=== PATIENT | male | born 1955 | race Caucasian/White ===

== ENCOUNTER 2016-08-27 09:56 | Inpatient (IN) | payer MEDICARE, OTHER ==
[2016-08-27 10:09] VITALS: BMI 30.5
--- NOTE | 2016-08-27 10:30 | CT ---
PROCEDURE: CT HEAD WITHOUT CONTRAST. HISTORY: Code Stroke COMPARISON: 03/04/2014. TECHNIQUE: Axial computed tomography images were obtained through the head/brain without intravenous contrast. Radiation dose: Total exam DLP = 1108.14 mGy-cm. FINDINGS: HEMORRHAGE: No intracranial hemorrhage. BRAIN: No mass effect or edema. No CT evidence of acute territorial infarct. Mild volume loss likely age related. Patchy and confluent hypodensities throughout the bilateral cerebral hemispheric white matter are most likely from chronic small vessel ischemic changes. Area of hypodensity in the posterior right lentiform nucleus remains essentially stable when compared to the prior CT from 03/04/2014. This likely represents old vascular injury. VENTRICLES: Unremarkable. No hydrocephalus. CALVARIUM: Unremarkable. PARANASAL SINUSES: Unremarkable as visualized. No significant inflammatory changes. MASTOID AIR CELLS: Unremarkable as visualized. No inflammatory changes. OTHER FINDINGS: None. IMPRESSION: No CT evidence of acute intracranial hemorrhage or acute territorial infarct. Acute infarction may be CT occult within first 24 hours. If a focal deficit persists, consider followup CT or MRI for further evaluation. Other findings as above. Discussed with Dr. Su at 10:26 a.m. on 08/27/2016.
[2016-08-27 10:38] LABS: BASO # 0.1 K/uL (0.0-0.2); BASO % 0.7 % (0.0-2.0); EOS % 0.1 % (0.0-4.0); HEMATOCRIT 35.4 % (35.0-51.0); LYMPH % 8.6 % (20.0-40.0); MEAN CELL VOLUME 95.2 fL (80.0-94.0); MEAN CORPUSCULAR HEMOGLOBIN 31.3 pg (27.0-31.0); MEAN CORPUSCULAR HGB CONC 32.9 g/dL (33.0-37.0); MEAN PLATELET VOLUME 7.6 fL (7.2-11.7); MONO # 0.8 K/uL (0.0-0.8); MONO % 6.7 % (0.0-10.0); PLATELET COUNT 191 K/uL (130-400); RED CELL DISTRIBUTION WIDTH 13.3 % (11.5-14.5); WHITE BLOOD COUNT 11.2 K/uL (4.8-10.8)
[2016-08-27 10:51] LABS: INR 1.1
[2016-08-27 10:53] LABS: POTASSIUM 5.6 mmol/L (3.6-5.2)
[2016-08-27 10:55] LABS: ALB/GLOB RATIO 1.4 (1.0-2.1); BILIRUBIN,TOTAL 0.5 mg/dL (0.2-1.3); TOTAL PROTEIN 7.5 g/dL (6.3-8.3)
[2016-08-27 10:56] LABS: CALCIUM 8.2 mg/dl (8.6-10.4)
[2016-08-27 11:05] LABS: TROPONIN I 0.016 ng/mL (0.00-0.120)
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
[2016-08-27 11:17] LABS: NEUTROPHIL 68 % (50-75); REACTIVE LYMPHOCYTES 2 % (0-0); TOTAL CELLS COUNTED 100
--- NOTE | 2016-08-27 11:49 | RAD ---
HISTORY: code stroke COMPARISON: 12/29/2014 FINDINGS: LUNGS: Mild increased pulmonary vascular congestion. PLEURA: No significant pleural effusion identified, no pneumothorax apparent. CARDIOVASCULAR: Mildly enlarged cardiomediastinal silhouette. OSSEOUS STRUCTURES: The osseous structures demonstrate degenerative changes. VISUALIZED UPPER ABDOMEN: Upper abdomen is suboptimally evaluated. OTHER FINDINGS: None. IMPRESSION: Mild increased pulmonary vascular congestion.
[2016-08-27] MEDS ORDERED: Albuterol 0.083% Inhal Sol (2.5 mg/3 mL) UD IH STA (12:06)
[2016-08-27] MEDS ORDERED: Calcium Gluconate 4.65 MEQ in Dextrose 5% In Water 100 ML IV ONE (12:06)
[2016-08-27] MEDS ORDERED: Albuterol 0.083% Inhal Sol (2.5 mg/3 mL) UD ONE (13:18)
[2016-08-27 14:17] LABS: VENOUS BLOOD GAS BASE EXCESS 5.8 mmol/L (0.0-2.0); VENOUS BLOOD GAS PCO2 55 mmHg (40-60); VENOUS BLOOD PH 7.38 (7.32-7.43)
[2016-08-27] MEDS ORDERED: POLYETHYLENE GLYCOL 3350 17 GM/Dose PACKET PO PRN (18:53)
[2016-08-27] MEDS ORDERED: Sodium Chloride 0.45% 1,000 ML IV SCH (19:45)
[2016-08-27] MEDS: (Novolin R) Insulin Human Regular 100 units/ml vial SC SCH (22:41)
[2016-08-28] MEDS: (Novolin R) Insulin Human Regular 100 units/ml vial SC SCH ×5 (00:03→21:27)
[2016-08-28] MEDS: Albuterol-Ipratrop 3 mg / 0.5 (3 ml) UD IH SCH ×5 (01:28→19:19)
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
--- NOTE | 2016-08-28 10:20 | CP.PCM.CON ---
History of Present Illness - History of Present Illness History of Present Illness: Shortness of breath for the last few days. Past Patient History - Tetanus Immunizations Tetanus Immunization: Unknown - Past Medical History & Family History Past Medical History?: Yes - Past Social History Smoking Status: Former Smoker - CARDIAC Hx Congestive Heart Failure: Yes Hx Hypercholesterolemia: Yes Hx Hypertension: Yes - PULMONARY Hx Pneumonia: Yes - NEUROLOGICAL Hx Seizures: Yes Hx Transient Ischemic Attacks (TIA): Yes - HEENT Hx HEENT Problems: Yes Hx Glaucoma: Yes (LEFT EYE) - RENAL Hx Chronic Kidney Disease: Yes (SEE COMMENT) Hx Kidney Stones: No - ENDOCRINE/METABOLIC Hx Diabetes Mellitus Type 1: Yes - HEMATOLOGICAL/ONCOLOGICAL Hx Anemia: Yes - INTEGUMENTARY Hx Dermatological Problems: No - MUSCULOSKELETAL/RHEUMATOLOGICAL Hx Falls: No - GASTROINTESTINAL Hx Gastrointestinal Disorders: No - GENITOURINARY/GYNECOLOGICAL Hx Genitourinary Disorders: No - PSYCHIATRIC Hx Substance Use: No - SURGICAL HISTORY Hx Coronary Stent: Yes (4 years ago) - ANESTHESIA Hx Anesthesia: Yes Hx Anesthesia Reactions: No Hx Malignant Hyperthermia: No Meds Allergies/Adverse Reactions: Allergies Allergy/AdvReac Type Severity Reaction Status Date / Time No Known Allergies Allergy Verified 08/27/16 10:16 - Medications Medications: Current Medications Acetaminophen (Tylenol 325mg Tab) 650 mg PO Q6 PRN PRN Reason: Fever >100.4 F Albuterol/Ipratropium (Duoneb 3 Mg/0.5 Mg (3 Ml) Ud) 3 ml IH RQ6 [facility] Last Admin: 08/28/16 07:25 Dose: 3 ml Allopurinol (Zyloprim) 100 mg PO DAILY [facility] Aspirin (Ecotrin) 81 mg PO DAILY [facility] Carbamazepine (Tegretol-Xr) 200 mg PO BID [facility] Cinacalcet (Sensipar) 30 mg PO DAILY [facility] Clopidogrel Bisulfate (Plavix) 75 mg PO DAILY [facility] Docusate Sodium (Colace) 100 mg PO BID [facility] Enoxaparin Sodium (Lovenox) 30 mg SC DAILY [facility] Famotidine (Pepcid) 20 mg PO DAILY [facility] Gabapentin (Neurontin) 400 mg PO HS [facility] Last Admin: 08/27/16 22:41 Dose: 400 mg Home Med (Linagliptin [Tradjenta]) 5 mg PO DAILY [facility] Home Med (Humalog Mix 75-25 Kwikpen) 10 units SQ DAILY [facility] Insulin Human Regular (Novolin R) 1 unit SC ACHS [facility] PRN Reason: Protocol Last Admin: 08/28/16 08:10 Dose: Not Given Lisinopril (Zestril) 10 mg PO DAILY [facility] Metoprolol Tartrate (Lopressor) 50 mg PO BID [facility] Midodrine (Proamatine) 5 mg PO DAILY [facility] Polyethylene Glycol (Miralax) 17 gm PO BID PRN PRN Reason: Constipation Rosuvastatin Calcium (Crestor) 10 mg PO [facility] Last Admin: 08/27/16 22:41 Dose: 10 mg Sevelamer Carbonate (Renvela) 2,400 mg PO TID [facility] Physical Exam - Neck Exam Neck exam: Positive for: Normal Inspection - Respiratory Exam Respiratory Exam: Decreased Breath Sounds - Cardiovascular Exam Cardiovascular Exam: Systolic Murmur (2/6 systolic murmur.) - GI/Abdominal Exam GI & Abdominal Exam: Normal Bowel Sounds - Extremities Exam Extremities exam: Positive for: normal inspection - Neurological Exam Neurological exam: Oriented x3 Results - Vital Signs Recent Vital Signs: Last Vital Signs Temp 98.1 F 08/28/16 08:16 Pulse 85 08/28/16 08:59 Resp 20 08/28/16 08:16 BP 115/57 L 08/28/16 08:16 Pulse Ox 96 08/28/16 09:29 - Labs Result Diagrams: 08/27/16 10:32 08/27/16 10:32 Labs: Laboratory Results - last 24 hr 08/27/16 08/27/16 08/27/16 14:12 17:02 17:36 pO2 42 VBG pH 7.38 VBG pCO2 55 VBG HCO3 28.9 VBG Total CO2 34.2 H VBG O2 Sat (Calc) 78.2 H VBG Base Excess 5.8 H VBG Potassium 5.2 Sodium 136.0 Chloride 100.0 Glucose 62 L Lactate 1.0 POC Glucose (mg/dL) 58 L 95 Venous Blood Potassium 5.2 08/27/16 08/28/16 21:15 06:27 pO2 VBG pH VBG pCO2 VBG HCO3 VBG Total CO2 VBG O2 Sat (Calc) VBG Base Excess VBG Potassium Sodium Chloride Glucose Lactate POC Glucose (mg/dL) 186 H 115 H Venous Blood Potassium - EKG Data EKG shows normal: Sinus rhythm Assessment & Plan (1) CHF (congestive heart failure) Assessment and Plan: Patient have multiple medical issues which wan lead to fluid overload. at present h ebonie sto be fluid overloaded, Given his history of ESRD and dialysis he may need to have extra sessions of dialysis. Also he has significant electrolytes abnormalities which need to be corrected. Status: Acute (2) TIA (transient ischemic attack) Assessment and Plan: At present appears to be alert and oriented will consider further cardiac work up after echocardiogram. Status: Acute (3) Acute CHF Assessment and Plan: As discussed earlier need to rule out any ischemic cause of Chf exacerbation follow troponin and continue DAPT. Status: Acute
[2016-08-28] MEDS ORDERED: Albumin Human 25% (12.5 gm/50 ml) IV ONE (12:08)
[2016-08-28] MEDS: Enoxaparin 30 mg Syringe SC SCH (14:16)
[2016-08-28] MEDS: Insulin Detemir 100 units/ml Vial (Levemir) SC SCH (21:30)
--- NOTE | 2016-08-28 23:32 | CP.PCM.CON ---
Past Patient History - Tetanus Immunizations Tetanus Immunization: Unknown - Past Medical History & Family History Past Medical History?: Yes - Past Social History Smoking Status: Former Smoker - CARDIAC Hx Congestive Heart Failure: Yes Hx Hypercholesterolemia: Yes Hx Hypertension: Yes - PULMONARY Hx Pneumonia: Yes - NEUROLOGICAL Hx Seizures: Yes Hx Transient Ischemic Attacks (TIA): Yes - HEENT Hx HEENT Problems: Yes Hx Glaucoma: Yes (LEFT EYE) - RENAL Hx Chronic Kidney Disease: Yes (SEE COMMENT) Hx Kidney Stones: No - ENDOCRINE/METABOLIC Hx Diabetes Mellitus Type 1: Yes - HEMATOLOGICAL/ONCOLOGICAL Hx Anemia: Yes - INTEGUMENTARY Hx Dermatological Problems: No - MUSCULOSKELETAL/RHEUMATOLOGICAL Hx Falls: No - GASTROINTESTINAL Hx Gastrointestinal Disorders: No - GENITOURINARY/GYNECOLOGICAL Hx Genitourinary Disorders: No - PSYCHIATRIC Hx Substance Use: No - SURGICAL HISTORY Hx Coronary Stent: Yes (4 years ago) - ANESTHESIA Hx Anesthesia: Yes Hx Anesthesia Reactions: No Hx Malignant Hyperthermia: No Meds Allergies/Adverse Reactions: Allergies Allergy/AdvReac Type Severity Reaction Status Date / Time No Known Allergies Allergy Verified 08/27/16 10:16 - Medications Medications: Current Medications Acetaminophen (Tylenol 325mg Tab) 650 mg PO Q6 PRN PRN Reason: Fever >100.4 F Albuterol/Ipratropium (Duoneb 3 Mg/0.5 Mg (3 Ml) Ud) 3 ml IH RQ6 [facility] Last Admin: 08/28/16 19:19 Dose: Not Given Allopurinol (Zyloprim) 100 mg PO DAILY [facility] Last Admin: 08/28/16 14:17 Dose: Not Given Aspirin (Ecotrin) 81 mg PO DAILY [facility] Last Admin: 08/28/16 14:16 Dose: Not Given Carbamazepine (Tegretol-Xr) 200 mg PO BID [facility] Last Admin: 08/28/16 17:32 Dose: 200 mg Cinacalcet (Sensipar) 30 mg PO DAILY [facility] Last Admin: 08/28/16 14:17 Dose: Not Given Clopidogrel Bisulfate (Plavix) 75 mg PO DAILY [facility] Last Admin: 08/28/16 14:16 Dose: Not Given Docusate Sodium (Colace) 100 mg PO BID [facility] Last Admin: 08/28/16 17:31 Dose: 100 mg Enoxaparin Sodium (Lovenox) 30 mg SC DAILY [facility] Last Admin: 08/28/16 14:16 Dose: Not Given Famotidine (Pepcid) 20 mg PO DAILY [facility] Last Admin: 08/28/16 14:16 Dose: Not Given Gabapentin (Neurontin) 400 mg PO [facility] Last Admin: 08/28/16 21:08 Dose: 400 mg Insulin Detemir (Levemir) 10 unit SC HS [facility] Last Admin: 08/28/16 21:30 Dose: 10 unit Insulin Human Regular (Novolin R) 0 unit SC [facility] PRN Reason: Protocol Last Admin: 08/28/16 21:27 Dose: Not Given Lisinopril (Zestril) 10 mg PO DAILY [facility] Last Admin: 08/28/16 14:17 Dose: Not Given Metoprolol Tartrate (Lopressor) 50 mg PO BID [facility] Last Admin: 08/28/16 17:31 Dose: 50 mg Midodrine (Proamatine) 5 mg PO DAILY [facility] Last Admin: 08/28/16 14:17 Dose: Not Given Polyethylene Glycol (Miralax) 17 gm PO BID PRN PRN Reason: Constipation Rosuvastatin Calcium (Crestor) 10 mg PO [facility] Last Admin: 08/28/16 21:08 Dose: 10 mg Sevelamer Carbonate (Renvela) 2,400 mg PO [facility] Sitagliptin Phosphate (Januvia) 25 mg PO DAILY [facility] Last Admin: 08/28/16 18:13 Dose: Not Given Results - Vital Signs Recent Vital Signs: Last Vital Signs Temp 99.2 F 08/28/16 15:00 Pulse 99 H 08/28/16 16:02 Resp 20 08/28/16 15:00 BP 129/72 08/28/16 15:00 Pulse Ox 97 08/28/16 15:00 - Labs Result Diagrams: 08/27/16 10:32 08/27/16 10:32 Assessment & Plan - Assessment and Plan (Free Text) Plan: esrd
[2016-08-29] MEDS: Albuterol-Ipratrop 3 mg / 0.5 (3 ml) UD IH SCH ×4 (01:39→19:20)
[2016-08-29] MEDS: (Novolin R) Insulin Human Regular 100 units/ml vial SC SCH ×4 (08:07→21:24)
--- NOTE | 2016-08-29 10:23 | PN ---
DATE: 08/28/2016 The patient is a 61-year-old male. The patient is seen and examined on the bedside, looks comfortabl e. No nausea, vomiting, or diarrhea. No hematuria, no hematochezia. No swelling of the legs. No h eadache, no dizziness. Feeling better. Shortness of breath is better. PHYSICAL EXAMINATION: VITAL SIGNS: Temperature 99.2, pulse 99, blood pressure 129/72, respiratory rate 20. HEENT: Head normocephalic, atraumatic. Eyes: PERRLA. Extraocular muscles intact. Conjunctivae pi nk. Eyelids unremarkable. Nose patent. NECK: Supple. No carotid bruit, no JVD, no thyromegaly. CHEST: Bilaterally symmetrical. HEART: S1, S2 positive. LUNGS: Clear to auscultation. ABDOMEN: Soft. Bowel sounds positive. No organomegaly. EXTREMITIES: No edema, no cyanosis. NEUROLOGIC: The patient is awake, alert, moving all 4 extremities. No focal deficit. MEDICATIONS: Colace, Crestor, aspirin, Januvia, Levemir, Lopressor, MiraLax, insulin, Pepcid, Plavix , ProAmatine, Renvela, Sensipar, carbamazepine, Tylenol, Zestril, allopurinol. LABORATORIES: White blood cells 11.0, hemoglobin 11.6, hematocrit 35.4, platelets 191. Glucose 311, 231, 115. ASSESSMENT AND PLAN: The patient is a 61-year-old male with leukocytosis, anemia, hyperkalemia, robby l insufficiency, uncontrolled diabetes mellitus, hemoglobin A1c is 8.1, hypocalcemia, hypertriglyceri demia. Seen by the disability advocate, Dr. Janneth Combs. According to him, shortness of breath is due t o exacerbation of congestive heart failure. After dialysis, hope will get better, maybe needs more c ycles of dialysis. Transient ischemic attack, but today patient is alert and oriented. According to Dr. Combs, maybe he will do echocardiography. CAT scan of the head is done, reviewed by me. The maira chiang has history of coronary artery disease, cerebrovascular accident with residual mild gait instab ility, hypertension, history of pneumonia, had arteriovenous shunt, seizures, transient ischemic malachi ck. Continue dialysis. Waiting for Dr. Clayton's followup. Gastrointestinal and deep venous thrombo sis prophylaxis. We will continue home medications, albuterol, Colace for constipation and Crestor f or hypercholesterolemia. He is getting Januvia and insulin for diabetes mellitus, metoprolol for hyp ertension, Lovenox for deep venous thrombosis prophylaxis. Repeat labs. We will follow up. Sabiha Blanca MD cc: [id number] TT: 08/29/2016 10:22:58 Confirmation # [id number] Dictation # [id number]
[2016-08-29] MEDS: Enoxaparin 30 mg Syringe SC SCH (10:34)
--- NOTE | 2016-08-29 19:51 | PN ---
DATE: 08/29/2016 The patient was seen and examined on the bedside, looks comfortable. His father was sitting on the b edside near him. Feels better. No nausea, vomiting, diarrhea. Shortness of breath is better. No f ever, no chills. No headache, no dizziness. Last night was uneventful. Had good sleep. PHYSICAL EXAMINATION: VITAL SIGNS: Temperature 98, heart rate 67, blood pressure 91/50, respiratory rate 18. HEAD: Normocephalic, atraumatic. Eyes: PERRLA. Extraocular muscles intact. Conjunctivae clear. E yelids unremarkable. Nose patent. Mucous membranes moist. NECK: Supple. No carotid bruit. No JVD or thyromegaly. CHEST: Bilaterally symmetrical. HEART: S1, S2 positive. LUNGS: Clear to auscultation. ABDOMEN: Soft. Bowel sounds present. No organomegaly. EXTREMITIES: No edema, no cyanosis. NEUROLOGIC: The patient is awake, alert, moving all 4 extremities. No focal deficit. MEDICATIONS: Colace, Crestor, Ecotrin, Januvia, Levemir, Lopressor, Lovenox, MiraLax, Neurontin, ins ulin, Pepcid, Plavix, midodrine, Renvela, Sensipar, Tegretol, Tylenol, Zestril, allopurinol. LABORATORY DATA: White blood cells 11.2, hemoglobin 11.6, hematocrit 35.9, platelets 191. ASSESSMENT AND PLAN: The patient is a 61-year-old male with leukocytosis, anemia, uncontrolled diabe jil mellitus, renal insufficiency on hemodialysis, hyperkalemia, hypocalcemia, hypertriglyceridemia. 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 Has renal insufficiency, came with exacerbation of conge stive heart failure. Getting dialysis. Transient ischemic attack. Maybe Tuesday patient will go for echocardiography. History of coronary artery disease, cerebrovascular accident, history of pneumoni a, hypertension, had arteriovenous shunt, seizures, transient ischemic attack. Gastrointestinal and deep venous thrombosis prophylaxis. Continue Crestor for hypercholesterolemia, Colace for constipati on, Januvia and Levemir for diabetes mellitus, Lopressor for hypertension, ProAir for breathing probl ems, allopurinol for gouty arthritis. Gastrointestinal and deep venous thrombosis prophylaxis. Will repeat labs. We will follow up. Sabiha Blanca MD cc: [id number] TT: 08/29/2016 19:49:55 Confirmation # [id number] Dictation # [id number] rn
[2016-08-29] MEDS: Insulin Detemir 100 units/ml Vial (Levemir) SC SCH (21:16)
--- NOTE | 2016-08-29 23:50 | CARD ---
APPROVED REPORT EKG Measurement Heart [id number] TX [id number] <Conclusion> Normal sinus rhythm NS ST T CHANGES in the lateral wall Normal ECG
[2016-08-30] MEDS: Albuterol-Ipratrop 3 mg / 0.5 (3 ml) UD IH SCH ×3 (01:37→14:09)
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
[2016-08-30 08:20] LABS: POTASSIUM 5.6 mmol/L (3.6-5.2)
[2016-08-30 08:24] LABS: CALCIUM 7.8 mg/dl (8.6-10.4)
[2016-08-30 08:35] LABS: HEMATOCRIT 33.3 % (35.0-51.0); MEAN CORPUSCULAR HEMOGLOBIN 32.3 pg (27.0-31.0); MEAN CORPUSCULAR HGB CONC 33.2 g/dL (33.0-37.0); MEAN PLATELET VOLUME 8.4 fL (7.2-11.7); RED CELL DISTRIBUTION WIDTH 13.7 % (11.5-14.5)
[2016-08-30 08:40] LABS: WHITE BLOOD COUNT 5.2 K/uL (4.8-10.8)
[2016-08-30] MEDS: (Novolin R) Insulin Human Regular 100 units/ml vial SC SCH ×2 (09:11→13:20)
[2016-08-30 11:05] VITALS: RESP 20
[2016-08-30] MEDS ORDERED: Albumin Human 25% (12.5 gm/50 ml) IV ONE (11:30)
--- NOTE | 2016-08-30 11:44 | CP.PCM.PN ---
Subjective - Date & Time of Evaluation Date of Evaluation: 08/30/16 Time of Evaluation: 11:15 - Subjective Subjective: Currently on dialysis comfortable supine Objective - Vital Signs/Intake and Output Vital Signs (last 24 hours): Temp Pulse Resp BP Pulse Ox 98.4 F 77 20 91/39 L 98 08/30/16 09:45 08/30/16 09:45 08/30/16 09:45 08/30/16 11:15 08/30/16 09:45 - Medications Medications: Current Medications Acetaminophen (Tylenol 325mg Tab) 650 mg PO Q6 PRN PRN Reason: Fever >100.4 F Albuterol/Ipratropium (Duoneb 3 Mg/0.5 Mg (3 Ml) Ud) 3 ml IH RQ6 [facility] Last Admin: 08/30/16 07:43 Dose: 3 ml Allopurinol (Zyloprim) 100 mg PO DAILY [facility] Last Admin: 08/29/16 10:30 Dose: 100 mg Aspirin (Ecotrin) 81 mg PO DAILY [facility] Last Admin: 08/29/16 10:31 Dose: 81 mg Carbamazepine (Tegretol-Xr) 200 mg PO BID [facility] Last Admin: 08/29/16 17:16 Dose: 200 mg Cinacalcet (Sensipar) 30 mg PO DAILY [facility] Last Admin: 08/29/16 10:30 Dose: 30 mg Clopidogrel Bisulfate (Plavix) 75 mg PO DAILY [facility] Last Admin: 08/29/16 10:30 Dose: 75 mg Docusate Sodium (Colace) 100 mg PO BID [facility] Last Admin: 08/29/16 17:17 Dose: 100 mg Enoxaparin Sodium (Lovenox) 30 mg SC DAILY [facility] Last Admin: 08/29/16 10:34 Dose: 30 mg Famotidine (Pepcid) 20 mg PO DAILY [facility] Last Admin: 08/29/16 10:11 Dose: 20 mg Gabapentin (Neurontin) 400 mg PO HS [facility] Last Admin: 08/29/16 21:16 Dose: 400 mg Insulin Detemir (Levemir) 10 unit SC HS [facility] Last Admin: 08/29/16 21:16 Dose: 10 unit Insulin Human Regular (Novolin R) 0 unit SC ACHS [facility] PRN Reason: Protocol Last Admin: 08/30/16 09:11 Dose: Not Given Lisinopril (Zestril) 10 mg PO DAILY [facility] Last Admin: 08/29/16 10:30 Dose: 10 mg Metoprolol Tartrate (Lopressor) 50 mg PO BID [facility] Last Admin: 08/29/16 17:17 Dose: 50 mg Polyethylene Glycol (Miralax) 17 gm PO BID PRN PRN Reason: Constipation Rosuvastatin Calcium (Crestor) 10 mg PO HS [facility] Last Admin: 08/29/16 21:16 Dose: 10 mg Sevelamer Carbonate (Renvela) 2,400 mg PO TIDCC [facility] Last Admin: 08/30/16 08:25 Dose: 2,400 mg Sitagliptin Phosphate (Januvia) 25 mg PO DAILY [facility] Last Admin: 08/29/16 10:30 Dose: 25 mg - Labs Labs: 08/30/16 07:52 08/30/16 07:52 PT 12.0 SECONDS (9.7-12.2) 08/27/16 10:32 INR 1.1 08/27/16 10:32 APTT 26 SECONDS (21-34) 08/27/16 10:32 - Respiratory Exam Respiratory Exam: NORMAL BREATHING PATTERN Additional comments: Lungs clear - Cardiovascular Exam Cardiovascular Exam: REGULAR RHYTHM - Extremities Exam Additional comments: No edema or cyanosis Assessment and Plan - Assessment and Plan (Free Text) Assessment: ESRD on maint HD CHF/volume overload improving Hx/o HTN DM Old CVA wit lt carter Plan: Receiving extra dialysis today Volume overload improving Hemodialysis MWF
[2016-08-30] MEDS: Enoxaparin 30 mg Syringe SC SCH (13:35)
--- NOTE | 2016-08-30 15:11 | CP.PCM.PN ---
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 F/U WITH HIM IN THE OFFICE IN 2 WEEKS, F/U ELIUD CASIANO IN 5-7 DAYS, HD SCHEDULE M//, CALL DR BRICEÑO OFFICE IF ANY FURTHER QUESTIONS, CONTINUE ALL HOME MEDS PER DR BRICEÑO, AGREE W/POC, VERBALIZE UNDERSTANDING. Objective - Vital Signs/Intake and Output Vital Signs (last 24 hours): Temp Pulse Resp BP Pulse Ox 98.5 F 70 20 110/47 L 100 08/30/16 12:45 08/30/16 12:45 08/30/16 12:45 08/30/16 12:45 08/30/16 12:45 - Medications Medications: Current Medications Acetaminophen (Tylenol 325mg Tab) 650 mg PO Q6 PRN PRN Reason: Fever >100.4 F Albuterol/Ipratropium (Duoneb 3 Mg/0.5 Mg (3 Ml) Ud) 3 ml IH RQ6 [facility] Last Admin: 08/30/16 14:09 Dose: Not Given Allopurinol (Zyloprim) 100 mg PO DAILY [facility] Last Admin: 08/30/16 13:36 Dose: 100 mg Aspirin (Ecotrin) 81 mg PO DAILY [facility] Last Admin: 08/30/16 13:36 Dose: 81 mg Carbamazepine (Tegretol-Xr) 200 mg PO BID [facility] Last Admin: 08/30/16 13:35 Dose: 200 mg Cinacalcet (Sensipar) 30 mg PO DAILY [facility] Last Admin: 08/30/16 13:35 Dose: 30 mg Clopidogrel Bisulfate (Plavix) 75 mg PO DAILY [facility] Last Admin: 08/30/16 13:36 Dose: 75 mg Docusate Sodium (Colace) 100 mg PO BID [facility] Last Admin: 08/30/16 13:36 Dose: 100 mg Enoxaparin Sodium (Lovenox) 30 mg SC DAILY [facility] Last Admin: 08/30/16 13:35 Dose: 30 mg Famotidine (Pepcid) 20 mg PO DAILY [facility] Last Admin: 08/30/16 13:36 Dose: 20 mg Gabapentin (Neurontin) 200 mg PO [facility] Insulin Detemir (Levemir) 10 unit SC HS [facility] Last Admin: 08/29/16 21:16 Dose: 10 unit Insulin Human Regular (Novolin R) 0 unit SC [facility] PRN Reason: Protocol Last Admin: 08/30/16 13:20 Dose: 2 unit Lisinopril (Zestril) 10 mg PO DAILY [facility] Last Admin: 08/30/16 13:36 Dose: 10 mg Metoprolol Tartrate (Lopressor) 50 mg PO BID [facility] Last Admin: 08/30/16 13:37 Dose: 50 mg Polyethylene Glycol (Miralax) 17 gm PO BID PRN PRN Reason: Constipation Rosuvastatin Calcium (Crestor) 10 mg PO HS [facility] Last Admin: 08/29/16 21:16 Dose: 10 mg Sevelamer Carbonate (Renvela) 2,400 mg PO TIDCC [facility] Last Admin: 08/30/16 13:37 Dose: 2,400 mg Sitagliptin Phosphate (Januvia) 25 mg PO DAILY [facility] Last Admin: 08/30/16 13:36 Dose: 25 mg - Labs Labs: 08/30/16 07:52 08/30/16 07:52 PT 12.0 SECONDS (9.7-12.2) 08/27/16 10:32 INR 1.1 08/27/16 10:32 APTT 26 SECONDS (21-34) 08/27/16 10:32
--- NOTE | 2016-08-30 15:55 | PCM.HF ---
Heart Failure Core Measure - Heart Failure Ejection Fraction: 40 % or Greater (LVEF 84%) SANDRA Inhibitor Prescribed: Yes Beta-Bernice Prescribed: Metoprolol Succinate Angiotensin II Receptor Bernice Prescribed: No Contraindication/Reason for not providing: ON SANDRA AnticoagulationTherapy for Atrial Fibrillation/Atrialflutter: Yes Aldosterone Antagonist Prescribed: No Contraindication/Reason for not providing: ESRD Hydralazine Nitrate Prescribed: No Contraindication/Reason for not providing: ESRD Implantable Cardioverter Defibrillator Therapy: No Contraindication/Reason for not providing: LVEF >40% Cardiac Resynchronization Therapy Prescribed: No Contraindication/Reason for not providing: LVEF >40% - Follow up Will be discharged to: Home Follow Up Date (must be within 7 days from discharge): 09/02/16 Follow Up Time: 09:00
[2016-08-30 16:33] VITALS: BP 138/65; PULSE 75; TEMP 98.3; O2SAT 96
== END 2016-08-30 17:40 | disposition home or self-care (01) | DRG 291 ==
LOC: C.ER 09:56 → C.9E 12:04 → C.6T 18:25 → OBSVTOIN 08-28 21:41
PROVIDERS: ADMIT Internal Medicine; ATTEND Internal Medicine
PROC: 5A1D00Z (ICD-10-PCS; principal; 2016-08-30)
DX: I13.2 Hypertensive heart and chronic kidney disease with heart failure and with stage 5 chronic kidney disease, or end stage renal disease (principal); G45.9 Transient cerebral ischemic attack, unspecified; N18.6 End stage renal disease; E11.22 Type 2 diabetes mellitus with diabetic chronic kidney disease; I50.9 Heart failure, unspecified; K59.00 Constipation, unspecified; M10.9 Gout, unspecified; E78.1 Pure hyperglyceridemia; E11.65 Type 2 diabetes mellitus with hyperglycemia; E83.51 Hypocalcemia; R26.81 Unsteadiness on feet; I25.10 Atherosclerotic heart disease of native coronary artery without angina pectoris; E87.5 Hyperkalemia; D64.9 Anemia, unspecified; D72.829 Elevated white blood cell count, unspecified; E78.00 Pure hypercholesterolemia, unspecified; R06.02 Shortness of breath; H40.9 Unspecified glaucoma; I69.354 Hemiplegia and hemiparesis following cerebral infarction affecting left non-dominant side; Z95.5 Presence of coronary angioplasty implant and graft; Z87.01 Personal history of pneumonia (recurrent); Z87.891 Personal history of nicotine dependence; Z79.4 Long term (current) use of insulin; Z99.2 Dependence on renal dialysis

== ENCOUNTER 2017-02-24 10:23 | Emergency (ER) | payer MEDICARE, OTHER ==
[2017-02-24 10:32] VITALS: RESP 18; TEMP 97.6
[2017-02-24 10:43] VITALS: BMI 33.5
[2017-02-24] MEDS ORDERED: Tetanus/Diphtheria Toxoids 0.5 ml Syringe IM ONE (10:51)
--- NOTE | 2017-02-24 11:20 | C.PDOC ---
History Of Present Illness 61 yr old male brought in via BLS, presents to the ER with complaints of left toe, 3rd digit injury, s/p banging it on the bed this morning. Patient reports of pain and swelling at the site. Patient has history of diabetes and neuropathy , states he is unable to feel his feet and often injures them. Patient is unsure of his tetanus status. Denies LOC, fall, weakness or numbness. Time Seen by Provider: 02/24/17 10:44 Chief Complaint (Nursing): Lower Extremity Problem/Injury History Per: Patient History/Exam Limitations: no limitations Onset/Duration Of Symptoms: Sudden Onset (Morning) Past Medical History Reviewed: Historical Data, Nursing Documentation, Vital Signs Vital Signs: Last Vital Signs Temp 97.6 F 02/24/17 10:30 Pulse 72 02/24/17 11:56 Resp 18 02/24/17 11:56 BP 139/78 02/24/17 11:56 Pulse Ox 96 02/24/17 12:04 - Medical History PMH: Anemia, CAD (ATHEROSCLEROSIS), CHF, CVA (with residual mild gait instability), Diabetes (NIDDM), HTN, Hypercholesterolemia, Pneumonia, End Stage Renal Disease (AV SHUNT, DIALYSIS (T-TH-SAT)), Chronic Kidney Disease (SEE COMMENT), Seizures, TIA Surgical History: Coronary Stent (4 years ago) - [facility] Procedures HEMODIALYSIS (12/29/14) PACKED CELL TRANSFUSION (03/05/14) PERFORMANCE OF URINARY FILTRATION, SINGLE (08/28/16) VACCINATION NEC (02/23/14) Family History: States: No Known Family Hx - Social History Hx Tobacco Use: No Hx Alcohol Use: No Hx Substance Use: No - Immunization History Hx Tetanus Toxoid Vaccination: No Hx Influenza Vaccination: Yes (2014) Hx Pneumococcal Vaccination: Yes (2014) Review Of Systems Except As Marked, All Systems Reviewed And Found Negative. Musculoskeletal: Positive for: Other ((+) Left foot, 3rd digit injury.). Negative for: Foot Pain Physical Exam - Physical Exam Appears: Non-toxic, No Acute Distress Skin: Warm, Dry, No Rash Head: Atraumatic, Normacephalic Oral Mucosa: Moist Chest: Symmetrical, No Tenderness Cardiovascular: Rhythm Regular, No Murmur Extremity: No Calf Tenderness, Capillary Refill (<2 sec), Other (Left Foot - Mild swelling, 3rd digit nail is avulsed. Mild bleeding at the right bulla at the dorsam of the 5th digit. Tender to palpation at all digits. ) Pulses: Left Dorsalis Pedis: Normal, Right Dorsalis Pedis: Normal Neurological/Psych: Oriented x3, Normal Speech, Normal Motor, Normal Sensation ED Course And Treatment O2 Sat by Pulse Oximetry: 96 (RA) Pulse Ox Interpretation: Normal - Other Rad X-Ray - Left Foot X-Ray: Viewed By Me, Read By Radiologist Interpretation: PROCEDURE: Left foot dated 02/24/2017. Three views of the left foot performed. HISTORY: Left foot injury. FINDINGS: The current study reveals no evidence of acute displaced fracture nor dislocation. Questionable fusion changes of the fifth metatarsal and cuboid as well as the 2nd metatarsal and 2nd cuneiform. Partial fusion of the 3rd cuneiform and proximal 3rd and 4th metatarsals not excluded. Multi articular DJD. Vascular calcifications are present. Impression: No evidence of acute displaced fracture nor dislocation. See above discussion for additional findings and details. Progress Note: PLAN: X-Ray - Left Foot, Bactrim PO, Keflex PO, Tylenol PO & Tetanus IM. Patient is brought UTD on Tetanus status. XRay was negative for fractures. Disposition Counseled Patient/Family Regarding: Studies Performed, Diagnosis, Need For Followup, Rx Given - Disposition Referrals: Clinic,Med Surg [Primary Care Provider] - Disposition: HOME/ ROUTINE Disposition Time: 11:25 Condition: STABLE Additional Instructions: SEGUIMIENTO CON PODIATRA DENTRO DE 1 SEMANA USE EL MEDICAMENTO DEL DOLOR KIMMY SE NECESITA ELEVATE FOOT TANTO POSIBLE DEVUELVA A LA BASHIR DE EMERGENCIA SI LOS SNTOMAS EMPEORARAN Prescriptions: Cephalexin [Keflex] 500 mg PO BID #14 capsule Naproxen [Naprosyn Tab] 375 mg PO BID PRN #15 tab PRN Reason: pain Sulfamethoxazole/Trimethoprim [Bactrim DS 800 mg-160 mg] 1 tab PO BID #14 tab Instructions: Foot Contusion (ED), Nail Avulsion (ED) Forms: [employer] ([place]ander) Print Language: GUATEMALAN - POA Present On Arrival: Falls Or Trauma - Clinical Impression Clinical Impression: Contusion, toe, Nail avulsion of toe - Scribe Statement The provider has reviewed the documentation as recorded by the Scribe Sade Sherman Provider Attestation: All medical record entries made by the Barney were at my direction and personally dictated by me. I have reviewed the chart and agree that the record accurately reflects my personal performance of the history, physical exam, medical decision making, and the department course for this patient. I have also personally directed, reviewed, and agree with the discharge instructions and disposition.
[2017-02-24] MEDS ORDERED: Bacitracin 500 Units/gm Oint Foilpak UD TOP ONE (11:21)
[2017-02-24] MEDS ORDERED: Bacitracin 500 Units/gm Oint Foilpak UD ONE ×2 (11:33→11:39)
[2017-02-24] MEDS ORDERED: Tmp-Smz 800 mg-160 mg DS Tab PO STA (11:35)
[2017-02-24] MEDS ORDERED: Tmp-Smz 800 mg-160 mg DS Tab ONE (11:37)
[2017-02-24 11:56] VITALS: BP 139/78; PULSE 72
[2017-02-24 12:00] VITALS: O2SAT 96
--- NOTE | 2017-02-24 13:27 | RAD ---
PROCEDURE: Left foot dated 02/24/2017 Three views of the left foot performed. HISTORY: Left foot injury FINDINGS: The current study reveals no evidence of acute displaced fracture nor dislocation. Questionable fusion changes of the fifth metatarsal and cuboid as well as the 2nd metatarsal and 2nd cuneiform. Partial fusion of the 3rd cuneiform and proximal 3rd and 4th metatarsals not excluded. Multi articular DJD. Vascular calcifications are present. Impression: No evidence of acute displaced fracture nor dislocation. See above discussion for additional findings and details.
== END 2017-02-24 11:58 | disposition home or self-care (01) ==
LOC: C.ER 10:23 → SUPCPDRO 10:23 → C.ER 11:58
DX: S91.205A Unspecified open wound of left lesser toe(s) with damage to nail, initial encounter (principal); S90.222A Contusion of left lesser toe(s) with damage to nail, initial encounter; W22.8XXA Striking against or struck by other objects, initial encounter

== ENCOUNTER 2017-03-07 15:25 | Inpatient (IN) | payer MEDICARE, OTHER ==
[2017-03-07 15:25] VITALS: BMI 33.5
[2017-03-07] MEDS ORDERED: Sodium Chloride 0.9% 1,000 ML IV ONE (19:44)
[2017-03-07] MEDS ORDERED: cefTRIAXone IV 1 gm in Dextros 50 ML IVPB ONE ×2 (19:46→20:02)
[2017-03-07] MEDS ORDERED: Sodium Chloride 0.9% 1,000 ML ONE (20:02)
--- NOTE | 2017-03-07 20:03 | C.PDOC ---
History Of Present Illness 61 year old male presents to the ED for evaluation of infected left foot dorsum wound with swelling and draining for approximately two weeks. 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 He denies injury, trauma, pain to the area, or fever. Chief Complaint (Nursing): Abnormal Skin Integrity History Per: Patient History/Exam Limitations: no limitations Onset/Duration Of Symptoms: Persistent (2 weeks ) Current Symptoms Are (Timing): Still Present Location Of Injury: Left: Foot Quality Of Symptoms: Swollen, Draining Recent travel outside of the [place]: No Past Medical History Reviewed: Historical Data, Nursing Documentation, Vital Signs Vital Signs: Last Vital Signs Temp 98.7 F 03/07/17 16:07 Pulse 81 03/07/17 16:07 Resp 18 03/07/17 16:07 BP 138/79 03/07/17 16:07 Pulse Ox 97 03/07/17 20:19 - Medical History PMH: Anemia, CAD (ATHEROSCLEROSIS), CHF, CVA (with residual mild gait instability), Diabetes (NIDDM), HTN, Hypercholesterolemia, Pneumonia, End Stage Renal Disease (AV SHUNT, DIALYSIS (T-TH-TUE)), Chronic Kidney Disease (SEE COMMENT), Seizures, TIA Surgical History: Coronary Stent (4 years ago) - [facility] HEMODIALYSIS (12/29/14) PACKED CELL TRANSFUSION (03/05/14) PERFORMANCE OF URINARY FILTRATION, SINGLE (08/28/16) VACCINATION NEC (02/23/14) Family History: States: Unknown Family Hx - Social History Hx Tobacco Use: No Hx Alcohol Use: No Hx Substance Use: No - Immunization History Hx Tetanus Toxoid Vaccination: No Hx Influenza Vaccination: Yes (2014) Hx Pneumococcal Vaccination: Yes (2014) Review Of Systems Constitutional: Negative for: Fever, Chills Cardiovascular: Negative for: Chest Pain, Palpitations Respiratory: Negative for: Cough, Shortness of Breath Gastrointestinal: Negative for: Nausea, Vomiting, Abdominal Pain, Diarrhea Skin: Positive for: Other (left food wound infection ) Neurological: Negative for: Weakness, Numbness Physical Exam - Physical Exam Appears: Non-toxic, No Acute Distress Skin: Warm, Dry Head: Atraumatic, Normacephalic Eye(s): bilateral: Normal Inspection, PERRL, EOMI Oral Mucosa: Moist Neck: Normal ROM, Supple Chest: Symmetrical, No Deformity Cardiovascular: Rhythm Regular, No Murmur Respiratory: Normal Breath Sounds, No Rales, No Rhonchi, No Wheezing Gastrointestinal/Abdominal: Soft, No Tenderness, No Distention, No Guarding, No Rebound Extremity: No Pedal Edema, No Calf Tenderness, No Swelling, Other (purulent discharge to distal aspect of left foot including interdigital area. ) ED Course And Treatment - Laboratory Results Result Diagrams: 03/07/17 20:08 03/07/17 20:08 O2 Sat by Pulse Oximetry: 97 (room air ) Progress Note: Blood work and labs were ordered. Patient was given cefTRIAXone and IV fluids. Disposition Discussed With : Katerine Elizondo Doctor Will See Patient In The: Hospital Counseled Patient/Family Regarding: Diagnosis - Disposition Disposition: HOSPITALIZED Disposition Time: 21:12 Condition: STABLE Forms: [facility] (Niuean) - Clinical Impression Clinical Impression: Cellulitis and abscess of toe of left foot, ESRD (end stage renal disease) on dialysis - Scribe Statement The provider has reviewed the documentation as recorded by the Scribgabriel Meredith All medical record entries made by the Alexibgabriel were at my direction and personally dictated by me. I have reviewed the chart and agree that the record accurately reflects my personal performance of the history, physical exam, medical decision making, and the department course for this patient. I have also personally directed, reviewed, and agree with the discharge instructions and disposition.
[2017-03-07 20:14] LABS: BASO # 0.1 K/uL (0.0-0.2); BASO % 1.2 % (0.0-2.0); EOS # 0.1 K/uL (0.0-0.7); EOS % 2.9 % (0.0-4.0); HEMATOCRIT 28.2 % (35.0-51.0); LYMPH # 1.1 K/uL (1.0-4.3); LYMPH % 23.1 % (20.0-40.0); MEAN CELL VOLUME 97.1 fL (80.0-94.0); MEAN CORPUSCULAR HEMOGLOBIN 33.1 pg (27.0-31.0); MEAN CORPUSCULAR HGB CONC 34.1 g/dL (33.0-37.0); MEAN PLATELET VOLUME 7.4 fL (7.2-11.7); MONO # 0.4 K/uL (0.0-0.8); MONO % 9.2 % (0.0-10.0); NRBC % 0.1 % (0.0-2.0); RED CELL DISTRIBUTION WIDTH 14.8 % (11.5-14.5); WHITE BLOOD COUNT 4.9 K/uL (4.8-10.8)
[2017-03-07 20:24] LABS: POTASSIUM 5.2 mmol/L (3.6-5.2)
[2017-03-07 20:26] LABS: ALB/GLOB RATIO 1.3 (1.0-2.1); BILIRUBIN,TOTAL 0.5 mg/dL (0.2-1.3); TOTAL PROTEIN 6.9 g/dL (6.3-8.3)
[2017-03-07 20:27] LABS: CALCIUM 8.1 mg/dl (8.6-10.4)
[2017-03-08] MEDS: (Lantus) Insulin Glargine, Recombinant SC SCH ×2 (01:06→21:48)
[2017-03-08] MEDS: Piperacill/Tazo 2.25gm in Dex 2.25 GM/50 ML BAG IVPB SCH ×4 (01:06→21:48)
[2017-03-08] MEDS ORDERED: INSULIN LISPRO 25 UNIT SQ SCH (07:30)
[2017-03-08] MEDS ORDERED: CARBAMAZEPINE 200 MG PO SCH (10:00)
[2017-03-08] MEDS ORDERED: MIDODRINE 5 MG PO SCH (10:00)
[2017-03-08] MEDS ORDERED: ARMODAFINIL 150 MG PO SCH (10:00)
[2017-03-08] MEDS ORDERED: Omega-3-Acid Ethyl Esters 1 GM Cap PO SCH ×2 (10:00→18:00)
[2017-03-08] MEDS ORDERED: Home Med 1 UNIT (Linaclotide [Linzess] 290 MCG) PO SCH (10:00)
--- NOTE | 2017-03-08 10:25 | CP.PCM.CON ---
Addendum entered and electronically signed by Annemarie Redmond DPM 03/08/17 12:34 : Foot x-ray ordered Original Note: <Annemarie Redmond - Last Filed: 03/08/17 12:21> History of Present Illness - History of Present Illness History of Present Illness: Podiatry Consult Note- Dr. Mello This is a 61 yo male patient w/ pmh anemia, CAD, CHF, CVA, NIDDM, HTN, HLD, Pneumonia,ESRD, Seizures, TIA who is seen at bedside today for left lower extremity cellulitis/ulcerations. Pt says that he was sent by his fruit raiser due to swelling and drainage of his foot for the past 2 weeks. Denies any injury /trauma to the foot. Denies f/n/v/c/sob/cp/weakness or dizziness at this time. Does admit to numbness/tingling of both feet and says he cannot feel his feet. Offers no other complaints. Review of Systems - Review of Systems Review of Systems: all systems reviewed and found negative except HPI Past Patient History - Tetanus Immunizations Tetanus Immunization: Unknown - Past Medical History & Family History Past Medical History?: Yes - Past Social History Smoking Status: Never Smoked - CARDIAC Hx Congestive Heart Failure: Yes Hx Hypercholesterolemia: Yes Hx Hypertension: Yes - PULMONARY Hx Pneumonia: Yes - NEUROLOGICAL Hx Seizures: Yes Hx Transient Ischemic Attacks (TIA): Yes - HEENT Hx HEENT Problems: Yes Hx Glaucoma: Yes (LEFT EYE) - RENAL Date of Last Dialysis Treatment: 03/05/17 - ENDOCRINE/METABOLIC Hx Diabetes Mellitus Type 1: Yes - HEMATOLOGICAL/ONCOLOGICAL Hx Anemia: Yes - INTEGUMENTARY Hx Dermatological Problems: No - MUSCULOSKELETAL/RHEUMATOLOGICAL Hx Falls: Yes - GASTROINTESTINAL Hx Gastrointestinal Disorders: No - GENITOURINARY/GYNECOLOGICAL Hx Genitourinary Disorders: No - PSYCHIATRIC Hx Substance Use: No - SURGICAL HISTORY Hx Coronary Stent: Yes (4 years ago) - ANESTHESIA Hx Anesthesia: Yes Hx Anesthesia Reactions: No Hx Malignant Hyperthermia: No Meds Allergies/Adverse Reactions: Allergies Allergy/AdvReac Type Severity Reaction Status Date / Time No Known Allergies Allergy Verified 02/24/17 10:43 - Medications Medications: Current Medications Allopurinol (Zyloprim) 100 mg PO DAILY [facility] Aspirin (Ecotrin) 81 mg PO DAILY [facility] Cinacalcet (Sensipar) 30 mg PO DAILY [facility] Clopidogrel Bisulfate (Plavix) 75 mg PO DAILY [facility] Famotidine (Pepcid) 20 mg PO DAILY [facility] Gabapentin (Neurontin) 400 mg PO HS [facility] Heparin Sodium (Porcine) (Heparin) 5,000 units SC Q12 [facility] Home Med (Armodafinil 150 Mg Tab [Nuvigil 150 Mg Tab]) 150 mg PO DAILY [facility] Home Med (Carbamazepine [Carbamazepine Er]) 200 mg PO BID [facility] Home Med (Linaclotide [Linzess]) 290 mcg PO DAILY [facility] Home Med (Midodrine [Proamatine]) 5 mg PO DAILY [facility] Piperacillin Sod/Tazobactam Sod (Zosyn 2.25 Gm Iv Premix) 2.25 gm in 50 mls @ 100 mls/hr IVPB Q8H [facility] Last Admin: 03/08/17 05:48 Dose: 100 mls/hr Vancomycin HCl 1 gm/ Sodium (Chloride) 250 mls @ 166.7 mls/hr IVPB DIAL [facility] Insulin Aspart (Novolog) 25 unit SC AC [facility] Insulin Glargine (Lantus) 25 unit SC HS [facility] Last Admin: 03/08/17 01:06 Dose: 25 units Mupirocin (Bactroban Ointment) 2 gm TOP DAILY [facility] Rharh-1-Yiky Ethyl Esters (Lovaza) 0.002 gm PO BID [facility] Rosuvastatin Calcium (Crestor) 10 mg PO HS [facility] Sevelamer Carbonate (Renvela) 3 mg PO TID [facility] Vitamin B Complex/Vit C/Folic Acid (Nephro-Vesna) 1 tab PO 0800 [facility] Physical Exam - Constitutional Appears: Non-toxic, No Acute Distress - Extremities Exam Extremities exam: Negative for: calf tenderness Additional comments: Bilateral lower extremity exam: VASC- faintly palpable DP pulses bl (PT pulses non-palp bl), skin temp runs warm to cool right foot and warm to warm left foot with increased calor noted to dorsum of foot, 3+ pitting edema noted to dorsum of feet and legs bl NEURO- pedal sensation is grossly diminished bl DERM- -Right: no open wounds or ulcerations, no erythema -Left: there is a superficial ulceration to lateral aspect midshaft left metatarsal with mixed fibrogranular base, there is sloughing of skin noted to dorsal aspect of all digits with wound bases mixed fibrogranular in nature with minimal serosang drainage, no purulence expressed, there is erythema noted to dorsum of midfoot extending distally and circumferentially to forefoot, no ascending cellulitis. No wounds probe to bone, no tracking or tunneling, no fluctuance, all digits are cold to touch and dusky in coloration and appear ischemic ORTHO- no gross deformities, no tenderness to palpation bl - Neurological Exam Neurological exam: Alert, CN II-XII Intact, Oriented x3 - Psychiatric Exam Psychiatric exam: Normal Affect, Normal Mood Results - Vital Signs Recent Vital Signs: Last Vital Signs Temp 98.1 F 03/08/17 07:15 Pulse 74 03/08/17 07:15 Resp 18 03/08/17 07:15 BP 152/71 H 03/08/17 07:15 Pulse Ox 97 03/08/17 07:15 - Labs Result Diagrams: 03/07/17 20:08 03/07/17 20:08 Labs: Laboratory Results - last 24 hr 03/07/17 03/07/17 03/07/17 20:08 20:08 23:57 WBC 4.9 RBC 2.90 L Hgb 9.6 L Hct 28.2 L MCV 97.1 H MCH 33.1 H MCHC 34.1 RDW 14.8 H Plt Count 220 MPV 7.4 Neut % (Auto) 63.6 Lymph % (Auto) 23.1 [place] % (Auto) 9.2 Eos % (Auto) 2.9 Baso % (Auto) 1.2 Neut # 3.1 Lymph # 1.1 [place] # 0.4 Eos # 0.1 Baso # 0.1 Sodium 137 Potassium 5.2 Chloride 92 L Carbon Dioxide 24 Anion Gap 26 H BUN 65 H Creatinine 11.3 H* Est GFR ( Amer) 6 Est GFR (Non-Af Amer) 5 POC Glucose (mg/dL) 218 H Random Glucose 181 H Calcium 8.1 L Total Bilirubin 0.5 AST 32 ALT 38 Alkaline Phosphatase 217 H Total Protein 6.9 Albumin 3.8 Globulin 3.1 Albumin/Globulin Ratio 1.3 03/08/17 06:31 WBC RBC Hgb Hct MCV MCH MCHC RDW Plt Count MPV Neut % (Auto) Lymph % (Auto) [place] % (Auto) Eos % (Auto) Baso % (Auto) Neut # Lymph # [place] # Eos # Baso # Sodium Potassium Chloride Carbon Dioxide Anion Gap BUN Creatinine Est GFR ( Amer) Est GFR (Non-Af Amer) POC Glucose (mg/dL) 292 H Random Glucose Calcium Total Bilirubin AST ALT Alkaline Phosphatase Total Protein Albumin Globulin Albumin/Globulin Ratio Assessment & Plan - Assessment and Plan (Free Text) Assessment: 61 yo male patient with 1) ulcerations/cellulitis to RLE 2/2 diabetic foot infection; 2) ischemia of all digits left foot Plan: Pt S&E at bedside Plan discussed with attending Dr. Mello and Dr. Elizondo, in detail Chart, labs and vitals reviewed: afebrile, no leukocytosis, blood glucose elevated (432) Consult placed for vascular (Dr. Gallardo), will f/u recommendations Low ext arterial duplex and AMBAR/PVR ordered ID on consult (Dr. Farrar): IV abx ordered Wound cx: results pending Wounds cleansed with saline, interspaces dressed with betadine gauze, wound dressed with bactroban and DSD Will follow <Grant Mello - Last Filed: 03/09/17 08:24> Meds - Medications Medications: Current Medications Allopurinol (Zyloprim) 100 mg PO DAILY [facility] Last Admin: 03/08/17 10:48 Dose: 100 mg Aspirin (Ecotrin) 81 mg PO DAILY [facility] Last Admin: 03/08/17 10:48 Dose: 81 mg Calcitriol (Rocaltrol) 1.5 mcg PO TTS [facility] Carbamazepine (Tegretol-Xr) 200 mg PO BID [facility] Last Admin: 03/08/17 21:05 Dose: 200 mg Cinacalcet (Sensipar) 30 mg PO DAILY [facility] Last Admin: 03/08/17 10:52 Dose: 30 mg Clopidogrel Bisulfate (Plavix) 75 mg PO DAILY [facility] Last Admin: 03/08/17 10:48 Dose: 75 mg Epoetin Santino (Procrit) 4,000 unit IV TTS [facility] Famotidine (Pepcid) 20 mg PO DAILY [facility] Last Admin: 03/08/17 10:48 Dose: 20 mg Gabapentin (Neurontin) 400 mg PO HS [facility] Last Admin: 03/08/17 21:05 Dose: 400 mg Heparin Sodium (Porcine) (Heparin) 5,000 units SC Q12 [facility] Last Admin: 03/08/17 21:05 Dose: 5,000 units Home Med (Linaclotide [Linzess]) 290 mcg PO DAILY [facility] Piperacillin Sod/Tazobactam Sod (Zosyn 2.25 Gm Iv Premix) 2.25 gm in 50 mls @ 100 mls/hr IVPB Q8H [facility] Last Admin: 03/09/17 05:48 Dose: 100 mls/hr Vancomycin/Sodium Chloride (Vancocin) 1 gm in 200 mls @ 133.333 mls/hr IVPB TUTHSA [facility] Stop: 03/13/17 13:01 Last Admin: 03/08/17 22:50 Dose: 133.333 mls/hr Insulin Aspart (Novolog) 25 unit SC AC [facility] Last Admin: 03/08/17 17:49 Dose: Not Given Insulin Glargine (Lantus) 25 unit SC HS [facility] Last Admin: 03/08/17 21:48 Dose: 25 units Modafinil (Provigil) 100 mg PO DAILY [facility] Mupirocin (Bactroban Ointment) 2 gm TOP DAILY [facility] Last Admin: 03/08/17 11:40 Dose: 1 oin Rosuvastatin Calcium (Crestor) 10 mg PO HS [facility] Last Admin: 03/08/17 21:10 Dose: 10 mg Sevelamer Carbonate (Renvela) 2,400 mg PO TIDCC [facility] Last Admin: 03/08/17 18:32 Dose: Not Given Vitamin B Complex/Vit C/Folic Acid (Nephro-Vesna) 1 tab PO 0800 [facility] Results - Vital Signs Recent Vital Signs: Last Vital Signs Temp 98.4 F 03/08/17 23:10 Pulse 98 H 03/08/17 23:10 Resp 20 03/08/17 23:10 BP 143/88 03/08/17 23:10 Pulse Ox 96 03/08/17 23:10 - Labs Result Diagrams: 03/07/17 20:08 03/07/17 20:08 Labs: Laboratory Results - last 24 hr 03/08/17 03/08/17 03/08/17 12:11 17:10 21:26 POC Glucose (mg/dL) 432 H* 94 233 H 03/09/17 06:20 POC Glucose (mg/dL) 219 H Assessment & Plan - Assessment and Plan (Free Text) Plan: as above .For vascular work up with Dr Gallardo . Labs and Chart reviewed..
--- NOTE | 2017-03-08 11:29 | CP.PCM.CON ---
History of Present Illness - History of Present Illness History of Present Illness: renal consult dictated Past Patient History - Tetanus Immunizations Tetanus Immunization: Unknown - Past Medical History & Family History Past Medical History?: Yes - Past Social History Smoking Status: Never Smoked - CARDIAC Hx Congestive Heart Failure: Yes Hx Hypercholesterolemia: Yes Hx Hypertension: Yes - PULMONARY Hx Pneumonia: Yes - NEUROLOGICAL Hx Seizures: Yes Hx Transient Ischemic Attacks (TIA): Yes - HEENT Hx HEENT Problems: Yes Hx Glaucoma: Yes (LEFT EYE) - RENAL Date of Last Dialysis Treatment: 03/05/17 - ENDOCRINE/METABOLIC Hx Diabetes Mellitus Type 1: Yes - HEMATOLOGICAL/ONCOLOGICAL Hx Anemia: Yes - INTEGUMENTARY Hx Dermatological Problems: No - MUSCULOSKELETAL/RHEUMATOLOGICAL Hx Falls: Yes - GASTROINTESTINAL Hx Gastrointestinal Disorders: No - GENITOURINARY/GYNECOLOGICAL Hx Genitourinary Disorders: No - PSYCHIATRIC Hx Substance Use: No - SURGICAL HISTORY Hx Coronary Stent: Yes (4 years ago) - ANESTHESIA Hx Anesthesia: Yes Hx Anesthesia Reactions: No Hx Malignant Hyperthermia: No Meds Allergies/Adverse Reactions: Allergies Allergy/AdvReac Type Severity Reaction Status Date / Time No Known Allergies Allergy Verified 02/24/17 10:43 - Medications Medications: Current Medications Allopurinol (Zyloprim) 100 mg PO DAILY [facility] Last Admin: 03/08/17 10:48 Dose: 100 mg Aspirin (Ecotrin) 81 mg PO DAILY [facility] Last Admin: 03/08/17 10:48 Dose: 81 mg Calcitriol (Rocaltrol) 1.5 mcg PO TTS [facility] Cinacalcet (Sensipar) 30 mg PO DAILY [facility] Last Admin: 03/08/17 10:52 Dose: 30 mg Clopidogrel Bisulfate (Plavix) 75 mg PO DAILY [facility] Last Admin: 03/08/17 10:48 Dose: 75 mg Epoetin Santino (Procrit) 4,000 unit IV TTS [facility] Famotidine (Pepcid) 20 mg PO DAILY [facility] Last Admin: 03/08/17 10:48 Dose: 20 mg Gabapentin (Neurontin) 400 mg PO [facility] Heparin Sodium (Porcine) (Heparin) 5,000 units SC Q12 [facility] Last Admin: 03/08/17 10:48 Dose: 5,000 units Home Med (Armodafinil 150 Mg Tab [Nuvigil 150 Mg Tab]) 150 mg PO DAILY [facility] Home Med (Carbamazepine [Carbamazepine Er]) 200 mg PO BID [facility] Home Med (Linaclotide [Linzess]) 290 mcg PO DAILY [facility] Piperacillin Sod/Tazobactam Sod (Zosyn 2.25 Gm Iv Premix) 2.25 gm in 50 mls @ 100 mls/hr IVPB Q8H [facility] Last Admin: 03/08/17 05:48 Dose: 100 mls/hr Vancomycin HCl 1 gm/ Sodium (Chloride) 250 mls @ 166.7 mls/hr IVPB DIAL [facility] Insulin Aspart (Novolog) 25 unit SC AC [facility] Insulin Glargine (Lantus) 25 unit SC HS [facility] Last Admin: 03/08/17 01:06 Dose: 25 units Mupirocin (Bactroban Ointment) 2 gm TOP DAILY [facility] [id number] Ethyl Esters (Lovaza) 0.002 gm PO BID [facility] Last Admin: 03/08/17 10:52 Dose: 0.002 gm Rosuvastatin Calcium (Crestor) 10 mg PO HS [facility] Sevelamer Carbonate (Renvela) 3 mg PO TID [facility] Vitamin B Complex/Vit C/Folic Acid (Nephro-Vesna) 1 tab PO 0800 [facility] Results - Vital Signs Recent Vital Signs: Last Vital Signs Temp 98.1 F 03/08/17 07:15 Pulse 74 03/08/17 07:15 Resp 18 03/08/17 07:15 BP 152/71 H 03/08/17 07:15 Pulse Ox 97 03/08/17 07:15 - Labs Result Diagrams: 03/07/17 20:08 03/07/17 20:08 Labs: Laboratory Results - last 24 hr 03/07/17 03/07/17 03/07/17 20:08 20:08 23:57 WBC 4.9 RBC 2.90 L Hgb 9.6 L Hct 28.2 L MCV 97.1 H MCH 33.1 H MCHC 34.1 RDW 14.8 H Plt Count 220 MPV 7.4 Neut % (Auto) 63.6 Lymph % (Auto) 23.1 [place] % (Auto) 9.2 Eos % (Auto) 2.9 Baso % (Auto) 1.2 Neut # 3.1 Lymph # 1.1 [place] # 0.4 Eos # 0.1 Baso # 0.1 Sodium 137 Potassium 5.2 Chloride 92 L Carbon Dioxide 24 Anion Gap 26 H BUN 65 H Creatinine 11.3 H* Est GFR ( Amer) 6 Est GFR (Non-Af Amer) 5 POC Glucose (mg/dL) 218 H Random Glucose 181 H Calcium 8.1 L Total Bilirubin 0.5 AST 32 ALT 38 Alkaline Phosphatase 217 H Total Protein 6.9 Albumin 3.8 Globulin 3.1 Albumin/Globulin Ratio 1.3 03/08/17 06:31 WBC RBC Hgb Hct MCV MCH MCHC RDW Plt Count MPV Neut % (Auto) Lymph % (Auto) [place] % (Auto) Eos % (Auto) Baso % (Auto) Neut # Lymph # [place] # Eos # Baso # Sodium Potassium Chloride Carbon Dioxide Anion Gap BUN Creatinine Est GFR ( Amer) Est GFR (Non-Af Amer) POC Glucose (mg/dL) 292 H Random Glucose Calcium Total Bilirubin AST ALT Alkaline Phosphatase Total Protein Albumin Globulin Albumin/Globulin Ratio
--- NOTE | 2017-03-08 12:02 | CP.PCM.CON ---
History of Present Illness - History of Present Illness History of Present Illness: 61 year old male presents to the ED for evaluation of infected left foot dorsum wound with swelling and draining for approximately two weeks. Patient was referred to ER from cyber security administrator and notes numbness of the left foot. He denies injury, trauma, pain to the area, or fever. - Medical History PMH: Anemia, CAD (ATHEROSCLEROSIS), CHF, CVA (with residual mild gait instability), Diabetes (NIDDM), HTN, Hypercholesterolemia, Pneumonia, End Stage Renal Disease (AV SHUNT, DIALYSIS (T-TH-TUE)), Chronic Kidney Disease (SEE COMMENT), Seizures, TIA Surgical History: Coronary Stent (4 years ago) - [facility] Procedures HEMODIALYSIS (12/29/14) PACKED CELL TRANSFUSION (03/05/14) PERFORMANCE OF URINARY FILTRATION, SINGLE (08/28/16) VACCINATION NEC (02/23/14) Review of Systems - Constitutional Constitutional: As Per HPI - EENT Eyes: absent: As Per HPI, Blind Spots, Blurred Vision, Change in Vision, Decreased Night Vision, Diplopia, Discharge, Dry Eye, Exophthalmos, Floaters, Irritation, Itchy Eyes, Loss of Peripheral Vision, Pain, Photophobia, Requires Corrective Lenses, Sees Flashes, Spots in Vision, Tunnel Vision, Other Visual Disturbances, Loss of Vision, Other Ears: absent: As Per HPI, Decreased Hearing, Ear Discharge, Ear Pain, Tinnitus, Abnormal Hearing, Disequilibrium, Dizziness, Other Nose/Mouth/Throat: absent: As Per HPI, Epistaxis, Nasal Congestion, Nasal Discharge, Nasal Obstruction, Nasal Trauma, Nose Pain, Post Nasal Drip, Sinus Pain, Sinus Pressure, Bleeding Gums, Change in Voice, Dental Pain, Dry Mouth, Dysphagia, Halitosis, Hoarsness, Lip Swelling, Mouth Lesions, Mouth Pain, Odynophagia, Sore Throat, Throat Swelling, Tongue Swelling, Facial Pain, Neck Pain, Neck Mass, Other - Cardiovascular Cardiovascular: absent: As Per HPI, Acrocyanosis, Chest Pain, Chest Pain at Rest , Chest Pain with Activity, Claudication, Diaphoresis, Dyspnea, Dyspnea on Exertion, Edema, Irregular Heart Rhythm, Pain Radiating to Arm/Neck/Jaw, Leg Edema, Leg Ulcers, Lightheadedness, Orthopnea, Palpitations, Paroxysmal Nocturnal Dyspnea, Pedal Edema, Radiating Pain, Rapid Heart Rate, Slow Heart Rate, Syncope, Other - Respiratory Respiratory: absent: As Per HPI, Cough, Dyspnea, Hemoptysis, Dyspnea on Exertion , Wheezing, Snoring, Stridor, Pain on Inspiration, Chest Congestion, Excessive Mucous Production, Change in Mucous Color, Pain with Coughing, Other - Gastrointestinal Gastrointestinal: absent: As Per HPI, Abdominal Pain, Belching, Bloating, Change in Bowel Habits, Change in Stool Character, Coffee Ground Emesis, Constipation, Cramping, Diarrhea, Dyspepsia, Dysphagia, Early Satiety, Excessive Flatus, Fecal Incontinence, Heartburn, Hematemesis, Hematochezia, Loose Stools, Melena, Nausea, Odynophagia, Temesmus, Vomiting, Other - Genitourinary Genitourinary: absent: As Per HPI, Change in Urinary Stream, Difficulty Urinating, Dysuria, Flank Pain, Hematuria, Pyuria, Nocturia, Urinary Incontinence, Urinary Frequency, Urinary Hesitance, Urinary Urgency, Voiding Freq/Small Amts, Freq UTI, Hx Renal/Bladder Calculi, Hx /Renal Surgery, Bladder Distension, Other - Musculoskeletal Musculoskeletal: absent: As Per HPI, Abnormal Gait, Arthralgias, Atrophy, Back Pain, Deformity, Joint Swelling, Limited Range of Motion, Loss of Height, Muscle Cramps, Muscle Weakness, Myalgias, Neck Pain, Numbness, Radiating Pain into Limb, Stiffness, Tingling, Other - Integumentary Integumentary: As Per HPI - Neurological Neurological: absent: As Per HPI, Abnormal Gait, Abnormal Hearing, Abnormal Movements, Abnormal Speech, Behavioral Changes, Burning Sensations, Confusion, Convulsions, Disequilibrium, Dizziness, Numbness, Focal Weakness, Frequent Falls , Headaches, Lack of Coordination, Loss of Vision, Memory Loss, Paresthesias, Radicular Pain, Restless Legs, Sensory Deficit, Syncope, Tingling, Tremor, Vertigo, Weakness, Other Visual Disturbances, Other - Psychiatric Psychiatric: absent: As Per HPI, Abnormal Sleep Pattern, Anhedonia, Anxiety, Auditory Hallucinations, Behavioral Changes, Change in Appetite, Change in Libido, Confusion, Depression, Difficulty Concentrating, Hallucinations, Homicidal Ideation, Hopelessness, Irritability, Memory Loss, Mood Swings, Panic Attacks, Paranoia, Suicidal Ideation, Visual Hallucinations, Tactile Hallucinations, Other - Endocrine Endocrine: absent: As Per HPI, Change in Body Appearance, Change in Libido, Cold Intolorance, Deepening of Voice, Excessive Sweating, Fatigue, Flushing, Heat Intolorance, Increase in Ring/Shoe/Hat Size, Palpitations, Polydipsia, Polyphagia, Polyuria, Other - Hematologic/Lymphatic Hematologic: absent: As Per HPI, Easy Bleeding, Easy Bruising, Lymphadenopathy, Other Past Patient History - Tetanus Immunizations Tetanus Immunization: Unknown - Past Medical History & Family History Past Medical History?: Yes - Past Social History Smoking Status: Never Smoked - CARDIAC Hx Congestive Heart Failure: Yes Hx Hypercholesterolemia: Yes Hx Hypertension: Yes - PULMONARY Hx Pneumonia: Yes - NEUROLOGICAL Hx Seizures: Yes Hx Transient Ischemic Attacks (TIA): Yes - HEENT Hx HEENT Problems: Yes Hx Glaucoma: Yes (LEFT EYE) - RENAL Date of Last Dialysis Treatment: 03/05/17 - ENDOCRINE/METABOLIC Hx Diabetes Mellitus Type 1: Yes - HEMATOLOGICAL/ONCOLOGICAL Hx Anemia: Yes - INTEGUMENTARY Hx Dermatological Problems: No - MUSCULOSKELETAL/RHEUMATOLOGICAL Hx Falls: Yes - GASTROINTESTINAL Hx Gastrointestinal Disorders: No - GENITOURINARY/GYNECOLOGICAL Hx Genitourinary Disorders: No - PSYCHIATRIC Hx Substance Use: No - SURGICAL HISTORY Hx Coronary Stent: Yes (4 years ago) - ANESTHESIA Hx Anesthesia: Yes Hx Anesthesia Reactions: No Hx Malignant Hyperthermia: No Meds Allergies/Adverse Reactions: Allergies Allergy/AdvReac Type Severity Reaction Status Date / Time No Known Allergies Allergy Verified 02/24/17 10:43 - Medications Medications: Current Medications Allopurinol (Zyloprim) 100 mg PO DAILY [facility] Last Admin: 03/08/17 10:48 Dose: 100 mg Aspirin (Ecotrin) 81 mg PO DAILY [facility] Last Admin: 03/08/17 10:48 Dose: 81 mg Calcitriol (Rocaltrol) 1.5 mcg PO TTS [facility] Carbamazepine (Tegretol-Xr) 200 mg PO BID [facility] Cinacalcet (Sensipar) 30 mg PO DAILY [facility] Last Admin: 03/08/17 10:52 Dose: 30 mg Clopidogrel Bisulfate (Plavix) 75 mg PO DAILY [facility] Last Admin: 03/08/17 10:48 Dose: 75 mg Epoetin Santino (Procrit) 4,000 unit IV TTS [facility] Famotidine (Pepcid) 20 mg PO DAILY [facility] Last Admin: 03/08/17 10:48 Dose: 20 mg Gabapentin (Neurontin) 400 mg PO [facility] Heparin Sodium (Porcine) (Heparin) 5,000 units SC Q12 [facility] Last Admin: 03/08/17 10:48 Dose: 5,000 units Home Med (Linaclotide [Linzess]) 290 mcg PO DAILY [facility] Home Med (Armodafinil 150 Mg Tab [Nuvigil 150 Mg Tab]) 150 mg PO DAILY [facility] Piperacillin Sod/Tazobactam Sod (Zosyn 2.25 Gm Iv Premix) 2.25 gm in 50 mls @ 100 mls/hr IVPB Q8H [facility] Last Admin: 03/08/17 05:48 Dose: 100 mls/hr Vancomycin HCl 1 gm/ Sodium (Chloride) 250 mls @ 166.7 mls/hr IVPB DIAL [facility] Insulin Aspart (Novolog) 25 unit SC AC [facility] Insulin Glargine (Lantus) 25 unit SC HS [facility] Last Admin: 03/08/17 01:06 Dose: 25 units Mupirocin (Bactroban Ointment) 2 gm TOP DAILY [facility] Last Admin: 03/08/17 11:40 Dose: 1 oin [id number] Ethyl Esters (Lovaza) 0.002 gm PO BID [facility] Rosuvastatin Calcium (Crestor) 10 mg PO HS [facility] Sevelamer Carbonate (Renvela) 3 mg PO TID [facility] Vitamin B Complex/Vit C/Folic Acid (Nephro-Vesna) 1 tab PO 0800 [facility] Physical Exam - Constitutional Appears: Non-toxic, Chronically Ill - Head Exam Head Exam: ATRAUMATIC, NORMAL INSPECTION, NORMOCEPHALIC - Eye Exam Eye Exam: EOMI, PERRL. absent: Scleral icterus - ENT Exam ENT Exam: Mucous Membranes Dry - Neck Exam Neck exam: Negative for: Lymphadenopathy - Respiratory Exam Respiratory Exam: Decreased Breath Sounds, Rhonchi - Cardiovascular Exam Cardiovascular Exam: REGULAR RHYTHM - GI/Abdominal Exam GI & Abdominal Exam: Diminished Bowel Sounds, Soft. absent: Tenderness - Rectal Exam Rectal Exam: Deferred - Exam Exam: NORMAL INSPECTION - Extremities Exam Extremities exam: Positive for: pedal edema, tenderness. Negative for: calf tenderness, pedal pulses present Additional comments: severe swelling forefoot with cellulitis - Back Exam Back exam: absent: CVA tenderness (L), CVA tenderness (R) - Neurological Exam Neurological exam: Alert, CN II-XII Intact, Oriented x3, Reflexes Normal - Psychiatric Exam Psychiatric exam: Depressed - Skin Skin Exam: Dry Results - Vital Signs Recent Vital Signs: Last Vital Signs Temp 98.1 F 03/08/17 07:15 Pulse 74 03/08/17 07:15 Resp 18 03/08/17 07:15 BP 152/71 H 03/08/17 07:15 Pulse Ox 97 03/08/17 07:15 - Labs Result Diagrams: 03/07/17 20:08 03/07/17 20:08 Labs: Laboratory Results - last 24 hr 03/07/17 03/07/17 03/07/17 20:08 20:08 23:57 WBC 4.9 RBC 2.90 L Hgb 9.6 L Hct 28.2 L MCV 97.1 H MCH 33.1 H MCHC 34.1 RDW 14.8 H Plt Count 220 MPV 7.4 Neut % (Auto) 63.6 Lymph % (Auto) 23.1 Yell % (Auto) 9.2 Eos % (Auto) 2.9 Baso % (Auto) 1.2 Neut # 3.1 Lymph # 1.1 Yell # 0.4 Eos # 0.1 Baso # 0.1 Sodium 137 Potassium 5.2 Chloride 92 L Carbon Dioxide 24 Anion Gap 26 H BUN 65 H Creatinine 11.3 H* Est GFR ( Amer) 6 Est GFR (Non-Af Amer) 5 POC Glucose (mg/dL) 218 H Random Glucose 181 H Calcium 8.1 L Total Bilirubin 0.5 AST 32 ALT 38 Alkaline Phosphatase 217 H Total Protein 6.9 Albumin 3.8 Globulin 3.1 Albumin/Globulin Ratio 1.3 03/08/17 06:31 WBC RBC Hgb Hct MCV MCH MCHC RDW Plt Count MPV Neut % (Auto) Lymph % (Auto) Yell % (Auto) Eos % (Auto) Baso % (Auto) Neut # Lymph # Yell # Eos # Baso # Sodium Potassium Chloride Carbon Dioxide Anion Gap BUN Creatinine Est GFR ( Amer) Est GFR (Non-Af Amer) POC Glucose (mg/dL) 292 H Random Glucose Calcium Total Bilirubin AST ALT Alkaline Phosphatase Total Protein Albumin Globulin Albumin/Globulin Ratio Assessment & Plan (1) Cellulitis and abscess of toe of left foot Status: Acute (2) ESRD on dialysis Status: Acute (3) Acute CHF Status: Acute (4) Altered mental status Status: Acute (5) Anemia Status: Acute Priority: High - Assessment and Plan (Free Text) Assessment: recc vascular eval,MRI, IV antibiotics r/o OM
[2017-03-08] MEDS: (Novolog) Insulin Aspart, Recombinant 100 u/ml 10 ml vial SC SCH ×2 (12:57→17:49)
--- NOTE | 2017-03-08 13:33 | CP.PCM.CON ---
History of Present Illness - History of Present Illness [facility] Dr Gall[facility] Pt is a 61M who presented to with non-healing left foot wound with associated erythema and swelling. Pt states the wound began about 2 weeks ago and has been progressively getting worse. He denies any pain but states the foot just feels numb. Denies f/c, n/v. Denies any trauma to the area. Being seen who requested vascular evaluation. Review of Systems - Review of Systems All systems: reviewed and no additional remarkable complaints except (as per hpi ) Past Patient History - Tetanus Immunizations Tetanus Immunization: Unknown - Past Medical History & Family History Past Medical History?: Yes - Past Social History Smoking Status: Never Smoked - CARDIAC Hx Congestive Heart Failure: Yes Hx Hypercholesterolemia: Yes Hx Hypertension: Yes - PULMONARY Hx Pneumonia: Yes - NEUROLOGICAL Hx Seizures: Yes Hx Transient Ischemic Attacks (TIA): Yes - HEENT Hx HEENT Problems: Yes Hx Glaucoma: Yes (LEFT EYE) - RENAL Date of Last Dialysis Treatment: 03/05/17 - ENDOCRINE/METABOLIC Hx Diabetes Mellitus Type 1: Yes - HEMATOLOGICAL/ONCOLOGICAL Hx Anemia: Yes - INTEGUMENTARY Hx Dermatological Problems: No - MUSCULOSKELETAL/RHEUMATOLOGICAL Hx Falls: Yes - GASTROINTESTINAL Hx Gastrointestinal Disorders: No - GENITOURINARY/GYNECOLOGICAL Hx Genitourinary Disorders: No - PSYCHIATRIC Hx Substance Use: No - SURGICAL HISTORY Hx Coronary Stent: Yes (4 years ago) - ANESTHESIA Hx Anesthesia: Yes Hx Anesthesia Reactions: No Hx Malignant Hyperthermia: No Meds Allergies/Adverse Reactions: Allergies Allergy/AdvReac Type Severity Reaction Status Date / Time No Known Allergies Allergy Verified 02/24/17 10:43 - Medications Medications: Current Medications Allopurinol (Zyloprim) 100 mg PO DAILY [facility] Last Admin: 03/08/17 10:48 Dose: 100 mg Aspirin (Ecotrin) 81 mg PO DAILY [facility] Last Admin: 03/08/17 10:48 Dose: 81 mg Calcitriol (Rocaltrol) 1.5 mcg PO TTS [facility] Carbamazepine (Tegretol-Xr) 200 mg PO BID [facility] Cinacalcet (Sensipar) 30 mg PO DAILY [facility] Last Admin: 03/08/17 10:52 Dose: 30 mg Clopidogrel Bisulfate (Plavix) 75 mg PO DAILY [facility] Last Admin: 03/08/17 10:48 Dose: 75 mg Epoetin Santino (Procrit) 4,000 unit IV TTS [facility] Famotidine (Pepcid) 20 mg PO DAILY [facility] Last Admin: 03/08/17 10:48 Dose: 20 mg Gabapentin (Neurontin) 400 mg PO HS [facility] Heparin Sodium (Porcine) (Heparin) 5,000 units SC Q12 [facility] Last Admin: 03/08/17 10:48 Dose: 5,000 units Home Med (Linaclotide [Linzess]) 290 mcg PO DAILY [facility] Home Med (Armodafinil 150 Mg Tab [Nuvigil 150 Mg Tab]) 150 mg PO DAILY [facility] Piperacillin Sod/Tazobactam Sod (Zosyn 2.25 Gm Iv Premix) 2.25 gm in 50 mls @ 100 mls/hr IVPB Q8H [facility] Last Admin: 03/08/17 05:48 Dose: 100 mls/hr Vancomycin/Sodium Chloride (Vancocin) 1 gm in 200 mls @ 133.333 mls/hr IVPB [facility] Stop: 03/13/17 13:01 Insulin Aspart (Novolog) 25 unit SC AC [facility] Last Admin: 03/08/17 12:57 Dose: 25 unit Insulin Glargine (Lantus) 25 unit SC HS [facility] Last Admin: 03/08/17 01:06 Dose: 25 units Mupirocin (Bactroban Ointment) 2 gm TOP DAILY [facility] Last Admin: 03/08/17 11:40 Dose: 1 oin [id number] Ethyl Esters (Lovaza) 0.002 gm PO BID [facility] Rosuvastatin Calcium (Crestor) 10 mg PO HS [facility] Sevelamer Carbonate (Renvela) 3 mg PO TID [facility] Vitamin B Complex/Vit C/Folic Acid (Nephro-Vesna) 1 tab PO 0800 [facility] Physical Exam - Constitutional Appears: Non-toxic, No Acute Distress - Respiratory Exam Respiratory Exam: absent: Accessory Muscle Use, Respiratory Distress - Extremities Exam Additional comments: left non-healing wound on ventral aspect of foot, erythematous, hot to touch Results - Vital Signs Recent Vital Signs: Last Vital Signs Temp 98.1 F 03/08/17 07:15 Pulse 74 03/08/17 07:15 Resp 18 03/08/17 07:15 BP 152/71 H 03/08/17 07:15 Pulse Ox 97 03/08/17 07:15 - Labs Result Diagrams: 03/07/17 20:08 03/07/17 20:08 Labs: Laboratory Results - last 24 hr 03/07/17 03/07/17 03/07/17 20:08 20:08 23:57 WBC 4.9 RBC 2.90 L Hgb 9.6 L Hct 28.2 L MCV 97.1 H MCH 33.1 H MCHC 34.1 RDW 14.8 H Plt Count 220 MPV 7.4 Neut % (Auto) 63.6 Lymph % (Auto) 23.1 [place] % (Auto) 9.2 Eos % (Auto) 2.9 Baso % (Auto) 1.2 Neut # 3.1 Lymph # 1.1 [place] # 0.4 Eos # 0.1 Baso # 0.1 Sodium 137 Potassium 5.2 Chloride 92 L Carbon Dioxide 24 Anion Gap 26 H BUN 65 H Creatinine 11.3 H* Est GFR ( Amer) 6 Est GFR (Non-Af Amer) 5 POC Glucose (mg/dL) 218 H Random Glucose 181 H Calcium 8.1 L Total Bilirubin 0.5 AST 32 ALT 38 Alkaline Phosphatase 217 H Total Protein 6.9 Albumin 3.8 Globulin 3.1 Albumin/Globulin Ratio 1.3 03/08/17 03/08/17 06:31 12:11 WBC RBC Hgb Hct MCV MCH MCHC RDW Plt Count MPV Neut % (Auto) Lymph % (Auto) [place] % (Auto) Eos % (Auto) Baso % (Auto) Neut # Lymph # [place] # Eos # Baso # Sodium Potassium Chloride Carbon Dioxide Anion Gap BUN Creatinine Est GFR ( Amer) Est GFR (Non-Af Amer) POC Glucose (mg/dL) 292 H 432 H* Random Glucose Calcium Total Bilirubin AST ALT Alkaline Phosphatase Total Protein Albumin Globulin Albumin/Globulin Ratio Assessment & Plan - Assessment and Plan (Free Text) Assessment: 61M with non-healing left foot cellulitis Plan: CTA abd/pel w/ ileo-femoral run-off cont dialysis as scheduled further recs pending imaging d/w Dr Sami Rivera, PGY3
[2017-03-08] MEDS: Vancomycin 1 gm/NS 200 ml 1 GM/200 ML BAG IVPB SCH ×2 (13:36→22:50)
[2017-03-09] MEDS: Piperacill/Tazo 2.25gm in Dex 2.25 GM/50 ML BAG IVPB SCH ×3 (05:48→21:59)
[2017-03-09] MEDS: (Novolog) Insulin Aspart, Recombinant 100 u/ml 10 ml vial SC SCH ×3 (08:00→17:47)
[2017-03-09] MEDS: Multivitamin Vitamin B Complex (Nephro-Vite) Tab PO SCH (08:00)
--- NOTE | 2017-03-09 08:29 | CP.PCM.PN ---
<Grant Mello - Last Filed: 03/09/17 08:30> Subjective - Date & Time of Evaluation Date of Evaluation: 03/09/17 Time of Evaluation: 08:26 - Subjective Subjective: 61 year old male seen for infected non healing ischemic wound left foot . Objective - Vital Signs/Intake and Output Vital Signs (last 24 hours): Temp Pulse Resp BP Pulse Ox 98.4 F 98 H 20 143/88 96 03/08/17 23:10 03/08/17 23:10 03/08/17 23:10 03/08/17 23:10 03/08/17 23:10 Intake and Output: 03/09/17 03/09/17 06:59 18:59 Intake Total 50 Balance 50 - Medications Medications: Current Medications Allopurinol (Zyloprim) 100 mg PO DAILY [facility] Last Admin: 03/08/17 10:48 Dose: 100 mg Aspirin (Ecotrin) 81 mg PO DAILY [facility] Last Admin: 03/08/17 10:48 Dose: 81 mg Calcitriol (Rocaltrol) 1.5 mcg PO TTS [facility] Carbamazepine (Tegretol-Xr) 200 mg PO BID [facility] Last Admin: 03/08/17 21:05 Dose: 200 mg Cinacalcet (Sensipar) 30 mg PO DAILY [facility] Last Admin: 03/08/17 10:52 Dose: 30 mg Clopidogrel Bisulfate (Plavix) 75 mg PO DAILY [facility] Last Admin: 03/08/17 10:48 Dose: 75 mg Epoetin Santino (Procrit) 4,000 unit IV TTS [facility] Famotidine (Pepcid) 20 mg PO DAILY [facility] Last Admin: 03/08/17 10:48 Dose: 20 mg Gabapentin (Neurontin) 400 mg PO HS [facility] Last Admin: 03/08/17 21:05 Dose: 400 mg Heparin Sodium (Porcine) (Heparin) 5,000 units SC Q12 [facility] Last Admin: 03/08/17 21:05 Dose: 5,000 units Home Med (Linaclotide [Linzess]) 290 mcg PO DAILY [facility] Piperacillin Sod/Tazobactam Sod (Zosyn 2.25 Gm Iv Premix) 2.25 gm in 50 mls @ 100 mls/hr IVPB Q8H [facility] Last Admin: 03/09/17 05:48 Dose: 100 mls/hr Vancomycin/Sodium Chloride (Vancocin) 1 gm in 200 mls @ 133.333 mls/hr IVPB TUTHSA [facility] Stop: 03/13/17 13:01 Last Admin: 03/08/17 22:50 Dose: 133.333 mls/hr Insulin Aspart (Novolog) 25 unit SC AC [facility] Last Admin: 03/08/17 17:49 Dose: Not Given Insulin Glargine (Lantus) 25 unit SC HS [facility] Last Admin: 03/08/17 21:48 Dose: 25 units Modafinil (Provigil) 100 mg PO DAILY [facility] Mupirocin (Bactroban Ointment) 2 gm TOP DAILY [facility] Last Admin: 03/08/17 11:40 Dose: 1 oin Rosuvastatin Calcium (Crestor) 10 mg PO HS [facility] Last Admin: 03/08/17 21:10 Dose: 10 mg Sevelamer Carbonate (Renvela) 2,400 mg PO TIDCC [facility] Last Admin: 03/08/17 18:32 Dose: Not Given Vitamin B Complex/Vit C/Folic Acid (Nephro-Vesna) 1 tab PO 0800 [facility] - Labs Labs: 03/07/17 20:08 03/07/17 20:08 Assessment and Plan - Assessment and Plan (Free Text) Plan: Pt seen and evaluated at bedside by myself this AM . Residents will re-eval later. awaiting CT angio. . <Annemarie Redmond - Last Filed: 03/09/17 18:51> Subjective - Subjective Subjective: Podiatry Progress Note-- Dr. Mello: 61 yo male pt seen at bedside this AM with Dr. Mello for infected, non-healing ischemic wounds of left foot. Pt is seen resting in the bedside chair with both legs elevated. Denies any pain or discomfort today (again relates that he is unable to feel both feet). Denies f/n/v/c/sob/cp at this time. Offers no other complaints. Objective - Vital Signs/Intake and Output Vital Signs (last 24 hours): Temp Pulse Resp BP Pulse Ox 97.6 F 70 20 188/75 H 98 03/09/17 15:08 03/09/17 15:08 03/09/17 15:08 03/09/17 15:08 03/09/17 15:08 Intake and Output: 03/09/17 03/09/17 06:59 18:59 Intake Total 50 450 Balance 50 450 - Medications Medications: Current Medications Allopurinol (Zyloprim) 100 mg PO DAILY [facility] Last Admin: 03/09/17 10:30 Dose: 100 mg Aspirin (Ecotrin) 81 mg PO DAILY [facility] Last Admin: 03/09/17 10:30 Dose: 81 mg Calcitriol (Rocaltrol) 1.5 mcg PO TTS [facility] Carbamazepine (Tegretol-Xr) 200 mg PO BID [facility] Last Admin: 03/09/17 17:47 Dose: 200 mg Cinacalcet (Sensipar) 30 mg PO DAILY [facility] Last Admin: 03/09/17 10:33 Dose: 30 mg Clopidogrel Bisulfate (Plavix) 75 mg PO DAILY [facility] Last Admin: 03/09/17 10:30 Dose: 75 mg Epoetin Santino (Procrit) 4,000 unit IV TTS [facility] Famotidine (Pepcid) 20 mg PO DAILY [facility] Last Admin: 03/09/17 10:31 Dose: 20 mg Gabapentin (Neurontin) 400 mg PO [facility] Last Admin: 03/08/17 21:05 Dose: 400 mg Heparin Sodium (Porcine) (Heparin) 5,000 units SC Q12 [facility] Last Admin: 03/09/17 10:45 Dose: 5,000 units Home Med (Linaclotide [Linzess]) 290 mcg PO DAILY [facility] Piperacillin Sod/Tazobactam Sod (Zosyn 2.25 Gm Iv Premix) 2.25 gm in 50 mls @ 100 mls/hr IVPB Q8H [facility] Last Admin: 03/09/17 05:48 Dose: 100 mls/hr Vancomycin/Sodium Chloride (Vancocin) 1 gm in 200 mls @ 133.333 mls/hr IVPB TUTHSA [facility] Stop: 03/13/17 13:01 Last Admin: 03/08/17 22:50 Dose: 133.333 mls/hr Insulin Aspart (Novolog) 25 unit SC AC [facility] Last Admin: 03/09/17 17:47 Dose: 25 unit Insulin Glargine (Lantus) 25 unit SC HS [facility] Last Admin: 03/08/17 21:48 Dose: 25 units Modafinil (Provigil) 100 mg PO DAILY [facility] Last Admin: 03/09/17 10:45 Dose: 100 mg Mupirocin (Bactroban Ointment) 2 gm TOP DAILY [facility] Last Admin: 03/09/17 10:36 Dose: 2 oin Rosuvastatin Calcium (Crestor) 10 mg PO HS [facility] Last Admin: 03/08/17 21:10 Dose: 10 mg Sevelamer Carbonate (Renvela) 2,400 mg PO TIDCC [facility] Last Admin: 03/09/17 17:47 Dose: 2,400 mg Vitamin B Complex/Vit C/Folic Acid (Nephro-Vesna) 1 tab PO 0800 [facility] Last Admin: 03/09/17 08:00 Dose: 1 tab - Labs Labs: 03/07/17 20:08 03/07/17 20:08 - Constitutional Appears: Non-toxic, No Acute Distress - Extremities Exam Extremities Exam: absent: Calf Tenderness Additional comments: BL LE exam: VASC- faintly palpable DP pulses bl (PT pulses non-palp bl), skin temp runs warm to cool right foot and warm to warm left foot with increased calor noted to dorsum of foot, 3+ pitting edema noted to dorsum of feet and legs bl NEURO- pedal sensation is grossly diminished bl DERM- -Right: no open wounds or ulcerations, no erythema -Left: there is a superficial ulceration to lateral aspect midshaft left metatarsal with mixed fibrogranular base, there is sloughing of skin noted to dorsal aspect of all digits with wound bases mixed fibrogranular in nature with minimal serosang drainage, no purulence expressed, there is erythema noted to dorsum of midfoot extending distally and circumferentially to forefoot, no ascending cellulitis. No wounds probe to bone, no tracking or tunneling, no fluctuance, all digits are cold to touch and dusky in coloration and appear ischemic ORTHO- no gross deformities, no tenderness to palpation bl - Neurological Exam Neurological Exam: Alert, Awake, Oriented x3 - Psychiatric Exam Psychiatric exam: Normal Affect, Normal Mood Assessment and Plan - Assessment and Plan (Free Text) Assessment: 61 yo male patient with 1) ulcerations/cellulitis to RLE 2/2 diabetic foot infection; 2) ischemia of all digits left foot Plan: Pt S&E at bedside Plan discussed with Dr Mello Chart, labs and vitals reviewed: afebrile, no leukocytosis, blood glucose elevated (432) Vascular on board (Dr. Gallardo): awaiting CTA Foot x-ray ordered: pending c/w IV abx as per ID (Dr. Farrar) WOund cx: gram + cocci (prelim) Wounds cleansed with saline, interspaces dressed with betadine gauze, wound dressed with bactroban and DSD Will follow
--- NOTE | 2017-03-09 09:22 | CON ---
DATE: 03/08/2017 INITIAL NEPHROLOGY CONSULTATION CHIEF COMPLAINT: Left foot wound and infection. HISTORY OF PRESENT ILLNESS: The patient is a 61-year-old male with history of ESRD, on hemodialysis by left AV fistula for the last 7 years, also history of anemia, CAD, history of stroke, diabetes mellitus, hypertension, hyperlipidemia, and seizures, presented to the hospital complaining of the left lower extremity wound infection and ulceration and being admitted for concern for infection. Besides that, the patient also reports swelling in the bilateral legs. He denies shortness of breath. No other complaints. Also, the drainage has been in the feet for the last 2 weeks, progressively worsening. FAMILY HISTORY: No history of CKD or dialysis. REVIEW OF SYSTEMS: GENERAL: The patient otherwise feels in his usual health. Denied any fever or chills. Denied any weight changes. NEUROLOGIC: Denied any headache, tingling, numbness or dizziness. Denied any weakness. EYES: Denied any watery changes or report of visual impairment. ENT: Denied any ear pain, sore throat or congestion. CARDIOVASCULAR: Denied any chest pain, palpitation or dizziness. RESPIRATORY: Denied any shortness of breath, cough or phlegm. GASTROINTESTINAL: Denied any nausea, vomiting, constipation or diarrhea. GENITOURINARY: The patient makes small amount of urine, but otherwise denied any associated blood or pain. MUSCULOSKELETAL: Denied any joint pain or joint swelling. leg swelling. SKIN: Denied any rash and does report ulceration and wound in the left foot. PSYCHIATRIC: Denied any anxiety or depression. HEMATOLOGIC: Denied any active bleeding. LYMPHATIC: Denied any lymph node swelling. PHYSICAL EXAMINATION: GENERAL: The patient was seen in his room, appears comfortable, not in acute distress. VITAL SIGNS: Afebrile, pulse 74, blood pressure 152/71, saturation is well maintained, respirations 18. EYES: Bilateral pupils reactive. Conjunctivae are normal. No pallor and no icterus in the conjunctivae. ENT: Oral cavity: Normal pharynx. Normal mucosa. No rash, ulceration or thrush. NECK: Supple. No lymphadenopathy. No bruits. No thyromegaly. CARDIOVASCULAR: S1 and S2 normal. No murmur. No gallop or rub. His rhythm appears to be normal. RESPIRATORY: Bilateral vesicular sounds, bilateral air entry normal, symmetrical. No added sound. ABDOMEN: Soft and nontender. No organomegaly could be appreciated. No ascites. GENITOURINARY: Kidney and bladder not palpable. EXTREMITIES: Bilateral legs, 2+ pitting edema was present. Left foot was dressed. There were some drain noted at the toes area. NEUROLOGIC: The patient is alert, awake, oriented x3. Moving all 4 extremities. Strength is intact. No focal deficits. PSYCHIATRIC: The patient is pleasant and cooperative. Judgement is appropriate. Affect is normal. Insight is present as well. LYMPHATIC: No lymphadenopathy could be appreciated in the neck. MUSCULOSKELETAL: No joint tenderness or swelling except left foot swelling, presumed more prominent pronounced than the right one. WORKUP: As noted in the consult. ASSESSMENT: 1. Left foot wound and infection secondary to cellulitis. 2. End-stage renal disease, on hemodialysis via arteriovenous fistula. 3. Diabetes, chronic kidney disease and hypertensive chronic kidney disease. 4. Anemia. 5. Secondary hyperparathyroidism. 6. Hyperphosphatemia. 7. History of coronary artery disease. 8. History of seizure disorders. RECOMMENDATIONS: The patient will be planned for dialysis today. Blood pressure has been on the high side. The patient has been having edema. Hence, we will discontinue midodrine at this time. We will add multivitamin per day. He is also on Renvela for his phosphorus control. Please check phosphorus with next set of lab. We will also add Epogen during dialysis. The patient is already on Sensipar 30 mg daily as an outpatient. Also get calcitriol 1.5 mcg with each dialysis which will be added. Antibiotic as per the Podiatry and primary team. All questions were answered. Dose meds for GFR less than 10 for dialysis . Avoid Fleet enemas and magnesium-based laxatives. Avoid nephrotoxins. Thank you for the consultation. Please call if any questions. Zaheer Mendes MD
--- NOTE | 2017-03-09 09:48 | CP.PCM.PN ---
Subjective - Date & Time of Evaluation Date of Evaluation: 03/09/17 Time of Evaluation: 09:45 - Subjective Subjective: Surgery Pt s&e. NAEON. Pt has dressing in place. C/D/I. Denies F/C/N/V/D/CP/SOB. Objective - Vital Signs/Intake and Output Vital Signs (last 24 hours): Temp Pulse Resp BP Pulse Ox 97.4 F L 72 20 147/66 98 03/09/17 07:15 03/09/17 07:15 03/09/17 07:15 03/09/17 07:15 03/09/17 07:15 Intake and Output: 03/09/17 03/09/17 06:59 18:59 Intake Total 50 Balance 50 - Medications Medications: Current Medications Allopurinol (Zyloprim) 100 mg PO DAILY [facility] Last Admin: 03/08/17 10:48 Dose: 100 mg Aspirin (Ecotrin) 81 mg PO DAILY [facility] Last Admin: 03/08/17 10:48 Dose: 81 mg Calcitriol (Rocaltrol) 1.5 mcg PO TTS [facility] Carbamazepine (Tegretol-Xr) 200 mg PO BID [facility] Last Admin: 03/08/17 21:05 Dose: 200 mg Cinacalcet (Sensipar) 30 mg PO DAILY [facility] Last Admin: 03/08/17 10:52 Dose: 30 mg Clopidogrel Bisulfate (Plavix) 75 mg PO DAILY [facility] Last Admin: 03/08/17 10:48 Dose: 75 mg Epoetin Santino (Procrit) 4,000 unit IV TTS [facility] Famotidine (Pepcid) 20 mg PO DAILY [facility] Last Admin: 03/08/17 10:48 Dose: 20 mg Gabapentin (Neurontin) 400 mg PO HS [facility] Last Admin: 03/08/17 21:05 Dose: 400 mg Heparin Sodium (Porcine) (Heparin) 5,000 units SC Q12 [facility] Last Admin: 03/08/17 21:05 Dose: 5,000 units Home Med (Linaclotide [Linzess]) 290 mcg PO DAILY [facility] Piperacillin Sod/Tazobactam Sod (Zosyn 2.25 Gm Iv Premix) 2.25 gm in 50 mls @ 100 mls/hr IVPB Q8H [facility] Last Admin: 03/09/17 05:48 Dose: 100 mls/hr Vancomycin/Sodium Chloride (Vancocin) 1 gm in 200 mls @ 133.333 mls/hr IVPB TUTHSA [facility] Stop: 03/13/17 13:01 Last Admin: 03/08/17 22:50 Dose: 133.333 mls/hr Insulin Aspart (Novolog) 25 unit SC AC [facility] Last Admin: 03/09/17 08:00 Dose: 25 unit Insulin Glargine (Lantus) 25 unit SC [facility] Last Admin: 03/08/17 21:48 Dose: 25 units Modafinil (Provigil) 100 mg PO DAILY [facility] Mupirocin (Bactroban Ointment) 2 gm TOP DAILY [facility] Last Admin: 03/08/17 11:40 Dose: 1 oin Rosuvastatin Calcium (Crestor) 10 mg PO HS [facility] Last Admin: 03/08/17 21:10 Dose: 10 mg Sevelamer Carbonate (Renvela) 2,400 mg PO TIDCC [facility] Last Admin: 03/09/17 08:50 Dose: 2,400 mg Vitamin B Complex/Vit C/Folic Acid (Nephro-Vesna) 1 tab PO 0800 [facility] - Labs Labs: 03/07/17 20:08 03/07/17 20:08 - Constitutional Appears: No Acute Distress - Head Exam Head Exam: ATRAUMATIC, NORMAL INSPECTION, NORMOCEPHALIC - Eye Exam Eye Exam: EOMI, Normal appearance, PERRL Pupil Exam: NORMAL ACCOMODATION, PERRL - ENT Exam ENT Exam: Mucous Membranes Moist, Normal Exam - Neck Exam Neck Exam: Full ROM, Normal Inspection. absent: Lymphadenopathy - Respiratory Exam Respiratory Exam: Clear to Ausculation Bilateral, NORMAL BREATHING PATTERN - Cardiovascular Exam Cardiovascular Exam: REGULAR RHYTHM, +S1, +S2. absent: Murmur - GI/Abdominal Exam GI & Abdominal Exam: Soft, Normal Bowel Sounds. absent: Tenderness - Extremities Exam Extremities Exam: Tenderness. absent: Full ROM Additional comments: L LE has dressing. C/D/I. - Back Exam Back Exam: NORMAL INSPECTION - Neurological Exam Neurological Exam: Alert, Awake, CN II-XII Intact, Normal Gait, Oriented x3 - Psychiatric Exam Psychiatric exam: Normal Affect, Normal Mood - Skin Skin Exam: Dry, Erythema, Intact, Warm Additional comments: b/l LE discoloration. Assessment and Plan - Assessment and Plan (Free Text) Assessment: 61M with non-healing left foot cellulitis Plan: f/u CTA abd/pel w/ ileo-femoral run-off cont dialysis as scheduled further recs pending imaging d/w Dr Gallardo
[2017-03-09] MEDS ORDERED: ARMODAFINIL 150 MG PO SCH (10:00)
[2017-03-09] MEDS ORDERED: Home Med 1 UNIT (Linaclotide [Linzess] 290 MCG) PO SCH (10:00)
--- NOTE | 2017-03-09 11:38 | VASCLAB ---
STUDY DESCRIPTION: HISTORY: non-palpable pedal pulses, cold digits (L foot) PRIORS: None. TECHNIQUE: Pulse volume recording waveforms and segmental pressures of bilateral lower extremities at multiple levels were obtained. Ankle Brachial Indices (ABIs) were calculated. Report prepared by AUDRA Hennessy, RVT RIGHT LOWER EXTREMITY: * Brachial artery: Pressure - 139 mmHg. * High thigh: Pressure - mmHg: Ratio - : PVR waveform - * Low thigh: Pressure - 146 mmHg: Ratio - 1.05 PVR waveform: Pulsatile * Calf: Pressure - 158 mmHg: Ratio - 1.14 PVR waveform: Pulsatile * Posterior tibial Artery: Pressure - 166 mmHg: Ratio - 1.19 PVR waveform: Pulsatile * Dorsalis pedis Artery: Pressure - 121 mmHg: Ratio - 0.87 PVR waveform: Pulsatile * Great toe: Pressure - mmHg: Ratio - PVR waveform: Ankle brachial index (AMBAR): 1.19 LEFT LOWER EXTREMITY: * Brachial artery: Pressure - mmHg. * High thigh: Pressure - mmHg: Ratio - : PVR waveform - * Low thigh: Pressure - 137 mmHg: Ratio - 0.99 PVR waveform: Pulsatile * Calf: Pressure - 156 mmHg: Ratio - 1.12 PVR waveform: Pulsatile * Posterior tibial Artery: Pressure - 146 mmHg: Ratio - 1.05 PVR waveform: Pulsatile * Dorsalis pedis Artery: Pressure - 156 mmHg: Ratio - 1.12 PVR waveform: Pulsatile * Great toe: Pressure - mmHg: Ratio - PVR waveform: Ankle brachial index (AMBAR): 1.12 OTHER FINDINGS: Right: Left: IMPRESSION: Right: There was no evidence of hemodynamically significant arterial insufficiency in the right lower extremity. Left: There was no evidence of hemodynamically significant arterial insufficiency in the left lower extremity.
--- NOTE | 2017-03-09 14:32 | CP.PCM.PN ---
Subjective - Date & Time of Evaluation Date of Evaluation: 03/09/17 Time of Evaluation: 09:00 - Subjective Subjective: s/p debridement iv rx in progress Objective - Vital Signs/Intake and Output Vital Signs (last 24 hours): Temp Pulse Resp BP Pulse Ox 97.4 F L 72 20 147/66 98 03/09/17 07:15 03/09/17 07:15 03/09/17 07:15 03/09/17 07:15 03/09/17 07:15 Intake and Output: 03/09/17 03/09/17 06:59 18:59 Intake Total 50 Balance 50 - Medications Medications: Current Medications Allopurinol (Zyloprim) 100 mg PO DAILY [facility] Last Admin: 03/09/17 10:30 Dose: 100 mg Aspirin (Ecotrin) 81 mg PO DAILY [facility] Last Admin: 03/09/17 10:30 Dose: 81 mg Calcitriol (Rocaltrol) 1.5 mcg PO TTS [facility] Carbamazepine (Tegretol-Xr) 200 mg PO BID [facility] Last Admin: 03/09/17 10:00 Dose: 200 mg Cinacalcet (Sensipar) 30 mg PO DAILY [facility] Last Admin: 03/09/17 10:33 Dose: 30 mg Clopidogrel Bisulfate (Plavix) 75 mg PO DAILY [facility] Last Admin: 03/09/17 10:30 Dose: 75 mg Epoetin Santino (Procrit) 4,000 unit IV TTS [facility] Famotidine (Pepcid) 20 mg PO DAILY [facility] Last Admin: 03/09/17 10:31 Dose: 20 mg Gabapentin (Neurontin) 400 mg PO HS [facility] Last Admin: 03/08/17 21:05 Dose: 400 mg Heparin Sodium (Porcine) (Heparin) 5,000 units SC Q12 [facility] Last Admin: 03/09/17 10:45 Dose: 5,000 units Home Med (Linaclotide [Linzess]) 290 mcg PO DAILY [facility] Piperacillin Sod/Tazobactam Sod (Zosyn 2.25 Gm Iv Premix) 2.25 gm in 50 mls @ 100 mls/hr IVPB Q8H [facility] Last Admin: 03/09/17 05:48 Dose: 100 mls/hr Vancomycin/Sodium Chloride (Vancocin) 1 gm in 200 mls @ 133.333 mls/hr IVPB TUTHSA [facility] Stop: 03/13/17 13:01 Last Admin: 03/08/17 22:50 Dose: 133.333 mls/hr Insulin Aspart (Novolog) 25 unit SC AC [facility] Last Admin: 03/09/17 11:46 Dose: Not Given Insulin Glargine (Lantus) 25 unit SC HS [facility] Last Admin: 03/08/17 21:48 Dose: 25 units Modafinil (Provigil) 100 mg PO DAILY [facility] Last Admin: 03/09/17 10:45 Dose: 100 mg Mupirocin (Bactroban Ointment) 2 gm TOP DAILY [facility] Last Admin: 03/09/17 10:36 Dose: 2 oin Rosuvastatin Calcium (Crestor) 10 mg PO HS [facility] Last Admin: 03/08/17 21:10 Dose: 10 mg Sevelamer Carbonate (Renvela) 2,400 mg PO TIDCC [facility] Last Admin: 03/09/17 12:00 Dose: 2,400 mg Vitamin B Complex/Vit C/Folic Acid (Nephro-Vesna) 1 tab PO 0800 [facility] Last Admin: 03/09/17 08:00 Dose: 1 tab - Labs Labs: 03/07/17 20:08 03/07/17 20:08 - Constitutional Appears: Non-toxic, Chronically Ill - Head Exam Head Exam: NORMOCEPHALIC - Eye Exam Eye Exam: PERRL - ENT Exam ENT Exam: Mucous Membranes Dry, Normal External Ear Exam - Neck Exam Neck Exam: absent: Lymphadenopathy - Respiratory Exam Respiratory Exam: Decreased Breath Sounds, Rhonchi - Cardiovascular Exam Cardiovascular Exam: REGULAR RHYTHM - GI/Abdominal Exam GI & Abdominal Exam: Distended, Soft - Rectal Exam Rectal Exam: Deferred - Exam Exam: NORMAL INSPECTION - Extremities Exam Extremities Exam: absent: Calf Tenderness, Pedal Edema - Back Exam Back Exam: absent: CVA tenderness (L), CVA tenderness (R) - Neurological Exam Neurological Exam: Alert, Awake, Oriented x3 - Psychiatric Exam Psychiatric exam: Normal Mood - Skin Skin Exam: Dry Assessment and Plan (1) Cellulitis and abscess of toe of left foot Status: Acute (2) ESRD on dialysis Status: Acute (3) Acute CHF Status: Acute (4) Altered mental status Status: Acute (5) Anemia Status: Acute
--- NOTE | 2017-03-09 15:40 | CP.PCM.PN ---
Objective - Vital Signs/Intake and Output Vital Signs (last 24 hours): Temp Pulse Resp BP Pulse Ox 97.4 F L 72 20 147/66 98 03/09/17 07:15 03/09/17 07:15 03/09/17 07:15 03/09/17 07:15 03/09/17 07:15 Intake and Output: 03/09/17 03/09/17 06:59 18:59 Intake Total 50 Balance 50 - Medications Medications: Current Medications Allopurinol (Zyloprim) 100 mg PO DAILY [facility] Last Admin: 03/09/17 10:30 Dose: 100 mg Aspirin (Ecotrin) 81 mg PO DAILY [facility] Last Admin: 03/09/17 10:30 Dose: 81 mg Calcitriol (Rocaltrol) 1.5 mcg PO TTS [facility] Carbamazepine (Tegretol-Xr) 200 mg PO BID [facility] Last Admin: 03/09/17 10:00 Dose: 200 mg Cinacalcet (Sensipar) 30 mg PO DAILY [facility] Last Admin: 03/09/17 10:33 Dose: 30 mg Clopidogrel Bisulfate (Plavix) 75 mg PO DAILY [facility] Last Admin: 03/09/17 10:30 Dose: 75 mg Epoetin Santino (Procrit) 4,000 unit IV TTS [facility] Famotidine (Pepcid) 20 mg PO DAILY [facility] Last Admin: 03/09/17 10:31 Dose: 20 mg Gabapentin (Neurontin) 400 mg PO HS [facility] Last Admin: 03/08/17 21:05 Dose: 400 mg Heparin Sodium (Porcine) (Heparin) 5,000 units SC Q12 [facility] Last Admin: 03/09/17 10:45 Dose: 5,000 units Home Med (Linaclotide [Linzess]) 290 mcg PO DAILY [facility] Piperacillin Sod/Tazobactam Sod (Zosyn 2.25 Gm Iv Premix) 2.25 gm in 50 mls @ 100 mls/hr IVPB Q8H [facility] Last Admin: 03/09/17 05:48 Dose: 100 mls/hr Vancomycin/Sodium Chloride (Vancocin) 1 gm in 200 mls @ 133.333 mls/hr IVPB TUTHSA [facility] Stop: 03/13/17 13:01 Last Admin: 03/08/17 22:50 Dose: 133.333 mls/hr Insulin Aspart (Novolog) 25 unit SC AC [facility] Last Admin: 03/09/17 11:46 Dose: Not Given Insulin Glargine (Lantus) 25 unit SC HS [facility] Last Admin: 03/08/17 21:48 Dose: 25 units Modafinil (Provigil) 100 mg PO DAILY [facility] Last Admin: 03/09/17 10:45 Dose: 100 mg Mupirocin (Bactroban Ointment) 2 gm TOP DAILY [facility] Last Admin: 03/09/17 10:36 Dose: 2 oin Rosuvastatin Calcium (Crestor) 10 mg PO [facility] Last Admin: 03/08/17 21:10 Dose: 10 mg Sevelamer Carbonate (Renvela) 2,400 mg PO TIDCC [facility] Last Admin: 03/09/17 12:00 Dose: 2,400 mg Vitamin B Complex/Vit C/Folic Acid (Nephro-Vesna) 1 tab PO 0800 [facility] Last Admin: 03/09/17 08:00 Dose: 1 tab - Labs Labs: 03/07/17 20:08 03/07/17 20:08
[2017-03-09] MEDS: (Lantus) Insulin Glargine, Recombinant SC SCH (21:59)
[2017-03-10] MEDS: Piperacill/Tazo 2.25gm in Dex 2.25 GM/50 ML BAG IVPB SCH ×3 (06:52→21:58)
--- NOTE | 2017-03-10 07:40 | CP.PCM.HP ---
History of Present Illness - History of Present Illness History of Present Illness: CC : infected left foot HPI: 61 year old diabetic male with ESRD on HD presents to the ED for evaluation of infected left foot dorsum wound with swelling and draining for approximately two weeks. 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 He denies injury, trauma, pain to the area, or fever. Pt denied any chest pain or sob. No diarrhea or constipation. Present on Admission - Present on Admission Any Indicators Present on Admission: Yes History of Uncontrolled Diabetes: Yes Review of Systems - Constitutional Constitutional: Chills, Sleep Apnea, Weakness - EENT Eyes: absent: Change in Vision Ears: absent: Ear Discharge, Abnormal Hearing Nose/Mouth/Throat: absent: Nasal Congestion, Nasal Discharge - Cardiovascular Cardiovascular: absent: Pedal Edema Additional comments: infected left foot - Respiratory Respiratory: absent: Hemoptysis, Dyspnea on Exertion - Gastrointestinal Gastrointestinal: absent: Abdominal Pain, Constipation, Nausea - Musculoskeletal Musculoskeletal: absent: Back Pain, Myalgias, Neck Pain Past Patient History - Tetanus Immunizations Tetanus Immunization: Unknown - Past Medical History & Family History Past Medical History?: Yes - Past Social History Smoking Status: Never Smoked - CARDIAC Hx Cardiac Disorders: Yes (CAD) Hx Congestive Heart Failure: Yes Hx Hypercholesterolemia: Yes Hx Hypertension: Yes - PULMONARY Hx Pneumonia: Yes - NEUROLOGICAL HX Cerebrovascular Accident: Yes - HEENT Hx HEENT Problems: Yes Hx Glaucoma: Yes (LEFT EYE) - RENAL Hx Renal Failure: Yes (ESRD, CKD) - ENDOCRINE/METABOLIC Hx Diabetes Mellitus Type 1: Yes - HEMATOLOGICAL/ONCOLOGICAL Hx Anemia: Yes - INTEGUMENTARY Hx Dermatological Problems: No - MUSCULOSKELETAL/RHEUMATOLOGICAL Hx Falls: Yes - GASTROINTESTINAL Hx Gastrointestinal Disorders: No - GENITOURINARY/GYNECOLOGICAL Hx Genitourinary Disorders: No - PSYCHIATRIC Hx Substance Use: No - SURGICAL HISTORY Hx Coronary Stent: Yes (4 years ago) - ANESTHESIA Hx Anesthesia: Yes Hx Anesthesia Reactions: No Hx Malignant Hyperthermia: No Meds Allergies/Adverse Reactions: Allergies Allergy/AdvReac Type Severity Reaction Status Date / Time No Known Allergies Allergy Verified 02/24/17 10:43 Physical Exam - Constitutional Appears: No Acute Distress - Head Exam Head Exam: NORMAL INSPECTION - Eye Exam Eye Exam: absent: Scleral icterus - ENT Exam ENT Exam: absent: Mucous Membranes Moist - Neck Exam Neck exam: Positive for: Full Rom - Respiratory Exam Respiratory Exam: absent: Decreased Breath Sounds - Cardiovascular Exam Cardiovascular Exam: REGULAR RHYTHM - GI/Abdominal Exam GI & Abdominal Exam: Normal Bowel Sounds - Neurological Exam Neurological exam: Alert, Oriented x3 Results - Vital Signs Recent Vital Signs: Last Vital Signs Temp 98.3 F 03/09/17 23:10 Pulse 65 03/09/17 23:10 Resp 20 03/09/17 23:10 BP 117/70 03/09/17 23:10 Pulse Ox 96 03/09/17 23:10 - Labs Result Diagrams: 03/07/17 20:08 03/07/17 20:08 Labs: Laboratory Results - last 24 hr 03/09/17 03/09/17 03/09/17 11:31 16:31 20:59 POC Glucose (mg/dL) 71 275 H 193 H 03/10/17 06:17 POC Glucose (mg/dL) 211 H Assessment & Plan - Assessment and Plan (Free Text) Assessment: Infected Left foot T2dm Hx of Sleep apnea ESRD on HD Plan: ID consult Podiatry consult Septic work up Abtx as per ID Foot care as per scrap drop crane operator
[2017-03-10 07:42] LABS: BASO # 0.1 K/uL (0.0-0.2); BASO % 1.1 % (0.0-2.0); EOS # 0.2 K/uL (0.0-0.7); EOS % 3.8 % (0.0-4.0); HEMATOCRIT 28.6 % (35.0-51.0); LYMPH # 1.1 K/uL (1.0-4.3); MEAN CELL VOLUME 96.1 fL (80.0-94.0); MEAN CORPUSCULAR HEMOGLOBIN 33.3 pg (27.0-31.0); MEAN CORPUSCULAR HGB CONC 34.7 g/dL (33.0-37.0); MEAN PLATELET VOLUME 7.5 fL (7.2-11.7); MONO # 0.3 K/uL (0.0-0.8); MONO % 6.7 % (0.0-10.0); NRBC % 0.1 % (0.0-2.0); RED CELL DISTRIBUTION WIDTH 14.7 % (11.5-14.5); WHITE BLOOD COUNT 4.7 K/uL (4.8-10.8)
--- NOTE | 2017-03-10 07:45 | PN ---
FOLLOWUP NEPHROLOGY NOTE DATE: 03/09/2017 CHIEF COMPLAINT: Left foot wound. HISTORY OF PRESENT ILLNESS AND REVIEW OF SYSTEMS: The patient was seen. He denies any new complaints. Still reports left foot wound and ulcer. Denies any shortness of breath. No chest ain or palpitation. No cough or phlegm. Denies any nausea or vomiting. He had dialysis yesterday, which he tolerated well. PHYSICAL EXAMINATION GENERAL: The patient appeared comfortable, not in acute distress, pleasant and cooperative. VITAL SIGNS: Afebrile, pulse is 72, blood pressure 147/66, saturation is well maintained. LUNGS: Bilateral vesicular breath sounds clear. No added sounds. CARDIOVASCULAR: S1 and S2 normal. No murmur could be appreciated. No rub or gallop. ABDOMEN: Soft, nontender. No organomegaly. The patient is obese. EXTREMITIES: A 1+ pitting edema on both extremities, left somewhat more than the right. Overall, improved since yesterday. Left foot has a dressing over it. NEUROLOGIC: The patient is alert, oriented x3. Moving all 4 extremities. WORKUP: No new labs today. Last fingerstick is 71. Blood cultures have been so far negative. The patient has lower extremity ultrasound, which showed that there was no evidence for hemodynamically significant arterial insufficiency in either extremity. The patient is planned for CT angiogram of the legs. CURRENT MEDICATIONS: Reviewed. ASSESSMENT: 1. Left foot cellulitis with infection, also concern for peripheral vascular disease. 2. Obesity. 3. Diabetic kidney disease and hypertensive chronic kidney disease. 4. End-stage renal disease, on hemodialysis via left arteriovenous fistula. 5. Leg edema. 6. Anemia. 7. Hyperphosphatemia and secondary hyperparathyroidism. 8. The patient also has a history of seizure disorder. 9. History of coronary artery disease. RECOMMENDATIONS: No acute need for dialysis today. We will plan for dialysis tomorrow. Blood pressure is staying stable. The patient is off midodrine at this time. Continue with the multivitamin. Continue with Renvela. Check phosphorus in the morning. Continue with the Epogen during dialysis. Continue with the Sensipar and calcitriol. Antibiotic as per priority of primary team. Vascular surgery input noted. The patient is planned for CT angiogram today. The patient can be planned for dialysis tomorrow. Avoid Fleet Enema, magnesium, laxatives. Avoid nephrotoxins. All questions were answered. Please call if any questions. Thank you for the consultation. Zaheer Mendes MD
--- NOTE | 2017-03-10 07:50 | CP.PCM.PN ---
Subjective - Date & Time of Evaluation Date of Evaluation: 03/09/17 Time of Evaluation: 11:20 - Subjective Subjective: Pt seen with Dr Mello Discussed plan Responding somewhat w/ Abtx Objective - Vital Signs/Intake and Output Vital Signs (last 24 hours): Temp Pulse Resp BP Pulse Ox 98.3 F 65 20 117/70 96 03/09/17 23:10 03/09/17 23:10 03/09/17 23:10 03/09/17 23:10 03/09/17 23:10 Intake and Output: 03/10/17 03/10/17 06:59 18:59 Intake Total 170 Balance 170 - Medications Medications: Current Medications Allopurinol (Zyloprim) 100 mg PO DAILY [facility] Last Admin: 03/09/17 10:30 Dose: 100 mg Aspirin (Ecotrin) 81 mg PO DAILY [facility] Last Admin: 03/09/17 10:30 Dose: 81 mg Calcitriol (Rocaltrol) 1.5 mcg PO TTS [facility] Carbamazepine (Tegretol-Xr) 200 mg PO BID [facility] Last Admin: 03/09/17 17:47 Dose: 200 mg Cinacalcet (Sensipar) 30 mg PO DAILY [facility] Last Admin: 03/09/17 10:33 Dose: 30 mg Clopidogrel Bisulfate (Plavix) 75 mg PO DAILY [facility] Last Admin: 03/09/17 10:30 Dose: 75 mg Epoetin Santino (Procrit) 4,000 unit IV TTS [facility] Famotidine (Pepcid) 20 mg PO DAILY [facility] Last Admin: 03/09/17 10:31 Dose: 20 mg Gabapentin (Neurontin) 400 mg PO HS [facility] Last Admin: 03/09/17 22:00 Dose: 400 mg Heparin Sodium (Porcine) (Heparin) 5,000 units SC Q12 [facility] Last Admin: 03/09/17 22:00 Dose: 5,000 units Home Med (Linaclotide [Linzess]) 290 mcg PO DAILY [facility] Piperacillin Sod/Tazobactam Sod (Zosyn 2.25 Gm Iv Premix) 2.25 gm in 50 mls @ 100 mls/hr IVPB Q8H [facility] Last Admin: 03/10/17 06:52 Dose: 100 mls/hr Vancomycin/Sodium Chloride (Vancocin) 1 gm in 200 mls @ 133.333 mls/hr IVPB TUTHSA [facility] Stop: 03/13/17 13:01 Last Admin: 03/08/17 22:50 Dose: 133.333 mls/hr Insulin Aspart (Novolog) 25 unit SC AC [facility] Last Admin: 03/09/17 17:47 Dose: 25 unit Insulin Glargine (Lantus) 25 unit SC HS [facility] Last Admin: 03/09/17 21:59 Dose: 25 units Modafinil (Provigil) 100 mg PO DAILY [facility] Last Admin: 03/09/17 10:45 Dose: 100 mg Mupirocin (Bactroban Ointment) 2 gm TOP DAILY [facility] Last Admin: 03/09/17 10:36 Dose: 2 oin Rosuvastatin Calcium (Crestor) 10 mg PO HS [facility] Last Admin: 03/09/17 22:00 Dose: 10 mg Sevelamer Carbonate (Renvela) 2,400 mg PO TIDCC [facility] Last Admin: 03/09/17 17:47 Dose: 2,400 mg Vitamin B Complex/Vit C/Folic Acid (Nephro-Vesna) 1 tab PO 0800 [facility] Last Admin: 03/09/17 08:00 Dose: 1 tab - Labs Labs: 03/10/17 07:26 03/07/17 20:08 - Constitutional Appears: Non-toxic - Head Exam Head Exam: NORMAL INSPECTION - Eye Exam Eye Exam: absent: Scleral icterus - ENT Exam ENT Exam: Mucous Membranes Moist - Neck Exam Neck Exam: Full ROM - Respiratory Exam Respiratory Exam: Decreased Breath Sounds - Cardiovascular Exam Cardiovascular Exam: REGULAR RHYTHM - GI/Abdominal Exam GI & Abdominal Exam: Soft, Normal Bowel Sounds. absent: Tenderness - Extremities Exam Extremities Exam: Calf Tenderness Additional comments: +infected left foot - Neurological Exam Neurological Exam: Alert, Oriented x3 Assessment and Plan - Assessment and Plan (Free Text) Assessment: Infected left foot T2dm ESRD Plan: Cont ABtx Vasc consult ID/podiatry follow -up
[2017-03-10] MEDS: Multivitamin Vitamin B Complex (Nephro-Vite) Tab PO SCH (08:00)
[2017-03-10 08:06] LABS: POTASSIUM 5.8 mmol/L (3.6-5.2)
[2017-03-10 08:09] LABS: CALCIUM 7.7 mg/dl (8.6-10.4); PHOSPHOROUS 5.4 mg/dL (2.5-4.5)
[2017-03-10] MEDS: (Novolog) Insulin Aspart, Recombinant 100 u/ml 10 ml vial SC SCH ×3 (08:47→18:09)
--- NOTE | 2017-03-10 09:32 | CP.PCM.PN ---
Subjective - Date & Time of Evaluation Date of Evaluation: 03/10/17 Time of Evaluation: 07:00 - Subjective Subjective: General Surgery Note for Dr. Gallardo Pt s&e and in no acute distress. Pt has dressing in place. C/D/I. Denies F/C/N/V /D/CP/SOB. Objective - Vital Signs/Intake and Output Vital Signs (last 24 hours): Temp Pulse Resp BP Pulse Ox 98.2 F 84 20 146/74 99 03/10/17 08:00 03/10/17 08:00 03/10/17 08:00 03/10/17 08:00 03/10/17 08:00 Intake and Output: 03/10/17 03/10/17 06:59 18:59 Intake Total 170 Balance 170 - Medications Medications: Current Medications Allopurinol (Zyloprim) 100 mg PO DAILY [facility] Last Admin: 03/09/17 10:30 Dose: 100 mg Aspirin (Ecotrin) 81 mg PO DAILY [facility] Last Admin: 03/09/17 10:30 Dose: 81 mg Calcitriol (Rocaltrol) 1.5 mcg PO TTS [facility] Carbamazepine (Tegretol-Xr) 200 mg PO BID [facility] Last Admin: 03/09/17 17:47 Dose: 200 mg Cinacalcet (Sensipar) 30 mg PO DAILY [facility] Last Admin: 03/09/17 10:33 Dose: 30 mg Clopidogrel Bisulfate (Plavix) 75 mg PO DAILY [facility] Last Admin: 03/09/17 10:30 Dose: 75 mg Epoetin Santino (Procrit) 4,000 unit IV TTS [facility] Famotidine (Pepcid) 20 mg PO DAILY [facility] Last Admin: 03/09/17 10:31 Dose: 20 mg Gabapentin (Neurontin) 400 mg PO HS [facility] Last Admin: 03/09/17 22:00 Dose: 400 mg Heparin Sodium (Porcine) (Heparin) 5,000 units SC Q12 [facility] Last Admin: 03/09/17 22:00 Dose: 5,000 units Piperacillin Sod/Tazobactam Sod (Zosyn 2.25 Gm Iv Premix) 2.25 gm in 50 mls @ 100 mls/hr IVPB Q8H [facility] Last Admin: 03/10/17 06:52 Dose: 100 mls/hr Vancomycin/Sodium Chloride (Vancocin) 1 gm in 200 mls @ 133.333 mls/hr IVPB TUTHSA [facility] Stop: 03/13/17 13:01 Last Admin: 03/08/17 22:50 Dose: 133.333 mls/hr Insulin Aspart (Novolog) 25 unit SC AC [facility] Last Admin: 03/10/17 08:47 Dose: 25 unit Insulin Glargine (Lantus) 25 unit SC HS [facility] Last Admin: 03/09/17 21:59 Dose: 25 units Modafinil (Provigil) 100 mg PO DAILY [facility] Last Admin: 03/09/17 10:45 Dose: 100 mg Mupirocin (Bactroban Ointment) 2 gm TOP DAILY [facility] Last Admin: 03/09/17 10:36 Dose: 2 oin Polyethylene Glycol (Miralax) 17 gm PO DAILY [facility] Rosuvastatin Calcium (Crestor) 10 mg PO HS [facility] Last Admin: 03/09/17 22:00 Dose: 10 mg Sevelamer Carbonate (Renvela) 2,400 mg PO TIDCC [facility] Last Admin: 03/10/17 08:46 Dose: 2,400 mg Vitamin B Complex/Vit C/Folic Acid (Nephro-Vesna) 1 tab PO 0800 [facility] Last Admin: 03/09/17 08:00 Dose: 1 tab - Labs Labs: 03/10/17 07:26 03/10/17 07:26 - Constitutional Appears: Non-toxic, No Acute Distress - Head Exam Head Exam: ATRAUMATIC, NORMAL INSPECTION, NORMOCEPHALIC - Eye Exam Eye Exam: EOMI, Normal appearance - ENT Exam ENT Exam: Mucous Membranes Moist - Respiratory Exam Respiratory Exam: Clear to Ausculation Bilateral, NORMAL BREATHING PATTERN - Cardiovascular Exam Cardiovascular Exam: REGULAR RHYTHM, +S1, +S2 - GI/Abdominal Exam GI & Abdominal Exam: Soft, Normal Bowel Sounds - Extremities Exam Additional comments: left foot in dressing, C/D/I Assessment and Plan - Assessment and Plan (Free Text) Assessment: 61M with non-healing left foot cellulitis Plan: -As per nursing unable to do CT Angiogram today because patient refused to receive a new IV line. Surgery was not informed and patient sent for dialysis. -CTA abd/pel w/ ileo-femoral run-off postponed -cont dialysis as scheduled -further recs pending imaging d/w Dr Gallardo
--- NOTE | 2017-03-10 09:39 | CP.PCM.PN ---
<Grant Mello - Last Filed: 03/10/17 09:36> Subjective - Date & Time of Evaluation Date of Evaluation: 03/10/17 Time of Evaluation: 09:37 - Subjective Subjective: pt seen this am at bedside . Iwe are awaiting CT angio and possible vascular intervention. Objective - Vital Signs/Intake and Output Vital Signs (last 24 hours): Temp Pulse Resp BP Pulse Ox 98.2 F 84 20 146/74 99 03/10/17 08:00 03/10/17 08:00 03/10/17 08:00 03/10/17 08:00 03/10/17 08:00 Intake and Output: 03/10/17 03/10/17 06:59 18:59 Intake Total 170 Balance 170 - Medications Medications: Current Medications Allopurinol (Zyloprim) 100 mg PO DAILY [facility] Last Admin: 03/09/17 10:30 Dose: 100 mg Aspirin (Ecotrin) 81 mg PO DAILY [facility] Last Admin: 03/09/17 10:30 Dose: 81 mg Calcitriol (Rocaltrol) 1.5 mcg PO TTS [facility] Carbamazepine (Tegretol-Xr) 200 mg PO BID [facility] Last Admin: 03/09/17 17:47 Dose: 200 mg Cinacalcet (Sensipar) 30 mg PO DAILY [facility] Last Admin: 03/09/17 10:33 Dose: 30 mg Clopidogrel Bisulfate (Plavix) 75 mg PO DAILY [facility] Last Admin: 03/09/17 10:30 Dose: 75 mg Epoetin Santino (Procrit) 4,000 unit IV TTS [facility] Famotidine (Pepcid) 20 mg PO DAILY [facility] Last Admin: 03/09/17 10:31 Dose: 20 mg Gabapentin (Neurontin) 400 mg PO HS [facility] Last Admin: 03/09/17 22:00 Dose: 400 mg Heparin Sodium (Porcine) (Heparin) 5,000 units SC Q12 [facility] Last Admin: 03/09/17 22:00 Dose: 5,000 units Piperacillin Sod/Tazobactam Sod (Zosyn 2.25 Gm Iv Premix) 2.25 gm in 50 mls @ 100 mls/hr IVPB Q8H [facility] Last Admin: 03/10/17 06:52 Dose: 100 mls/hr Vancomycin/Sodium Chloride (Vancocin) 1 gm in 200 mls @ 133.333 mls/hr IVPB TUTHSA [facility] Stop: 03/13/17 13:01 Last Admin: 03/08/17 22:50 Dose: 133.333 mls/hr Insulin Aspart (Novolog) 25 unit SC AC [facility] Last Admin: 03/10/17 08:47 Dose: 25 unit Insulin Glargine (Lantus) 25 unit SC HS [facility] Last Admin: 03/09/17 21:59 Dose: 25 units Modafinil (Provigil) 100 mg PO DAILY [facility] Last Admin: 03/09/17 10:45 Dose: 100 mg Mupirocin (Bactroban Ointment) 2 gm TOP DAILY [facility] Last Admin: 03/09/17 10:36 Dose: 2 oin Polyethylene Glycol (Miralax) 17 gm PO DAILY [facility] Rosuvastatin Calcium (Crestor) 10 mg PO HS [facility] Last Admin: 03/09/17 22:00 Dose: 10 mg Sevelamer Carbonate (Renvela) 2,400 mg PO TIDCC [facility] Last Admin: 03/10/17 08:46 Dose: 2,400 mg Vitamin B Complex/Vit C/Folic Acid (Nephro-Vesna) 1 tab PO 0800 [facility] Last Admin: 03/09/17 08:00 Dose: 1 tab - Labs Labs: 03/10/17 07:26 03/10/17 07:26 Assessment and Plan - Assessment and Plan (Free Text) Plan: Pt seen and examoined at bedside by myself and resident. <Annemarie Redmond - Last Filed: 03/10/17 11:40> Subjective - Subjective Subjective: Pt seen at bedside this AM with Dr. Mello present. Pt seen resting comfortably with left foot elevated. Denies any pain or discomfort today. Denies f/n/v/c/sob /cp/weakness/dizziness. Says he is for dialysis today. Objective - Vital Signs/Intake and Output Vital Signs (last 24 hours): Temp Pulse Resp BP Pulse Ox 98.2 F 84 20 146/74 99 03/10/17 08:00 03/10/17 08:00 03/10/17 08:00 03/10/17 08:00 03/10/17 08:00 Intake and Output: 03/10/17 03/10/17 06:59 18:59 Intake Total 170 Balance 170 - Medications Medications: Current Medications Allopurinol (Zyloprim) 100 mg PO DAILY [facility] Last Admin: 03/10/17 10:19 Dose: 100 mg Aspirin (Ecotrin) 81 mg PO DAILY [facility] Last Admin: 03/10/17 10:19 Dose: 81 mg Calcitriol (Rocaltrol) 1.5 mcg PO TTS [facility] Last Admin: 03/10/17 10:21 Dose: 1.5 mcg Carbamazepine (Tegretol-Xr) 200 mg PO BID [facility] Last Admin: 03/10/17 10:20 Dose: 200 mg Cinacalcet (Sensipar) 30 mg PO DAILY [facility] Last Admin: 03/10/17 10:21 Dose: 30 mg Clopidogrel Bisulfate (Plavix) 75 mg PO DAILY [facility] Last Admin: 03/10/17 10:19 Dose: 75 mg Epoetin Santino (Procrit) 4,000 unit IV TTS [facility] Famotidine (Pepcid) 20 mg PO DAILY [facility] Last Admin: 03/10/17 10:20 Dose: 20 mg Gabapentin (Neurontin) 400 mg PO [facility] Last Admin: 03/09/17 22:00 Dose: 400 mg Heparin Sodium (Porcine) (Heparin) 5,000 units SC Q12 [facility] Last Admin: 03/10/17 10:20 Dose: 5,000 units Piperacillin Sod/Tazobactam Sod (Zosyn 2.25 Gm Iv Premix) 2.25 gm in 50 mls @ 100 mls/hr IVPB Q8H [facility] Last Admin: 03/10/17 06:52 Dose: 100 mls/hr Vancomycin/Sodium Chloride (Vancocin) 1 gm in 200 mls @ 133.333 mls/hr IVPB TUTHSA [facility] Stop: 03/13/17 13:01 Last Admin: 03/08/17 22:50 Dose: 133.333 mls/hr Insulin Aspart (Novolog) 25 unit SC AC [facility] Last Admin: 03/10/17 08:47 Dose: 25 unit Insulin Glargine (Lantus) 25 unit SC HS [facility] Last Admin: 03/09/17 21:59 Dose: 25 units Modafinil (Provigil) 100 mg PO DAILY [facility] Last Admin: 03/09/17 10:45 Dose: 100 mg Mupirocin (Bactroban Ointment) 2 gm TOP DAILY [facility] Last Admin: 09/27/17 10:36 Dose: 2 oin Polyethylene Glycol (Miralax) 17 gm PO DAILY [facility] Last Admin: 03/10/17 10:23 Dose: 17 gm Rosuvastatin Calcium (Crestor) 10 mg PO HS [facility] Last Admin: 03/09/17 22:00 Dose: 10 mg Sevelamer Carbonate (Renvela) 2,400 mg PO TIDCC [facility] Last Admin: 03/10/17 08:46 Dose: 2,400 mg Vitamin B Complex/Vit C/Folic Acid (Nephro-Vesna) 1 tab PO 0800 [facility] Last Admin: 03/10/17 08:00 Dose: 1 tab - Labs Labs: 03/10/17 07:26 03/10/17 07:26 - Constitutional Appears: Non-toxic, No Acute Distress - Extremities Exam Extremities Exam: absent: Calf Tenderness Additional comments: BL LE exam: VASC- faintly palpable DP pulses bl (PT pulses non-palp bl), skin temp runs warm to cool right foot and warm to warm left foot with increased calor noted to dorsum of foot, 3+ pitting edema noted to dorsum of feet and legs bl NEURO- pedal sensation is grossly diminished bl DERM- -Right: no open wounds or ulcerations, no erythema -Left: there is a superficial ulceration to lateral aspect midshaft left metatarsal with mixed fibrogranular base, there is sloughing of skin noted to dorsal aspect of all digits with wound bases mixed fibrogranular in nature with minimal serosang drainage, no purulence expressed, there is erythema noted to dorsum of midfoot extending distally and circumferentially to forefoot, no ascending cellulitis. No wounds probe to bone, no tracking or tunneling, no fluctuance, all digits are cold to touch and dusky in coloration and appear ischemic ORTHO- no gross deformities, no tenderness to palpation bl - Neurological Exam Neurological Exam: Alert, Awake, Oriented x3 - Psychiatric Exam Psychiatric exam: Normal Affect, Normal Mood Assessment and Plan - Assessment and Plan (Free Text) Assessment: 61 yo male patient with 1) ulcerations/cellulitis to RLE 2/2 diabetic foot infection; 2) ischemia of all digits left foot Plan: Chart, labs and vitals reviewed: afebrile, no leukocytosis Vascular on board (Dr. Gallardo): awaiting CTA AMBAR (03/08/17): 1.12 Foot x-ray ordered: pending c/w IV abx as per ID (Dr. Farrar) Wound cx: coag neg staph, yeast species (prelim) Wounds cleansed with saline, foot dressed with DSD today. Will follow
[2017-03-10] MEDS ORDERED: Iodixanol 320 mg/ml 150 ml Bottle IV ONE (10:17)
[2017-03-10] MEDS: POLYETHYLENE GLYCOL 3350 17 GM/Dose PACKET PO SCH (10:23)
--- NOTE | 2017-03-10 17:01 | RAD ---
PROCEDURE: Left Foot Radiographs. HISTORY: diabetic foot infection/ulcers COMPARISON: None. FINDINGS: BONES: Normal. No fractureOsseous hypertrophic changes through the bases of the 2nd 3rd 4th and 5th metatarsal bones prior trauma with resultant healing is consistent with this patient. No acute fractures noted. . JOINTS: Arthrosis tarsal metatarsal 1st metatarsal-phalangeal joint SOFT TISSUES: Atherosclerotic vascular calcifications OTHER FINDINGS: Achilles tendon insertional enthesophyte. Tiny inferior calcaneal spur. IMPRESSION: Hypertrophic arthrosis likely prior fractures with resultant healing through the metatarsal bases has occurred. No acute fracture noted
[2017-03-10] MEDS: EPOETIN ALFA 4,000 UNIT/ML ML Dialysis IV SCH (17:23)
[2017-03-10] MEDS: Vancomycin 1 gm/NS 200 ml 1 GM/200 ML BAG IVPB SCH (18:19)
[2017-03-10] MEDS: (Lantus) Insulin Glargine, Recombinant SC SCH (21:59)
[2017-03-11] MEDS: Piperacill/Tazo 2.25gm in Dex 2.25 GM/50 ML BAG IVPB SCH ×3 (06:19→21:54)
--- NOTE | 2017-03-11 07:27 | PN ---
DATE: 03/10/2017 FOLLOWUP NEPHROLOGY NOTE CHIEF COMPLAINT: None at this time besides the leg swelling and the wound on the left foot. The patient going for angiogram today. HISTORY OF PRESENT ILLNESS AND REVIEW OF SYSTEMS: Noted overnight events. Denies any nausea, vomiting, chest pain, shortness of breath, cough, fever or chills. He is going for CT angiogram today for PVD evaluation. PHYSICAL EXAMINATION: GENERAL: The patient appeared comfortable, not in acute distress. VITAL SIGNS: Afebrile, pulse is 67, blood pressure 163/78, respirations 16, saturation well maintained. NEUROLOGIC: Alert, awake and oriented x3. Moving all 4 extremities. CARDIOVASCULAR: S1 and S2 normal. No murmur, rub or gallop. ABDOMEN: Soft, nontender. No organomegaly. The patient appears obese. LUNGS: Bilateral vesicular sounds, bilateral clear air entry, normal and symmetrical. No added sound. EXTREMITIES: Positive pitting edema of both extremities. Left foot is in the dressing at this time. LABORATORY DATA: Workup shows white blood cell count is 4.7, hemoglobin 9.9, platelet count is 248. Sodium is 136, potassium 5.8, and creatinine . Phosphorus is 5.4. His wound culture is growing coag negative staph. Blood culture is negative. CT angiogram is being done today. CURRENT MEDICATIONS: Reviewed. ASSESSMENT: 1. Left foot cellulitis with concern for peripheral vascular disease. 2. End-stage renal disease on hemodialysis via arteriovenous fistula. 3. Diabetic chronic kidney disease and hypertensive chronic kidney disease. 4. Leg edema, anemia, hyperphosphatemia, secondary hyperparathyroidism, history of seizure disorder and coronary artery disease. RECOMMENDATIONS: The patient will be planned for dialysis today as ordered. The patient had received a dose of Epogen during dialysis. Continue with Sensipar, calcitriol, multivitamins. Blood pressure is stable at this time. We will try ultrafiltration to help with his edema. Antibiotic as per the primary team. All questions were answered. Continue with the phosphorus binder. His phosphorus is under good control at this time. Zaheer Mendes MD
[2017-03-11] MEDS: (Novolog) Insulin Aspart, Recombinant 100 u/ml 10 ml vial SC SCH ×3 (07:30→18:00)
[2017-03-11] MEDS: Multivitamin Vitamin B Complex (Nephro-Vite) Tab PO SCH (08:20)
--- NOTE | 2017-03-11 08:32 | CP.PCM.PN ---
Subjective - Date & Time of Evaluation Date of Evaluation: 03/11/17 Time of Evaluation: 07:00 - Subjective Subjective: General Surgery Note for Dr. Gallardo Pt s&e and in no acute distress. Pt has dressing in place. C/D/I. Denies F/C/N/V /D/CP/SOB. Objective - Vital Signs/Intake and Output Vital Signs (last 24 hours): Temp Pulse Resp BP Pulse Ox 98.3 F 67 20 123/64 95 03/11/17 07:00 03/11/17 07:00 03/11/17 07:00 03/11/17 07:00 03/11/17 07:00 Intake and Output: 03/11/17 03/11/17 06:59 18:59 Intake Total 50 Balance 50 - Medications Medications: Current Medications Allopurinol (Zyloprim) 100 mg PO DAILY [facility] Last Admin: 03/10/17 10:19 Dose: 100 mg Aspirin (Ecotrin) 81 mg PO DAILY [facility] Last Admin: 03/10/17 10:19 Dose: 81 mg Calcitriol (Rocaltrol) 1.5 mcg PO TTS [facility] Last Admin: 03/10/17 10:21 Dose: 1.5 mcg Carbamazepine (Tegretol-Xr) 200 mg PO BID [facility] Last Admin: 03/10/17 18:16 Dose: 200 mg Cinacalcet (Sensipar) 30 mg PO DAILY [facility] Last Admin: 03/10/17 10:21 Dose: 30 mg Clopidogrel Bisulfate (Plavix) 75 mg PO DAILY [facility] Last Admin: 03/10/17 10:19 Dose: 75 mg Epoetin Santino (Procrit) 4,000 unit IV TTS [facility] Last Admin: 03/10/17 17:23 Dose: 4,000 unit Famotidine (Pepcid) 20 mg PO DAILY [facility] Last Admin: 03/10/17 10:20 Dose: 20 mg Gabapentin (Neurontin) 400 mg PO HS [facility] Last Admin: 03/10/17 21:59 Dose: 400 mg Heparin Sodium (Porcine) (Heparin) 5,000 units SC Q12 [facility] Last Admin: 03/10/17 21:59 Dose: 5,000 units Piperacillin Sod/Tazobactam Sod (Zosyn 2.25 Gm Iv Premix) 2.25 gm in 50 mls @ 100 mls/hr IVPB Q8H [facility] Last Admin: 03/11/17 06:19 Dose: 100 mls/hr Vancomycin/Sodium Chloride (Vancocin) 1 gm in 200 mls @ 133.333 mls/hr IVPB TUTHSA [facility] Stop: 03/13/17 13:01 Last Admin: 03/10/17 18:19 Dose: 133.333 mls/hr Insulin Aspart (Novolog) 25 unit SC AC [facility] Last Admin: 03/10/17 18:09 Dose: Not Given Insulin Glargine (Lantus) 25 unit SC [facility] Last Admin: 03/10/17 21:59 Dose: 25 units Modafinil (Provigil) 100 mg PO DAILY [facility] Last Admin: 03/10/17 11:00 Dose: 100 mg Mupirocin (Bactroban Ointment) 2 gm TOP DAILY [facility] Last Admin: 03/10/17 10:00 Dose: Not Given Polyethylene Glycol (Miralax) 17 gm PO DAILY [facility] Last Admin: 03/10/17 10:23 Dose: 17 gm Rosuvastatin Calcium (Crestor) 10 mg PO [facility] Last Admin: 03/10/17 21:59 Dose: 10 mg Sevelamer Carbonate (Renvela) 2,400 mg PO TIDCC [facility] Last Admin: 03/11/17 08:21 Dose: 2,400 mg Vitamin B Complex/Vit C/Folic Acid (Nephro-Evsna) 1 tab PO 0800 [facility] Last Admin: 03/11/17 08:20 Dose: 1 tab - Labs Labs: 03/10/17 07:26 03/10/17 07:26 - Constitutional Appears: Non-toxic, No Acute Distress - Head Exam Head Exam: ATRAUMATIC, NORMAL INSPECTION, NORMOCEPHALIC - Eye Exam Eye Exam: EOMI, Normal appearance - ENT Exam ENT Exam: Mucous Membranes Moist - Respiratory Exam Respiratory Exam: Clear to Ausculation Bilateral, NORMAL BREATHING PATTERN. absent: Respiratory Distress - Cardiovascular Exam Cardiovascular Exam: REGULAR RHYTHM, +S1, +S2 - GI/Abdominal Exam GI & Abdominal Exam: Soft, Normal Bowel Sounds - Extremities Exam Additional comments: left foot in dressing, C/D/I - Neurological Exam Neurological Exam: Alert, Awake, Oriented x3 - Psychiatric Exam Psychiatric exam: Normal Affect, Normal Mood - Skin Skin Exam: Normal Color, Warm Assessment and Plan - Assessment and Plan (Free Text) Assessment: 61M with non-healing left foot cellulitis Plan: -CTA abd/pel w/ ileo-femoral run-off tomorrow before dialysis -cont dialysis as scheduled -further recs pending imaging d/w Dr Gallardo
[2017-03-11] MEDS: POLYETHYLENE GLYCOL 3350 17 GM/Dose PACKET PO SCH (10:41)
--- NOTE | 2017-03-11 11:16 | CP.PCM.PN ---
Subjective - Date & Time of Evaluation Date of Evaluation: 03/11/17 Time of Evaluation: 09:45 - Subjective Subjective: Podiatry Progress Note- Dr. Mello 61 yo male pt seen at bedside this AM. Pt unable to get CTA yesterday because patient refused multiple IV attempts. Pt says he had dialysis yesterday. Denies f/n/v/c/sob/cp/weakness or dizziness today. Again says both of his feet are numb. Offers no complaints. Objective - Vital Signs/Intake and Output Vital Signs (last 24 hours): Temp Pulse Resp BP Pulse Ox 98.3 F 67 20 123/64 95 03/11/17 07:00 03/11/17 07:00 03/11/17 07:00 03/11/17 07:00 03/11/17 07:00 Intake and Output: 03/11/17 03/11/17 06:59 18:59 Intake Total 50 Balance 50 - Medications Medications: Current Medications Allopurinol (Zyloprim) 100 mg PO DAILY [facility] Last Admin: 03/11/17 10:43 Dose: 100 mg Aspirin (Ecotrin) 81 mg PO DAILY [facility] Last Admin: 03/11/17 10:41 Dose: 81 mg Calcitriol (Rocaltrol) 1.5 mcg PO TTS [facility] Last Admin: 03/10/17 10:21 Dose: 1.5 mcg Carbamazepine (Tegretol-Xr) 200 mg PO BID [facility] Last Admin: 03/11/17 10:42 Dose: 200 mg Cinacalcet (Sensipar) 30 mg PO DAILY [facility] Last Admin: 03/11/17 10:42 Dose: 30 mg Clopidogrel Bisulfate (Plavix) 75 mg PO DAILY [facility] Last Admin: 03/11/17 10:42 Dose: 75 mg Epoetin Santino (Procrit) 4,000 unit IV TTS [facility] Last Admin: 03/10/17 17:23 Dose: 4,000 unit Famotidine (Pepcid) 20 mg PO DAILY [facility] Last Admin: 03/11/17 10:41 Dose: 20 mg Gabapentin (Neurontin) 400 mg PO HS [facility] Last Admin: 03/10/17 21:59 Dose: 400 mg Piperacillin Sod/Tazobactam Sod (Zosyn 2.25 Gm Iv Premix) 2.25 gm in 50 mls @ 100 mls/hr IVPB Q8H [facility] Last Admin: 03/11/17 06:19 Dose: 100 mls/hr Vancomycin/Sodium Chloride (Vancocin) 1 gm in 200 mls @ 133.333 mls/hr IVPB TUTHSA [facility] Stop: 03/13/17 13:01 Last Admin: 03/10/17 18:19 Dose: 133.333 mls/hr Insulin Aspart (Novolog) 25 unit SC AC [facility] Last Admin: 03/10/17 18:09 Dose: Not Given Insulin Aspart (Novolog) 15 unit SC AC [facility] Modafinil (Provigil) 100 mg PO DAILY [facility] Last Admin: 03/11/17 10:40 Dose: 100 mg Mupirocin (Bactroban Ointment) 2 gm TOP DAILY [facility] Last Admin: 03/11/17 10:40 Dose: 1 oin Polyethylene Glycol (Miralax) 17 gm PO DAILY [facility] Last Admin: 03/11/17 10:41 Dose: 17 gm Rosuvastatin Calcium (Crestor) 10 mg PO HS [facility] Last Admin: 03/10/17 21:59 Dose: 10 mg Sevelamer Carbonate (Renvela) 2,400 mg PO TIDCC [facility] Last Admin: 03/11/17 08:21 Dose: 2,400 mg Vitamin B Complex/Vit C/Folic Acid (Nephro-Vesna) 1 tab PO 0800 [facility] Last Admin: 03/11/17 08:20 Dose: 1 tab - Labs Labs: 03/10/17 07:26 03/10/17 07:26 - Constitutional Appears: Non-toxic, No Acute Distress - Extremities Exam Extremities Exam: absent: Calf Tenderness Additional comments: BL LE exam: VASC- faintly palpable DP pulses bl (PT pulses non-palp bl), skin temp runs warm to cool right foot and warm to warm left foot with increased calor noted to dorsum of foot, 3+ pitting edema noted to dorsum of feet and legs bl NEURO- pedal sensation is grossly diminished bl DERM- -Right: no open wounds or ulcerations, no erythema -Left: there is a superficial ulceration to lateral aspect midshaft left metatarsal with mixed fibrogranular base, there is sloughing of skin noted to dorsal aspect of all digits with wound bases mixed fibrogranular in nature with no drainage, no purulence expressed, there is erythema noted to dorsum of midfoot extending distally and circumferentially to forefoot but does appear to be resolving, no ascending cellulitis. No wounds probe to bone, no tracking or tunneling, no fluctuance, all digits are cold to touch and dusky in coloration and appear ischemic ORTHO- no gross deformities, no tenderness to palpation bl - Neurological Exam Neurological Exam: Alert, Awake, Oriented x3 - Psychiatric Exam Psychiatric exam: Normal Affect, Normal Mood Assessment and Plan - Assessment and Plan (Free Text) Assessment: 61 yo male patient with 1) ulcerations/cellulitis to RLE 2/2 diabetic foot infection; 2) ischemia of all digits left foot Plan: Pt S&E at bedside D/w Dr. Mello Chart, labs and vitals reviewed: afebrile, no leukocytosis Vascular on board (Dr. Gallardo): awaiting CTA [facility]BAR (03/08/17): 1.12 Left foot x-ray: atherosclerotic vascular calcifications, hypertrophic arthrosis likely prior fx's with resultant healing through met bases. No acute fx's c/w IV abx as per ID (Dr. Farrar) Wound cx: coag neg staph, yeast species (prelim) Wounds cleansed with saline, foot dressed with DSD today. Will follow
--- NOTE | 2017-03-11 13:20 | CP.PCM.PN ---
Subjective - Date & Time of Evaluation Date of Evaluation: 03/11/17 Time of Evaluation: 09:00 - Subjective Subjective: AWAITING CT ANGIO NO NEW POSITIVE CULTURES IV RX IN PROGRESS Objective - Vital Signs/Intake and Output Vital Signs (last 24 hours): Temp Pulse Resp BP Pulse Ox 98.3 F 67 20 123/64 95 03/11/17 07:00 03/11/17 07:00 03/11/17 07:00 03/11/17 07:00 03/11/17 07:00 Intake and Output: 03/11/17 03/11/17 06:59 18:59 Intake Total 50 Balance 50 - Medications Medications: Current Medications Allopurinol (Zyloprim) 100 mg PO DAILY [facility] Last Admin: 03/11/17 10:43 Dose: 100 mg Aspirin (Ecotrin) 81 mg PO DAILY [facility] Last Admin: 03/11/17 10:41 Dose: 81 mg Calcitriol (Rocaltrol) 1.5 mcg PO TTS [facility] Last Admin: 03/10/17 10:21 Dose: 1.5 mcg Carbamazepine (Tegretol-Xr) 200 mg PO BID [facility] Last Admin: 03/11/17 10:42 Dose: 200 mg Cinacalcet (Sensipar) 30 mg PO DAILY [facility] Last Admin: 03/11/17 10:42 Dose: 30 mg Clopidogrel Bisulfate (Plavix) 75 mg PO DAILY [facility] Last Admin: 03/11/17 10:42 Dose: 75 mg Epoetin Santino (Procrit) 4,000 unit IV TTS [facility] Last Admin: 03/10/17 17:23 Dose: 4,000 unit Famotidine (Pepcid) 20 mg PO DAILY [facility] Last Admin: 03/11/17 10:41 Dose: 20 mg Gabapentin (Neurontin) 400 mg PO HS [facility] Last Admin: 03/10/17 21:59 Dose: 400 mg Piperacillin Sod/Tazobactam Sod (Zosyn 2.25 Gm Iv Premix) 2.25 gm in 50 mls @ 100 mls/hr IVPB Q8H [facility] Last Admin: 03/11/17 06:19 Dose: 100 mls/hr Vancomycin/Sodium Chloride (Vancocin) 1 gm in 200 mls @ 133.333 mls/hr IVPB TUTHSA [facility] Stop: 03/13/17 13:01 Last Admin: 03/10/17 18:19 Dose: 133.333 mls/hr Insulin Aspart (Novolog) 25 unit SC AC [facility] Last Admin: 03/11/17 07:30 Dose: Not Given Insulin Aspart (Novolog) 15 unit SC AC [facility] Modafinil (Provigil) 100 mg PO DAILY [facility] Last Admin: 03/11/17 10:40 Dose: 100 mg Mupirocin (Bactroban Ointment) 2 gm TOP DAILY [facility] Last Admin: 03/11/17 10:40 Dose: 1 oin Polyethylene Glycol (Miralax) 17 gm PO DAILY [facility] Last Admin: 03/11/17 10:41 Dose: 17 gm Rosuvastatin Calcium (Crestor) 10 mg PO HS [facility] Last Admin: 03/10/17 21:59 Dose: 10 mg Sevelamer Carbonate (Renvela) 2,400 mg PO TIDCC [facility] Last Admin: 03/11/17 08:21 Dose: 2,400 mg Vitamin B Complex/Vit C/Folic Acid (Nephro-Vesna) 1 tab PO 0800 [facility] Last Admin: 03/11/17 08:20 Dose: 1 tab - Labs Labs: 03/10/17 07:26 03/10/17 07:26 - Constitutional Appears: Non-toxic, Chronically Ill - Head Exam Head Exam: NORMOCEPHALIC - Eye Exam Eye Exam: PERRL. absent: Scleral icterus - ENT Exam ENT Exam: Mucous Membranes Dry - Neck Exam Neck Exam: absent: Lymphadenopathy - Respiratory Exam Respiratory Exam: Decreased Breath Sounds - Cardiovascular Exam Cardiovascular Exam: REGULAR RHYTHM - GI/Abdominal Exam GI & Abdominal Exam: Distended, Soft - Rectal Exam Rectal Exam: Deferred - Exam Exam: NORMAL INSPECTION - Extremities Exam Extremities Exam: Pedal Edema - Back Exam Back Exam: absent: CVA tenderness (L), CVA tenderness (R) - Neurological Exam Neurological Exam: Alert, Awake - Psychiatric Exam Psychiatric exam: Normal Mood - Skin Skin Exam: Dry - Additional Findings Additional findings: BL LE exam: VASC- faintly palpable DP pulses bl (PT pulses non-palp bl), skin temp runs warm to cool right foot and warm to warm left foot with increased calor noted to dorsum of foot, 3+ pitting edema noted to dorsum of feet and legs bl NEURO- pedal sensation is grossly diminished bl DERM- -Right: no open wounds or ulcerations, no erythema -Left: there is a superficial ulceration to lateral aspect midshaft left metatarsal with mixed fibrogranular base, there is sloughing of skin noted to dorsal aspect of all digits with wound bases mixed fibrogranular in nature with no drainage, no purulence expressed, there is erythema noted to dorsum of midfoot extending distally and circumferentially to forefoot but does appear to be resolving, no ascending cellulitis. No wounds probe to bone, no tracking or tunneling, no fluctuance, all digits are cold to touch and dusky in coloration and appear ischemic ORTHO- no gross deformities, no tenderness to palpation bl Assessment and Plan (1) Cellulitis and abscess of toe of left foot Status: Acute (2) ESRD on dialysis Status: Acute (3) Acute CHF Status: Acute (4) Altered mental status Status: Acute (5) Anemia Status: Acute - Assessment and Plan (Free Text) Assessment: 61 yo male patient with 1) ulcerations/cellulitis to RLE 2/2 diabetic foot infection; 2) ischemia of all digits left foot Vascular on board (Dr. Gallardo): awaiting CTA CONT IV ANTIBIOTICS AN WOUND CARE CONSIDER MRI LEFT FOOT TO R/O OCCULT OM
--- NOTE | 2017-03-11 21:12 | PN ---
NEPHROLOGY FOLLOWUP DATE: 03/11/2017 CHIEF COMPLAINT: No new complaint at this time. HISTORY OF PRESENT ILLNESS AND REVIEW OF SYSTEMS: The patient is unable to get angiogram yesterday because of lack of IV access. Nurse is asking me if he can get a PICC line. Otherwise, he denies any nausea, vomiting, shortness of breath. Still report leg swelling. Denies any chest pain or palpitation. PHYSICAL EXAMINATION VITAL SIGNS: Afebrile. Pulse 68, blood pressure 157/80. CARDIOVASCULAR: S1 and S2 normal. No murmur. LUNGS: Bilateral vesicular breath sounds. Bilateral air entry, normal and symmetrical, clear. ABDOMEN: Soft, nontender. No organomegaly. The patient appears obese. EXTREMITIES: 1-2+ pitting edema on both lower extremities noted. Left foot is in the dressing. LABORATORY DATA: White blood cell count is 4.7, hemoglobin 9.9, platelet count is normal at 248. Sodium is 136, potassium is 5.8, creatinine is 11.7, bicarbonate is 21, calcium 7.7, phosphorus 5.4, glucose is normal. Wound culture have grown coagulase negative Staph. CURRENT MEDICATIONS: Reviewed. ASSESSMENT: 1. Left foot wound infection/cellulitis, concern for peripheral vascular disease. 2. End-stage renal disease, on hemodialysis via arteriovenous fistula, Tuesdays, , Saturdays scheduled. 3. Diabetes chronic kidney disease and hypertensive chronic kidney disease. 4. Leg edema, anemia, hyperphosphatemia, secondary hyperparathyroidism, history of seizure disorder, coronary artery disease, obesity and mild hypocalcemia. RECOMMENDATIONS: We will plan for isolated ultrafiltration today to improve his leg swelling and plan for regular dialysis tomorrow. He is receiving a dose of Epogen during dialysis. Continue the calcitriol and multivitamin. We will check PTH in the morning. If PTH is under very good control and if calcium goes even further, we will consider to discontinue his Sensipar. Blood pressure is under good control. Continue the antibiotic. Continue phosphate binders, discussed with the nursing at this time, should avoid PICC line placement, may consider ultrasound-guided superficial IV placement or if at all may consider midline as better alternative than the PICC line. Then, if antibiotic need to be given during dialysis, it can be arranged as an outpatient. Of course, the choice of antibiotic as per the infectious disease. All questions were answered. Zaheer Mendes MD [facility] # [id number]
[2017-03-12] MEDS: Piperacill/Tazo 2.25gm in Dex 2.25 GM/50 ML BAG IVPB SCH ×3 (06:00→21:46)
[2017-03-12 06:40] LABS: BASO # 0.1 K/uL (0.0-0.2); BASO % 1.4 % (0.0-2.0); EOS # 0.2 K/uL (0.0-0.7); EOS % 3.5 % (0.0-4.0); HEMATOCRIT 29.7 % (35.0-51.0); LYMPH # 1.2 K/uL (1.0-4.3); LYMPH % 23.8 % (20.0-40.0); MEAN CELL VOLUME 96.2 fL (80.0-94.0); MEAN CORPUSCULAR HEMOGLOBIN 32.9 pg (27.0-31.0); MEAN CORPUSCULAR HGB CONC 34.2 g/dL (33.0-37.0); MEAN PLATELET VOLUME 7.4 fL (7.2-11.7); MONO # 0.5 K/uL (0.0-0.8); MONO % 8.9 % (0.0-10.0); NRBC % 0.1 % (0.0-2.0); RED CELL DISTRIBUTION WIDTH 15.1 % (11.5-14.5); WHITE BLOOD COUNT 5.2 K/uL (4.8-10.8)
--- NOTE | 2017-03-12 06:56 | CP.PCM.PN ---
Subjective - Date & Time of Evaluation Date of Evaluation: 03/12/17 Time of Evaluation: 06:53 - Subjective Subjective: Vasc Sx: Dr Gallardo Pt S&E. NAEO. Resting comfortably. Denies pain just states feet are numb. Pt refused CTA on however states he will allow them to place IV this morning and will go for the study today. Objective - Vital Signs/Intake and Output Vital Signs (last 24 hours): Temp Pulse Resp BP Pulse Ox 98.8 F 81 20 143/66 96 03/11/17 23:10 03/11/17 23:10 03/11/17 23:10 03/11/17 23:10 03/11/17 23:10 Intake and Output: 03/11/17 03/12/17 18:59 06:59 Intake Total 50 Balance 50 - Medications Medications: Current Medications Allopurinol (Zyloprim) 100 mg PO DAILY [facility] Last Admin: 03/11/17 10:43 Dose: 100 mg Aspirin (Ecotrin) 81 mg PO DAILY [facility] Last Admin: 03/11/17 10:41 Dose: 81 mg Calcitriol (Rocaltrol) 1.5 mcg PO TTS [facility] Last Admin: 03/10/17 10:21 Dose: 1.5 mcg Carbamazepine (Tegretol-Xr) 200 mg PO BID [facility] Last Admin: 03/11/17 18:34 Dose: 200 mg Cinacalcet (Sensipar) 30 mg PO DAILY [facility] Last Admin: 03/11/17 10:42 Dose: 30 mg Clopidogrel Bisulfate (Plavix) 75 mg PO DAILY [facility] Last Admin: 03/11/17 10:42 Dose: 75 mg Epoetin Santino (Procrit) 4,000 unit IV TTS [facility] Last Admin: 03/10/17 17:23 Dose: 4,000 unit Famotidine (Pepcid) 20 mg PO DAILY [facility] Last Admin: 03/11/17 10:41 Dose: 20 mg Gabapentin (Neurontin) 400 mg PO HS [facility] Last Admin: 03/11/17 21:55 Dose: 400 mg Piperacillin Sod/Tazobactam Sod (Zosyn 2.25 Gm Iv Premix) 2.25 gm in 50 mls @ 100 mls/hr IVPB Q8H [facility] Last Admin: 03/12/17 06:00 Dose: 100 mls/hr Vancomycin/Sodium Chloride (Vancocin) 1 gm in 200 mls @ 133.333 mls/hr IVPB TUTHSA [facility] Stop: 03/13/17 13:01 Last Admin: 03/10/17 18:19 Dose: 133.333 mls/hr Insulin Aspart (Novolog) 15 unit SC AC [facility] Last Admin: 03/11/17 18:00 Dose: 15 unit Modafinil (Provigil) 100 mg PO DAILY [facility] Last Admin: 03/11/17 10:40 Dose: 100 mg Mupirocin (Bactroban Ointment) 2 gm TOP DAILY [facility] Last Admin: 03/11/17 10:40 Dose: 1 oin Polyethylene Glycol (Miralax) 17 gm PO DAILY [facility] Last Admin: 03/11/17 10:41 Dose: 17 gm Rosuvastatin Calcium (Crestor) 10 mg PO HS [facility] Last Admin: 03/11/17 22:04 Dose: 10 mg Sevelamer Carbonate (Renvela) 2,400 mg PO TIDCC [facility] Last Admin: 03/11/17 18:00 Dose: 2,400 mg Vitamin B Complex/Vit C/Folic Acid (Nephro-Vesna) 1 tab PO 0800 [facility] Last Admin: 03/11/17 08:20 Dose: 1 tab - Labs Labs: 03/12/17 06:31 03/10/17 07:26 - Constitutional Appears: Non-toxic, No Acute Distress - Respiratory Exam Respiratory Exam: absent: Accessory Muscle Use, Respiratory Distress - Cardiovascular Exam Cardiovascular Exam: REGULAR RHYTHM. absent: Tachycardia - Extremities Exam Additional comments: non-healing left foot wound - dressing c/d/i unable to palpate DP/PT - Neurological Exam Neurological Exam: Alert, Awake Assessment and Plan - Assessment and Plan (Free Text) Assessment: Assessment: 61M with non-healing left foot cellulitis Plan: -CTA abd/pel w/ ileo-femoral run-off TODAY before dialysis (please call surgery team if pt refuses IV again) -cont dialysis as scheduled -further recs pending imaging d/w Dr Sami Rivera, PGY3
[2017-03-12 06:57] LABS: POTASSIUM 5.4 mmol/L (3.6-5.2)
[2017-03-12 07:01] LABS: CALCIUM 8.1 mg/dl (8.6-10.4)
[2017-03-12] MEDS ORDERED: Iodixanol 320 mg/ml 150 ml Bottle IV ONE (08:05)
[2017-03-12] MEDS: (Novolog) Insulin Aspart, Recombinant 100 u/ml 10 ml vial SC SCH ×4 (08:29→17:29)
[2017-03-12] MEDS: Multivitamin Vitamin B Complex (Nephro-Vite) Tab PO SCH ×2 (08:29→08:59)
[2017-03-12] MEDS: POLYETHYLENE GLYCOL 3350 17 GM/Dose PACKET PO SCH (10:17)
[2017-03-12] MEDS: Vancomycin 1 gm/NS 200 ml 1 GM/200 ML BAG IVPB SCH (15:16)
[2017-03-12] MEDS: EPOETIN ALFA 4,000 UNIT/ML ML Dialysis IV SCH (15:17)
--- NOTE | 2017-03-12 16:45 | CP.PCM.PN ---
Subjective - Date & Time of Evaluation Date of Evaluation: 03/12/17 Time of Evaluation: 12:00 - Subjective Subjective: Podiatry Progress Note- Dr. Mello 61 yo male pt seen at bedside while receiving dialysis this AM. Patient to get CTA today. Denies f/n/v/c/sob/cp/weakness or dizziness today. Again says both of his feet are numb. Offers no complaints. Objective - Vital Signs/Intake and Output Vital Signs (last 24 hours): Temp Pulse Resp BP Pulse Ox 97.5 F L 81 20 131/70 97 03/12/17 14:00 03/12/17 14:00 03/12/17 14:00 03/12/17 14:00 03/12/17 14:00 Intake and Output: 03/12/17 03/12/17 06:59 18:59 Intake Total 50 Balance 50 - Medications Medications: Current Medications Allopurinol (Zyloprim) 100 mg PO DAILY [facility] Last Admin: 03/12/17 10:19 Dose: Not Given Aspirin (Ecotrin) 81 mg PO DAILY [facility] Last Admin: 03/12/17 10:17 Dose: Not Given Calcitriol (Rocaltrol) 1.5 mcg PO TTS [facility] Last Admin: 03/12/17 10:18 Dose: Not Given Carbamazepine (Tegretol-Xr) 200 mg PO BID [facility] Last Admin: 03/12/17 10:18 Dose: Not Given Cinacalcet (Sensipar) 30 mg PO DAILY [facility] Last Admin: 03/12/17 10:18 Dose: Not Given Clopidogrel Bisulfate (Plavix) 75 mg PO DAILY [facility] Last Admin: 03/12/17 10:18 Dose: Not Given Epoetin Santino (Procrit) 4,000 unit IV TTS [facility] Last Admin: 03/12/17 15:17 Dose: 4,000 unit Famotidine (Pepcid) 20 mg PO DAILY [facility] Last Admin: 03/12/17 10:18 Dose: Not Given Gabapentin (Neurontin) 400 mg PO HS [facility] Last Admin: 03/11/17 21:55 Dose: 400 mg Piperacillin Sod/Tazobactam Sod (Zosyn 2.25 Gm Iv Premix) 2.25 gm in 50 mls @ 100 mls/hr IVPB Q8H [facility] Last Admin: 03/12/17 14:30 Dose: Not Given Vancomycin/Sodium Chloride (Vancocin) 1 gm in 200 mls @ 133.333 mls/hr IVPB TUTHSA [facility] Stop: 03/13/17 13:01 Last Admin: 03/12/17 15:16 Dose: 133.333 mls/hr Insulin Aspart (Novolog) 15 unit SC AC [facility] Last Admin: 03/12/17 14:25 Dose: Not Given Modafinil (Provigil) 100 mg PO DAILY [facility] Last Admin: 03/12/17 10:18 Dose: Not Given Mupirocin (Bactroban Ointment) 2 gm TOP DAILY [facility] Last Admin: 03/12/17 10:17 Dose: Not Given Polyethylene Glycol (Miralax) 17 gm PO DAILY [facility] Last Admin: 03/12/17 10:17 Dose: Not Given Rosuvastatin Calcium (Crestor) 10 mg PO HS [facility] Last Admin: 03/11/17 22:04 Dose: 10 mg Sevelamer Carbonate (Renvela) 2,400 mg PO TIDCC [facility] Last Admin: 03/12/17 14:25 Dose: Not Given Vitamin B Complex/Vit C/Folic Acid (Nephro-Vesna) 1 tab PO 0800 [facility] Last Admin: 03/12/17 08:59 Dose: 1 tab - Labs Labs: 03/12/17 06:31 03/12/17 06:31 - Constitutional Appears: Well, Non-toxic, No Acute Distress - Extremities Exam Additional comments: BL LE exam: VASC- faintly palpable DP pulses bl (PT pulses non-palp bl), skin temp runs warm to cool right foot and warm to warm left foot with increased calor noted to dorsum of foot, 3+ pitting edema noted to dorsum of feet and legs bl NEURO- pedal sensation is grossly diminished bl DERM- -Right: no open wounds or ulcerations, no erythema -Left: there is a superficial ulceration to lateral aspect midshaft left metatarsal with mixed fibrogranular base, there is sloughing of skin noted to dorsal aspect of all digits with wound bases mixed fibrogranular in nature with no drainage, no purulence expressed, there is erythema noted to dorsum of midfoot extending distally and circumferentially to forefoot but does appear to be resolving, no ascending cellulitis. No wounds probe to bone, no tracking or tunneling, no fluctuance, all digits are cold to touch and dusky in coloration and appear ischemic ORTHO- no gross deformities, no tenderness to palpation bl - Neurological Exam Neurological Exam: Alert, Awake, Oriented x3 - Psychiatric Exam Psychiatric exam: Normal Affect, Normal Mood Assessment and Plan - Assessment and Plan (Free Text) Assessment: 61 yo male patient with 1) ulcerations/cellulitis to RLE 2/2 diabetic foot infection; 2) ischemia of all digits left foot Plan: Pt S&E at bedside with attending Dr. Mello Chart, labs and vitals reviewed Vascular on board (Dr. Gallardo): awaiting CTA results [facility] (03/08/17): 1.12 Left foot x-ray: atherosclerotic vascular calcifications, hypertrophic arthrosis likely prior fx's with resultant healing through met bases. No acute fx's c/w IV abx as per ID (Dr. Farrar) Wound cx: coag neg staph, yeast species (prelim) Wounds cleansed with saline, foot dressed with DSD today. Will follow
[2017-03-13] MEDS: Piperacill/Tazo 2.25gm in Dex 2.25 GM/50 ML BAG IVPB SCH ×3 (05:56→22:13)
[2017-03-13] MEDS: Multivitamin Vitamin B Complex (Nephro-Vite) Tab PO SCH (08:36)
[2017-03-13] MEDS: (Novolog) Insulin Aspart, Recombinant 100 u/ml 10 ml vial SC SCH ×3 (08:38→17:10)
--- NOTE | 2017-03-13 09:44 | CP.PCM.PN ---
Subjective - Date & Time of Evaluation Date of Evaluation: 03/10/17 Time of Evaluation: 08:30 - Subjective Subjective: improving Afebrile less pain discussed w/ Dr Mello Objective - Vital Signs/Intake and Output Vital Signs (last 24 hours): Temp Pulse Resp BP Pulse Ox 98.3 F 70 18 156/79 H 98 03/13/17 08:00 03/13/17 08:00 03/13/17 08:00 03/13/17 08:00 03/13/17 08:00 Intake and Output: 03/13/17 03/13/17 06:59 18:59 Intake Total 200 Balance 200 - Medications Medications: Current Medications Allopurinol (Zyloprim) 100 mg PO DAILY [facility] Last Admin: 03/12/17 10:19 Dose: Not Given Alprazolam (Xanax) 1 mg PO ONCE ONE Stop: 03/14/17 10:01 Aspirin (Ecotrin) 81 mg PO DAILY [facility] Last Admin: 03/12/17 10:17 Dose: Not Given Calcitriol (Rocaltrol) 1.5 mcg PO TTS [facility] Last Admin: 03/12/17 10:18 Dose: Not Given Carbamazepine (Tegretol-Xr) 200 mg PO BID [facility] Last Admin: 03/12/17 17:26 Dose: 200 mg Cinacalcet (Sensipar) 30 mg PO DAILY [facility] Last Admin: 03/12/17 10:18 Dose: Not Given Clopidogrel Bisulfate (Plavix) 75 mg PO DAILY [facility] Last Admin: 03/12/17 10:18 Dose: Not Given Epoetin Santino (Procrit) 4,000 unit IV TTS [facility] Last Admin: 03/12/17 15:17 Dose: 4,000 unit Famotidine (Pepcid) 20 mg PO DAILY [facility] Last Admin: 03/12/17 10:18 Dose: Not Given Gabapentin (Neurontin) 400 mg PO HS [facility] Last Admin: 03/12/17 21:44 Dose: 400 mg Piperacillin Sod/Tazobactam Sod (Zosyn 2.25 Gm Iv Premix) 2.25 gm in 50 mls @ 100 mls/hr IVPB Q8H [facility] Last Admin: 03/13/17 05:56 Dose: 100 mls/hr Vancomycin/Sodium Chloride (Vancocin) 1 gm in 200 mls @ 133.333 mls/hr IVPB TUTHSA [facility] Stop: 03/13/17 13:01 Last Admin: 03/12/17 15:16 Dose: 133.333 mls/hr Insulin Aspart (Novolog) 15 unit SC AC [facility] Last Admin: 03/13/17 08:38 Dose: 15 unit Modafinil (Provigil) 100 mg PO DAILY [facility] Last Admin: 03/12/17 10:18 Dose: Not Given Mupirocin (Bactroban Ointment) 2 gm TOP DAILY [facility] Last Admin: 03/12/17 10:17 Dose: Not Given Polyethylene Glycol (Miralax) 17 gm PO DAILY [facility] Last Admin: 03/12/17 10:17 Dose: Not Given Rosuvastatin Calcium (Crestor) 10 mg PO HS [facility] Last Admin: 03/12/17 21:43 Dose: 10 mg Sevelamer Carbonate (Renvela) 2,400 mg PO TIDCC [facility] Last Admin: 03/13/17 08:37 Dose: 2,400 mg Vitamin B Complex/Vit C/Folic Acid (Nephro-Vesna) 1 tab PO 0800 [facility] Last Admin: 03/13/17 08:36 Dose: 1 tab - Labs Labs: 03/12/17 06:31 03/12/17 06:31 - Constitutional Appears: Non-toxic - Head Exam Head Exam: NORMAL INSPECTION - Eye Exam Eye Exam: absent: Scleral icterus - ENT Exam ENT Exam: Mucous Membranes Moist - Neck Exam Neck Exam: Full ROM - Respiratory Exam Respiratory Exam: NORMAL BREATHING PATTERN - Cardiovascular Exam Cardiovascular Exam: REGULAR RHYTHM - GI/Abdominal Exam GI & Abdominal Exam: Soft. absent: Tenderness - Extremities Exam Extremities Exam: absent: Pedal Edema - Neurological Exam Neurological Exam: Alert, Oriented x3 Assessment and Plan - Assessment and Plan (Free Text) Assessment: Infected left foot mosy likely ischemic r/o PVD T2dm ESRD Plan: Cont abtx Vasc w/u HD
--- NOTE | 2017-03-13 09:50 | CP.PCM.PN ---
Subjective - Date & Time of Evaluation Date of Evaluation: 03/11/17 Time of Evaluation: 09:10 - Subjective Subjective: improving slowly CT Angio - pending Objective - Vital Signs/Intake and Output Vital Signs (last 24 hours): Temp Pulse Resp BP Pulse Ox 98.3 F 70 18 156/79 H 98 03/13/17 08:00 03/13/17 08:00 03/13/17 08:00 03/13/17 08:00 03/13/17 08:00 Intake and Output: 03/13/17 03/13/17 06:59 18:59 Intake Total 200 Balance 200 - Medications Medications: Current Medications Allopurinol (Zyloprim) 100 mg PO DAILY [facility] Last Admin: 03/12/17 10:19 Dose: Not Given Alprazolam (Xanax) 1 mg PO ONCE ONE Stop: 03/14/17 10:01 Aspirin (Ecotrin) 81 mg PO DAILY [facility] Last Admin: 03/12/17 10:17 Dose: Not Given Calcitriol (Rocaltrol) 1.5 mcg PO TTS [facility] Last Admin: 03/12/17 10:18 Dose: Not Given Carbamazepine (Tegretol-Xr) 200 mg PO BID [facility] Last Admin: 03/12/17 17:26 Dose: 200 mg Cinacalcet (Sensipar) 30 mg PO DAILY [facility] Last Admin: 03/12/17 10:18 Dose: Not Given Clopidogrel Bisulfate (Plavix) 75 mg PO DAILY [facility] Last Admin: 03/12/17 10:18 Dose: Not Given Epoetin Santino (Procrit) 4,000 unit IV TTS [facility] Last Admin: 03/12/17 15:17 Dose: 4,000 unit Famotidine (Pepcid) 20 mg PO DAILY [facility] Last Admin: 03/12/17 10:18 Dose: Not Given Gabapentin (Neurontin) 400 mg PO HS [facility] Last Admin: 03/12/17 21:44 Dose: 400 mg Piperacillin Sod/Tazobactam Sod (Zosyn 2.25 Gm Iv Premix) 2.25 gm in 50 mls @ 100 mls/hr IVPB Q8H [facility] Last Admin: 03/13/17 05:56 Dose: 100 mls/hr Vancomycin/Sodium Chloride (Vancocin) 1 gm in 200 mls @ 133.333 mls/hr IVPB TUTHSA [facility] Stop: 03/13/17 13:01 Last Admin: 03/12/17 15:16 Dose: 133.333 mls/hr Insulin Aspart (Novolog) 15 unit SC AC [facility] Last Admin: 03/13/17 08:38 Dose: 15 unit Modafinil (Provigil) 100 mg PO DAILY [facility] Last Admin: 03/12/17 10:18 Dose: Not Given Mupirocin (Bactroban Ointment) 2 gm TOP DAILY [facility] Last Admin: 03/12/17 10:17 Dose: Not Given Polyethylene Glycol (Miralax) 17 gm PO DAILY [facility] Last Admin: 03/12/17 10:17 Dose: Not Given Rosuvastatin Calcium (Crestor) 10 mg PO HS [facility] Last Admin: 03/12/17 21:43 Dose: 10 mg Sevelamer Carbonate (Renvela) 2,400 mg PO TIDCC [facility] Last Admin: 03/13/17 08:37 Dose: 2,400 mg Vitamin B Complex/Vit C/Folic Acid (Nephro-Vesna) 1 tab PO 0800 [facility] Last Admin: 03/13/17 08:36 Dose: 1 tab - Labs Labs: 03/12/17 06:31 03/12/17 06:31 - Constitutional Appears: Non-toxic - Head Exam Head Exam: NORMAL INSPECTION - Eye Exam Eye Exam: absent: Scleral icterus - ENT Exam ENT Exam: Mucous Membranes Moist - Neck Exam Neck Exam: Full ROM - Respiratory Exam Respiratory Exam: NORMAL BREATHING PATTERN - Cardiovascular Exam Cardiovascular Exam: REGULAR RHYTHM - GI/Abdominal Exam GI & Abdominal Exam: Soft - Extremities Exam Additional comments: left leg edema, ischemic w/ shallow ulceration Assessment and Plan - Assessment and Plan (Free Text) Assessment: Ischemic left foot Cellulitis PVD ESRD Plan: Cont abtx Vasc w/u HD
--- NOTE | 2017-03-13 09:59 | CP.PCM.PN ---
Subjective - Date & Time of Evaluation Date of Evaluation: 03/12/17 Time of Evaluation: 10:10 - Subjective Subjective: Afebrile Slow - improvement of infection CT-angio today Objective - Vital Signs/Intake and Output Vital Signs (last 24 hours): Temp Pulse Resp BP Pulse Ox 98.3 F 70 18 156/79 H 98 03/13/17 08:00 03/13/17 08:00 03/13/17 08:00 03/13/17 08:00 03/13/17 08:00 Intake and Output: 03/13/17 03/13/17 06:59 18:59 Intake Total 200 Balance 200 - Medications Medications: Current Medications Allopurinol (Zyloprim) 100 mg PO DAILY [facility] Last Admin: 03/12/17 10:19 Dose: Not Given Alprazolam (Xanax) 1 mg PO ONCE ONE Stop: 03/14/17 10:01 Aspirin (Ecotrin) 81 mg PO DAILY [facility] Last Admin: 03/12/17 10:17 Dose: Not Given Calcitriol (Rocaltrol) 1.5 mcg PO TTS [facility] Last Admin: 03/12/17 10:18 Dose: Not Given Carbamazepine (Tegretol-Xr) 200 mg PO BID [facility] Last Admin: 03/12/17 17:26 Dose: 200 mg Cinacalcet (Sensipar) 30 mg PO DAILY [facility] Last Admin: 03/12/17 10:18 Dose: Not Given Clopidogrel Bisulfate (Plavix) 75 mg PO DAILY [facility] Last Admin: 03/12/17 10:18 Dose: Not Given Epoetin Santino (Procrit) 4,000 unit IV TTS [facility] Last Admin: 03/12/17 15:17 Dose: 4,000 unit Famotidine (Pepcid) 20 mg PO DAILY [facility] Last Admin: 03/12/17 10:18 Dose: Not Given Gabapentin (Neurontin) 400 mg PO HS [facility] Last Admin: 03/12/17 21:44 Dose: 400 mg Piperacillin Sod/Tazobactam Sod (Zosyn 2.25 Gm Iv Premix) 2.25 gm in 50 mls @ 100 mls/hr IVPB Q8H [facility] Last Admin: 03/13/17 05:56 Dose: 100 mls/hr Vancomycin/Sodium Chloride (Vancocin) 1 gm in 200 mls @ 133.333 mls/hr IVPB TUTHSA [facility] Stop: 03/13/17 13:01 Last Admin: 03/12/17 15:16 Dose: 133.333 mls/hr Insulin Aspart (Novolog) 15 unit SC AC [facility] Last Admin: 03/13/17 08:38 Dose: 15 unit Modafinil (Provigil) 100 mg PO DAILY [facility] Last Admin: 03/12/17 10:18 Dose: Not Given Mupirocin (Bactroban Ointment) 2 gm TOP DAILY [facility] Last Admin: 03/12/17 10:17 Dose: Not Given Polyethylene Glycol (Miralax) 17 gm PO DAILY [facility] Last Admin: 03/12/17 10:17 Dose: Not Given Rosuvastatin Calcium (Crestor) 10 mg PO HS [facility] Last Admin: 03/12/17 21:43 Dose: 10 mg Sevelamer Carbonate (Renvela) 2,400 mg PO TIDCC [facility] Last Admin: 03/13/17 08:37 Dose: 2,400 mg Vitamin B Complex/Vit C/Folic Acid (Nephro-Vesna) 1 tab PO 0800 [facility] Last Admin: 03/13/17 08:36 Dose: 1 tab - Labs Labs: 03/12/17 06:31 03/12/17 06:31 - Head Exam Head Exam: NORMAL INSPECTION - Eye Exam Eye Exam: absent: Scleral icterus - ENT Exam ENT Exam: Mucous Membranes Moist - Neck Exam Neck Exam: Full ROM - Respiratory Exam Respiratory Exam: NORMAL BREATHING PATTERN - Cardiovascular Exam Cardiovascular Exam: REGULAR RHYTHM - GI/Abdominal Exam GI & Abdominal Exam: Soft. absent: Tenderness - Extremities Exam Extremities Exam: Pedal Edema Additional comments: ischemic left foot - Neurological Exam Neurological Exam: Alert, Oriented x3 Assessment and Plan - Assessment and Plan (Free Text) Assessment: Ischemic left foot w/ ulcer and cellulitis T2dm ESRD Plan: For CTA today Podiatric/Vasc f/u Cont Abtx HD
[2017-03-13] MEDS: POLYETHYLENE GLYCOL 3350 17 GM/Dose PACKET PO SCH (10:06)
--- NOTE | 2017-03-13 10:35 | CP.PCM.PN ---
Subjective - Date & Time of Evaluation Date of Evaluation: 03/13/17 Time of Evaluation: 10:32 - Subjective Subjective: Podiatry Progress Note- Dr. Mello 61 yo male pt seen at bedside. Patient states that he had his CTA performed yesterday and tolerated the procedure well. Denies f/n/v/c/sob/cp/weakness or dizziness today. Again says both of his feet are numb. Offers no further pedal complaints. Objective - Vital Signs/Intake and Output Vital Signs (last 24 hours): Temp Pulse Resp BP Pulse Ox 98.3 F 70 18 156/79 H 98 03/13/17 08:00 03/13/17 08:00 03/13/17 08:00 03/13/17 08:00 03/13/17 08:00 Intake and Output: 03/13/17 03/13/17 06:59 18:59 Intake Total 200 Balance 200 - Medications Medications: Current Medications Allopurinol (Zyloprim) 100 mg PO DAILY [facility] Last Admin: 03/13/17 09:55 Dose: 100 mg Alprazolam (Xanax) 1 mg PO ONCE ONE Stop: 03/14/17 10:01 Aspirin (Ecotrin) 81 mg PO DAILY [facility] Last Admin: 03/13/17 09:55 Dose: 81 mg Calcitriol (Rocaltrol) 1.5 mcg PO TTS [facility] Last Admin: 03/12/17 10:18 Dose: Not Given Carbamazepine (Tegretol-Xr) 200 mg PO BID [facility] Last Admin: 03/13/17 09:55 Dose: 200 mg Cinacalcet (Sensipar) 30 mg PO DAILY [facility] Last Admin: 03/13/17 09:55 Dose: 30 mg Clopidogrel Bisulfate (Plavix) 75 mg PO DAILY [facility] Last Admin: 03/13/17 09:55 Dose: 75 mg Epoetin Santino (Procrit) 4,000 unit IV TTS [facility] Last Admin: 03/12/17 15:17 Dose: 4,000 unit Famotidine (Pepcid) 20 mg PO DAILY [facility] Last Admin: 03/13/17 09:55 Dose: 20 mg Gabapentin (Neurontin) 400 mg PO HS [facility] Last Admin: 03/12/17 21:44 Dose: 400 mg Piperacillin Sod/Tazobactam Sod (Zosyn 2.25 Gm Iv Premix) 2.25 gm in 50 mls @ 100 mls/hr IVPB Q8H [facility] Last Admin: 03/13/17 05:56 Dose: 100 mls/hr Vancomycin/Sodium Chloride (Vancocin) 1 gm in 200 mls @ 133.333 mls/hr IVPB TUTHSA [facility] Stop: 03/13/17 13:01 Last Admin: 03/12/17 15:16 Dose: 133.333 mls/hr Insulin Aspart (Novolog) 15 unit SC AC [facility] Last Admin: 03/13/17 08:38 Dose: 15 unit Modafinil (Provigil) 100 mg PO DAILY [facility] Last Admin: 03/13/17 09:55 Dose: 100 mg Mupirocin (Bactroban Ointment) 2 gm TOP DAILY [facility] Last Admin: 03/12/17 10:17 Dose: Not Given Polyethylene Glycol (Miralax) 17 gm PO DAILY [facility] Last Admin: 03/13/17 10:06 Dose: 17 gm Rosuvastatin Calcium (Crestor) 10 mg PO HS [facility] Last Admin: 03/12/17 21:43 Dose: 10 mg Sevelamer Carbonate (Renvela) 2,400 mg PO TIDCC [facility] Last Admin: 03/13/17 08:37 Dose: 2,400 mg Vitamin B Complex/Vit C/Folic Acid (Nephro-Vesna) 1 tab PO 0800 [facility] Last Admin: 03/13/17 08:36 Dose: 1 tab - Labs Labs: 03/12/17 06:31 03/12/17 06:31 - Constitutional Appears: Well, Non-toxic, No Acute Distress - Extremities Exam Additional comments: BL LE exam: VASC- faintly palpable DP pulses bl (PT pulses non-palp bl), skin temp runs warm to cool right foot and warm to warm left foot with increased calor noted to dorsum of foot, 3+ pitting edema noted to dorsum of feet and legs bl NEURO- pedal sensation is grossly diminished bl DERM- -Right: no open wounds or ulcerations, no erythema -Left: there is a superficial ulceration to lateral aspect midshaft left metatarsal with mixed fibrogranular base, there is sloughing of skin noted to dorsal aspect of all digits with wound bases mixed fibrogranular in nature with minimal drainage (increased from yesterday), no purulence expressed, there is erythema noted to dorsum of midfoot extending distally and circumferentially to forefoot but does appear to be resolving, no ascending cellulitis. No wounds probe to bone, no tracking or tunneling, no fluctuance, all digits are cold to touch and dusky in coloration and appear ischemic ORTHO- no gross deformities, no tenderness to palpation bl - Neurological Exam Neurological Exam: Alert, Awake, Oriented x3 - Psychiatric Exam Psychiatric exam: Normal Affect, Normal Mood Assessment and Plan - Assessment and Plan (Free Text) Assessment: 61 yo male patient with 1) ulcerations/cellulitis to RLE 2/2 diabetic foot infection; 2) ischemia of all digits left foot Plan: Pt S&E at bedside Chart, labs and vitals reviewed Plan discussed with attending Dr Noel Vascular on board (Dr. Gallardo): awaiting CTA results from yesterday AMBAR (03/08/17): 1.12 Left foot x-ray: atherosclerotic vascular calcifications, hypertrophic arthrosis likely prior fx's with resultant healing through met bases. No acute fx's c/w IV abx as per ID (Dr. Farrar) Wound cx: coag neg staph, yeast species (prelim) Wounds painted with betadine and dressed with betadine soaked gauze, DSD Will follow
--- NOTE | 2017-03-13 10:52 | CP.PCM.PN ---
Subjective - Date & Time of Evaluation Date of Evaluation: 03/13/17 Time of Evaluation: 07:15 - Subjective Subjective: Vascular Surgery Pt S&E, NAEO. Denies pain, had CTA, awaiting read. No other complaints. Objective - Vital Signs/Intake and Output Vital Signs (last 24 hours): Temp Pulse Resp BP Pulse Ox 98.3 F 70 18 156/79 H 98 03/13/17 08:00 03/13/17 08:00 03/13/17 08:00 03/13/17 08:00 03/13/17 08:00 Intake and Output: 03/13/17 03/13/17 06:59 18:59 Intake Total 200 Balance 200 - Medications Medications: Current Medications Allopurinol (Zyloprim) 100 mg PO DAILY [facility] Last Admin: 03/13/17 09:55 Dose: 100 mg Alprazolam (Xanax) 1 mg PO ONCE ONE Stop: 03/14/17 10:01 Aspirin (Ecotrin) 81 mg PO DAILY [facility] Last Admin: 03/13/17 09:55 Dose: 81 mg Calcitriol (Rocaltrol) 1.5 mcg PO TTS [facility] Last Admin: 03/12/17 10:18 Dose: Not Given Carbamazepine (Tegretol-Xr) 200 mg PO BID [facility] Last Admin: 03/13/17 09:55 Dose: 200 mg Cinacalcet (Sensipar) 30 mg PO DAILY [facility] Last Admin: 03/13/17 09:55 Dose: 30 mg Clopidogrel Bisulfate (Plavix) 75 mg PO DAILY [facility] Last Admin: 03/13/17 09:55 Dose: 75 mg Epoetin Santino (Procrit) 4,000 unit IV TTS [facility] Last Admin: 03/12/17 15:17 Dose: 4,000 unit Famotidine (Pepcid) 20 mg PO DAILY [facility] Last Admin: 03/13/17 09:55 Dose: 20 mg Gabapentin (Neurontin) 400 mg PO HS [facility] Last Admin: 03/12/17 21:44 Dose: 400 mg Piperacillin Sod/Tazobactam Sod (Zosyn 2.25 Gm Iv Premix) 2.25 gm in 50 mls @ 100 mls/hr IVPB Q8H [facility] Last Admin: 03/13/17 05:56 Dose: 100 mls/hr Vancomycin/Sodium Chloride (Vancocin) 1 gm in 200 mls @ 133.333 mls/hr IVPB TUTHSA [facility] Stop: 03/13/17 13:01 Last Admin: 03/12/17 15:16 Dose: 133.333 mls/hr Insulin Aspart (Novolog) 15 unit SC AC [facility] Last Admin: 03/13/17 08:38 Dose: 15 unit Modafinil (Provigil) 100 mg PO DAILY [facility] Last Admin: 03/13/17 09:55 Dose: 100 mg Mupirocin (Bactroban Ointment) 2 gm TOP DAILY [facility] Last Admin: 03/12/17 10:17 Dose: Not Given Polyethylene Glycol (Miralax) 17 gm PO DAILY [facility] Last Admin: 03/13/17 10:06 Dose: 17 gm Rosuvastatin Calcium (Crestor) 10 mg PO HS [facility] Last Admin: 03/12/17 21:43 Dose: 10 mg Sevelamer Carbonate (Renvela) 2,400 mg PO TIDCC [facility] Last Admin: 03/13/17 08:37 Dose: 2,400 mg Vitamin B Complex/Vit C/Folic Acid (Nephro-Vesna) 1 tab PO 0800 [facility] Last Admin: 03/13/17 08:36 Dose: 1 tab - Labs Labs: 03/12/17 06:31 03/12/17 06:31 - Constitutional Appears: Non-toxic, No Acute Distress - Head Exam Head Exam: ATRAUMATIC, NORMOCEPHALIC - Eye Exam Eye Exam: EOMI. absent: Scleral icterus - Respiratory Exam Respiratory Exam: NORMAL BREATHING PATTERN. absent: Respiratory Distress - Extremities Exam Additional comments: non-healing left foot wound - dressing c/d/i unable to palpate DP/PT - Neurological Exam Neurological Exam: Alert, Awake - Skin Skin Exam: Dry, Warm Assessment and Plan - Assessment and Plan (Free Text) Assessment: 61M with non-healing left foot cellulitis Plan: -F/U CTA read -cont dialysis as scheduled D/W Dr Sami Leo PGY4
--- NOTE | 2017-03-13 15:00 | CP.PCM.PN ---
Subjective - Date & Time of Evaluation Date of Evaluation: 03/13/17 Time of Evaluation: 14:57 - Subjective Subjective: Follow up Nephrology Consultation Note Assessment: Stable left foot wound with cellulitis. possible underlying PVD Diabetic chronic Kidney Disease (E11.22) Hypertensive Chronic Kidney Disease (I12.0) End stage renal disease (N18.6) dependence on hemodialysis (Z99.2) (TTS) via AVF Anemia (D64.9), Hyperphosphatemia (E83.39), Secondary Hyperparathyroidism (E21.1 ), HTN (I12.0) Obesity Plan: No acute need for dialysis today. Will plan for dialysis tuesday. Continue with Nephrovite 1 tab/day. PRBC as needed for anemia. On MACHO as epogen Continue with phos binder Continue with calcitriol and sensipar. BP control with meds as ordered. Patient on RAAS dc Glycemic control, Dialysis consistent diet Further work up/management as per primary team Dose meds/antibiotics (as per ID) for ESRD status. Avoid fleets enema/magnesium based laxatives. pt educated to restrict fluid intake vascular surgery following Thanks for allowing me to participate in care of your patient. Will follow patient with you. Please call if any Qs Dr Zaheer Mendes Office: [phone] Subjective: Noted events overnight. Patients feels okay. Denies chest pain, palpitation, shortness of breath, c/o leg swelling. No urinary complaints Physical Examination: General Appearance: Comfortable, in no acute respiratory distress, co- operative. Vitals reviewed and noted as below Lungs: Normal respiratory rate/effort. Breath sounds bilateral equal and clear Heart: Normal rate. s1s2 normal. No rub or gallop. Extremities: 1+ edema. foot wound dressed Neurological: Patient is alert, awake and oriented to person, place and time. No focal deficit. Strength bilateral appropriate and equal Skin: Warm and dry. Normal turgor. No rash. Palpitation: Normal elasticity for age Abdomen: Abdomen is soft. Bowel sounds +. There is no abdominal tenderness, no guarding/rigidity or organomegaly : kidney or bladder not palpable Access: AVF Labs/imaging reviewed. Past medical history, past surgical history, family history, social history, allergy reviewed Objective - Vital Signs/Intake and Output Vital Signs (last 24 hours): Temp Pulse Resp BP Pulse Ox 98.3 F 70 18 156/79 H 98 03/13/17 08:00 03/13/17 08:00 03/13/17 08:00 03/13/17 08:00 03/13/17 08:00 Intake and Output: 03/13/17 03/13/17 06:59 18:59 Intake Total 200 Balance 200 - Medications Medications: Current Medications Allopurinol (Zyloprim) 100 mg PO DAILY [facility] Last Admin: 03/13/17 09:55 Dose: 100 mg Alprazolam (Xanax) 1 mg PO ONCE ONE Stop: 03/14/17 10:01 Aspirin (Ecotrin) 81 mg PO DAILY [facility] Last Admin: 03/13/17 09:55 Dose: 81 mg Calcitriol (Rocaltrol) 1.5 mcg PO TTS [facility] Last Admin: 03/12/17 10:18 Dose: Not Given Carbamazepine (Tegretol-Xr) 200 mg PO BID [facility] Last Admin: 03/13/17 09:55 Dose: 200 mg Cinacalcet (Sensipar) 30 mg PO DAILY [facility] Last Admin: 03/13/17 09:55 Dose: 30 mg Clopidogrel Bisulfate (Plavix) 75 mg PO DAILY [facility] Last Admin: 03/13/17 09:55 Dose: 75 mg Epoetin Santino (Procrit) 4,000 unit IV TTS [facility] Last Admin: 03/12/17 15:17 Dose: 4,000 unit Famotidine (Pepcid) 20 mg PO DAILY [facility] Last Admin: 03/13/17 09:55 Dose: 20 mg Gabapentin (Neurontin) 400 mg PO HS [facility] Last Admin: 03/12/17 21:44 Dose: 400 mg Piperacillin Sod/Tazobactam Sod (Zosyn 2.25 Gm Iv Premix) 2.25 gm in 50 mls @ 100 mls/hr IVPB Q8H [facility] Last Admin: 03/13/17 14:28 Dose: 100 mls/hr Insulin Aspart (Novolog) 15 unit SC AC [facility] Last Admin: 03/13/17 12:44 Dose: 15 unit Modafinil (Provigil) 100 mg PO DAILY [facility] Last Admin: 03/13/17 09:55 Dose: 100 mg Mupirocin (Bactroban Ointment) 2 gm TOP DAILY [facility] Last Admin: 03/13/17 11:52 Dose: Not Given Polyethylene Glycol (Miralax) 17 gm PO DAILY [facility] Last Admin: 03/13/17 10:06 Dose: 17 gm Rosuvastatin Calcium (Crestor) 10 mg PO HS [facility] Last Admin: 03/12/17 21:43 Dose: 10 mg Sevelamer Carbonate (Renvela) 2,400 mg PO TIDCC [facility] Last Admin: 03/13/17 12:44 Dose: 2,400 mg Vitamin B Complex/Vit C/Folic Acid (Nephro-Vesna) 1 tab PO 0800 [facility] Last Admin: 03/13/17 08:36 Dose: 1 tab - Labs Labs: 03/12/17 06:31 03/12/17 06:31
--- NOTE | 2017-03-13 16:11 | CP.PCM.PN ---
Subjective - Date & Time of Evaluation Date of Evaluation: 03/13/17 Time of Evaluation: 10:00 - Subjective Subjective: s/p CTA iv rx in progress Objective - Vital Signs/Intake and Output Vital Signs (last 24 hours): Temp Pulse Resp BP Pulse Ox 98.3 F 70 18 156/79 H 98 03/13/17 08:00 03/13/17 08:00 03/13/17 08:00 03/13/17 08:00 03/13/17 08:00 Intake and Output: 03/13/17 03/13/17 06:59 18:59 Intake Total 200 580 Balance 200 580 - Medications Medications: Current Medications Allopurinol (Zyloprim) 100 mg PO DAILY [facility] Last Admin: 03/13/17 09:55 Dose: 100 mg Alprazolam (Xanax) 1 mg PO ONCE ONE Stop: 03/14/17 10:01 Aspirin (Ecotrin) 81 mg PO DAILY [facility] Last Admin: 03/13/17 09:55 Dose: 81 mg Calcitriol (Rocaltrol) 1.5 mcg PO TTS [facility] Last Admin: 03/12/17 10:18 Dose: Not Given Carbamazepine (Tegretol-Xr) 200 mg PO BID [facility] Last Admin: 03/13/17 09:55 Dose: 200 mg Cinacalcet (Sensipar) 30 mg PO DAILY [facility] Last Admin: 03/13/17 09:55 Dose: 30 mg Clopidogrel Bisulfate (Plavix) 75 mg PO DAILY [facility] Last Admin: 03/13/17 09:55 Dose: 75 mg Epoetin Santino (Procrit) 4,000 unit IV TTS [facility] Last Admin: 03/12/17 15:17 Dose: 4,000 unit Famotidine (Pepcid) 20 mg PO DAILY [facility] Last Admin: 03/13/17 09:55 Dose: 20 mg Gabapentin (Neurontin) 400 mg PO HS [facility] Last Admin: 03/12/17 21:44 Dose: 400 mg Piperacillin Sod/Tazobactam Sod (Zosyn 2.25 Gm Iv Premix) 2.25 gm in 50 mls @ 100 mls/hr IVPB Q8H [facility] Last Admin: 03/13/17 14:28 Dose: 100 mls/hr Insulin Aspart (Novolog) 15 unit SC AC [facility] Last Admin: 03/13/17 12:44 Dose: 15 unit Modafinil (Provigil) 100 mg PO DAILY [facility] Last Admin: 03/13/17 09:55 Dose: 100 mg Mupirocin (Bactroban Ointment) 2 gm TOP DAILY [facility] Last Admin: 03/13/17 11:52 Dose: Not Given Polyethylene Glycol (Miralax) 17 gm PO DAILY [facility] Last Admin: 03/13/17 10:06 Dose: 17 gm Rosuvastatin Calcium (Crestor) 10 mg PO HS [facility] Last Admin: 03/12/17 21:43 Dose: 10 mg Sevelamer Carbonate (Renvela) 2,400 mg PO TIDCC [facility] Last Admin: 03/13/17 12:44 Dose: 2,400 mg Vitamin B Complex/Vit C/Folic Acid (Nephro-Vesna) 1 tab PO 0800 [facility] Last Admin: 03/13/17 08:36 Dose: 1 tab - Labs Labs: 03/12/17 06:31 03/12/17 06:31 - Constitutional Appears: Non-toxic, Chronically Ill - Head Exam Head Exam: NORMOCEPHALIC - Eye Exam Eye Exam: PERRL. absent: Scleral icterus - ENT Exam ENT Exam: Mucous Membranes Dry - Neck Exam Neck Exam: absent: Lymphadenopathy - Respiratory Exam Respiratory Exam: Decreased Breath Sounds - Cardiovascular Exam Cardiovascular Exam: REGULAR RHYTHM - GI/Abdominal Exam GI & Abdominal Exam: Distended, Soft - Exam Exam: NORMAL INSPECTION - Extremities Exam Extremities Exam: absent: Pedal Edema - Back Exam Back Exam: absent: CVA tenderness (L) - Neurological Exam Neurological Exam: Alert, Awake, Oriented x3 - Psychiatric Exam Psychiatric exam: Depressed Assessment and Plan (1) Cellulitis and abscess of toe of left foot Status: Acute (2) ESRD on dialysis Status: Acute (3) Acute CHF Status: Acute (4) Altered mental status Status: Acute (5) Anemia Status: Acute
--- NOTE | 2017-03-13 21:19 | CP.PCM.PN ---
Subjective - Date & Time of Evaluation Date of Evaluation: 03/13/17 Time of Evaluation: 10:15 - Subjective Subjective: CTA of LE - pending still w/ left foot pain Objective - Vital Signs/Intake and Output Vital Signs (last 24 hours): Temp Pulse Resp BP Pulse Ox 97.4 F L 65 20 139/70 96 03/13/17 16:00 03/13/17 16:00 03/13/17 16:00 03/13/17 16:00 03/13/17 16:00 Intake and Output: 03/13/17 03/14/17 18:59 06:59 Intake Total 580 Balance 580 - Medications Medications: Current Medications Allopurinol (Zyloprim) 100 mg PO DAILY [facility] Last Admin: 03/13/17 09:55 Dose: 100 mg Alprazolam (Xanax) 1 mg PO ONCE ONE Stop: 03/14/17 10:01 Aspirin (Ecotrin) 81 mg PO DAILY [facility] Last Admin: 03/13/17 09:55 Dose: 81 mg Calcitriol (Rocaltrol) 1.5 mcg PO TTS [facility] Last Admin: 03/12/17 10:18 Dose: Not Given Carbamazepine (Tegretol-Xr) 200 mg PO BID [facility] Last Admin: 03/13/17 18:50 Dose: 200 mg Cinacalcet (Sensipar) 30 mg PO DAILY [facility] Last Admin: 03/13/17 09:55 Dose: 30 mg Clopidogrel Bisulfate (Plavix) 75 mg PO DAILY [facility] Last Admin: 03/13/17 09:55 Dose: 75 mg Epoetin Santino (Procrit) 4,000 unit IV TTS [facility] Last Admin: 03/12/17 15:17 Dose: 4,000 unit Famotidine (Pepcid) 20 mg PO DAILY [facility] Last Admin: 03/13/17 09:55 Dose: 20 mg Gabapentin (Neurontin) 400 mg PO HS [facility] Last Admin: 03/13/17 21:11 Dose: 400 mg Piperacillin Sod/Tazobactam Sod (Zosyn 2.25 Gm Iv Premix) 2.25 gm in 50 mls @ 100 mls/hr IVPB Q8H [facility] Last Admin: 03/13/17 14:28 Dose: 100 mls/hr Insulin Aspart (Novolog) 15 unit SC AC [facility] Last Admin: 03/13/17 17:10 Dose: 15 unit Modafinil (Provigil) 100 mg PO DAILY [facility] Last Admin: 03/13/17 09:55 Dose: 100 mg Mupirocin (Bactroban Ointment) 2 gm TOP DAILY [facility] Last Admin: 03/13/17 11:52 Dose: Not Given Polyethylene Glycol (Miralax) 17 gm PO DAILY [facility] Last Admin: 03/13/17 10:06 Dose: 17 gm Rosuvastatin Calcium (Crestor) 10 mg PO HS [facility] Last Admin: 03/13/17 21:11 Dose: 10 mg Sevelamer Carbonate (Renvela) 2,400 mg PO TIDCC [facility] Last Admin: 03/13/17 17:50 Dose: 2,400 mg Vitamin B Complex/Vit C/Folic Acid (Nephro-Vesna) 1 tab PO 0800 [facility] Last Admin: 03/13/17 08:36 Dose: 1 tab - Labs Labs: 03/12/17 06:31 03/12/17 06:31 - Constitutional Appears: Non-toxic - Head Exam Head Exam: NORMAL INSPECTION - Eye Exam Eye Exam: absent: Scleral icterus - ENT Exam ENT Exam: Mucous Membranes Moist - Neck Exam Neck Exam: Full ROM - Respiratory Exam Respiratory Exam: NORMAL BREATHING PATTERN - Cardiovascular Exam Cardiovascular Exam: REGULAR RHYTHM - GI/Abdominal Exam GI & Abdominal Exam: Soft - Extremities Exam Extremities Exam: Pedal Edema Additional comments: left foot infection - Neurological Exam Neurological Exam: Alert, Oriented x3 Assessment and Plan - Assessment and Plan (Free Text) Assessment: Infected left foot Ischemic left foot T2dm ESRD Plan: Cont ABTX HD ID/Vasc/podiatry follow-up
[2017-03-14] MEDS: Piperacill/Tazo 2.25gm in Dex 2.25 GM/50 ML BAG IVPB SCH ×3 (05:47→21:48)
--- NOTE | 2017-03-14 07:47 | PN ---
DATE: 03/12/2017 FOLLOWUP NEPHROLOGY NOTE CHIEF COMPLAINT: "I cannot do dialysis everyday, I do not feel good." HISTORY OF PRESENT ILLNESS AND REVIEW OF SYSTEMS: The patient is upset that he has to get dialysis 3 days in a row and he said he does not feel good when it happens to him. He denies any shortness of breath. He says leg swelling is much better with that. He denies any nausea or vomiting. No other complaint. He just does not feel good after dialysis in a row. PHYSICAL EXAMINATION: VITAL SIGNS: The patient is afebrile. Pulse is 81, blood pressure 131/70. Saturation is well maintained. CARDIOVASCULAR: S1 and S2 normal. No murmur, rub or gallop. LUNGS: Bilateral vesicular breath sounds. Bilateral air entry, normal and symmetrical, clear. ABDOMEN: Soft, nontender. No organomegaly. The patient is obese. EXTREMITIES: No edema at this time. VASCULAR: Access via AV fistula. NEUROLOGIC: Alert and oriented x3. No focal deficits. LABORATORY WORKUP: Lab shows hemoglobin is 10.2, platelet count is 257. Sodium is 133, potassium 5.4. His last phosphorus is 5.4. CURRENT MEDICATIONS: Reviewed. ASSESSMENT: 1. Left foot cellulitis. 2. Concern for peripheral vascular disease. 3. End-stage renal disease, on hemodialysis via arteriovenous fistula; Tuesdays, , Saturdays schedule. 4. Diabetic chronic kidney disease and hypertensive chronic kidney disease. 5. Improved leg edema, improved anemia. 6. Hyperphosphatemia, secondary hyperparathyroidism. 7. History of seizure disorder, coronary artery disease, obesity. RECOMMENDATIONS: The patient underwent regular dialysis today. We will plan for next dialysis on Tuesday. Continue with the Epogen during dialysis. Also on calcitriol and also on multivitamin. Also on Sensipar. We will follow PTH level. Blood pressure is mostly stable. Continue the phosphorus binder. The patient is restricted oral fluid and salt intake. All questions were answered. Please call if any questions. Zaheer Mendes MD 03/12/2017
[2017-03-14] MEDS: Multivitamin Vitamin B Complex (Nephro-Vite) Tab PO SCH (07:49)
--- NOTE | 2017-03-14 07:49 | CP.PCM.PN ---
Subjective - Date & Time of Evaluation Date of Evaluation: 03/14/17 Time of Evaluation: 07:00 - Subjective Subjective: General Surgery Note for Dr. Gallardo Pt S&E and in no acute distress. Patient very tired this morning and wants to continue sleeping. Patient denies any other complaints. Objective - Vital Signs/Intake and Output Vital Signs (last 24 hours): Temp Pulse Resp BP Pulse Ox 97.9 F 80 20 133/63 97 03/13/17 23:10 03/13/17 23:10 03/13/17 23:10 03/13/17 23:10 03/13/17 23:10 Intake and Output: 03/14/17 03/14/17 06:59 18:59 Intake Total 550 Balance 550 - Medications Medications: Current Medications Allopurinol (Zyloprim) 100 mg PO DAILY [facility] Last Admin: 03/13/17 09:55 Dose: 100 mg Alprazolam (Xanax) 1 mg PO ONCE ONE Stop: 03/14/17 10:01 Aspirin (Ecotrin) 81 mg PO DAILY [facility] Last Admin: 03/13/17 09:55 Dose: 81 mg Calcitriol (Rocaltrol) 1.5 mcg PO TTS [facility] Last Admin: 03/12/17 10:18 Dose: Not Given Carbamazepine (Tegretol-Xr) 200 mg PO BID [facility] Last Admin: 03/13/17 18:50 Dose: 200 mg Cinacalcet (Sensipar) 30 mg PO DAILY [facility] Last Admin: 03/13/17 09:55 Dose: 30 mg Clopidogrel Bisulfate (Plavix) 75 mg PO DAILY [facility] Last Admin: 03/13/17 09:55 Dose: 75 mg Epoetin Santino (Procrit) 4,000 unit IV TTS [facility] Last Admin: 03/12/17 15:17 Dose: 4,000 unit Famotidine (Pepcid) 20 mg PO DAILY [facility] Last Admin: 03/13/17 09:55 Dose: 20 mg Gabapentin (Neurontin) 400 mg PO HS [facility] Last Admin: 03/13/17 21:11 Dose: 400 mg Piperacillin Sod/Tazobactam Sod (Zosyn 2.25 Gm Iv Premix) 2.25 gm in 50 mls @ 100 mls/hr IVPB Q8H [facility] Last Admin: 03/14/17 05:47 Dose: 100 mls/hr Insulin Aspart (Novolog) 15 unit SC AC [facility] Last Admin: 03/13/17 17:10 Dose: 15 unit Modafinil (Provigil) 100 mg PO DAILY [facility] Last Admin: 03/13/17 09:55 Dose: 100 mg Mupirocin (Bactroban Ointment) 2 gm TOP DAILY [facility] Last Admin: 03/13/17 11:52 Dose: Not Given Polyethylene Glycol (Miralax) 17 gm PO DAILY [facility] Last Admin: 03/13/17 10:06 Dose: 17 gm Rosuvastatin Calcium (Crestor) 10 mg PO HS [facility] Last Admin: 03/13/17 21:11 Dose: 10 mg Sevelamer Carbonate (Renvela) 2,400 mg PO TIDCC [facility] Last Admin: 03/13/17 17:50 Dose: 2,400 mg Vitamin B Complex/Vit C/Folic Acid (Nephro-Vesna) 1 tab PO 0800 [facility] Last Admin: 03/13/17 08:36 Dose: 1 tab - Labs Labs: 03/12/17 06:31 03/12/17 06:31 - Constitutional Appears: Non-toxic, No Acute Distress - Head Exam Head Exam: ATRAUMATIC, NORMAL INSPECTION, NORMOCEPHALIC - Eye Exam Eye Exam: EOMI, Normal appearance - Respiratory Exam Respiratory Exam: NORMAL BREATHING PATTERN. absent: Accessory Muscle Use, Respiratory Distress - Cardiovascular Exam Cardiovascular Exam: REGULAR RHYTHM - GI/Abdominal Exam GI & Abdominal Exam: Soft. absent: Tenderness - Extremities Exam Extremities Exam: absent: Calf Tenderness, Normal Inspection Additional comments: non-healing left foot wound - dressing c/d/i nonpalpable DP/PT - Neurological Exam Neurological Exam: Alert, Awake, Oriented x3 - Psychiatric Exam Psychiatric exam: Normal Affect, Normal Mood - Skin Skin Exam: Normal Color, Warm Assessment and Plan - Assessment and Plan (Free Text) Assessment: 61M with non-healing left foot cellulitis Plan: -CTA- unremarkable CTA of abdomen and pelvis. LLE: moderate stenosis of proximal and distal SFA. Possible severe stenosis of proximal peroneal artery. RLE: moderate stenosis in popliteal artery. Mild to moderate stenosis of proximal peroneal artery. -cont dialysis as scheduled D/W Dr Gallardo
[2017-03-14] MEDS: (Novolog) Insulin Aspart, Recombinant 100 u/ml 10 ml vial SC SCH ×3 (08:00→17:27)
[2017-03-14] MEDS: POLYETHYLENE GLYCOL 3350 17 GM/Dose PACKET PO SCH (10:00)
--- NOTE | 2017-03-14 11:28 | CT ---
PROCEDURE: CT Angiography Abdomen, Pelvis and Lower Extremity with Contrast HISTORY: LLE ischemia COMPARISON: None. TECHNIQUE: Technique: CT angiography of the abdomen, pelvis and bilateral lower extremities performed in the arterial phase of enhancement. Coronal and sagittal reformats, and well as rotating MIP images of the vessels generated at the workstation. Intravenous contrast dose: 150 milliliters Visipaque 320 Radiation dose: Total exam DLP = 2280.30 MGy-cm. This CT exam was performed using one or more of the following dose reduction techniques: Automated exposure control, adjustment of the mA and/or kV according to patient size, and/or use of iterative reconstruction technique. FINDINGS: CT ANGIOGRAPHY: ABDOMINAL AORTA:: The abdominal was unremarkable. MAJOR AORTIC BRANCHES: Celiac [place]: Unremarkable. Superior mesenteric artery: Unremarkable. Inferior mesenteric artery: Unremarkable. Renal arteries: Right renal artery unremarkable. Main and accessory left renal arteries are normal. PELVIC ARTERIES: Right Common Iliac: Unremarkable. Right External Iliac: Unremarkable. Right Internal Iliac: Unremarkable. Left Common Iliac: Unremarkable. Left External Iliac: Unremarkable. Left Internal Iliac: Unremarkable. RIGHT LOWER EXTREMITY ARTERIES: Right Common Femoral: Unremarkable. Right Superficial Femoral: Mild calcific plaque throughout the SFA without significant stenosis. Right Profunda Femoris: Unremarkable. Right Popliteal:Moderate calcific plaque in the proximal popliteal artery with moderate stenosis. Right Anterior Tibial: Unremarkable. Right Tibioperoneal Trunk: Moderate calcific plaque at the proximal tibioperoneal artery which is patent. Right Posterior Tibial: Unremarkable. Right Peroneal: Moderate stenosis of the proximal peroneal artery. Right dorsalis pedis : Unremarkable. LEFT LOWER EXTREMITY ARTERIES: Left Common Femoral: Unremarkable. Left Superficial Femoral: Moderate stenosis of the proximal superficial femoral artery. There is also a focal area of moderate stenosis and distal SFA with calcific plaque in segment. Left Profunda Femoris: Unremarkable. Left Popliteal: Unremarkable. Left Anterior Tibial: Unremarkable. Left Tibioperoneal Trunk: Unremarkable. Left Posterior Tibial: Unremarkable. Left Peroneal: Possible severe stenosis of the proximal peroneal artery per Left Dorsalis pedis: Unremarkable. NON-ANGIOGRAPHIC ASPECT OF THE EXAM: LOWER THORAX: Unremarkable. LIVER: Unremarkable. No gross lesion or ductal dilatation. GALLBLADDER AND BILE DUCTS: Unremarkable. PANCREAS: Unremarkable. No gross lesion or ductal dilatation. SPLEEN: Unremarkable. ADRENALS: Unremarkable. No mass. KIDNEYS AND URETERS: Unremarkable. No hydronephrosis. No solid mass. STOMACH AND BOWEL: Unremarkable. No obstruction. No gross mural thickening. APPENDIX: PERITONEUM: Unremarkable. No free fluid. No free air. LYMPH NODES: Unremarkable. No enlarged lymph nodes. BLADDER: Unremarkable. REPRODUCTIVE: Unremarkable. BONES: No acute fracture. OTHER FINDINGS: None. IMPRESSION: CT ANGIOGRAM ABDOMEN/PELVIS: Unremarkable CT angiogram of the abdomen and pelvis. LEFT LOWER EXTREMITY CT ANGIOGRAM: 1. Moderate stenosis of the proximal SFA. There is also moderate stenosis of the distal SFA. 2. Popliteal artery is unremarkable. 3. Runoff shows patent anterior tibial artery and posterior tibial artery. There is a possible severe stenosis of the proximal peroneal artery. RIGHT LOWER EXTREMITY CT ANGIOGRAM: 1. Unremarkable common femoral artery and superficial femoral artery. 2. Moderate calcific plaque of the proximal popliteal artery with moderate stenosis in this segment. 3. Runoff shows patent anterior tibial artery and posterior tibial artery. There is [id number] stenosis of the proximal peroneal artery
--- NOTE | 2017-03-14 12:55 | CP.PCM.PN ---
Subjective - Date & Time of Evaluation Date of Evaluation: 03/14/17 Time of Evaluation: 12:53 - Subjective Subjective: Follow up Nephrology Consultation Note Assessment: Stable left foot wound with cellulitis. with underlying PVD Diabetic chronic Kidney Disease (E11.22) Hypertensive Chronic Kidney Disease (I12.0) End stage renal disease (N18.6) dependence on hemodialysis (Z99.2) (TTS) via AVF Anemia (D64.9), Hyperphosphatemia (E83.39), Secondary Hyperparathyroidism (E21.1 ), HTN (I12.0) Obesity Plan: No acute need for dialysis today. Will plan for dialysis Tuesday. Continue with Nephrovite 1 tab/day. PRBC as needed for anemia. On MACHO as epogen Continue with phos binder Continue with calcitriol and sensipar. check PTH BP control with meds as ordered. Patient not on RAAS dc as BP can be low side Glycemic control, Dialysis consistent diet Further work up/management as per primary team Dose meds/antibiotics (as per ID) for ESRD status. Avoid fleets enema/magnesium based laxatives. pt educated to restrict fluid intake vascular surgery following Thanks for allowing me to participate in care of your patient. Will follow patient with you. Please call if any Qs Dr Zaheer Mendes Office: [phone] Subjective: Noted events overnight. Patients feels okay. Denies chest pain, palpitation, shortness of breath, c/o leg swelling. No urinary complaints Physical Examination: General Appearance: Comfortable, in no acute respiratory distress, co- operative. Vitals reviewed and noted as below Lungs: Normal respiratory rate/effort. Breath sounds bilateral equal and clear Heart: Normal rate. s1s2 normal. No rub or gallop. Extremities: 1+ edema. foot wound dressed Neurological: Patient is alert, awake and oriented to person, place and time. No focal deficit. Strength bilateral appropriate and equal Skin: Warm and dry. Normal turgor. No rash. Palpitation: Normal elasticity for age Abdomen: Abdomen is soft. Bowel sounds +. There is no abdominal tenderness, no guarding/rigidity or organomegaly : kidney or bladder not palpable Access: AVF Labs/imaging reviewed. Past medical history, past surgical history, family history, social history, allergy reviewed Objective - Vital Signs/Intake and Output Vital Signs (last 24 hours): Temp Pulse Resp BP Pulse Ox 97.8 F 76 18 161/83 H 97 03/14/17 07:15 03/14/17 07:15 03/14/17 07:15 03/14/17 07:15 03/14/17 07:15 Intake and Output: 03/14/17 03/14/17 06:59 18:59 Intake Total 550 Balance 550 - Medications Medications: Current Medications Allopurinol (Zyloprim) 100 mg PO DAILY [facility] Last Admin: 03/14/17 09:22 Dose: 100 mg Aspirin (Ecotrin) 81 mg PO DAILY [facility] Last Admin: 03/14/17 09:22 Dose: 81 mg Calcitriol (Rocaltrol) 1.5 mcg PO TTS [facility] Last Admin: 03/12/17 10:18 Dose: Not Given Carbamazepine (Tegretol-Xr) 200 mg PO BID [facility] Last Admin: 03/14/17 09:23 Dose: 200 mg Cinacalcet (Sensipar) 30 mg PO DAILY [facility] Last Admin: 03/14/17 09:23 Dose: 30 mg Clopidogrel Bisulfate (Plavix) 75 mg PO DAILY [facility] Last Admin: 03/14/17 09:22 Dose: 75 mg Epoetin Santino (Procrit) 4,000 unit IV TTS [facility] Last Admin: 03/12/17 15:17 Dose: 4,000 unit Famotidine (Pepcid) 20 mg PO DAILY [facility] Last Admin: 03/14/17 09:22 Dose: 20 mg Gabapentin (Neurontin) 400 mg PO HS [facility] Last Admin: 03/13/17 21:11 Dose: 400 mg Piperacillin Sod/Tazobactam Sod (Zosyn 2.25 Gm Iv Premix) 2.25 gm in 50 mls @ 100 mls/hr IVPB Q8H [facility] Last Admin: 03/14/17 05:47 Dose: 100 mls/hr Insulin Aspart (Novolog) 15 unit SC AC [facility] Last Admin: 03/14/17 12:25 Dose: 15 unit Modafinil (Provigil) 100 mg PO DAILY [facility] Last Admin: 03/14/17 09:22 Dose: 100 mg Mupirocin (Bactroban Ointment) 2 gm TOP DAILY [facility] Last Admin: 03/14/17 01:00 Dose: 2 oin Polyethylene Glycol (Miralax) 17 gm PO DAILY [facility] Last Admin: 03/14/17 10:00 Dose: Not Given Rosuvastatin Calcium (Crestor) 10 mg PO HS [facility] Last Admin: 03/13/17 21:11 Dose: 10 mg Sevelamer Carbonate (Renvela) 2,400 mg PO TIDCC [facility] Last Admin: 03/14/17 12:19 Dose: 2,400 mg Vitamin B Complex/Vit C/Folic Acid (Nephro-Vesna) 1 tab PO 0800 [facility] Last Admin: 03/14/17 07:49 Dose: 1 tab - Labs Labs: 03/12/17 06:31 03/12/17 06:31
--- NOTE | 2017-03-14 16:02 | MRI ---
PROCEDURE: MRI of the left foot without contrast. HISTORY: r/o osteo; ID recommending MRI COMPARISON: Comparison is made to the previous x-ray of the left foot dated 03/10/2017 TECHNIQUE: Axial coronal and sagittal MRI images of the left foot were obtained without IV contrast administration. FINDINGS: There is no evidence of bone marrow edema or cortical destruction in the left foot to suggest active osteomyelitis. [id number] degenerative osteoarthritic changes in the left foot joints noted. There is [id number] hallux valgus deformity noted. Moderate subcutaneous diffuse soft tissue edema more prominent at the anterior aspect of the left foot. No evidence of discrete fluid collection. No evidence of acute pathology in the tendon and ligaments of the left foot. IMPRESSION: No evidence of osteomyelitis in the left foot. Diffuse skin thickening and subcutaneous edema in the left foot without evidence of discrete fluid collection. Arthritic degenerative changes. [id number] hallux valgus deformity.
--- NOTE | 2017-03-14 17:27 | CP.PCM.PN ---
<Bryan Renteria - Last Filed: 03/14/17 17:24> Subjective - Date & Time of Evaluation Date of Evaluation: 03/14/17 Time of Evaluation: 17:24 - Subjective Subjective: Podiatry Progress Note- Dr. Mello 61 yo male pt seen at bedside. Patient states that he is feeling well. Denies f/ n/v/c/sob/cp/weakness or dizziness today. Again says both of his feet are numb. Offers no further pedal complaints. Objective - Vital Signs/Intake and Output Vital Signs (last 24 hours): Temp Pulse Resp BP Pulse Ox 98 F 75 20 182/68 H 100 03/14/17 16:01 03/14/17 16:01 03/14/17 16:01 03/14/17 16:01 03/14/17 16:01 Intake and Output: 03/14/17 03/14/17 06:59 18:59 Intake Total 550 Balance 550 - Medications Medications: Current Medications Allopurinol (Zyloprim) 100 mg PO DAILY [facility] Last Admin: 03/14/17 09:22 Dose: 100 mg Aspirin (Ecotrin) 81 mg PO DAILY [facility] Last Admin: 03/14/17 09:22 Dose: 81 mg Calcitriol (Rocaltrol) 1.5 mcg PO TTS [facility] Last Admin: 03/12/17 10:18 Dose: Not Given Carbamazepine (Tegretol-Xr) 200 mg PO BID [facility] Last Admin: 03/14/17 09:23 Dose: 200 mg Cinacalcet (Sensipar) 30 mg PO DAILY [facility] Last Admin: 03/14/17 09:23 Dose: 30 mg Clopidogrel Bisulfate (Plavix) 75 mg PO DAILY [facility] Last Admin: 03/14/17 09:22 Dose: 75 mg Epoetin Santino (Procrit) 4,000 unit IV TTS [facility] Last Admin: 03/12/17 15:17 Dose: 4,000 unit Famotidine (Pepcid) 20 mg PO DAILY [facility] Last Admin: 03/14/17 09:22 Dose: 20 mg Gabapentin (Neurontin) 100 mg PO [facility] Piperacillin Sod/Tazobactam Sod (Zosyn 2.25 Gm Iv Premix) 2.25 gm in 50 mls @ 100 mls/hr IVPB Q8H [facility] Last Admin: 03/14/17 05:47 Dose: 100 mls/hr Insulin Aspart (Novolog) 15 unit SC AC [facility] Last Admin: 03/14/17 12:25 Dose: 15 unit Modafinil (Provigil) 100 mg PO DAILY [facility] Last Admin: 03/14/17 09:22 Dose: 100 mg Mupirocin (Bactroban Ointment) 2 gm TOP DAILY [facility] Last Admin: 03/14/17 01:00 Dose: 2 oin Polyethylene Glycol (Miralax) 17 gm PO DAILY [facility] Last Admin: 03/14/17 10:00 Dose: Not Given Rosuvastatin Calcium (Crestor) 10 mg PO HS [facility] Last Admin: 03/13/17 21:11 Dose: 10 mg Sevelamer Carbonate (Renvela) 2,400 mg PO TIDCC [facility] Last Admin: 03/14/17 12:19 Dose: 2,400 mg Vitamin B Complex/Vit C/Folic Acid (Nephro-Vesna) 1 tab PO 0800 [facility] Last Admin: 03/14/17 07:49 Dose: 1 tab - Labs Labs: 03/12/17 06:31 03/12/17 06:31 - Constitutional Appears: Well, Non-toxic, No Acute Distress - Extremities Exam Additional comments: BL LE exam: VASC- faintly palpable DP pulses bl (PT pulses non-palp bl), skin temp runs warm to cool right foot and warm to warm left foot NEURO- pedal sensation is grossly diminished bl DERM- -Right: no open wounds or ulcerations, no erythema -Left: there is a superficial ulceration to lateral aspect midshaft left metatarsal with mixed fibrogranular base, there is sloughing of skin noted to dorsal aspect of all digits with wound bases mixed fibrogranular in nature with no drainage (improved from yesterday), no purulence expressed, there is erythema noted to dorsum of midfoot extending distally and circumferentially to forefoot but does appear to be resolving, no ascending cellulitis. No wounds probe to bone, no tracking or tunneling, no fluctuance, all digits are cold to touch and dusky in coloration and appear ischemic ORTHO- no gross deformities, no tenderness to palpation bl - Neurological Exam Neurological Exam: Alert, Awake, Oriented x3 - Psychiatric Exam Psychiatric exam: Normal Affect, Normal Mood Assessment and Plan - Assessment and Plan (Free Text) Assessment: 61 yo male patient with 1) ulcerations/cellulitis to RLE 2/2 diabetic foot infection; 2) ischemia of all digits left foot Plan: Pt S&E at bedside with attending Dr. Mello Chart, labs and vitals reviewed Wounds painted with betadine and dressed with betadine soaked gauze, DSD Left foot x-ray: atherosclerotic vascular calcifications, hypertrophic arthrosis likely prior fx's with resultant healing through met bases. No acute fx's c/w IV abx as per ID (Dr. Farrar) Wound cx: coag neg staph, yeast species (prelim) CTA: LLE: moderate stenosis of proximal and distal SFA. Possible severe stenosis of proximal peroneal artery. RLE: moderate stenosis in popliteal artery. Mild to moderate stenosis of proximal peroneal artery. Will follow <Grant Mello - Last Filed: 03/15/17 09:17> Objective - Vital Signs/Intake and Output Vital Signs (last 24 hours): Temp Pulse Resp BP Pulse Ox 98.0 F 72 20 145/72 96 03/15/17 07:15 03/15/17 07:15 03/15/17 07:15 03/15/17 07:15 03/15/17 07:15 Intake and Output: 03/15/17 03/15/17 06:59 18:59 Intake Total 570 Balance 570 - Medications Medications: Current Medications Allopurinol (Zyloprim) 100 mg PO DAILY [facility] Last Admin: 03/14/17 09:22 Dose: 100 mg Aspirin (Ecotrin) 81 mg PO DAILY [facility] Last Admin: 03/14/17 09:22 Dose: 81 mg Calcitriol (Rocaltrol) 1.5 mcg PO TTS [facility] Last Admin: 03/12/17 10:18 Dose: Not Given Carbamazepine (Tegretol-Xr) 200 mg PO BID [facility] Last Admin: 03/14/17 18:00 Dose: 200 mg Cinacalcet (Sensipar) 30 mg PO DAILY [facility] Last Admin: 03/14/17 09:23 Dose: 30 mg Clopidogrel Bisulfate (Plavix) 75 mg PO DAILY [facility] Last Admin: 03/14/17 09:22 Dose: 75 mg Epoetin Santino (Procrit) 4,000 unit IV TTS [facility] Last Admin: 03/12/17 15:17 Dose: 4,000 unit Famotidine (Pepcid) 20 mg PO DAILY [facility] Last Admin: 03/14/17 09:22 Dose: 20 mg Gabapentin (Neurontin) 100 mg PO HS [facility] Last Admin: 03/14/17 21:56 Dose: 100 mg Piperacillin Sod/Tazobactam Sod (Zosyn 2.25 Gm Iv Premix) 2.25 gm in 50 mls @ 100 mls/hr IVPB Q8H [facility] Last Admin: 03/15/17 06:14 Dose: 100 mls/hr Insulin Aspart (Novolog) 15 unit SC AC [facility] Last Admin: 03/14/17 17:27 Dose: 15 unit Modafinil (Provigil) 100 mg PO DAILY [facility] Last Admin: 03/14/17 09:22 Dose: 100 mg Mupirocin (Bactroban Ointment) 2 gm TOP DAILY [facility] Last Admin: 03/14/17 01:00 Dose: 2 oin Polyethylene Glycol (Miralax) 17 gm PO DAILY [facility] Last Admin: 03/14/17 10:00 Dose: Not Given Rosuvastatin Calcium (Crestor) 10 mg PO HS [facility] Last Admin: 03/14/17 20:59 Dose: 10 mg Sevelamer Carbonate (Renvela) 2,400 mg PO TIDCC [facility] Last Admin: 03/15/17 08:09 Dose: 2,400 mg Vitamin B Complex/Vit C/Folic Acid (Nephro-Vesna) 1 tab PO 0800 [facility] Last Admin: 03/15/17 08:10 Dose: 1 tab - Labs Labs: 03/12/17 06:31 03/12/17 06:31 Assessment and Plan - Assessment and Plan (Free Text) Plan: Pt seen at bedside with resident .pt examined and chart and labs reviewed .agree with above findings .Dr Mello .
[2017-03-15] MEDS: Piperacill/Tazo 2.25gm in Dex 2.25 GM/50 ML BAG IVPB SCH (06:14)
[2017-03-15] MEDS: (Novolog) Insulin Aspart, Recombinant 100 u/ml 10 ml vial SC SCH ×2 (07:30→11:30)
--- NOTE | 2017-03-15 08:00 | CP.PCM.PN ---
Subjective - Date & Time of Evaluation Date of Evaluation: 03/15/17 Time of Evaluation: 07:00 - Subjective Subjective: General Surgery Note for Dr. Gallardo Patient seen and examined and in no acute distress. Patient says he feels good and denies any complaints. Patient has no nausea, vomiting, constipation, or diarrhea. Objective - Vital Signs/Intake and Output Vital Signs (last 24 hours): Temp Pulse Resp BP Pulse Ox 97.3 F L 68 20 166/83 H 99 03/14/17 23:05 03/14/17 23:05 03/14/17 23:05 03/14/17 23:05 03/14/17 23:05 Intake and Output: 03/15/17 03/15/17 06:59 18:59 Intake Total 570 Balance 570 - Medications Medications: Current Medications Allopurinol (Zyloprim) 100 mg PO DAILY [facility] Last Admin: 03/14/17 09:22 Dose: 100 mg Aspirin (Ecotrin) 81 mg PO DAILY [facility] Last Admin: 03/14/17 09:22 Dose: 81 mg Calcitriol (Rocaltrol) 1.5 mcg PO TTS [facility] Last Admin: 03/12/17 10:18 Dose: Not Given Carbamazepine (Tegretol-Xr) 200 mg PO BID [facility] Last Admin: 03/14/17 18:00 Dose: 200 mg Cinacalcet (Sensipar) 30 mg PO DAILY [facility] Last Admin: 03/14/17 09:23 Dose: 30 mg Clopidogrel Bisulfate (Plavix) 75 mg PO DAILY [facility] Last Admin: 03/14/17 09:22 Dose: 75 mg Epoetin Santino (Procrit) 4,000 unit IV TTS [facility] Last Admin: 03/12/17 15:17 Dose: 4,000 unit Famotidine (Pepcid) 20 mg PO DAILY [facility] Last Admin: 03/14/17 09:22 Dose: 20 mg Gabapentin (Neurontin) 100 mg PO HS [facility] Last Admin: 03/14/17 21:56 Dose: 100 mg Piperacillin Sod/Tazobactam Sod (Zosyn 2.25 Gm Iv Premix) 2.25 gm in 50 mls @ 100 mls/hr IVPB Q8H [facility] Last Admin: 03/15/17 06:14 Dose: 100 mls/hr Insulin Aspart (Novolog) 15 unit SC AC [facility] Last Admin: 03/14/17 17:27 Dose: 15 unit Modafinil (Provigil) 100 mg PO DAILY [facility] Last Admin: 03/14/17 09:22 Dose: 100 mg Mupirocin (Bactroban Ointment) 2 gm TOP DAILY [facility] Last Admin: 03/14/17 01:00 Dose: 2 oin Polyethylene Glycol (Miralax) 17 gm PO DAILY [facility] Last Admin: 03/14/17 10:00 Dose: Not Given Rosuvastatin Calcium (Crestor) 10 mg PO HS [facility] Last Admin: 03/14/17 20:59 Dose: 10 mg Sevelamer Carbonate (Renvela) 2,400 mg PO TIDCC [facility] Last Admin: 03/14/17 17:28 Dose: 2,400 mg Vitamin B Complex/Vit C/Folic Acid (Nephro-Vesna) 1 tab PO 0800 [facility] Last Admin: 03/14/17 07:49 Dose: 1 tab - Labs Labs: 03/12/17 06:31 03/12/17 06:31 - Constitutional Appears: Non-toxic, No Acute Distress - Head Exam Head Exam: ATRAUMATIC, NORMAL INSPECTION, NORMOCEPHALIC - Eye Exam Eye Exam: EOMI, Normal appearance - ENT Exam ENT Exam: Mucous Membranes Moist - Respiratory Exam Respiratory Exam: NORMAL BREATHING PATTERN. absent: Accessory Muscle Use, Respiratory Distress - Cardiovascular Exam Cardiovascular Exam: REGULAR RHYTHM - GI/Abdominal Exam GI & Abdominal Exam: Soft. absent: Tenderness - Extremities Exam Additional comments: non-healing left foot wound - dressing c/d/i nonpalpable DP/PT - Neurological Exam Neurological Exam: Alert, Awake, Oriented x3 - Psychiatric Exam Psychiatric exam: Normal Affect, Normal Mood - Skin Skin Exam: Normal Color, Warm Additional comments: non-healing left foot wound - dressing c/d/i nonpalpable DP/PT Assessment and Plan - Assessment and Plan (Free Text) Assessment: 61M with non-healing left foot cellulitis Plan: -CTA- unremarkable CTA of abdomen and pelvis. LLE: moderate stenosis of proximal and distal SFA. Possible severe stenosis of proximal peroneal artery. RLE: moderate stenosis in popliteal artery. Mild to moderate stenosis of proximal peroneal artery. -no surgical intervention at this time, please re-consult if needed D/W Dr Gallardo
[2017-03-15] MEDS: Multivitamin Vitamin B Complex (Nephro-Vite) Tab PO SCH (08:10)
--- NOTE | 2017-03-15 10:11 | CP.PCM.PN ---
<Bright Mcmanus - Last Filed: 03/15/17 21:41> Objective - Vital Signs/Intake and Output Vital Signs (last 24 hours): Temp Pulse Resp BP Pulse Ox 98.3 F 81 20 151/76 H 94 L 03/15/17 15:00 03/15/17 15:00 03/15/17 15:00 03/15/17 15:00 03/15/17 15:00 - Labs Labs: 03/12/17 06:31 03/12/17 06:31 - Constitutional Appears: Well, Non-toxic, No Acute Distress - Extremities Exam Additional comments: BL LE exam: VASC- faintly palpable DP pulses bl (PT pulses non-palp bl), skin temp runs warm to cool right foot and warm to warm left foot NEURO- pedal sensation is grossly diminished bl DERM- -Right: no open wounds or ulcerations, no erythema -Left: there is a superficial ulceration to lateral aspect midshaft left metatarsal with mixed fibrogranular base, there is sloughing of skin noted to dorsal aspect of all digits with wound bases mixed fibrogranular in nature with no drainage (improved from yesterday), no purulence expressed, there is erythema noted to dorsum of midfoot extending distally and circumferentially to forefoot but does appear to be resolving, no ascending cellulitis. No wounds probe to bone, no tracking or tunneling, no fluctuance, all digits are cold to touch and dusky in coloration and appear ischemic ORTHO- no gross deformities, no tenderness to palpation bl Assessment and Plan - Assessment and Plan (Free Text) Assessment: 61 yo male patient with 1) ulcerations/cellulitis to RLE 2/2 diabetic foot infection; 2) ischemia of all digits left foot Plan: Pt S&E at bedside with attending Dr. Mello Chart, labs and vitals reviewed Wounds painted with betadine and dressed with betadine soaked gauze, DSD Left foot x-ray: atherosclerotic vascular calcifications, hypertrophic arthrosis likely prior fx's with resultant healing through met bases. No acute fx's c/w IV abx as per ID (Dr. Farrar). 21 days of outpatient Vanco and Zosyn per ID. Patient is stable from podiatry standpoint for discharge. <Grant Mello - Last Filed: 03/16/17 10:21> Subjective - Date & Time of Evaluation Date of Evaluation: 03/15/17 Time of Evaluation: 10:08 - Subjective Subjective: pt seen on round .pt is s/p CT angio and vascular is not planning any procedure .Will need retirement antibiotics and wound care . Objective - Vital Signs/Intake and Output Vital Signs (last 24 hours): Temp Pulse Resp BP Pulse Ox 98.0 F 72 20 145/72 96 03/15/17 07:15 03/15/17 07:15 03/15/17 07:15 03/15/17 07:15 03/15/17 07:15 Intake and Output: 03/15/17 03/15/17 06:59 18:59 Intake Total 570 Balance 570 - Medications Medications: Current Medications Allopurinol (Zyloprim) 100 mg PO DAILY [facility] Last Admin: 03/14/17 09:22 Dose: 100 mg Aspirin (Ecotrin) 81 mg PO DAILY [facility] Last Admin: 03/14/17 09:22 Dose: 81 mg Calcitriol (Rocaltrol) 1.5 mcg PO TTS [facility] Last Admin: 03/12/17 10:18 Dose: Not Given Carbamazepine (Tegretol-Xr) 200 mg PO BID [facility] Last Admin: 03/14/17 18:00 Dose: 200 mg Cinacalcet (Sensipar) 30 mg PO DAILY [facility] [place] Last Admin: 03/14/17 09:23 Dose: 30 mg Clopidogrel Bisulfate (Plavix) 75 mg PO DAILY [facility] Last Admin: 03/14/17 09:22 Dose: 75 mg Epoetin Santino (Procrit) 4,000 unit IV TTS [facility] [place] Last Admin: 03/12/17 15:17 Dose: 4,000 unit Famotidine (Pepcid) 20 mg PO DAILY [facility] [place] Last Admin: 03/14/17 09:22 Dose: 20 mg Gabapentin (Neurontin) 100 mg PO HS [facility] [place] Last Admin: 03/14/17 21:56 Dose: 100 mg Piperacillin Sod/Tazobactam Sod (Zosyn 2.25 Gm Iv Premix) 2.25 gm in 50 mls @ 100 mls/hr IVPB Q8H [facility] [place] Last Admin: 03/15/17 06:14 Dose: 100 mls/hr Insulin Aspart (Novolog) 15 unit SC AC [facility] [place] Last Admin: 03/14/17 17:27 Dose: 15 unit Modafinil (Provigil) 100 mg PO DAILY [facility] [place] Last Admin: 03/14/17 09:22 Dose: 100 mg Mupirocin (Bactroban Ointment) 2 gm TOP DAILY [facility] [place] Last Admin: 03/14/17 01:00 Dose: 2 oin Polyethylene Glycol (Miralax) 17 gm PO DAILY [facility] Last Admin: 03/14/17 10:00 Dose: Not Given Rosuvastatin Calcium (Crestor) 10 mg PO HS [facility] [place] Last Admin: 03/14/17 20:59 Dose: 10 mg Sevelamer Carbonate (Renvela) 2,400 mg PO TIDCC [facility] [place] Last Admin: 03/15/17 08:09 Dose: 2,400 mg Vitamin B Complex/Vit C/Folic Acid (Nephro-Vesna) 1 tab PO 0800 [facility] Last Admin: 03/15/17 08:10 Dose: 1 tab - Labs Labs: 03/12/17 06:31 03/12/17 06:31 Assessment and Plan - Assessment and Plan (Free Text) Plan: Pt seen at bedside .some blistered tissue starting to slough and hopefully necroses is only superficial 'He will have aggressive wound care and continued IV antibiotics x [address] MELLO
--- NOTE | 2017-03-15 12:08 | CP.PCM.PN ---
Subjective - Date & Time of Evaluation Date of Evaluation: 03/15/17 Time of Evaluation: 09:00 - Subjective Subjective: s/p CT angio iv rx in progress to cont Vanco/zosyn for total 21 days with follow up by Dr Mello Objective - Vital Signs/Intake and Output Vital Signs (last 24 hours): Temp Pulse Resp BP Pulse Ox 98 F 81 16 152/76 H 98 03/15/17 08:45 03/15/17 08:45 03/15/17 08:45 03/15/17 09:15 03/15/17 08:45 Intake and Output: 03/15/17 03/15/17 06:59 18:59 Intake Total 570 Balance 570 - Medications Medications: Current Medications Allopurinol (Zyloprim) 100 mg PO DAILY [facility] Last Admin: 03/14/17 09:22 Dose: 100 mg Aspirin (Ecotrin) 81 mg PO DAILY [facility] Last Admin: 03/14/17 09:22 Dose: 81 mg Calcitriol (Rocaltrol) 2 mcg PO TTS [facility] Carbamazepine (Tegretol-Xr) 200 mg PO BID [facility] Last Admin: 03/14/17 18:00 Dose: 200 mg Cinacalcet (Sensipar) 30 mg PO DAILY [facility] Last Admin: 03/14/17 09:23 Dose: 30 mg Clopidogrel Bisulfate (Plavix) 75 mg PO DAILY [facility] Last Admin: 03/14/17 09:22 Dose: 75 mg Epoetin Santino (Procrit) 4,000 unit IV TTS [facility] Last Admin: 03/12/17 15:17 Dose: 4,000 unit Famotidine (Pepcid) 20 mg PO DAILY [facility] Last Admin: 03/14/17 09:22 Dose: 20 mg Gabapentin (Neurontin) 100 mg PO HS [facility] Last Admin: 03/14/17 21:56 Dose: 100 mg Piperacillin Sod/Tazobactam Sod (Zosyn 2.25 Gm Iv Premix) 2.25 gm in 50 mls @ 100 mls/hr IVPB Q8H [facility] Last Admin: 03/15/17 06:14 Dose: 100 mls/hr Insulin Aspart (Novolog) 15 unit SC AC [facility] Last Admin: 03/14/17 17:27 Dose: 15 unit Modafinil (Provigil) 100 mg PO DAILY [facility] Last Admin: 10/02/17 09:22 Dose: 100 mg Mupirocin (Bactroban Ointment) 2 gm TOP DAILY [facility] Last Admin: 03/14/17 01:00 Dose: 2 oin Polyethylene Glycol (Miralax) 17 gm PO DAILY [facility] Last Admin: 03/14/17 10:00 Dose: Not Given Rosuvastatin Calcium (Crestor) 10 mg PO HS [facility] Last Admin: 03/14/17 20:59 Dose: 10 mg Sevelamer Carbonate (Renvela) 2,400 mg PO TIDCC [facility] Last Admin: 03/15/17 08:09 Dose: 2,400 mg Vitamin B Complex/Vit C/Folic Acid (Nephro-Vesna) 1 tab PO 0800 [facility] Last Admin: 03/15/17 08:10 Dose: 1 tab - Labs Labs: 03/12/17 06:31 03/12/17 06:31 - Constitutional Appears: Non-toxic, Chronically Ill - Head Exam Head Exam: NORMOCEPHALIC - Eye Exam Eye Exam: PERRL - ENT Exam ENT Exam: Mucous Membranes Dry - Neck Exam Neck Exam: absent: Lymphadenopathy - Respiratory Exam Respiratory Exam: Decreased Breath Sounds - Cardiovascular Exam Cardiovascular Exam: REGULAR RHYTHM - GI/Abdominal Exam GI & Abdominal Exam: Distended - Rectal Exam Rectal Exam: Deferred - Exam Exam: NORMAL INSPECTION - Extremities Exam Extremities Exam: Pedal Edema, Tenderness - Back Exam Back Exam: absent: CVA tenderness (L), CVA tenderness (R) Assessment and Plan (1) Cellulitis and abscess of toe of left foot Status: Acute (2) ESRD on dialysis Status: Acute (3) Acute CHF Status: Acute (4) Altered mental status Status: Acute (5) Anemia Status: Acute - Assessment and Plan (Free Text) Assessment: s/p CT angio iv rx in progress to cont Vanco/zosyn for total 21 days with follow up by Dr Mello
[2017-03-15] MEDS: EPOETIN ALFA 4,000 UNIT/ML ML Dialysis IV SCH (12:46)
--- NOTE | 2017-03-15 13:23 | CP.PCM.PN ---
Subjective - Date & Time of Evaluation Date of Evaluation: 03/15/17 Time of Evaluation: 13:23 - Subjective Subjective: PT CLEARED FOR D/C PER DR. HUGHES. TO GO TO [facility] TODAY UNDER THE SERVICE OF DR. PETERSON (I HAVE ALREADY NOTIFIED DR. PETERSON ABOUT THE PT AND WE DISCUSSED PLAN FOR D/C AND TREATMENT). DISCUSSED WITH DR. HALL ABX DURATION FOR D/C. PER DR. HALL (ID) TO CONTINUE THE FOLLOWING ANTIBIOTICS: ZOSYN 2.25 GM IV Q8 HOURS FOR TOTAL OF 3 WEEKS (STARTED ON 03/07/17 AND LAST DOSE TO BE GIVEN ON 03/28/17); VANCOMYCIN 1 GM IV WITH EVERY DIALYSIS ON FOR TOTAL OF 3 WEEKS (STARTED ON 03/07/17 AND LAST DOSE TO BE GIVEN ON 03/29/17). FACILITY TO ARRANGE FOR A FOLLOW UP APPOINTMENT WITH DR. HONG (PODIATRY) IN HIS OFFICE OR AT THE [facility] WITHIN 1 WEEK. WOUND CARE TEAM AT FACILITY TO EVALUATE PT UPON ARRIVAL. WOUND CARE ORDERS FOLLOWS PER POD NOTES: Clean with betadine, apply bactroban and dress wound with betadine soaked gauze and apply DSD. Wound care to be done once a day and prn. NO FURTHER F/U NEEDED WITH DR. HUANG PER MY DISCUSSION WITH HIM. TRANSPORTATION TO BE ARRANGED FOR D/C BY . NO FURTHER ORDERS. Objective - Vital Signs/Intake and Output Vital Signs (last 24 hours): Temp Pulse Resp BP Pulse Ox 98 F 81 16 156/70 H 98 03/15/17 08:45 03/15/17 08:45 03/15/17 08:45 03/15/17 10:00 03/15/17 08:45 Intake and Output: 03/15/17 03/15/17 06:59 18:59 Intake Total 570 Balance 570 - Medications Medications: Current Medications Allopurinol (Zyloprim) 100 mg PO DAILY [facility] Last Admin: 03/14/17 09:22 Dose: 100 mg Aspirin (Ecotrin) 81 mg PO DAILY [facility] Last Admin: 03/14/17 09:22 Dose: 81 mg Calcitriol (Rocaltrol) 2 mcg PO TTS [facility] Carbamazepine (Tegretol-Xr) 200 mg PO BID [facility] Last Admin: 03/14/17 18:00 Dose: 200 mg Cinacalcet (Sensipar) 30 mg PO DAILY [facility] Last Admin: 03/14/17 09:23 Dose: 30 mg Clopidogrel Bisulfate (Plavix) 75 mg PO DAILY [facility] Last Admin: 03/14/17 09:22 Dose: 75 mg Epoetin Santino (Procrit) 4,000 unit IV TTS [facility] Last Admin: 03/15/17 12:46 Dose: 4,000 unit Famotidine (Pepcid) 20 mg PO DAILY [facility] Last Admin: 03/14/17 09:22 Dose: 20 mg Gabapentin (Neurontin) 100 mg PO HS [facility] Last Admin: 03/14/17 21:56 Dose: 100 mg Piperacillin Sod/Tazobactam Sod (Zosyn 2.25 Gm Iv Premix) 2.25 gm in 50 mls @ 100 mls/hr IVPB Q8H [facility] Last Admin: 03/15/17 06:14 Dose: 100 mls/hr Insulin Aspart (Novolog) 15 unit SC AC [facility] Last Admin: 03/14/17 17:27 Dose: 15 unit Modafinil (Provigil) 100 mg PO DAILY [facility] Last Admin: 03/14/17 09:22 Dose: 100 mg Mupirocin (Bactroban Ointment) 2 gm TOP DAILY [facility] Last Admin: 03/14/17 01:00 Dose: 2 oin Polyethylene Glycol (Miralax) 17 gm PO DAILY [facility] Last Admin: 03/14/17 10:00 Dose: Not Given Rosuvastatin Calcium (Crestor) 10 mg PO HS [facility] Last Admin: 03/14/17 20:59 Dose: 10 mg Sevelamer Carbonate (Renvela) 2,400 mg PO TIDCC [facility] Last Admin: 03/15/17 08:09 Dose: 2,400 mg Vitamin B Complex/Vit C/Folic Acid (Nephro-Vesna) 1 tab PO 0800 [facility] Last Admin: 03/15/17 08:10 Dose: 1 tab - Labs Labs: 03/12/17 06:31 03/12/17 06:31
[2017-03-15] MEDS: POLYETHYLENE GLYCOL 3350 17 GM/Dose PACKET PO SCH (15:07)
--- NOTE | 2017-03-15 15:18 | CP.PCM.PN ---
Subjective - Date & Time of Evaluation Date of Evaluation: 03/15/17 Time of Evaluation: 15:17 - Subjective Subjective: Follow up Nephrology Consultation Note Assessment: Stable left foot wound with cellulitis. with underlying PVD Diabetic chronic Kidney Disease (E11.22) Hypertensive Chronic Kidney Disease (I12.0) End stage renal disease (N18.6) dependence on hemodialysis (Z99.2) (TTS) via AVF Anemia (D64.9), Hyperphosphatemia (E83.39), Secondary Hyperparathyroidism (E21.1 ), HTN (I12.0) Obesity Plan: dialysis today undergoing. Continue with Nephrovite 1 tab/day. pt agreed to say for extra 30 min for additional UF PRBC as needed for anemia. On MACHO as epogen Continue with phos binder Continue with calcitriol and sensipar. BP control with meds as ordered. Patient not on RAAS dc as BP can be low side Glycemic control, Dialysis consistent diet Further work up/management as per primary team Dose meds/antibiotics (as per ID) for ESRD status. Avoid fleets enema/magnesium based laxatives. pt educated to restrict fluid intake vascular surgery following Thanks for allowing me to participate in care of your patient. Will follow patient with you. Please call if any Qs Dr Zaheer Mendes Office: [phone] Subjective: Noted events overnight. Patients feels okay. Denies chest pain, palpitation, shortness of breath, c/o leg swelling. No urinary complaints Physical Examination: seen during HD General Appearance: Comfortable, in no acute respiratory distress, co- operative. Vitals reviewed and noted as below Lungs: Normal respiratory rate/effort. Breath sounds bilateral equal and clear Heart: Normal rate. s1s2 normal. No rub or gallop. Extremities: 1+ edema. foot wound dressed Neurological: Patient is alert, awake and oriented to person, place and time. No focal deficit. Strength bilateral appropriate and equal Skin: Warm and dry. Normal turgor. No rash. Palpitation: Normal elasticity for age Abdomen: Abdomen is soft. Bowel sounds +. There is no abdominal tenderness, no guarding/rigidity or organomegaly : kidney or bladder not palpable Access: AVF Labs/imaging reviewed. Past medical history, past surgical history, family history, social history, allergy reviewed Objective - Vital Signs/Intake and Output Vital Signs (last 24 hours): Temp Pulse Resp BP Pulse Ox 98 F 75 16 108/52 L 98 03/15/17 12:50 03/15/17 12:50 03/15/17 12:50 03/15/17 12:50 03/15/17 12:50 Intake and Output: 03/15/17 03/15/17 06:59 18:59 Intake Total 570 Balance 570 - Medications Medications: Current Medications Allopurinol (Zyloprim) 100 mg PO DAILY [facility] Last Admin: 03/15/17 15:06 Dose: 100 mg Aspirin (Ecotrin) 81 mg PO DAILY [facility] Last Admin: 03/15/17 15:06 Dose: 81 mg Calcitriol (Rocaltrol) 2 mcg PO TTS [facility] Carbamazepine (Tegretol-Xr) 200 mg PO BID [facility] Last Admin: 03/14/17 18:00 Dose: 200 mg Cinacalcet (Sensipar) 30 mg PO DAILY [facility] Last Admin: 03/15/17 15:06 Dose: 30 mg Clopidogrel Bisulfate (Plavix) 75 mg PO DAILY [facility] Last Admin: 03/15/17 15:06 Dose: 75 mg Epoetin Santino (Procrit) 4,000 unit IV TTS [facility] Last Admin: 03/15/17 12:46 Dose: 4,000 unit Famotidine (Pepcid) 20 mg PO DAILY [facility] Last Admin: 03/15/17 15:06 Dose: 20 mg Gabapentin (Neurontin) 100 mg PO HS [facility] Last Admin: 03/14/17 21:56 Dose: 100 mg Piperacillin Sod/Tazobactam Sod (Zosyn 2.25 Gm Iv Premix) 2.25 gm in 50 mls @ 100 mls/hr IVPB Q8H [facility] Last Admin: 03/15/17 06:14 Dose: 100 mls/hr Insulin Aspart (Novolog) 15 unit SC AC [facility] Last Admin: 03/14/17 17:27 Dose: 15 unit Modafinil (Provigil) 100 mg PO DAILY [facility] Last Admin: 03/15/17 15:06 Dose: 100 mg Mupirocin (Bactroban Ointment) 2 gm TOP DAILY [facility] Last Admin: 03/14/17 01:00 Dose: 2 oin Polyethylene Glycol (Miralax) 17 gm PO DAILY [facility] Last Admin: 03/15/17 15:07 Dose: 17 gm Rosuvastatin Calcium (Crestor) 10 mg PO HS [facility] Last Admin: 03/14/17 20:59 Dose: 10 mg Sevelamer Carbonate (Renvela) 2,400 mg PO TIDCC [facility] Last Admin: 03/15/17 12:00 Dose: Not Given Vitamin B Complex/Vit C/Folic Acid (Nephro-Vesna) 1 tab PO 0800 [facility] Last Admin: 03/15/17 08:10 Dose: 1 tab - Labs Labs: 03/12/17 06:31 03/12/17 06:31
[2017-03-15 16:17] VITALS: BP 151/76; PULSE 81; RESP 20; TEMP 98.3; O2SAT 94
--- NOTE | 2017-03-15 18:01 | CP.PCM.PN ---
Subjective - Date & Time of Evaluation Date of Evaluation: 03/14/17 Time of Evaluation: 08:00 - Subjective Subjective: s/p CTA - +PVD ; no intervention as per Dr Gallardo no diarrhea slow healing cellulitis Objective - Vital Signs/Intake and Output Vital Signs (last 24 hours): Temp Pulse Resp BP Pulse Ox 98.3 F 81 20 151/76 H 94 L 03/15/17 15:00 03/15/17 15:00 03/15/17 15:00 03/15/17 15:00 03/15/17 15:00 Intake and Output: 03/15/17 03/15/17 06:59 18:59 Intake Total 570 Balance 570 - Labs Labs: 03/12/17 06:31 03/12/17 06:31 - Constitutional Appears: Non-toxic - Head Exam Head Exam: NORMAL INSPECTION - Eye Exam Eye Exam: absent: Scleral icterus - ENT Exam ENT Exam: Mucous Membranes Moist - Neck Exam Neck Exam: Full ROM - Respiratory Exam Respiratory Exam: NORMAL BREATHING PATTERN - Cardiovascular Exam Cardiovascular Exam: REGULAR RHYTHM - GI/Abdominal Exam GI & Abdominal Exam: Soft. absent: Tenderness - Extremities Exam Extremities Exam: Pedal Edema, Tenderness Additional comments: swollen, cellulitis of left foot - Neurological Exam Neurological Exam: Alert Assessment and Plan - Assessment and Plan (Free Text) Assessment: Slow healing left foot wound w/ cellulitis T2dm ESRD Plan: Cont Abtx Wound care HD
--- NOTE | 2017-03-15 18:09 | CP.PCM.PN ---
Subjective - Date & Time of Evaluation Date of Evaluation: 03/15/17 Time of Evaluation: 08:10 - Subjective Subjective: feels ok left foot pain w/ cellulitis PAD on CTA Objective - Vital Signs/Intake and Output Vital Signs (last 24 hours): Temp Pulse Resp BP Pulse Ox 98.3 F 81 20 151/76 H 94 L 03/15/17 15:00 03/15/17 15:00 03/15/17 15:00 03/15/17 15:00 03/15/17 15:00 Intake and Output: 03/15/17 03/15/17 06:59 18:59 Intake Total 570 Balance 570 - Labs Labs: 03/12/17 06:31 03/12/17 06:31 - Head Exam Head Exam: NORMOCEPHALIC - Eye Exam Eye Exam: Scleral icterus - Neck Exam Neck Exam: Full ROM. absent: Lymphadenopathy - Respiratory Exam Respiratory Exam: NORMAL BREATHING PATTERN - Cardiovascular Exam Cardiovascular Exam: REGULAR RHYTHM - GI/Abdominal Exam GI & Abdominal Exam: Soft. absent: Tenderness - Extremities Exam Extremities Exam: absent: Calf Tenderness - Neurological Exam Neurological Exam: Alert Assessment and Plan - Assessment and Plan (Free Text) Assessment: SLow healing left foot wound ischemic left foot PAOD T2dm ESRD Plan: Will DC if ok w/ ID/Vasc/Pod Will need suppression crew leader Abtx therapy
--- NOTE | 2017-03-15 18:13 | CP.PCM.DIS ---
Provider - Provider Date of Admission: 03/07/17 21:13 Attending physician: Katerine Elizondo MD Primary care physician: Dr Katerine Elizondo Consults: MARYANN - Charan SHARP Pod - Funmilayo Gallardo MD Renal -[facility] Time Spent in preparation of Discharge (in minutes): 35 Diagnosis - Discharge Diagnosis (1) Anemia Status: Acute Priority: High (2) Cellulitis and abscess of toe of left foot Status: Acute (3) PVD (peripheral vascular disease) Status: Acute (4) ESRD on dialysis Status: Acute Hospital Course - Lab Results Lab Results: Micro Results 03/07/17 19:00 Foot - Left Gram Stain - Final 03/07/17 19:00 Foot - Left Wound Culture - Final Coagulase Neg Staphylococcus Cryptococcus Laurentii 03/07/17 19:45 Blood Blood Culture - Final NO GROWTH AFTER 5 DAYS 03/07/17 19:45 Blood Gram Stain - Final TEST NOT PERFORMED 03/07/17 20:00 Blood Blood Culture - Final NO GROWTH AFTER 5 DAYS 03/07/17 20:00 Blood Gram Stain - Final TEST NOT PERFORMED Most Recent Lab Values WBC 5.2 K/uL (4.8-10.8) 03/12/17 06:31 RBC 3.09 Mil/uL (4.40-5.90) L 03/12/17 06:31 Hgb 10.2 g/dL (12.0-18.0) L 03/12/17 06:31 Hct 29.7 % (35.0-51.0) L 03/12/17 06:31 MCV 96.2 fL (80.0-94.0) H 03/12/17 06:31 MCH 32.9 pg (27.0-31.0) H 03/12/17 06:31 MCHC 34.2 g/dL (33.0-37.0) 03/12/17 06:31 RDW 15.1 % (11.5-14.5) H 03/12/17 06:31 Plt Count 257 K/uL (130-400) 03/12/17 06:31 MPV 7.4 fL (7.2-11.7) 03/12/17 06:31 Neut % (Auto) 62.4 % (50.0-75.0) 03/12/17 06:31 Lymph % (Auto) 23.8 % (20.0-40.0) 03/12/17 06:31 Robeson % (Auto) 8.9 % (0.0-10.0) 03/12/17 06:31 Eos % (Auto) 3.5 % (0.0-4.0) 03/12/17 06:31 Baso % (Auto) 1.4 % (0.0-2.0) 03/12/17 06:31 Neut # 3.3 K/uL (1.8-7.0) 03/12/17 06:31 Lymph # 1.2 K/uL (1.0-4.3) 03/12/17 06:31 Robeson # 0.5 K/uL (0.0-0.8) 03/12/17 06:31 Eos # 0.2 K/uL (0.0-0.7) 03/12/17 06:31 Baso # 0.1 K/uL (0.0-0.2) 03/12/17 06:31 Sodium 133 mmol/L (132-148) 03/12/17 06:31 Potassium 5.4 mmol/L (3.6-5.2) H 03/12/17 06:31 Chloride 88 mmol/L (98-107) L 03/12/17 06:31 Carbon Dioxide 26 mmol/L (22-30) 03/12/17 06:31 Anion Gap 24 (10-20) H 03/12/17 06:31 BUN 63 mg/dL (9-20) H 03/12/17 06:31 Creatinine 10.3 MG/DL (0.8-1.5) H* 03/12/17 06:31 Est GFR ( Amer) 6 03/12/17 06:31 Est GFR (Non-Af Amer) 5 03/12/17 06:31 POC Glucose (mg/dL) 314 mg/dL (65-110) H 03/15/17 16:29 Random Glucose 185 mg/dL (75-110) H 03/12/17 06:31 Calcium 8.1 mg/dl (8.6-10.4) L 03/12/17 06:31 Phosphorus 5.4 mg/dL (2.5-4.5) H 03/10/17 07:26 Total Bilirubin 0.5 mg/dL (0.2-1.3) 03/07/17 20:08 AST 32 U/L (17-59) 03/07/17 20:08 ALT 38 U/L (21-72) 03/07/17 20:08 Alkaline Phosphatase 217 U/L (38-126) H 03/07/17 20:08 Total Protein 6.9 g/dL (6.3-8.3) 03/07/17 20:08 Albumin 3.8 g/dL (3.5-5.0) 03/07/17 20:08 Globulin 3.1 gm/dL (2.2-3.9) 03/07/17 20:08 Albumin/Globulin Ratio 1.3 (1.0-2.1) 03/07/17 20:08 PTH Intact Whole Molec 657 pg/mL (14-64) H 03/12/17 06:31 - Hospital Course Hospital Course: Pt was treated w/ Abtx as per ID Dr Farrar. Dr Mello provided wound care.Pt went for routine dialysis. CTA done revealed multiple stenosis of LLE. Dr Gallardo felt no peripheral or surgical intervention was need at this time. [facility] Abtx therapy. - Date & Time of H&P Date of H&P: 03/15/17 Time of H&P: 18:21 Discharge Exam - Head Exam Head Exam: NORMOCEPHALIC - Eye Exam Eye Exam: absent: Scleral icterus - ENT Exam ENT Exam: Mucous Membranes Moist - Neck Exam Neck exam: Full Rom - Respiratory Exam Respiratory Exam: NORMAL BREATHING PATTERN - Cardiovascular Exam Cardiovascular Exam: REGULAR RHYTHM - GI/Abdominal Exam GI & Abdominal Exam: Normal Bowel Sounds - Extremities Exam Extremities exam: calf tenderness - Neurological Exam Neurological exam: Alert, Oriented x3 Discharge Plan - Discharge Medications Prescriptions: Vancomycin [Vancomycin Inj] 1 gm IV TTS #6 vial Piperacillin/Tazobact [Zosyn 2 Gm-0.25 Gm] 2.25 gm IV Q8 14 Days vial - Follow Up Plan Condition: STABLE Disposition: REHAB FACILITY/REHAB UNIT Instructions: Heart Failure (DC), Cellulitis (DC), Dialysis Diet (DC), End Stage Kidney Disease (DC) Additional Instructions: PLACE UNDER THE SERVICE OF DR. PETERSON WHILE AT [facility]---CALL UPON ARRIVAL FOR ADMITTING ORDERS AND BED ASSIGNMENT. CONTINUE ALL MEDICATIONS PER THE MED REC; CHANGES CAN BE MADE BY DR. PETERSON. HEPLOCK CARE PER FACILITY PROTOCOL. UNABLE TO HAVE PICC LINE DUE TO DIALYSIS PER NEPHROLOGY. PER DR. FARRAR (ID) TO CONTINUE THE FOLLOWING ANTIBIOTICS: ZOSYN 2.25 GM IV Q8 HOURS FOR TOTAL OF 3 WEEKS (STARTED ON 03/07/17 AND LAST DOSE TO BE GIVEN ON ); VANCOMYCIN 1 GM IV WITH EVERY DIALYSIS ON FOR TOTAL OF 3 WEEKS (STARTED ON 03/07/17 AND LAST DOSE TO BE GIVEN ON 03/29/17). PLEASE ARRANGE FOR A FOLLOW UP APPOINTMENT WITH DR. MELLO (PODIATRY) IN HIS OFFICE OR AT THE [facility] WITHIN 1 WEEK--CALL FOR APPT. WOUND CARE TEAM AT FACILITY TO EVALUATE UPON ARRIVAL. WOUND CARE ORDERS FOLLOWS: Clean with betadine, apply bactroban and dress wound with betadine soaked gauze and apply DSD. Wound care to be done once a day and prn. Referrals: Katerine Elizondo MD [Staff Provider] - Jeovanny Clayton MD [Staff Provider] - Bird Leonard MD [Medical Doctor] - Gil Farrar MD [Staff Provider] - Grant Mello DPM [Staff Provider] -
== END 2017-03-15 17:10 | DRG 299 ==
LOC: C.ER 15:25 → C.9E 21:13 → C.6T 03-08 01:30
PROVIDERS: ADMIT Internal Medicine; ATTEND Internal Medicine
PROC: 5A1D70Z Performance of Urinary Filtration, Intermittent, Less than 6 Hours Per Day (ICD-10-PCS; principal; 2017-03-10)
DX: I70.245 Atherosclerosis of native arteries of left leg with ulceration of other part of foot (principal); N18.6 End stage renal disease; I13.2 Hypertensive heart and chronic kidney disease with heart failure and with stage 5 chronic kidney disease, or end stage renal disease; E10.22 Type 1 diabetes mellitus with diabetic chronic kidney disease; N25.81 Secondary hyperparathyroidism of renal origin; E10.628 Type 1 diabetes mellitus with other skin complications; L97.529 Non-pressure chronic ulcer of other part of left foot with unspecified severity; E10.621 Type 1 diabetes mellitus with foot ulcer; L03.032 Cellulitis of left toe; I25.10 Atherosclerotic heart disease of native coronary artery without angina pectoris; I50.9 Heart failure, unspecified; I69.398 Other sequelae of cerebral infarction; R26.81 Unsteadiness on feet; Z99.2 Dependence on renal dialysis; E78.00 Pure hypercholesterolemia, unspecified; Z95.5 Presence of coronary angioplasty implant and graft; D64.9 Anemia, unspecified; E83.39 Other disorders of phosphorus metabolism; G40.909 Epilepsy, unspecified, not intractable, without status epilepticus; E66.9 Obesity, unspecified; Z68.34 Body mass index [BMI] 34.0-34.9, adult; E83.51 Hypocalcemia

== ENCOUNTER 2017-06-01 16:55 | Inpatient (IN) | payer MEDICARE, OTHER ==
[2017-06-01 16:55] VITALS: BMI 33.5
--- NOTE | 2017-06-01 18:10 | C.PDOC ---
History Of Present Illness 62 year old male with PMHx of ESRD and prostate "issues" presents to the ED for evaluation of RLQ pain 4 days ago. Patient reports he does make a small amount of urine but recently his output decreased and looks darker than usual. Patient is also c/o foul smelling mucous like stool for a couple of days. Patient reports he felt febrile but did not take his temperature and also had chills. Upon arrival patient has a chronic wound to his left foot, a diabetic wound that is non healing he reports he was seen by the Color Buffer today and dressing changed. The wound "looks good" according to him. Patient denies CP, SOB, nausea, vomit, back pain, weakness, numbness. Time Seen by Provider: 06/01/17 17:39 Chief Complaint (Nursing): Abdominal Pain History Per: Patient History/Exam Limitations: no limitations Onset/Duration Of Symptoms: Days Current Symptoms Are (Timing): Gone Severity: Mild Location Of Pain/Discomfort: RLQ Radiation Of Pain To:: None Quality Of Discomfort: "Pain" Associated Symptoms: Urinary Symptoms Exacerbating Factors: None Alleviating Factors: None Recent travel outside of the [place]: No Additional History Per: Patient Past Medical History Reviewed: Historical Data, Nursing Documentation, Vital Signs Vital Signs: Last Vital Signs Temp 98.9 F 06/01/17 21:15 Pulse 105 H 06/01/17 21:37 Resp 16 06/01/17 21:37 BP 191/101 H 06/01/17 21:37 Pulse Ox 97 06/01/17 21:06 - Medical History PMH: Anemia, CAD (ATHEROSCLEROSIS), CHF, CVA (with residual mild gait instability), Diabetes (NIDDM), HTN, Hypercholesterolemia, Pneumonia, End Stage Renal Disease (AV SHUNT, DIALYSIS (T--TUE)), Chronic Kidney Disease (SEE COMMENT), Seizures, TIA Denies: Kidney Stones Surgical History: Coronary Stent (4 years ago) - [facility] (03/07/17) HEMODIALYSIS (12/29/14) PACKED CELL TRANSFUSION (03/05/14) PERFORMANCE OF URINARY FILTRATION, SINGLE (08/28/16) VACCINATION NEC (02/23/14) Family History: States: Unknown Family Hx - Social History Hx Tobacco Use: No Hx Alcohol Use: No Hx Substance Use: No - Immunization History Hx Tetanus Toxoid Vaccination: Yes Hx Influenza Vaccination: Yes (2014) Hx Pneumococcal Vaccination: Yes (2014) Review Of Systems Constitutional: Negative for: Fever, Chills Cardiovascular: Negative for: Chest Pain Respiratory: Negative for: Cough, Shortness of Breath Gastrointestinal: Positive for: Abdominal Pain. Negative for: Nausea, Vomiting Genitourinary: Positive for: Other (decreased urine, foul smelling) Musculoskeletal: Negative for: Back Pain Skin: Negative for: Rash Neurological: Negative for: Weakness, Numbness Physical Exam - Physical Exam Appears: Non-toxic, No Acute Distress Skin: Normal Color, Warm, Dry Head: Atraumatic, Normacephalic Nose: No Discharge, No Deformity Oral Mucosa: Moist Neck: Normal ROM, Supple Chest: Symmetrical Cardiovascular: Rhythm Regular, No Murmur Respiratory: No Rales, Rhonchi (B/L basilar), No Wheezing Gastrointestinal/Abdominal: Soft, Tenderness (RLQ), No Guarding, No Rebound Extremity: Normal ROM, No Calf Tenderness, No Deformity, No Swelling, Other ( Chronic non healing wound to his left foot) Neurological/Psych: Oriented x3, Normal Speech, Normal Cognition Gait: Steady ED Course And Treatment - Laboratory Results Result Diagrams: 06/01/17 18:11 06/01/17 21:08 Lab Interpretation: Abnormal (Na 128, cl 86, BUN 55, Cr 9.9, K+ 6.8, Urine WBC 4957 with clumps of WBC, leukocyte esterase 3+) ECG: Interpreted By Nd ECG Rhythm: Sinus Rhythm, R BBB ECG Interpretation: No Acute Changes O2 Sat by Pulse Oximetry: 97 (On RA) Pulse Ox Interpretation: Normal - Radiology CXR: Interpreted by Nd CXR Interpretation: Yes: No Acute Disease Reevaluation Time: 22:04 Reassessment Condition: Unchanged - Physician Consult Information Time Consulting Physician Contacted: 21:06 Physician Contacted: Gil Farrar Outcome Of Conversation: covering for Dr Elizondo. Patient to be admitted for dialysis and treatment of UTI. Medical Decision Making Medical Decision Making: Impression : 62 y/o male with ESRD c/o decreased urine output and RLQ pain Plan: * Blood work * CXR * Blood culture * Urine culture * UA Disposition - Disposition Disposition: HOSPITALIZED Disposition Time: 22:02 Condition: FAIR - POA Present On Arrival: None - Clinical Impression Clinical Impression: UTI (urinary tract infection), ESRD (end stage renal disease) on dialysis, Hyperkalemia, Hypertension - Scribe Statement The provider has reviewed the documentation as recorded by the Scribe Bola Wagoner All medical record entries made by the Scribe were at my direction and personally dictated by me. I have reviewed the chart and agree that the record accurately reflects my personal performance of the history, physical exam, medical decision making, and the department course for this patient. I have also personally directed, reviewed, and agree with the discharge instructions and disposition.
[2017-06-01 18:29] LABS: EOS % 0.5 % (0.0-4.0); WHITE BLOOD COUNT 8.3 K/uL (4.8-10.8)
[2017-06-01 18:30] LABS: BASO % 0.5 % (0.0-2.0); HEMATOCRIT 36.8 % (35.0-51.0); LYMPH # 0.8 K/uL (1.0-4.3); LYMPH % 9.7 % (20.0-40.0); MEAN CORPUSCULAR HEMOGLOBIN 31.5 pg (27.0-31.0); MEAN CORPUSCULAR HGB CONC 33.8 g/dL (33.0-37.0); MEAN PLATELET VOLUME 7.8 fL (7.2-11.7); MONO # 0.4 K/uL (0.0-0.8); MONO % 4.9 % (0.0-10.0); PLATELET COUNT 160 K/uL (130-400); RED CELL DISTRIBUTION WIDTH 15.5 % (11.5-14.5)
[2017-06-01 18:33] LABS: MEAN CELL VOLUME 93.4 fL (80.0-94.0)
[2017-06-01 18:44] LABS: ALB/GLOB RATIO 1.3 (1.0-2.1); BILIRUBIN,TOTAL 0.8 mg/dL (0.2-1.3); CALCIUM 8.4 mg/dl (8.6-10.4); POTASSIUM 6.8 mmol/L (3.6-5.2); TOTAL PROTEIN 7.4 g/dL (6.3-8.3)
[2017-06-01 19:00] LABS: NEUTROPHIL 79 % (50-75); TOTAL CELLS COUNTED 100
[2017-06-01 19:01] LABS: LARGE PLATELETS PRESENT; REACTIVE LYMPHOCYTES 1 % (0-0)
[2017-06-01 20:53] LABS: RBC URINE 3361 /hpf (0-3); TRANSITIONAL EPITHIAL 2 /hpf (0-3); URINE BACTERIA FEW (<OCC); URINE BILIRUBIN NEGATIVE (NEGATIVE); URINE BLOOD 3+ (NEGATIVE); URINE COLOR Red (YELLOW); URINE GLUCOSE (UA) NORMAL (Normal); URINE KETONE NEGATIVE (NEGATIVE); URINE LEUKOCYTE ESTERASE 3+ Leu/uL (Negative); URINE PROTEIN 3+ mg/dL (NEGATIVE); URINE UROBILINOGEN NORMAL mg/dL (0.2-1.0); WBC CLUMPS MANY /hpf; WBC URINE 4957 /hpf (0-5)
[2017-06-01] MEDS ORDERED: POLYETHYLENE GLYCOL 3350 17 GM/Dose PACKET PO PRN (21:48)
[2017-06-01] MEDS ORDERED: (Novolin R) Insulin Human Regular 100 units/ml vial IV STA (21:51)
[2017-06-01] MEDS ORDERED: Sod Polystyrene Sulf 15 gm/60 ml Susp PO ONE (21:51)
[2017-06-01] MEDS ORDERED: Dextrose 50% SYRINGE Inj (50 ml) IV STA (21:52)
[2017-06-01] MEDS ORDERED: Calcium Gluconate 4.65 mEq/10 ml Inj IVP ONE (21:57)
[2017-06-01] MEDS ORDERED: Sod Polystyrene Sulf 15 gm/60 ml Susp ONE (22:02)
[2017-06-01] MEDS ORDERED: (Novolin R) Insulin Human Regular 100 units/ml vial ONE (22:03)
[2017-06-01] MEDS ORDERED: Calcium Gluconate 4.65 mEq/10 ml Inj ONE (22:03)
[2017-06-01] MEDS ORDERED: Dextrose 50% VIAL Inj (50 ml) IV ONE (22:05)
[2017-06-01] MEDS ORDERED: Cefepime 1 GM in Sodium Chloride 0.9% 50 ML IVPB ONE (22:06)
[2017-06-01] MEDS ORDERED: Cefepime IV 1 gm in Dextrose 1 GM/50 ML BAG IVPB ONE (23:00)
[2017-06-01 23:13] LABS: TROPONIN I 0.043 ng/mL (0.00-0.120)
[2017-06-01] MEDS: (Lantus) Insulin Glargine, Recombinant SC SCH (23:15)
[2017-06-02] MEDS: (Novolog) Insulin Aspart, Recombinant 100 u/ml 10 ml vial SC SCH ×3 (07:50→19:39)
[2017-06-02] MEDS: Multivitamin Vitamin B Complex (Nephro-Vite) Tab PO SCH (08:24)
--- NOTE | 2017-06-02 08:28 | RAD ---
PROCEDURE: CHEST RADIOGRAPH, 1 VIEW HISTORY: Shortness of breath COMPARISON: 08/27/2016. FINDINGS: LUNGS: The lungs are well inflated. There is severe pulmonary venous congestion and mild interstitial edema. No focal consolidation PLEURA: No pneumothorax or pleural fluid seen. CARDIOVASCULAR: Persistent mild cardiomegaly. OSSEOUS STRUCTURES: No significant abnormalities. VISUALIZED UPPER ABDOMEN: Normal. OTHER FINDINGS: None. IMPRESSION: Severe pulmonary venous congestion and mild interstitial pulmonary edema. No focal consolidation.
[2017-06-02] MEDS ORDERED: Omega-3-Acid Ethyl Esters 1 GM Cap PO SCH (10:00)
[2017-06-02] MEDS ORDERED: Home Med 1 UNIT (Linaclotide [Linzess] 290 MCG) PO SCH (10:00)
[2017-06-02] MEDS ORDERED: ARMODAFINIL 150 MG PO SCH (10:00)
--- NOTE | 2017-06-02 15:47 | CP.PCM.CON ---
History of Present Illness - History of Present Illness History of Present Illness: Initial Nephrology Consultation: Assessment: Stable UTI, Hyperkalemia, fluid overload Diabetic chronic Kidney Disease (E11.22) Hypertensive Chronic Kidney Disease (I12.0) End stage renal disease (N18.6) dependence on hemodialysis (Z99.2) (TTS) via AVF Anemia (D64.9), Hyperphosphatemia (E83.39), Secondary Hyperparathyroidism (E21.1 ), HTN (I12.0) diabetic foot ulcer left side Plan: Will plan for HD today as ordered. Continue with Nephrovite 1 tab/day. will check labs with HD PRBC as needed for anemia. last Hb 12.4 TSAT 40% Ferritin 2809 hence no MACHO or IV iron for now Continue with phos binders home dose Continue with sensipar, last PTH 340 BP control with meds as ordered. Patient not on RAAS dc as BP tends to be low. he is on midodrine Glycemic control, Dialysis consistent diet Further work up/management as per primary team Dose meds/antibiotics (if needed) for ESRD status. Avoid fleets enema/magnesium based laxatives. Thanks for allowing me to participate in care of your patient. Will follow patient with you. Please call if any Qs Dr Zaheer Mendes Office: [phone] Chief Complaint;pain abdomen HPI: Pt is a 62 M with hx of ESRD on hemodialysis (TTS) via AVF, last dialysis last night, chronic anemia, hyperphosphatemia, secondary hyperparathyroidism, Diabetes Mellitus, hypertension, foot ulcer, visual impairment presented with complaints of pain abdomen and found to have sev pulm congestion, hyperkalemia, UTI renal consult for ESRD, K, fluid overload management. ROS: Cardiovascular: No chest pain. Pulmonary: No shortness of breath Gastrointestinal: denies abdominal pain now No nausea. No vomiting. Genitourinary: No pain while urinating. Denies blood in urine. makes only small amount of urine All other negative Physical Examination: General Appearance: Comfortable, in no acute respiratory distress, co-operative . Vitals reviewed and noted as below Head; Atraumatic, normocephalic ENT: no ulcers no thrush. Tongue is midline. Oropharynx: no rash or ulcers. EYES: he is legally blind. no icterus Neck; supple no lymphadenopathy, no thyromegaly or bruit Lungs: Normal respiratory rate/effort. Breath sounds bilateral equal and has basal crackles Heart: Normal rate. s1s2 normal. No rub or gallop. Extremities: no edema. No varicose veins. left foot dressed Neurological: Patient is alert, awake and oriented to person, place and time. No focal deficit. Strength bilateral appropriate and equal Skin: Warm and dry. Normal turgor. No rash. Palpitation: Normal elasticity for age Abdomen: Abdomen is soft. Bowel sounds +. There is no abdominal tenderness, no guarding/rigidity or organomegaly Psych: limited insight and has normal affect/mood MSK: no joint tenderness or swelling. Digits and nails normal, no deformity : kidney or bladder not palpable Access: AVF Labs/imaging reviewed. Past medical history, past surgical history, family history, social history, allergy reviewed and noted as below Family Hx: no hx of CKD. Non contributory Past Patient History - Tetanus Immunizations Tetanus Immunization: Unknown - Past Medical History & Family History Past Medical History?: Yes - Past Social History Smoking Status: Former Smoker - CARDIAC Hx Congestive Heart Failure: Yes Hx Hypercholesterolemia: Yes Hx Hypertension: Yes - PULMONARY Hx Pneumonia: Yes - NEUROLOGICAL Hx Seizures: Yes Hx Transient Ischemic Attacks (TIA): Yes - HEENT Hx HEENT Problems: Yes Hx Glaucoma: Yes (LEFT EYE) - RENAL Hx Chronic Kidney Disease: Yes (SEE COMMENT) Hx Kidney Stones: No - ENDOCRINE/METABOLIC Hx Diabetes Mellitus Type 1: Yes - HEMATOLOGICAL/ONCOLOGICAL Hx Anemia: Yes - INTEGUMENTARY Hx Dermatological Problems: No - MUSCULOSKELETAL/RHEUMATOLOGICAL Hx Falls: No - GASTROINTESTINAL Hx Gastrointestinal Disorders: No - GENITOURINARY/GYNECOLOGICAL Hx Genitourinary Disorders: No - PSYCHIATRIC Hx Substance Use: No - SURGICAL HISTORY Hx Coronary Stent: Yes (4 years ago) - ANESTHESIA Hx Anesthesia: Yes Hx Anesthesia Reactions: No Hx Malignant Hyperthermia: No Meds Allergies/Adverse Reactions: Allergies Allergy/AdvReac Type Severity Reaction Status Date / Time No Known Allergies Allergy Verified 02/24/17 10:43 - Medications Medications: Current Medications Allopurinol (Zyloprim) 100 mg PO DAILY [facility] Last Admin: 06/02/17 10:41 Dose: 100 mg Aspirin (Ecotrin) 81 mg PO DAILY [facility] Last Admin: 06/02/17 10:39 Dose: 81 mg Carbamazepine (Tegretol-Xr) 200 mg PO BID [facility] Last Admin: 06/02/17 10:40 Dose: 200 mg Cinacalcet (Sensipar) 30 mg PO DAILY [facility] Last Admin: 06/02/17 10:41 Dose: 30 mg Clopidogrel Bisulfate (Plavix) 75 mg PO DAILY [facility] Last Admin: 06/02/17 10:39 Dose: 75 mg Famotidine (Pepcid) 20 mg PO DAILY [facility] Last Admin: 06/02/17 10:39 Dose: 20 mg Gabapentin (Neurontin) 400 mg PO HS [facility] Last Admin: 06/01/17 23:58 Dose: 400 mg Heparin Sodium (Porcine) (Heparin) 5,000 units SC BID [facility] Last Admin: 06/02/17 10:41 Dose: 5,000 units Home Med (Armodafinil 150 Mg Tab [Nuvigil 150 Mg Tab]) 150 mg PO DAILY [facility] Home Med (Linaclotide [Linzess]) 290 mcg PO DAILY [facility] Insulin Aspart (Novolog) [address] [facility] Last Admin: 06/02/17 12:55 Dose: 25 unit Insulin Glargine (Lantus) 25 unit SC [facility] Last Admin: 06/01/17 23:15 Dose: 25 units Midodrine (Proamatine) 5 mg PO DAILY [facility] Last Admin: 06/02/17 10:37 Dose: 5 mg Kaeym-4-Cuuu Ethyl Esters (Lovaza) 1 gm PO BID [facility] Polyethylene Glycol (Miralax) 17 gm PO DAILY PRN PRN Reason: Constipation Rosuvastatin Calcium (Crestor) 10 mg PO [facility] Last Admin: 06/01/17 23:15 Dose: 10 mg Sevelamer Carbonate (Renvela) 2,400 mg PO TID [facility] Last Admin: 06/02/17 14:55 Dose: 2,400 mg Vitamin B Complex/Vit C/Folic Acid (Nephro-Vesna) 1 tab PO 0800 [facility] Last Admin: 06/02/17 08:24 Dose: 1 tab Results - Vital Signs Recent Vital Signs: Last Vital Signs Temp 98.1 F 06/02/17 08:19 Pulse 87 06/02/17 08:19 Resp 20 06/02/17 08:19 BP 117/69 06/02/17 08:19 Pulse Ox 100 06/02/17 08:19 - Labs Result Diagrams: 06/01/17 18:11 06/01/17 21:08 Labs: Laboratory Results - last 24 hr 06/01/17 06/01/17 06/01/17 18:11 18:11 20:36 WBC 8.3 D RBC 3.94 L Hgb 12.4 D Hct 36.8 MCV 93.4 D MCH 31.5 H MCHC 33.8 RDW 15.5 H Plt Count 160 MPV 7.8 Neut % (Auto) 84.4 H Lymph % (Auto) 9.7 L [place] % (Auto) 4.9 Eos % (Auto) 0.5 Baso % (Auto) 0.5 Neut # 7.0 Lymph # 0.8 L [place] # 0.4 Eos # 0.0 Baso # 0.0 Neutrophils % (Manual) 79 H Band Neutrophils % 6 H Lymphocytes % (Manual) 10 L Reactive Lymphs % 1 H Monocytes % (Manual) 4 Platelet Estimate Normal Large Platelets Present Microcytosis (manual) Slight Sodium 128 L Potassium 6.8 H* D Chloride 86 L Carbon Dioxide 30 Anion Gap 19 BUN 55 H Creatinine 9.9 H* Est GFR ( Amer) 6 Est GFR (Non-Af Amer) 5 POC Glucose (mg/dL) Random Glucose 192 H Lactic Acid Calcium 8.4 L Total Bilirubin 0.8 AST 54 ALT 46 Alkaline Phosphatase 248 H Total Creatine Kinase CK-MB (Mass) Troponin I Total Protein 7.4 Albumin 4.2 Globulin 3.2 Albumin/Globulin Ratio 1.3 Urine Color Red Urine Clarity Turbid Urine pH 8.0 Ur Specific [place] 1.014 Urine Protein 3+ H Urine Glucose (UA) Normal Urine Ketones Negative Urine Blood 3+ H Urine Nitrate Negative Urine Bilirubin Negative Urine Urobilinogen Normal Ur Leukocyte Esterase 3+ H Urine WBC (Auto) 4957 H Urine RBC (Auto) 3361 H Urine WBC Clumps (Auto) Many H Ur Transition Epith Cell 2 Urine Bacteria Few H 06/01/17 06/01/17 06/01/17 21:08 22:44 22:44 WBC RBC Hgb Hct MCV MCH MCHC RDW Plt Count MPV Neut % (Auto) Lymph % (Auto) [place] % (Auto) Eos % (Auto) Baso % (Auto) Neut # Lymph # [place] # Eos # Baso # Neutrophils % (Manual) Band Neutrophils % Lymphocytes % (Manual) Reactive Lymphs % Monocytes % (Manual) Platelet Estimate Large Platelets Microcytosis (manual) Sodium Potassium 7.4 H* Chloride Carbon Dioxide Anion Gap BUN Creatinine Est GFR ( Amer) Est GFR (Non-Af Amer) POC Glucose (mg/dL) Random Glucose Lactic Acid 1.0 Calcium Total Bilirubin AST ALT Alkaline Phosphatase Total Creatine Kinase 116 CK-MB (Mass) 3.15 Troponin I 0.0430 Total Protein Albumin Globulin Albumin/Globulin Ratio Urine Color Urine Clarity Urine pH Ur Specific [place] Urine Protein Urine Glucose (UA) Urine Ketones Urine Blood Urine Nitrate Urine Bilirubin Urine Urobilinogen Ur Leukocyte Esterase Urine WBC (Auto) Urine RBC (Auto) Urine WBC Clumps (Auto) Ur Transition Epith Cell Urine Bacteria 06/01/17 06/02/17 06/02/17 23:10 06:19 11:22 WBC RBC Hgb Hct MCV MCH MCHC RDW Plt Count MPV Neut % (Auto) Lymph % (Auto) [place] % (Auto) Eos % (Auto) Baso % (Auto) Neut # Lymph # [place] # Eos # Baso # Neutrophils % (Manual) Band Neutrophils % Lymphocytes % (Manual) Reactive Lymphs % Monocytes % (Manual) Platelet Estimate Large Platelets Microcytosis (manual) Sodium Potassium Chloride Carbon Dioxide Anion Gap BUN Creatinine Est GFR ( Amer) Est GFR (Non-Af Amer) POC Glucose (mg/dL) 241 H 89 301 H Random Glucose Lactic Acid Calcium Total Bilirubin AST ALT Alkaline Phosphatase Total Creatine Kinase CK-MB (Mass) Troponin I Total Protein Albumin Globulin Albumin/Globulin Ratio Urine Color Urine Clarity Urine pH Ur Specific [place] Urine Protein Urine Glucose (UA) Urine Ketones Urine Blood Urine Nitrate Urine Bilirubin Urine Urobilinogen Ur Leukocyte Esterase Urine WBC (Auto) Urine RBC (Auto) Urine WBC Clumps (Auto) Ur Transition Epith Cell Urine Bacteria 06/02/17 14:44 WBC RBC Hgb Hct MCV MCH MCHC RDW Plt Count MPV Neut % (Auto) Lymph % (Auto) [place] % (Auto) Eos % (Auto) Baso % (Auto) Neut # Lymph # [place] # Eos # Baso # Neutrophils % (Manual) Band Neutrophils % Lymphocytes % (Manual) Reactive Lymphs % Monocytes % (Manual) Platelet Estimate Large Platelets Microcytosis (manual) Sodium Potassium Chloride Carbon Dioxide Anion Gap BUN Creatinine Est GFR ( Amer) Est GFR (Non-Af Amer) POC Glucose (mg/dL) 136 H Random Glucose Lactic Acid Calcium Total Bilirubin AST ALT Alkaline Phosphatase Total Creatine Kinase CK-MB (Mass) Troponin I Total Protein Albumin Globulin Albumin/Globulin Ratio Urine Color Urine Clarity Urine pH Ur Specific [place] Urine Protein Urine Glucose (UA) Urine Ketones Urine Blood Urine Nitrate Urine Bilirubin Urine Urobilinogen Ur Leukocyte Esterase Urine WBC (Auto) Urine RBC (Auto) Urine WBC Clumps (Auto) Ur Transition Epith Cell Urine Bacteria
[2017-06-02 16:51] LABS: BASO % 0.4 % (0.0-2.0); EOS % 0.6 % (0.0-4.0); HEMATOCRIT 35.4 % (35.0-51.0); LYMPH # 1.5 K/uL (1.0-4.3); LYMPH % 18.2 % (20.0-40.0); MEAN CELL VOLUME 93.4 fL (80.0-94.0); MEAN CORPUSCULAR HEMOGLOBIN 31.9 pg (27.0-31.0); MEAN CORPUSCULAR HGB CONC 34.1 g/dL (33.0-37.0); MEAN PLATELET VOLUME 7.6 fL (7.2-11.7); MONO # 0.5 K/uL (0.0-0.8); MONO % 6.4 % (0.0-10.0); RED CELL DISTRIBUTION WIDTH 15.4 % (11.5-14.5)
[2017-06-02 17:23] LABS: CALCIUM 8.1 mg/dl (8.6-10.4); PHOSPHOROUS 3.6 mg/dL (2.5-4.5); POTASSIUM 3.8 mmol/L (3.6-5.2)
--- NOTE | 2017-06-02 19:03 | CP.PCM.HP ---
History of Present Illness - History of Present Illness History of Present Illness: 62 M with hx of ESRD on hemodialysis (TTS) via AVF, last dialysis last night, chronic anemia, hyperphosphatemia, secondary hyperparathyroidism, Diabetes Mellitus, hypertension, foot ulcer, visual impairment presented with complaints of pain abdomen and found to have sev pulm congestion, hyperkalemia, UTI Present on Admission - Present on Admission Any Indicators Present on Admission: No History of DVT/PE: No History of Uncontrolled Diabetes: No Urinary Catheter: No Decubitus Ulcer Present: No History Surgical Site Infection Following: None Review of Systems - Review of Systems All systems: reviewed and no additional remarkable complaints except - Constitutional Constitutional: As Per HPI - EENT Eyes: absent: As Per HPI, Blind Spots, Blurred Vision, Change in Vision, Decreased Night Vision, Diplopia, Discharge, Dry Eye, Exophthalmos, Floaters, Irritation, Itchy Eyes, Loss of Peripheral Vision, Pain, Photophobia, Requires Corrective Lenses, Sees Flashes, Spots in Vision, Tunnel Vision, Other Visual Disturbances, Loss of Vision, Other Ears: absent: As Per HPI, Decreased Hearing, Ear Discharge, Ear Pain, Tinnitus, Abnormal Hearing, Disequilibrium, Dizziness, Other Nose/Mouth/Throat: absent: As Per HPI, Epistaxis, Nasal Congestion, Nasal Discharge, Nasal Obstruction, Nasal Trauma, Nose Pain, Post Nasal Drip, Sinus Pain, Sinus Pressure, Bleeding Gums, Change in Voice, Dental Pain, Dry Mouth, Dysphagia, Halitosis, Hoarsness, Lip Swelling, Mouth Lesions, Mouth Pain, Odynophagia, Sore Throat, Throat Swelling, Tongue Swelling, Facial Pain, Neck Pain, Neck Mass, Other - Cardiovascular Cardiovascular: As Per HPI - Respiratory Respiratory: As Per HPI, Cough, Dyspnea. absent: Hemoptysis - Gastrointestinal Gastrointestinal: absent: As Per HPI, Abdominal Pain, Belching, Bloating, Change in Bowel Habits, Change in Stool Character, Coffee Ground Emesis, Constipation, Cramping, Diarrhea, Dyspepsia, Dysphagia, Early Satiety, Excessive Flatus, Fecal Incontinence, Heartburn, Hematemesis, Hematochezia, Loose Stools, Melena, Nausea, Odynophagia, Temesmus, Vomiting, Other - Genitourinary Genitourinary: As Per HPI, Change in Urinary Stream, Pyuria - Musculoskeletal Musculoskeletal: absent: As Per HPI, Abnormal Gait, Arthralgias, Atrophy, Back Pain, Deformity, Joint Swelling, Limited Range of Motion, Loss of Height, Muscle Cramps, Muscle Weakness, Myalgias, Neck Pain, Numbness, Radiating Pain into Limb, Stiffness, Tingling, Other - Integumentary Integumentary: absent: As Per HPI, Acne, Alopecia, Bleeding Lesions, Change in Hair, Change in Nails, Change in Pigmentation, Changing Lesions, Dry Skin, Erythema, Furuncle, Hirsutism, Lesions, New Lesions, Non-Healing Lesions, Photosensitivity, Pruritus, Rash, Skin Pain, Skin Ulcer, Sores, Striae, Swelling , Unusual Bruising, Wounds, Jaundice, Other - Neurological Neurological: As Per HPI - Psychiatric Psychiatric: absent: As Per HPI, Abnormal Sleep Pattern, Anhedonia, Anxiety, Auditory Hallucinations, Behavioral Changes, Change in Appetite, Change in Libido, Confusion, Depression, Difficulty Concentrating, Hallucinations, Homicidal Ideation, Hopelessness, Irritability, Memory Loss, Mood Swings, Panic Attacks, Paranoia, Suicidal Ideation, Visual Hallucinations, Tactile Hallucinations, Other - Endocrine Endocrine: As Per HPI - Hematologic/Lymphatic Hematologic: absent: As Per HPI, Easy Bleeding, Easy Bruising, Lymphadenopathy, Other Past Patient History - Tetanus Immunizations Tetanus Immunization: Unknown - Past Medical History & Family History Past Medical History?: Yes - Past Social History Smoking Status: Former Smoker - CARDIAC Hx Congestive Heart Failure: Yes Hx Hypercholesterolemia: Yes Hx Hypertension: Yes - PULMONARY Hx Pneumonia: Yes - NEUROLOGICAL Hx Seizures: Yes Hx Transient Ischemic Attacks (TIA): Yes - HEENT Hx HEENT Problems: Yes Hx Glaucoma: Yes (LEFT EYE) - RENAL Hx Chronic Kidney Disease: Yes (SEE COMMENT) Hx Kidney Stones: No - ENDOCRINE/METABOLIC Hx Diabetes Mellitus Type 1: Yes - HEMATOLOGICAL/ONCOLOGICAL Hx Anemia: Yes - INTEGUMENTARY Hx Dermatological Problems: No - MUSCULOSKELETAL/RHEUMATOLOGICAL Hx Falls: No - GASTROINTESTINAL Hx Gastrointestinal Disorders: No - GENITOURINARY/GYNECOLOGICAL Hx Genitourinary Disorders: No - PSYCHIATRIC Hx Substance Use: No - SURGICAL HISTORY Hx Coronary Stent: Yes (4 years ago) - ANESTHESIA Hx Anesthesia: Yes Hx Anesthesia Reactions: No Hx Malignant Hyperthermia: No Meds Allergies/Adverse Reactions: Allergies Allergy/AdvReac Type Severity Reaction Status Date / Time No Known Allergies Allergy Verified 02/24/17 10:43 Physical Exam - Constitutional Appears: Non-toxic, Chronically Ill - Head Exam Head Exam: ATRAUMATIC, NORMAL INSPECTION, NORMOCEPHALIC - Eye Exam Eye Exam: PERRL. absent: Scleral icterus - ENT Exam ENT Exam: Mucous Membranes Dry, Normal External Ear Exam, Normal Oropharynx - Neck Exam Neck exam: Negative for: Lymphadenopathy - Respiratory Exam Respiratory Exam: Decreased Breath Sounds, Clear to Auscultation Bilateral - Cardiovascular Exam Cardiovascular Exam: REGULAR RHYTHM, +S1, +S2 - GI/Abdominal Exam GI & Abdominal Exam: Diminished Bowel Sounds, Distended, Soft. absent: Guarding , Rebound, Rigid, Tenderness - Rectal Exam Rectal Exam: Deferred - Exam Exam: NORMAL INSPECTION - Extremities Exam Extremities exam: Positive for: tenderness. Negative for: calf tenderness, pedal edema, pedal pulses present - Back Exam Back exam: absent: CVA tenderness (L), CVA tenderness (R), paraspinal tenderness - Neurological Exam Neurological exam: Alert, CN II-XII Intact, Oriented x3, Reflexes Normal - Psychiatric Exam Psychiatric exam: Normal Mood - Skin Skin Exam: Dry, Intact Results - Vital Signs Recent Vital Signs: Last Vital Signs Temp 98.4 F 06/02/17 15:15 Pulse 71 06/02/17 15:00 Resp 20 06/02/17 15:00 BP 90/52 L 06/02/17 17:45 Pulse Ox 97 06/02/17 15:15 - Labs Result Diagrams: 06/02/17 16:47 06/02/17 16:47 Labs: Laboratory Results - last 24 hr 06/01/17 06/01/17 06/01/17 18:11 20:36 21:08 WBC RBC Hgb Hct MCV MCH MCHC RDW Plt Count MPV Neut % (Auto) Lymph % (Auto) [place] % (Auto) Eos % (Auto) Baso % (Auto) Neut # Lymph # [place] # Eos # Baso # Neutrophils % (Manual) 79 H Band Neutrophils % 6 H Lymphocytes % (Manual) 10 L Reactive Lymphs % 1 H Monocytes % (Manual) 4 Platelet Estimate Normal Large Platelets Present Microcytosis (manual) Slight Sodium Potassium 7.4 H* Chloride Carbon Dioxide Anion Gap BUN Creatinine Est GFR ( Amer) Est GFR (Non-Af Amer) POC Glucose (mg/dL) Random Glucose Lactic Acid Calcium Phosphorus Total Creatine Kinase CK-MB (Mass) Troponin I Urine Color Red Urine Clarity Turbid Urine pH 8.0 Ur Specific [place] 1.014 Urine Protein 3+ H Urine Glucose (UA) Normal Urine Ketones Negative Urine Blood 3+ H Urine Nitrate Negative Urine Bilirubin Negative Urine Urobilinogen Normal Ur Leukocyte Esterase 3+ H Urine WBC (Auto) 4957 H Urine RBC (Auto) 3361 H Urine WBC Clumps (Auto) Many H Ur Transition Epith Cell 2 Urine Bacteria Few H 06/01/17 06/01/17 06/01/17 22:44 22:44 23:10 WBC RBC Hgb Hct MCV MCH MCHC RDW Plt Count MPV Neut % (Auto) Lymph % (Auto) [place] % (Auto) Eos % (Auto) Baso % (Auto) Neut # Lymph # [place] # Eos # Baso # Neutrophils % (Manual) Band Neutrophils % Lymphocytes % (Manual) Reactive Lymphs % Monocytes % (Manual) Platelet Estimate Large Platelets Microcytosis (manual) Sodium Potassium Chloride Carbon Dioxide Anion Gap BUN Creatinine Est GFR ( Amer) Est GFR (Non-Af Amer) POC Glucose (mg/dL) 241 H Random Glucose Lactic Acid 1.0 Calcium Phosphorus Total Creatine Kinase 116 CK-MB (Mass) 3.15 Troponin I 0.0430 Urine Color Urine Clarity Urine pH Ur Specific [place] Urine Protein Urine Glucose (UA) Urine Ketones Urine Blood Urine Nitrate Urine Bilirubin Urine Urobilinogen Ur Leukocyte Esterase Urine WBC (Auto) Urine RBC (Auto) Urine WBC Clumps (Auto) Ur Transition Epith Cell Urine Bacteria 06/02/17 06/02/17 06/02/17 06:19 11:22 14:44 WBC RBC Hgb Hct MCV MCH MCHC RDW Plt Count MPV Neut % (Auto) Lymph % (Auto) [place] % (Auto) Eos % (Auto) Baso % (Auto) Neut # Lymph # [place] # Eos # Baso # Neutrophils % (Manual) Band Neutrophils % Lymphocytes % (Manual) Reactive Lymphs % Monocytes % (Manual) Platelet Estimate Large Platelets Microcytosis (manual) Sodium Potassium Chloride Carbon Dioxide Anion Gap BUN Creatinine Est GFR ( Amer) Est GFR (Non-Af Amer) POC Glucose (mg/dL) 89 301 H 136 H Random Glucose Lactic Acid Calcium Phosphorus Total Creatine Kinase CK-MB (Mass) Troponin I Urine Color Urine Clarity Urine pH Ur Specific [place] Urine Protein Urine Glucose (UA) Urine Ketones Urine Blood Urine Nitrate Urine Bilirubin Urine Urobilinogen Ur Leukocyte Esterase Urine WBC (Auto) Urine RBC (Auto) Urine WBC Clumps (Auto) Ur Transition Epith Cell Urine Bacteria 06/02/17 06/02/17 16:47 16:47 WBC 8.0 RBC 3.79 L Hgb 12.1 Hct 35.4 MCV 93.4 MCH 31.9 H MCHC 34.1 RDW 15.4 H Plt Count 177 MPV 7.6 Neut % (Auto) 74.4 Lymph % (Auto) 18.2 L [place] % (Auto) 6.4 Eos % (Auto) 0.6 Baso % (Auto) 0.4 Neut # 5.9 Lymph # 1.5 [place] # 0.5 Eos # 0.0 Baso # 0.0 Neutrophils % (Manual) Band Neutrophils % Lymphocytes % (Manual) Reactive Lymphs % Monocytes % (Manual) Platelet Estimate Large Platelets Microcytosis (manual) Sodium 130 L Potassium 3.8 Chloride 87 L Carbon Dioxide 35 H Anion Gap 12 BUN 26 H Creatinine 5.0 H Est GFR ( Amer) 14 Est GFR (Non-Af Amer) 12 POC Glucose (mg/dL) Random Glucose 73 L Lactic Acid Calcium 8.1 L Phosphorus 3.6 Total Creatine Kinase CK-MB (Mass) Troponin I Urine Color Urine Clarity Urine pH Ur Specific [place] Urine Protein Urine Glucose (UA) Urine Ketones Urine Blood Urine Nitrate Urine Bilirubin Urine Urobilinogen Ur Leukocyte Esterase Urine WBC (Auto) Urine RBC (Auto) Urine WBC Clumps (Auto) Ur Transition Epith Cell Urine Bacteria Assessment & Plan (1) ESRD on dialysis Status: Acute (2) Hyperkalemia Status: Acute (3) UTI (urinary tract infection) Status: Acute (4) HTN (hypertension) Status: Chronic (5) Acute CHF Status: Acute (6) Altered mental status Status: Acute (7) Anemia Status: Acute Priority: High (8) CHF (congestive heart failure) Status: Acute Decision To Admit - Pt Status Changed To: Hospital Disposition Of: Inpatient - Admit Certification Admit to Inpatient:: After my assessment, the patient will require hospitalization for at least two midnights. This is because of the severity of symptoms shown, intensity of services needed, and/or the medical risk in this patient being treated as an outpatient. - InPatient: Physician Admission Certification:: patient needs acute care services - . Bed Request Type: Telemetry
[2017-06-02] MEDS: Omega-3-Acid Ethyl Esters 1 GM Cap PO SCH (19:39)
[2017-06-02] MEDS: (Lantus) Insulin Glargine, Recombinant SC SCH (21:50)
[2017-06-03] MEDS: Omega-3-Acid Ethyl Esters 1 GM Cap PO SCH ×2 (09:17→18:11)
[2017-06-03] MEDS: Multivitamin Vitamin B Complex (Nephro-Vite) Tab PO SCH (09:18)
[2017-06-03] MEDS: (Novolog) Insulin Aspart, Recombinant 100 u/ml 10 ml vial SC SCH ×3 (09:24→18:05)
--- NOTE | 2017-06-03 12:45 | CP.PCM.CON ---
History of Present Illness - History of Present Illness History of Present Illness: Podiatry Consult Note for Dr. Mello 61 year old male patient with PMHx including anemia, CAD, CHF, CVA, NIDDM, HTN, HLD, Pneumonia, ESRD, Seizures, TIA who is seen at bedside today for left foot injury. He states that about a month ago he hit all of his toe on his left foot. Right after the injury he states that his toes were black and red, but it has since gotten better. He also admits that the nail from his left 2nd digit came off. He currently denies any pain to his left foot. 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 He denies any n/v/f/c/sob/cp. Past Patient History - Tetanus Immunizations Tetanus Immunization: Unknown - Past Medical History & Family History Past Medical History?: Yes - Past Social History Smoking Status: Former Smoker - CARDIAC Hx Congestive Heart Failure: Yes Hx Hypercholesterolemia: Yes Hx Hypertension: Yes - PULMONARY Hx Pneumonia: Yes - NEUROLOGICAL Hx Seizures: Yes Hx Transient Ischemic Attacks (TIA): Yes - HEENT Hx HEENT Problems: Yes Hx Glaucoma: Yes (LEFT EYE) - RENAL Hx Chronic Kidney Disease: Yes (SEE COMMENT) Hx Kidney Stones: No - ENDOCRINE/METABOLIC Hx Diabetes Mellitus Type 1: Yes - HEMATOLOGICAL/ONCOLOGICAL Hx Anemia: Yes - INTEGUMENTARY Hx Dermatological Problems: No - MUSCULOSKELETAL/RHEUMATOLOGICAL Hx Falls: No - GASTROINTESTINAL Hx Gastrointestinal Disorders: No - GENITOURINARY/GYNECOLOGICAL Hx Genitourinary Disorders: No - PSYCHIATRIC Hx Substance Use: No - SURGICAL HISTORY Hx Coronary Stent: Yes (4 years ago) - ANESTHESIA Hx Anesthesia: Yes Hx Anesthesia Reactions: No Hx Malignant Hyperthermia: No Meds Allergies/Adverse Reactions: Allergies Allergy/AdvReac Type Severity Reaction Status Date / Time No Known Allergies Allergy Verified 02/24/17 10:43 - Medications Medications: Current Medications Allopurinol (Zyloprim) 100 mg PO DAILY [facility] Last Admin: 06/03/17 09:16 Dose: 100 mg Aspirin (Ecotrin) 81 mg PO DAILY [facility] Last Admin: 06/03/17 09:16 Dose: 81 mg Carbamazepine (Tegretol-Xr) 200 mg PO BID [facility] Last Admin: 06/03/17 09:17 Dose: 200 mg Cinacalcet (Sensipar) 30 mg PO DAILY [facility] Last Admin: 06/03/17 09:17 Dose: 30 mg Clopidogrel Bisulfate (Plavix) 75 mg PO DAILY [facility] Last Admin: 06/03/17 09:16 Dose: 75 mg Famotidine (Pepcid) 20 mg PO DAILY [facility] Last Admin: 06/03/17 09:16 Dose: 20 mg Gabapentin (Neurontin) 400 mg PO [facility] Last Admin: 06/02/17 21:31 Dose: 400 mg Heparin Sodium (Porcine) (Heparin) 5,000 units SC BID [facility] Last Admin: 06/03/17 09:16 Dose: 5,000 units Home Med (Patient's Own Control Medication) 1 tab PO QAM [facility] Home Med (Patient's Own Medication) 1 tab PO ACB [facility] Insulin Aspart (Novolog) 25 unit SC AC [facility] Last Admin: 06/03/17 12:19 Dose: Not Given Insulin Glargine (Lantus) 25 unit SC [facility] Last Admin: 06/02/17 21:50 Dose: Not Given Midodrine (Proamatine) 5 mg PO DAILY [facility] Last Admin: 06/03/17 09:17 Dose: 5 mg [id number]-7-[id number] Ethyl Esters (Lovaza) 1 gm PO BID [facility] Last Admin: 06/03/17 09:17 Dose: 1 gm Polyethylene Glycol (Miralax) 17 gm PO DAILY PRN PRN Reason: Constipation Rosuvastatin Calcium (Crestor) 10 mg PO [facility] Last Admin: 06/02/17 21:31 Dose: 10 mg Sevelamer Carbonate (Renvela) 2,400 mg PO TID [facility] Last Admin: 06/03/17 09:16 Dose: 2,400 mg Vitamin B Complex/Vit C/Folic Acid (Nephro-Vesna) 1 tab PO 0800 [facility] Last Admin: 06/03/17 09:18 Dose: 1 tab Physical Exam - Constitutional Appears: Well, Non-toxic, No Acute Distress - Extremities Exam Additional comments: Lower extremity focused exam: VASC: DP pulses palpable 1/4 b/l. PT pulses non-palpable b/l. Skin temp runs warm to cool from proximal to distal. CFT is delayed to all digits NEURO: Pedal sensation is grossly diminished b/l DERM: No open lesions note. All digits are cold to touch and dusky in coloration and appear ischemic. Nail is absent from left 2nd digit. ORTHO: no gross deformities, no tenderness to palpation b/l - Neurological Exam Neurological exam: Alert, Oriented x3 - Psychiatric Exam Psychiatric exam: Normal Affect, Normal Mood Results - Vital Signs Recent Vital Signs: Last Vital Signs Temp 98.1 F 06/03/17 08:27 Pulse 68 06/03/17 08:27 Resp 20 06/03/17 08:27 BP 118/60 06/02/17 23:02 Pulse Ox 95 06/03/17 08:27 - Labs Result Diagrams: 06/02/17 16:47 06/02/17 16:47 Labs: Laboratory Results - last 24 hr 06/02/17 06/02/17 06/02/17 14:44 16:47 16:47 WBC 8.0 RBC 3.79 L Hgb 12.1 Hct 35.4 MCV 93.4 MCH 31.9 H MCHC 34.1 RDW 15.4 H Plt Count 177 MPV 7.6 Neut % (Auto) 74.4 Lymph % (Auto) 18.2 L Isabella % (Auto) 6.4 Eos % (Auto) 0.6 Baso % (Auto) 0.4 Neut # 5.9 Lymph # 1.5 Isabella # 0.5 Eos # 0.0 Baso # 0.0 Sodium 130 L Potassium 3.8 Chloride 87 L Carbon Dioxide 35 H Anion Gap 12 BUN 26 H Creatinine 5.0 H Est GFR ( Amer) 14 Est GFR (Non-Af Amer) 12 POC Glucose (mg/dL) 136 H Random Glucose 73 L Calcium 8.1 L Phosphorus 3.6 Prostate Specific Ag 06/02/17 06/02/17 06/02/17 19:32 19:33 20:02 WBC RBC Hgb Hct MCV MCH MCHC RDW Plt Count MPV Neut % (Auto) Lymph % (Auto) Isabella % (Auto) Eos % (Auto) Baso % (Auto) Neut # Lymph # Isabella # Eos # Baso # Sodium Potassium Chloride Carbon Dioxide Anion Gap BUN Creatinine Est GFR ( Amer) Est GFR (Non-Af Amer) POC Glucose (mg/dL) 58 L 54 L 128 H Random Glucose Calcium Phosphorus Prostate Specific Ag 06/02/17 06/03/17 06/03/17 21:47 06:11 06:25 WBC RBC Hgb Hct MCV MCH MCHC RDW Plt Count MPV Neut % (Auto) Lymph % (Auto) Isabella % (Auto) Eos % (Auto) Baso % (Auto) Neut # Lymph # Isabella # Eos # Baso # Sodium Potassium Chloride Carbon Dioxide Anion Gap BUN Creatinine Est GFR ( Amer) Est GFR (Non-Af Amer) POC Glucose (mg/dL) 227 H 195 H Random Glucose Calcium Phosphorus Prostate Specific Ag 2.89 06/03/17 11:14 WBC RBC Hgb Hct MCV MCH MCHC RDW Plt Count MPV Neut % (Auto) Lymph % (Auto) Isabella % (Auto) Eos % (Auto) Baso % (Auto) Neut # Lymph # Isabella # Eos # Baso # Sodium Potassium Chloride Carbon Dioxide Anion Gap BUN Creatinine Est GFR ( Amer) Est GFR (Non-Af Amer) POC Glucose (mg/dL) 165 H Random Glucose Calcium Phosphorus Prostate Specific Ag Assessment & Plan - Assessment and Plan (Free Text) Assessment: 61 year old male with ischemia of all digits left foot Plan: patient examined and evaluated discussed in detail with attending, Dr. Mello chart, labs, vitals reviewed left foot radiographs ordered to rule out fracture from patients injury continue IV abx per ID left foot dressed with [facility] podiatry will continue to follow patient while in house
--- NOTE | 2017-06-03 12:52 | CP.PCM.PN ---
Subjective - Date & Time of Evaluation Date of Evaluation: 06/03/17 Time of Evaluation: 08:00 - Subjective Subjective: podiatrty consult aqppreciated blood c/s so far neg Objective - Vital Signs/Intake and Output Vital Signs (last 24 hours): Temp Pulse Resp BP Pulse Ox 98.1 F 68 20 118/60 95 06/03/17 08:27 06/03/17 08:27 06/03/17 08:27 06/02/17 23:02 06/03/17 08:27 Intake and Output: 06/03/17 06/03/17 06:59 18:59 Intake Total 118 Balance 118 - Medications Medications: Current Medications Allopurinol (Zyloprim) 100 mg PO DAILY [facility] Last Admin: 06/03/17 09:16 Dose: 100 mg Aspirin (Ecotrin) 81 mg PO DAILY [facility] Last Admin: 06/03/17 09:16 Dose: 81 mg Carbamazepine (Tegretol-Xr) 200 mg PO BID [facility] Last Admin: 06/03/17 09:17 Dose: 200 mg Cinacalcet (Sensipar) 30 mg PO DAILY [facility] Last Admin: 06/03/17 09:17 Dose: 30 mg Clopidogrel Bisulfate (Plavix) 75 mg PO DAILY [facility] Last Admin: 06/03/17 09:16 Dose: 75 mg Famotidine (Pepcid) 20 mg PO DAILY [facility] Last Admin: 06/03/17 09:16 Dose: 20 mg Gabapentin (Neurontin) 400 mg PO HS [facility] Last Admin: 06/02/17 21:31 Dose: 400 mg Heparin Sodium (Porcine) (Heparin) 5,000 units SC BID [facility] Last Admin: 06/03/17 09:16 Dose: 5,000 units Home Med (Patient's Own Control Medication) 1 tab PO QAM [facility] Home Med (Patient's Own Medication) 1 tab PO ACB [facility] Insulin Aspart (Novolog) 25 unit SC AC [facility] Last Admin: 06/03/17 12:19 Dose: Not Given Insulin Glargine (Lantus) 25 unit SC HS [facility] Last Admin: 06/02/17 21:50 Dose: Not Given Midodrine (Proamatine) 5 mg PO DAILY [facility] Last Admin: 06/03/17 09:17 Dose: 5 mg [id number] Ethyl Esters (Lovaza) 1 gm PO BID [facility] Last Admin: 06/03/17 09:17 Dose: 1 gm Polyethylene Glycol (Miralax) 17 gm PO DAILY PRN PRN Reason: Constipation Rosuvastatin Calcium (Crestor) 10 mg PO HS [facility] Last Admin: 06/02/17 21:31 Dose: 10 mg Sevelamer Carbonate (Renvela) 2,400 mg PO TID [facility] Last Admin: 06/03/17 09:16 Dose: 2,400 mg Vitamin B Complex/Vit C/Folic Acid (Nephro-Vesna) 1 tab PO 0800 [facility] Last Admin: 06/03/17 09:18 Dose: 1 tab - Labs Labs: 06/02/17 16:47 06/02/17 16:47 - Constitutional Appears: Non-toxic, Chronically Ill - Head Exam Head Exam: NORMOCEPHALIC - Eye Exam Eye Exam: PERRL - ENT Exam ENT Exam: Mucous Membranes Dry - Neck Exam Neck Exam: absent: Lymphadenopathy - Respiratory Exam Respiratory Exam: Decreased Breath Sounds - Cardiovascular Exam Cardiovascular Exam: REGULAR RHYTHM - GI/Abdominal Exam GI & Abdominal Exam: Distended, Soft - Rectal Exam Rectal Exam: Deferred - Exam Exam: NORMAL INSPECTION - Extremities Exam Extremities Exam: absent: Pedal Edema - Back Exam Back Exam: absent: CVA tenderness (L), CVA tenderness (R) - Neurological Exam Neurological Exam: Alert, Awake, Oriented x3 - Psychiatric Exam Psychiatric exam: Normal Mood - Skin Skin Exam: Dry Assessment and Plan (1) ESRD on dialysis Status: Acute (2) Hyperkalemia Status: Acute (3) UTI (urinary tract infection) Status: Acute (4) HTN (hypertension) Status: Chronic (5) Acute CHF Status: Acute (6) Altered mental status Status: Acute (7) Anemia Status: Acute (8) CHF (congestive heart failure) Status: Acute
[2017-06-03] MEDS ORDERED: Cefepime 1 GM in Sodium Chloride 0.9% 50 ML IVPB SCH (14:00)
[2017-06-03] MEDS: Cefepime IV 1 gm in Dextrose 1 GM/50 ML BAG IVPB SCH (14:03)
[2017-06-03] MEDS: Metoprolol Succinate 12.5 mg XL PO SCH (14:05)
--- NOTE | 2017-06-03 15:33 | CP.PCM.PN ---
Subjective - Date & Time of Evaluation Date of Evaluation: 06/03/17 Time of Evaluation: 15:32 - Subjective Subjective: Follow up Nephrology Consultation: Assessment: Stable UTI, Hyperkalemia, fluid overload Diabetic chronic Kidney Disease (E11.22) Hypertensive Chronic Kidney Disease (I12.0) End stage renal disease (N18.6) dependence on hemodialysis (Z99.2) (TTS) via AVF Anemia (D64.9), Hyperphosphatemia (E83.39), Secondary Hyperparathyroidism (E21.1 ), HTN (I12.0) diabetic foot ulcer left side Plan: Will plan for HD tomorrow as ordered. Continue with Nephrovite 1 tab/day. PRBC as needed for anemia. last Hb 12.4 TSAT 40% Ferritin 2809 hence no MACHO or IV iron for now Continue with phos binders home dose Continue with sensipar, last PTH 340 BP control with meds as ordered. Patient not on RAAS dc as BP tends to be low. he is on midodrine Glycemic control, Dialysis consistent diet Further work up/management as per primary team Dose meds/antibiotics for ESRD status. Avoid fleets enema/magnesium based laxatives. d/c plan as per primary team. stable from renal perspective Thanks for allowing me to participate in care of your patient. Will follow patient with you. Please call if any Qs Dr Zaheer Mendes Office: [phone] Chief Complaint;pain abdomen HPI: Pt is a 62 M with hx of ESRD on hemodialysis (TTS) via AVF, last dialysis last night, chronic anemia, hyperphosphatemia, secondary hyperparathyroidism, Diabetes Mellitus, hypertension, foot ulcer, visual impairment presented with complaints of pain abdomen and found to have sev pulm congestion, hyperkalemia, UTI renal consult for ESRD, K, fluid overload management. ROS: Cardiovascular: No chest pain. Pulmonary: No shortness of breath Gastrointestinal: denies abdominal pain now No nausea. No vomiting. Genitourinary: No pain while urinating. Denies blood in urine. makes only small amount of urine All other negative Physical Examination: General Appearance: Comfortable, in no acute respiratory distress, co-operative . Vitals reviewed and noted as below Head; Atraumatic, normocephalic ENT: no ulcers no thrush. Tongue is midline. Oropharynx: no rash or ulcers. EYES: he is legally blind. no icterus Neck; supple no lymphadenopathy, no thyromegaly or bruit Lungs: Normal respiratory rate/effort. Breath sounds bilateral equal and has basal crackles Heart: Normal rate. s1s2 normal. No rub or gallop. Extremities: no edema. No varicose veins. left foot dressed Neurological: Patient is alert, awake and oriented to person, place and time. No focal deficit. Strength bilateral appropriate and equal Skin: Warm and dry. Normal turgor. No rash. Palpitation: Normal elasticity for age Abdomen: Abdomen is soft. Bowel sounds +. There is no abdominal tenderness, no guarding/rigidity or organomegaly Psych: limited insight and has normal affect/mood MSK: no joint tenderness or swelling. Digits and nails normal, no deformity : kidney or bladder not palpable Access: AVF Labs/imaging reviewed. Past medical history, past surgical history, family history, social history, allergy reviewed and noted as below Family Hx: no hx of CKD. Non contributory Objective - Vital Signs/Intake and Output Vital Signs (last 24 hours): Temp Pulse Resp BP Pulse Ox 98.1 F 82 18 179/73 H 95 06/03/17 14:06 06/03/17 14:06 06/03/17 14:06 06/03/17 14:06 06/03/17 14:06 Intake and Output: 06/03/17 06/03/17 06:59 18:59 Intake Total 118 Balance 118 - Medications Medications: Current Medications Allopurinol (Zyloprim) 100 mg PO DAILY [facility] Last Admin: 06/03/17 09:16 Dose: 100 mg Aspirin (Ecotrin) 81 mg PO DAILY [facility] Last Admin: 06/03/17 09:16 Dose: 81 mg Carbamazepine (Tegretol-Xr) 200 mg PO BID [facility] Last Admin: 06/03/17 09:17 Dose: 200 mg Cinacalcet (Sensipar) 30 mg PO DAILY [facility] Last Admin: 06/03/17 09:17 Dose: 30 mg Clopidogrel Bisulfate (Plavix) 75 mg PO DAILY [facility] Last Admin: 06/03/17 09:16 Dose: 75 mg Famotidine (Pepcid) 20 mg PO DAILY [facility] Last Admin: 06/03/17 09:16 Dose: 20 mg Gabapentin (Neurontin) 400 mg PO HS [facility] Last Admin: 06/02/17 21:31 Dose: 400 mg Heparin Sodium (Porcine) (Heparin) 5,000 units SC BID [facility] Last Admin: 06/03/17 09:16 Dose: 5,000 units Home Med (Patient's Own Control Medication) 1 tab PO QAM [facility] Home Med (Patient's Own Medication) 1 tab PO ACB [facility] Cefepime HCl (Maxipime Iv 1 Gm Premix) 1 gm in 50 mls @ 100 mls/hr IVPB Q24H [facility] Last Admin: 06/03/17 14:03 Dose: 100 mls/hr Insulin Aspart (Novolog) 25 unit SC AC [facility] Last Admin: 06/03/17 12:19 Dose: Not Given Insulin Glargine (Lantus) 25 unit SC [facility] Last Admin: 06/02/17 21:50 Dose: Not Given Metoprolol Succinate (Toprol Xl) 12.5 mg PO DAILY [facility] Last Admin: 06/03/17 14:05 Dose: 12.5 mg Midodrine (Proamatine) 5 mg PO DAILY [facility] Last Admin: 06/03/17 09:17 Dose: 5 mg [id number]-6-[id number] Ethyl Esters (Lovaza) 1 gm PO BID [facility] Last Admin: 06/03/17 09:17 Dose: 1 gm Polyethylene Glycol (Miralax) 17 gm PO DAILY PRN PRN Reason: Constipation Rosuvastatin Calcium (Crestor) 10 mg PO [facility] Last Admin: 06/02/17 21:31 Dose: 10 mg Sevelamer Carbonate (Renvela) 2,400 mg PO TID [facility] Last Admin: 06/03/17 14:04 Dose: 2,400 mg Vitamin B Complex/Vit C/Folic Acid (Nephro-Vesna) 1 tab PO 0800 [facility] Last Admin: 06/03/17 09:18 Dose: 1 tab - Labs Labs: 06/02/17 16:47 06/02/17 16:47
--- NOTE | 2017-06-03 16:14 | RAD ---
PROCEDURE: Left Foot Radiographs. HISTORY: left foot injury COMPARISON: None. FINDINGS: BONES: There is diffuse bone demineralization. There is a transverse lucency in the head of the 5th metatarsal. Bone alignment is normal. There is a prominent dorsal calcaneal enthesophyte. JOINTS: Normal. SOFT TISSUES: There is mild soft tissue swelling at the 5th MTP joint. OTHER FINDINGS: Atherosclerotic vascular calcifications are present. IMPRESSION: Transverse lucency in the head of the 5th metatarsal could represent an acute nondisplaced fracture with lateral soft tissue swelling. Please correlate with point tenderness.
--- NOTE | 2017-06-03 18:04 | CON ---
HISTORY OF PRESENT ILLNESS: This is a 62-year-old male, known end-stage renal disease, on hemodialysis, was sent to the emergency room because of the patient has right lower quadrant pain, associated with dark urine and foul smell urine. The patient has reduced amount of urine recently. The patient also complains of foul smelling mucus like stool over a couple of days. The patient felt a little febrile at home and has chills. The patient denies having any chest pain. The patient appears to have mild shortness of breath and dyspnea on exertion. REVIEW OF SYSTEMS CARDIOVASCULAR SYSTEM: Negative for chest pain. RESPIRATORY SYSTEM: Positive for shortness of breath. GASTROINTESTINAL SYSTEM: As mentioned above. CENTRAL NERVOUS SYSTEM: No focal neurological complaints. GENITOURINARY: Urine is hypovolemic and dark. EXTREMITIES: No edema of the legs. The patient has left foot ulcer. MEDICATIONS: The patient's medications are reviewed by me. FAMILY HISTORY: No known inherited disease. SOCIAL HISTORY: Nonalcoholic, no IVDA. ALLERGIES: NO KNOWN ALLERGY. PHYSICAL EXAMINATION GENERAL: This is a 62-year-old male, awake, alert, mildly tachypneic and dyspneic. VITAL SIGNS: Temperature 98.9, pulse 105, respirations 16 and blood pressure 191/101, pulse ox is 97% on room air. HEENT: Normal. NECK: JVP is flat. Carotids, no bruits. LUNGS: rales. No wheezing. HEART: S1 and S2 normal. Tachycardic. No gallop. No murmur. ABDOMEN: Soft, nontender. No organomegaly. CENTRAL NERVOUS SYSTEM: No focal neurological deficits. LABORATORY DATA: On admission, the patient's white cell count is within normal limit. Hemoglobin is 12.4. The patient's potassium is 7.4. IMPRESSION AND PLAN: Hyperkalemia secondary to end-stage renal disease. Rule out urinary tract infection. Pulmonary congestion by chest x-ray suggestive of congestive heart failure. Hypertension. Suggest aggravate present management. The patient needs repeated dialysis to remove the increased body fluid. The patient has no urine output, so diuretics will not work on top. At present, the patient's blood pressure is also on the low normal side. So, the patient is advised to continue dialysis. Cardiac kam, the patient is stable. Jodie Yancey MD [facility] # [id number]
--- NOTE | 2017-06-03 21:47 | CP.PCM.CON ---
History of Present Illness - History of Present Illness History of Present Illness: Vascular Surgery Dr. Gallardo 62 y/o M w/ PMHx of HTN, CAD, CHF, ESRD on HD TTS, and CVA presented to the ED for abd pain. Pt found to have severe pulmonary edema and UTI. Pt admitted for IV Abx and emergency dialysis. On exam, pt found to have discolored toes on (L) foot. Per Podiatry not, pt recently stubbed toes but did not seek medical treatment. Surgery consulted for possible ischemia. PMHx: CHF, HTN, HLD, DM2, ESRD on HD TTS Meds: reviewed in chart NKDA PSHx: AVF, coronary stents SHx: former smoker, denies EtOH, drug use FHx: non-contributory Review of Systems - Review of Systems Systems not reviewed;Unavailable: Uncooperative (sleeping), Language Barrier Past Patient History - Tetanus Immunizations Tetanus Immunization: Unknown - Past Medical History & Family History Past Medical History?: Yes - Past Social History Smoking Status: Former Smoker - CARDIAC Hx Congestive Heart Failure: Yes Hx Hypercholesterolemia: Yes Hx Hypertension: Yes - PULMONARY Hx Pneumonia: Yes - NEUROLOGICAL Hx Seizures: Yes Hx Transient Ischemic Attacks (TIA): Yes - HEENT Hx HEENT Problems: Yes Hx Glaucoma: Yes (LEFT EYE) - RENAL Hx Chronic Kidney Disease: Yes (SEE COMMENT) Hx Kidney Stones: No - ENDOCRINE/METABOLIC Hx Diabetes Mellitus Type 1: Yes - HEMATOLOGICAL/ONCOLOGICAL Hx Anemia: Yes - INTEGUMENTARY Hx Dermatological Problems: No - MUSCULOSKELETAL/RHEUMATOLOGICAL Hx Falls: No - GASTROINTESTINAL Hx Gastrointestinal Disorders: No - GENITOURINARY/GYNECOLOGICAL Hx Genitourinary Disorders: No - PSYCHIATRIC Hx Substance Use: No - SURGICAL HISTORY Hx Coronary Stent: Yes (4 years ago) - ANESTHESIA Hx Anesthesia: Yes Hx Anesthesia Reactions: No Hx Malignant Hyperthermia: No Meds Allergies/Adverse Reactions: Allergies Allergy/AdvReac Type Severity Reaction Status Date / Time No Known Allergies Allergy Verified 02/24/17 10:43 - Medications Medications: Current Medications Allopurinol (Zyloprim) 100 mg PO DAILY [facility] Last Admin: 06/03/17 09:16 Dose: 100 mg Aspirin (Ecotrin) 81 mg PO DAILY [facility] Last Admin: 06/03/17 09:16 Dose: 81 mg Carbamazepine (Tegretol-Xr) 200 mg PO BID [facility] Last Admin: 06/03/17 18:11 Dose: 200 mg Cinacalcet (Sensipar) 30 mg PO DAILY [facility] Last Admin: 06/03/17 09:17 Dose: 30 mg Clopidogrel Bisulfate (Plavix) 75 mg PO DAILY [facility] Last Admin: 06/03/17 09:16 Dose: 75 mg Famotidine (Pepcid) 20 mg PO DAILY [facility] Last Admin: 06/03/17 09:16 Dose: 20 mg Gabapentin (Neurontin) 400 mg PO [facility] Last Admin: 06/02/17 21:31 Dose: 400 mg Heparin Sodium (Porcine) (Heparin) 5,000 units SC Q12 [facility] Home Med (Patient's Own Control Medication) 1 tab PO QAM [facility] Home Med (Patient's Own Medication) 1 tab PO ACB [facility] Cefepime HCl (Maxipime Iv 1 Gm Premix) 1 gm in 50 mls @ 100 mls/hr IVPB Q24H [facility] Last Admin: 06/03/17 14:03 Dose: 100 mls/hr Insulin Aspart (Novolog) 25 unit SC [facility] Last Admin: 06/03/17 18:05 Dose: Not Given Insulin Glargine (Lantus) 25 unit SC [facility] Last Admin: 06/02/17 21:50 Dose: Not Given Metoprolol Succinate (Toprol Xl) 12.5 mg PO DAILY [facility] Last Admin: 06/03/17 14:05 Dose: 12.5 mg Midodrine (Proamatine) 5 mg PO DAILY [facility] Last Admin: 06/03/17 09:17 Dose: 5 mg Vkium-6-Tnbm Ethyl Esters (Lovaza) 1 gm PO BID [facility] Last Admin: 06/03/17 18:11 Dose: 1 gm Polyethylene Glycol (Miralax) 17 gm PO DAILY PRN PRN Reason: Constipation Rosuvastatin Calcium (Crestor) 10 mg PO [facility] Last Admin: 06/02/17 21:31 Dose: 10 mg Sevelamer Carbonate (Renvela) 2,400 mg PO TIDCC [facility] Last Admin: 06/03/17 18:11 Dose: 2,400 mg Vitamin B Complex/Vit C/Folic Acid (Nephro-Vesna) 1 tab PO 0800 [facility] Last Admin: 06/03/17 09:18 Dose: 1 tab Physical Exam - Constitutional Appears: Non-toxic, No Acute Distress - Head Exam Head Exam: NORMAL INSPECTION - Eye Exam Eye Exam: Normal appearance - ENT Exam ENT Exam: Mucous Membranes Moist - Respiratory Exam Respiratory Exam: NORMAL BREATHING PATTERN. absent: Accessory Muscle Use, Respiratory Distress - Cardiovascular Exam Cardiovascular Exam: Irregular Rhythm. absent: Bradycardia, Tachycardia - GI/Abdominal Exam GI & Abdominal Exam: absent: Distended - Extremities Exam Additional comments: B/L LE cool to touch no discoloration noted B/L DP/PT not appreciable on palpation B/L L foot wrapped in joann wrap - Neurological Exam Neurological exam: Altered (sleeping) - Skin Skin Exam: Dry, Intact, Normal Color, Warm Results - Vital Signs Recent Vital Signs: Last Vital Signs Temp 98.6 F 06/03/17 16:37 Pulse 81 06/03/17 18:00 Resp 20 06/03/17 16:37 BP 146/69 06/03/17 16:37 Pulse Ox 98 06/03/17 16:37 - Labs Result Diagrams: 06/02/17 16:47 06/02/17 16:47 Labs: Laboratory Results - last 24 hr 06/02/17 06/03/17 06/03/17 21:47 06:11 06:25 POC Glucose (mg/dL) 227 H 195 H Prostate Specific Ag 2.89 06/03/17 06/03/17 11:14 17:05 POC Glucose (mg/dL) 165 H 175 H Prostate Specific Ag - Imaging and Cardiology Foot x-ray Status: Image reviewed by me, Report reviewed by me Assessment & Plan - Assessment and Plan (Free Text) Assessment: 62 y/o M admitted for UTI and pulmonary edema. Surgery consulted for possible Left ischemic toes - f/u arterial duplex - cont IV Abx for UTI per ID - cont dialysis per Nephrology - f/u podiatry recs - cont management per PMD - yaniv recs per Dr. Sami Yanes DO PGY2
[2017-06-03] MEDS: (Lantus) Insulin Glargine, Recombinant SC SCH (22:53)
[2017-06-04] MEDS: LINZESS 290 MCG PO SCH (06:36)
--- NOTE | 2017-06-04 06:38 | CP.PCM.PN ---
Subjective - Date & Time of Evaluation Date of Evaluation: 06/04/17 Time of Evaluation: 06:38 - Subjective Subjective: Vascular Surgery Dr. Gallardo Pt S&E @bedside. NAEO. pt denies leg or foot pain. Pt denies F/C. tolerating diet. Objective - Vital Signs/Intake and Output Vital Signs (last 24 hours): Temp Pulse Resp BP Pulse Ox 98.5 F 79 20 154/79 H 95 06/03/17 23:10 06/04/17 06:35 06/03/17 23:10 06/04/17 06:35 06/03/17 23:10 Intake and Output: 06/03/17 06/04/17 18:59 06:59 Intake Total 240 Output Total 50 Balance 190 - Medications Medications: Current Medications Allopurinol (Zyloprim) 100 mg PO DAILY [facility] Last Admin: 06/03/17 09:16 Dose: 100 mg Aspirin (Ecotrin) 81 mg PO DAILY [facility] Last Admin: 06/03/17 09:16 Dose: 81 mg Carbamazepine (Tegretol-Xr) 200 mg PO BID [facility] Last Admin: 06/03/17 18:11 Dose: 200 mg Cinacalcet (Sensipar) 30 mg PO DAILY [facility] Last Admin: 06/03/17 09:17 Dose: 30 mg Clopidogrel Bisulfate (Plavix) 75 mg PO DAILY [facility] Last Admin: 06/03/17 09:16 Dose: 75 mg Famotidine (Pepcid) 20 mg PO DAILY [facility] Last Admin: 06/03/17 09:16 Dose: 20 mg Gabapentin (Neurontin) 400 mg PO HS [facility] Last Admin: 06/03/17 22:59 Dose: 400 mg Heparin Sodium (Porcine) (Heparin) 5,000 units SC Q12 [facility] Last Admin: 06/03/17 22:59 Dose: 5,000 units Home Med (Patient's Own Control Medication) 1 tab PO QAM [facility] Home Med (Patient's Own Medication) 1 tab PO ACB [facility] Last Admin: 06/04/17 06:36 Dose: 1 tab Cefepime HCl (Maxipime Iv 1 Gm Premix) 1 gm in 50 mls @ 100 mls/hr IVPB Q24H [facility] Last Admin: 06/03/17 14:03 Dose: 100 mls/hr Insulin Aspart (Novolog) 25 unit SC AC [facility] Last Admin: 06/03/17 18:05 Dose: Not Given Insulin Glargine (Lantus) 25 unit SC [facility] Last Admin: 06/03/17 22:53 Dose: 25 units Metoprolol Succinate (Toprol Xl) 12.5 mg PO DAILY [facility] Last Admin: 06/03/17 14:05 Dose: 12.5 mg Midodrine (Proamatine) 5 mg PO DAILY [facility] Last Admin: 06/03/17 09:17 Dose: 5 mg Otrso-1-Nwyb Ethyl Esters (Lovaza) 1 gm PO BID [facility] Last Admin: 06/03/17 18:11 Dose: 1 gm Polyethylene Glycol (Miralax) 17 gm PO DAILY PRN PRN Reason: Constipation Rosuvastatin Calcium (Crestor) 10 mg PO HS [facility] Last Admin: 06/03/17 22:53 Dose: 10 mg Sevelamer Carbonate (Renvela) 2,400 mg PO TIDCC [facility] Last Admin: 06/03/17 18:11 Dose: 2,400 mg Vitamin B Complex/Vit C/Folic Acid (Nephro-Vesna) 1 tab PO 0800 [facility] Last Admin: 06/03/17 09:18 Dose: 1 tab - Labs Labs: 06/02/17 16:47 06/02/17 16:47 - Constitutional Appears: Non-toxic, No Acute Distress - Head Exam Head Exam: NORMAL INSPECTION - Eye Exam Eye Exam: Normal appearance - ENT Exam ENT Exam: Mucous Membranes Moist - Respiratory Exam Respiratory Exam: NORMAL BREATHING PATTERN. absent: Accessory Muscle Use, Respiratory Distress - Cardiovascular Exam Cardiovascular Exam: absent: Bradycardia, Tachycardia - Extremities Exam Additional comments: Toes of L foot bright red w/ delayed capillary refill full ROM L DP not appreciated - Neurological Exam Neurological Exam: Alert, Awake, Oriented x3 - Psychiatric Exam Psychiatric exam: Normal Affect, Normal Mood - Skin Skin Exam: Dry, Intact, Warm Assessment and Plan - Assessment and Plan (Free Text) Assessment: 62 y/o M w/ possible ischemic toes s/p injury - f/u arterial duplex - Foot x-ray negative for fracture - f/u Podiatry recs - pain management - cont medical management for UTI/Fluid overload Pt discussed w/ Dr. Sami Yanes DO PGY2
[2017-06-04] MEDS: (Novolog) Insulin Aspart, Recombinant 100 u/ml 10 ml vial SC SCH ×3 (07:29→18:12)
[2017-06-04] MEDS: Multivitamin Vitamin B Complex (Nephro-Vite) Tab PO SCH (08:01)
[2017-06-04 09:12] LABS: BILIRUBIN,DIRECT 0.5 mg/dL (0.0-0.4); BILIRUBIN,TOTAL 0.5 mg/dL (0.2-1.3); CALCIUM 8.2 mg/dl (8.6-10.4); POTASSIUM 4.4 mmol/L (3.6-5.2)
[2017-06-04 09:29] LABS: ALB/GLOB RATIO 1.2 (1.0-2.1)
[2017-06-04] MEDS: NUVIGIL 150 MG PO SCH (10:28)
[2017-06-04] MEDS: Omega-3-Acid Ethyl Esters 1 GM Cap PO SCH ×2 (10:28→18:12)
[2017-06-04] MEDS: Metoprolol Succinate 12.5 mg XL PO SCH (10:35)
[2017-06-04 13:36] VITALS: RESP 20
[2017-06-04] MEDS: Cefepime IV 1 gm in Dextrose 1 GM/50 ML BAG IVPB SCH (13:55)
--- NOTE | 2017-06-04 17:05 | CP.PCM.PN ---
Subjective - Date & Time of Evaluation Date of Evaluation: 06/04/17 Time of Evaluation: 13:30 - Subjective Subjective: Podiatry Consult Note for Dr. Mello 61 year old male with PMHx of anemia, CAD, CHF, CVA, NIDDM, HTN, HLD, Pneumonia , ESRD, Seizures, TIA who is seen at bedside today for left foot injury. Patient is AAOx3 and denies of any acute overnight events. Denies of any pain or difficulty walking on the left foot. Denies of any other pedal complains at this time. He denies any n/v/f/c/sob/cp. Objective - Vital Signs/Intake and Output Vital Signs (last 24 hours): Temp Pulse Resp BP Pulse Ox 97.8 F 74 20 132/71 98 06/04/17 13:10 06/04/17 16:02 06/04/17 13:10 06/04/17 13:10 06/04/17 13:10 Intake and Output: 06/04/17 06/04/17 06:59 18:59 Intake Total 240 Output Total 50 Balance 190 - Medications Medications: Current Medications Allopurinol (Zyloprim) 100 mg PO DAILY [facility] Last Admin: 06/04/17 10:35 Dose: Not Given Aspirin (Ecotrin) 81 mg PO DAILY [facility] Last Admin: 06/04/17 10:28 Dose: Not Given Carbamazepine (Tegretol-Xr) 200 mg PO BID [facility] Last Admin: 06/04/17 10:35 Dose: Not Given Cinacalcet (Sensipar) 30 mg PO DAILY [facility] Last Admin: 06/04/17 10:35 Dose: Not Given Clopidogrel Bisulfate (Plavix) 75 mg PO DAILY [facility] Last Admin: 06/04/17 10:35 Dose: Not Given Famotidine (Pepcid) 20 mg PO DAILY [facility] Last Admin: 06/04/17 10:35 Dose: Not Given Gabapentin (Neurontin) 400 mg PO HS [facility] Last Admin: 06/03/17 22:59 Dose: 400 mg Heparin Sodium (Porcine) (Heparin) 5,000 units SC Q12 [facility] Last Admin: 06/04/17 10:28 Dose: Not Given Home Med (Patient's Own Control Medication) 1 tab PO QAM [facility] Last Admin: 06/04/17 10:28 Dose: Not Given Home Med (Patient's Own Medication) 1 tab PO ACB [facility] Last Admin: 06/04/17 06:36 Dose: 1 tab Cefepime HCl (Maxipime Iv 1 Gm Premix) 1 gm in 50 mls @ 100 mls/hr IVPB Q24H [facility] Last Admin: 06/04/17 13:55 Dose: 100 mls/hr Insulin Aspart (Novolog) 25 unit SC AC [facility] Last Admin: 06/04/17 12:00 Dose: Not Given Insulin Glargine (Lantus) 25 unit SC [facility] Last Admin: 06/03/17 22:53 Dose: 25 units Metoprolol Succinate (Toprol Xl) 12.5 mg PO DAILY [facility] Last Admin: 06/04/17 10:35 Dose: Not Given Midodrine (Proamatine) 5 mg PO DAILY [facility] Last Admin: 06/04/17 10:35 Dose: Not Given Jcizq-1-Qfsh Ethyl Esters (Lovaza) 1 gm PO BID [facility] Last Admin: 06/04/17 10:28 Dose: Not Given Polyethylene Glycol (Miralax) 17 gm PO DAILY PRN PRN Reason: Constipation Rosuvastatin Calcium (Crestor) 10 mg PO [facility] Last Admin: 06/03/17 22:53 Dose: 10 mg Sevelamer Carbonate (Renvela) 2,400 mg PO TIDCC [facility] Last Admin: 06/04/17 08:01 Dose: 2,400 mg Vitamin B Complex/Vit C/Folic Acid (Nephro-Vesna) 1 tab PO 0800 [facility] Last Admin: 06/04/17 08:01 Dose: 1 tab - Labs Labs: 06/02/17 16:47 06/04/17 08:13 - Constitutional Appears: Well, Non-toxic, No Acute Distress - Extremities Exam Additional comments: Lower extremity focused exam: VASC: DP pulses palpable 1/4 b/l. PT pulses non-palpable b/l. Skin temp runs warm to cool from proximal to distal. CFT is delayed to all digits NEURO: Pedal sensation is grossly diminished b/l DERM: No open lesions note. All digits are cold to touch and dusky in coloration and appear ischemic. Nail is absent from left 2nd digit. ORTHO: no gross deformities, no tenderness to palpation b/l, no pain on palpation at the level of the 5th MTPJ on the left foot, no pain during ROM of the left foot, MMT: 5/5 in all 4 compartments b/l - Neurological Exam Neurological Exam: Alert, Awake, Oriented x3 - Psychiatric Exam Psychiatric exam: Normal Affect, Normal Mood Assessment and Plan - Assessment and Plan (Free Text) Assessment: 61 year old male with ischemia of all digits left foot Plan: patient examined and evaluated discussed in detail with attending, Dr. Mello chart, labs, vitals reviewed - afebrile left foot radiographs ordered to rule out fracture from patients injury - possible 5th metatarsal head non-displaced fracture, however no clinical symptoms associated with the radiological finding continue IV abx per ID left foot dressed with SANDRA Surgical shoe ordered - educated to weightbear with the shoe on at all times Patient denies of any pain or discomfort during ROM of the left foot, denies any complains Patient is stable from podiatry stand-point podiatry will continue to follow patient while in house
[2017-06-04] MEDS: (Lantus) Insulin Glargine, Recombinant SC SCH (21:35)
--- NOTE | 2017-06-04 23:40 | CP.PCM.PN ---
Subjective - Date & Time of Evaluation Date of Evaluation: 06/04/17 Time of Evaluation: 10:00 - Subjective Subjective: seen on hd PE: sitting in bed nad ao times 3 no jvd heent normal op moist abd soft s1s2 present no resp distress A&P: UTI, Hyperkalemia Diabetic chronic Kidney Disease (E11.22) Hypertensive Chronic Kidney Disease (I12.0) End stage renal disease (N18.6) dependence on hemodialysis (Z99.2) (TTS) via AVF Anemia (D64.9), Hyperphosphatemia (E83.39), Secondary Hyperparathyroidism (E21.1 ), HTN (I12.0) diabetic foot ulcer left side Plan: seen on hd today UF as tolerated, less as having diarrhea anemia stable Continue with phos binders Continue with sensipar BP continue current meds Objective - Vital Signs/Intake and Output Vital Signs (last 24 hours): Temp Pulse Resp BP Pulse Ox 98.6 F 74 20 124/76 95 06/04/17 16:00 06/04/17 16:02 06/04/17 16:00 06/04/17 16:00 06/04/17 16:00 - Medications Medications: Current Medications Allopurinol (Zyloprim) 100 mg PO DAILY [facility] Last Admin: 06/04/17 10:35 Dose: Not Given Aspirin (Ecotrin) 81 mg PO DAILY [facility] Last Admin: 06/04/17 10:28 Dose: Not Given Carbamazepine (Tegretol-Xr) 200 mg PO BID [facility] Last Admin: 06/04/17 18:12 Dose: 200 mg Cinacalcet (Sensipar) 30 mg PO DAILY [facility] Last Admin: 06/04/17 10:35 Dose: Not Given Clopidogrel Bisulfate (Plavix) 75 mg PO DAILY [facility] Last Admin: 06/04/17 10:35 Dose: Not Given Famotidine (Pepcid) 20 mg PO DAILY [facility] Last Admin: 06/04/17 10:35 Dose: Not Given Gabapentin (Neurontin) 400 mg PO HS [facility] Last Admin: 06/04/17 21:36 Dose: 400 mg Heparin Sodium (Porcine) (Heparin) 5,000 units SC Q12 [facility] Last Admin: 06/04/17 21:35 Dose: 5,000 units Home Med (Patient's Own Control Medication) 1 tab PO QAM [facility] Last Admin: 06/04/17 10:28 Dose: Not Given Home Med (Patient's Own Medication) 1 tab PO ACB [facility] Last Admin: 06/04/17 06:36 Dose: 1 tab Cefepime HCl (Maxipime Iv 1 Gm Premix) 1 gm in 50 mls @ 100 mls/hr IVPB Q24H [facility] Last Admin: 06/04/17 13:55 Dose: 100 mls/hr Insulin Aspart (Novolog) 25 unit SC AC [facility] Last Admin: 06/04/17 18:12 Dose: Not Given Insulin Glargine (Lantus) 25 unit SC [facility] Last Admin: 06/04/17 21:35 Dose: 25 units Metoprolol Succinate (Toprol Xl) 12.5 mg PO DAILY [facility] Last Admin: 06/04/17 10:35 Dose: Not Given Midodrine (Proamatine) 5 mg PO DAILY [facility] Last Admin: 06/04/17 10:35 Dose: Not Given Mgzru-3-Btem Ethyl Esters (Lovaza) 1 gm PO BID [facility] Last Admin: 06/04/17 18:12 Dose: 1 gm Polyethylene Glycol (Miralax) 17 gm PO DAILY PRN PRN Reason: Constipation Rosuvastatin Calcium (Crestor) 10 mg PO HS [facility] Last Admin: 06/04/17 21:35 Dose: 10 mg Sevelamer Carbonate (Renvela) 2,400 mg PO TIDCC [facility] Last Admin: 06/04/17 18:14 Dose: 2,400 mg Vitamin B Complex/Vit C/Folic Acid (Nephro-Vesna) 1 tab PO 0800 [facility] Last Admin: 06/04/17 08:01 Dose: 1 tab - Labs Labs: 06/02/17 16:47 06/04/17 08:13
[2017-06-05 01:30] VITALS: BP 187/85; TEMP 97.5; O2SAT 98
[2017-06-05] MEDS: LINZESS 290 MCG PO SCH (08:05)
[2017-06-05] MEDS: (Novolog) Insulin Aspart, Recombinant 100 u/ml 10 ml vial SC SCH ×2 (08:30→12:00)
[2017-06-05] MEDS: Multivitamin Vitamin B Complex (Nephro-Vite) Tab PO SCH (08:30)
[2017-06-05] MEDS: NUVIGIL 150 MG PO SCH ×2 (09:20→10:00)
[2017-06-05] MEDS: Metoprolol Succinate 12.5 mg XL PO SCH (09:26)
[2017-06-05] MEDS: Omega-3-Acid Ethyl Esters 1 GM Cap PO SCH (09:27)
[2017-06-05 11:29] VITALS: PULSE 79
--- NOTE | 2017-06-05 13:10 | CP.PCM.PN ---
Subjective - Date & Time of Evaluation Date of Evaluation: 06/05/17 Time of Evaluation: 10:00 - Subjective Subjective: no fever chills cough or sob wants to go home will d/c home if cleared by renal and cardiology Objective - Vital Signs/Intake and Output Vital Signs (last 24 hours): Temp Pulse Resp BP Pulse Ox 97.5 F L 79 20 187/85 H 98 06/04/17 23:00 06/05/17 08:00 06/04/17 23:00 06/04/17 23:00 06/04/17 23:00 Intake and Output: 06/05/17 06/05/17 06:59 18:59 Intake Total 0 Balance 0 - Medications Medications: Current Medications Allopurinol (Zyloprim) 100 mg PO DAILY [facility] Last Admin: 06/05/17 09:19 Dose: 100 mg Aspirin (Ecotrin) 81 mg PO DAILY [facility] Last Admin: 06/05/17 09:19 Dose: 81 mg Carbamazepine (Tegretol-Xr) 200 mg PO BID [facility] Last Admin: 06/05/17 09:26 Dose: 200 mg Cinacalcet (Sensipar) 30 mg PO DAILY [facility] Last Admin: 06/05/17 09:26 Dose: 30 mg Clopidogrel Bisulfate (Plavix) 75 mg PO DAILY [facility] Last Admin: 06/05/17 09:19 Dose: 75 mg Famotidine (Pepcid) 20 mg PO DAILY [facility] Last Admin: 06/05/17 09:19 Dose: 20 mg Gabapentin (Neurontin) 400 mg PO HS [facility] Last Admin: 06/04/17 21:36 Dose: 400 mg Heparin Sodium (Porcine) (Heparin) 5,000 units SC Q12 [facility] Last Admin: 06/05/17 09:20 Dose: 5,000 units Home Med (Patient's Own Control Medication) 1 tab PO QAM [facility] Last Admin: 06/04/17 10:28 Dose: Not Given Home Med (Patient's Own Medication) 1 tab PO ACB [facility] Last Admin: 06/05/17 08:05 Dose: 1 tab Cefepime HCl (Maxipime Iv 1 Gm Premix) 1 gm in 50 mls @ 100 mls/hr IVPB Q24H [facility] Last Admin: 06/04/17 13:55 Dose: 100 mls/hr Insulin Aspart (Novolog) 25 unit SC AC [facility] Last Admin: 06/05/17 08:30 Dose: 25 unit Insulin Glargine (Lantus) 25 unit SC [facility] Last Admin: 06/04/17 21:35 Dose: 25 units Metoprolol Succinate (Toprol Xl) 12.5 mg PO DAILY [facility] Last Admin: 06/05/17 09:26 Dose: 12.5 mg Midodrine (Proamatine) 5 mg PO DAILY [facility] Last Admin: 06/05/17 09:26 Dose: 5 mg Lksjs-1-Nthd Ethyl Esters (Lovaza) 1 gm PO BID [facility] Last Admin: 06/05/17 09:27 Dose: 1 gm Polyethylene Glycol (Miralax) 17 gm PO DAILY PRN PRN Reason: Constipation Last Admin: 06/05/17 09:19 Dose: 17 gm Rosuvastatin Calcium (Crestor) 10 mg PO [facility] Last Admin: 06/04/17 21:35 Dose: 10 mg Sevelamer Carbonate (Renvela) 2,400 mg PO TIDCC [facility] Last Admin: 06/05/17 08:30 Dose: 2,400 mg Vitamin B Complex/Vit C/Folic Acid (Nephro-Vesna) 1 tab PO 0800 [facility] Last Admin: 06/05/17 08:30 Dose: 1 tab - Labs Labs: 06/02/17 16:47 06/04/17 08:13 - Constitutional Appears: Non-toxic, Chronically Ill - Head Exam Head Exam: NORMOCEPHALIC - Eye Exam Eye Exam: PERRL. absent: Scleral icterus - ENT Exam ENT Exam: Mucous Membranes Dry - Neck Exam Neck Exam: absent: Lymphadenopathy - Respiratory Exam Respiratory Exam: Decreased Breath Sounds - Cardiovascular Exam Cardiovascular Exam: REGULAR RHYTHM - GI/Abdominal Exam GI & Abdominal Exam: Distended, Soft - Rectal Exam Rectal Exam: Deferred - Exam Exam: NORMAL INSPECTION - Extremities Exam Extremities Exam: absent: Pedal Edema - Back Exam Back Exam: absent: CVA tenderness (L), CVA tenderness (R) - Neurological Exam Neurological Exam: Alert, Awake, Oriented x3 - Psychiatric Exam Psychiatric exam: Normal Mood - Skin Skin Exam: Dry Assessment and Plan (1) ESRD on dialysis Status: Acute (2) Hyperkalemia Status: Acute (3) UTI (urinary tract infection) Status: Acute (4) HTN (hypertension) Status: Chronic (5) Acute CHF Status: Acute (6) Altered mental status Status: Acute (7) Anemia Status: Acute (8) CHF (congestive heart failure) Status: Acute
--- NOTE | 2017-06-05 13:14 | CP.PCM.DIS ---
Provider - Provider Date of Admission: 06/01/17 21:54 Attending physician: Gil Farrar MD Primary care physician: RAFAEL Consults: Gopi HONG Time Spent in preparation of Discharge (in minutes): 45 Diagnosis - Discharge Diagnosis (1) ESRD on dialysis Status: Acute (2) Hyperkalemia Status: Acute (3) UTI (urinary tract infection) Status: Acute (4) HTN (hypertension) Status: Chronic (5) Acute CHF Status: Acute (6) Altered mental status Status: Acute (7) Anemia Status: Acute Priority: High (8) CHF (congestive heart failure) Status: Acute Hospital Course - Lab Results Lab Results: Micro Results 06/01/17 18:18 Blood Blood Culture - Preliminary NO GROWTH AFTER 3 DAYS 06/01/17 18:48 Blood Blood Culture - Preliminary NO GROWTH AFTER 3 DAYS 06/01/17 Unknown Urine Urine Culture - Final Proteus Mirabilis Most Recent Lab Values WBC 8.0 K/uL (4.8-10.8) 06/02/17 16:47 RBC 3.79 Mil/uL (4.40-5.90) L 06/02/17 16:47 Hgb 12.1 g/dL (12.0-18.0) 06/02/17 16:47 Hct 35.4 % (35.0-51.0) 06/02/17 16:47 MCV 93.4 fL (80.0-94.0) 06/02/17 16:47 MCH 31.9 pg (27.0-31.0) H 06/02/17 16:47 MCHC 34.1 g/dL (33.0-37.0) 06/02/17 16:47 RDW 15.4 % (11.5-14.5) H 06/02/17 16:47 Plt Count 177 K/uL (130-400) 06/02/17 16:47 MPV 7.6 fL (7.2-11.7) 06/02/17 16:47 Neut % (Auto) 74.4 % (50.0-75.0) 06/02/17 16:47 Lymph % (Auto) 18.2 % (20.0-40.0) L 06/02/17 16:47 [place] % (Auto) 6.4 % (0.0-10.0) 06/02/17 16:47 Eos % (Auto) 0.6 % (0.0-4.0) 06/02/17 16:47 Baso % (Auto) 0.4 % (0.0-2.0) 06/02/17 16:47 Neut # 5.9 K/uL (1.8-7.0) 06/02/17 16:47 Lymph # 1.5 K/uL (1.0-4.3) 06/02/17 16:47 [place] # 0.5 K/uL (0.0-0.8) 06/02/17 16:47 Eos # 0.0 K/uL (0.0-0.7) 06/02/17 16:47 Baso # 0.0 K/uL (0.0-0.2) 06/02/17 16:47 Neutrophils % (Manual) 79 % (50-75) H 06/01/17 18:11 Band Neutrophils % 6 % (0-2) H 06/01/17 18:11 Lymphocytes % (Manual) 10 % (20-40) L 06/01/17 18:11 Reactive Lymphs % 1 % (0-0) H 06/01/17 18:11 Monocytes % (Manual) 4 % (0-10) 06/01/17 18:11 Platelet Estimate Normal (NORMAL) 06/01/17 18:11 Large Platelets Present 06/01/17 18:11 Microcytosis (manual) Slight 06/01/17 18:11 Sodium 126 mmol/L (132-148) L 06/04/17 08:13 Potassium 4.4 mmol/L (3.6-5.2) 06/04/17 08:13 Chloride 83 mmol/L (98-107) L 06/04/17 08:13 Carbon Dioxide 27 mmol/L (22-30) 06/04/17 08:13 Anion Gap 21 (10-20) H 06/04/17 08:13 BUN 60 mg/dL (9-20) H 06/04/17 08:13 Creatinine 9.7 mg/dL (0.8-1.5) H* D 06/04/17 08:13 Est GFR ( Amer) 7 06/04/17 08:13 Est GFR (Non-Af Amer) 5 06/04/17 08:13 POC Glucose (mg/dL) 86 mg/dL (65-110) 06/05/17 11:57 Random Glucose 111 mg/dL (75-110) H 06/04/17 08:13 Lactic Acid 1.0 mmol/L (0.7-2.1) 06/01/17 22:44 Calcium 8.2 mg/dl (8.6-10.4) L 06/04/17 08:13 Phosphorus 3.6 mg/dL (2.5-4.5) 06/02/17 16:47 Total Bilirubin 0.5 mg/dL (0.2-1.3) 06/04/17 08:13 Direct Bilirubin 0.5 mg/dL (0.0-0.4) H 06/04/17 08:13 AST 42 U/L (17-59) 06/04/17 08:13 ALT 56 U/L (21-72) 06/04/17 08:13 Alkaline Phosphatase 296 U/L (38-126) H 06/04/17 08:13 Total Creatine Kinase 116 U/L (55-170) 06/01/17 22:44 CK-MB (Mass) 3.15 ng/mL (0.0-3.38) 06/01/17 22:44 Troponin I 0.0430 ng/mL (0.00-0.120) 06/01/17 22:44 Total Protein 7.0 g/dL (6.3-8.3) 06/04/17 08:13 Albumin 3.8 g/dL (3.5-5.0) 06/04/17 08:13 Globulin 3.2 gm/dL (2.2-3.9) 06/04/17 08:13 Albumin/Globulin Ratio 1.2 (1.0-2.1) 06/04/17 08:13 Prostate Specific Ag 2.89 ng/mL (0.00-4.0) 06/03/17 06:25 Urine Color Red (YELLOW) 06/01/17 20:36 Urine Clarity Turbid (Clear) 06/01/17 20:36 Urine pH 8.0 (5.0-8.0) 06/01/17 20:36 Ur Specific [place] 1.014 (1.003-1.030) 06/01/17 20:36 Urine Protein 3+ mg/dL (NEGATIVE) H 06/01/17 20:36 Urine Glucose (UA) Normal mg/dL (Normal) 06/01/17 20:36 Urine Ketones Negative mg/dL (NEGATIVE) 06/01/17 20:36 Urine Blood 3+ (NEGATIVE) H 06/01/17 20:36 Urine Nitrate Negative (NEGATIVE) 06/01/17 20:36 Urine Bilirubin Negative (NEGATIVE) 06/01/17 20:36 Urine Urobilinogen Normal mg/dL (0.2-1.0) 06/01/17 20:36 Ur Leukocyte Esterase 3+ [place]/uL (Negative) H 06/01/17 20:36 Urine WBC (Auto) 4957 /hpf (0-5) H 06/01/17 20:36 Urine RBC (Auto) 3361 /hpf (0-3) H 06/01/17 20:36 Urine WBC Clumps (Auto) Many /hpf (NONE) H 06/01/17 20:36 Ur Transition Epith Cell 2 /hpf (0-3) 06/01/17 20:36 Urine Bacteria Few (<OCC) H 06/01/17 20:36 Discharge Exam - Head Exam Head Exam: ATRAUMATIC, NORMOCEPHALIC - Eye Exam Eye Exam: PERRL - ENT Exam ENT Exam: Mucous Membranes Dry - Respiratory Exam Respiratory Exam: Decreased Breath Sounds, Clear to PA & Lateral - Cardiovascular Exam Cardiovascular Exam: REGULAR RHYTHM - GI/Abdominal Exam GI & Abdominal Exam: Diminished Bowel Sounds, Soft. absent: Rigid - Rectal Exam Rectal Exam: Deferred - Exam Exam: NORMAL INSPECTION - Extremities Exam Extremities exam: pedal edema, tenderness, pedal pulses present - Back Exam Back exam: absent: CVA tenderness (L), CVA tenderness (R), paraspinal tenderness - Neurological Exam Neurological exam: Alert, CN II-XII Intact, Oriented x3, Reflexes Normal - Psychiatric Exam Psychiatric exam: Normal Mood - Skin Skin Exam: Dry Discharge Plan - Follow Up Plan Condition: FAIR Disposition: HOME/ ROUTINE
--- NOTE | 2017-06-06 12:11 | PCM.URO ---
Urology Progress Note - Objective Lab Results Last 24 Hours: Laboratory Results - last 24 hr 06/04/17 06/05/17 10:02 11:57 POC Glucose (mg/dL) 86 Hepatitis C Antibody Negative - Plan Additional Information: I went to see pt. Pt was already discharged. YS
--- NOTE | 2017-06-07 22:23 | CARD ---
APPROVED REPORT EKG Measurement Heart [id number] <Conclusion> Normal sinus rhythm Possible Left atrial enlargement Right bundle branch block Abnormal ECG
== END 2017-06-05 14:50 | disposition home or self-care (01) | DRG 689 ==
LOC: C.ER 16:55 → C.9E 21:54 → C.6T 22:47
PROVIDERS: ADMIT Internal Medicine; ATTEND Internal Medicine
PROC: 5A1D70Z Performance of Urinary Filtration, Intermittent, Less than 6 Hours Per Day (ICD-10-PCS; principal; 2017-06-01)
DX: N39.0 Urinary tract infection, site not specified (principal); N18.6 End stage renal disease; I13.2 Hypertensive heart and chronic kidney disease with heart failure and with stage 5 chronic kidney disease, or end stage renal disease; E11.22 Type 2 diabetes mellitus with diabetic chronic kidney disease; E11.621 Type 2 diabetes mellitus with foot ulcer; N25.81 Secondary hyperparathyroidism of renal origin; I50.9 Heart failure, unspecified; D64.9 Anemia, unspecified; E78.00 Pure hypercholesterolemia, unspecified; E83.39 Other disorders of phosphorus metabolism; E87.5 Hyperkalemia; H40.9 Unspecified glaucoma; H54.7 Unspecified visual loss; I25.10 Atherosclerotic heart disease of native coronary artery without angina pectoris; L97.529 Non-pressure chronic ulcer of other part of left foot with unspecified severity; Z87.01 Personal history of pneumonia (recurrent); Z87.891 Personal history of nicotine dependence; Z95.5 Presence of coronary angioplasty implant and graft; Z99.2 Dependence on renal dialysis; I69.398 Other sequelae of cerebral infarction; R26.89 Other abnormalities of gait and mobility

== ENCOUNTER 2017-07-02 21:49 | Emergency (ER) | payer MEDICARE, OTHER ==
[2017-07-02 21:50] VITALS: BMI 33.5
--- NOTE | 2017-07-02 22:32 | C.PDOC ---
History Of Present Illness Patient presents to the ER after he pulled the dressing off his dialysis port dressing and began bleeding. Denies fever or pain. Time Seen by Provider: 07/02/17 22:29 Chief Complaint (Nursing): Abnormal Skin Integrity History Per: Patient History/Exam Limitations: no limitations Onset/Duration Of Symptoms: Hrs Current Symptoms Are (Timing): Still Present Location Of Injury: Left: Arm (Dialysis shunt) Quality Of Symptoms: Other (Bleeding) Severity: Mild Pain Scale Rating Of: 2 Recent travel outside of the [place]: No Additional History Per: Family Past Medical History Reviewed: Historical Data, Nursing Documentation, Vital Signs Vital Signs: Last Vital Signs Temp 98.4 F 07/02/17 21:58 Pulse 90 07/02/17 21:58 Resp 14 07/02/17 21:58 BP 168/83 H 07/02/17 21:58 Pulse Ox 97 07/02/17 23:05 - Medical History PMH: Anemia, CAD (ATHEROSCLEROSIS), CHF, CVA (with residual mild gait instability), Diabetes (NIDDM), HTN, Hypercholesterolemia, Pneumonia, End Stage Renal Disease (AV SHUNT, DIALYSIS (T-TH-TUE)), Chronic Kidney Disease (SEE COMMENT), Seizures, TIA Surgical History: Coronary Stent (4 years ago) - [facility] (06/01/17) HEMODIALYSIS (12/29/14) PACKED CELL TRANSFUSION (03/05/14) PERFORMANCE OF URINARY FILTRATION, SINGLE (08/28/16) VACCINATION NEC (02/23/14) Family History: States: Unknown Family Hx - Social History Hx Tobacco Use: No Hx Alcohol Use: No Hx Substance Use: No - Immunization History Hx Tetanus Toxoid Vaccination: Yes Hx Influenza Vaccination: Yes (2014) Hx Pneumococcal Vaccination: Yes (2014) Review Of Systems Constitutional: Negative for: Fever, Chills Musculoskeletal: Positive for: Other (Dialysis port bleeding) Neurological: Negative for: Weakness, Numbness Psych: Negative for: Anxiety Physical Exam - Physical Exam Appears: Non-toxic, No Acute Distress Skin: Warm, Dry Extremity: Other (Left arm dialysis port with good thrill and bruit) Extremity: Bilateral: Atraumatic Pulses: Left Radial: Normal, Right Radial: Normal Neurological/Psych: Oriented x3, Normal Speech, Normal Cognition Gait: Steady ED Course And Treatment O2 Sat by Pulse Oximetry: 97 (Room air) Pulse Ox Interpretation: Normal Progress Note: Upon removing the dressing applied by ems, no active bleeding was noticed. Light pressure dressing with gel foam applied,good radial pulses, and capilary refill. Moves all digits. patient stable for discharge. Disposition Counseled Patient/Family Regarding: Studies Performed, Diagnosis, Need For Followup - Disposition Referrals: Gladys Linton MD [Medical Doctor] - Disposition: HOME/ ROUTINE Disposition Time: 22:31 Condition: FAIR Forms: [facility] (Yi), General Discharge Instructions - Clinical Impression Clinical Impression: Bleeding from dialysis shunt - Scribe Statement The provider has reviewed the documentation as recorded by the Scribe Gil Reynaga All medical record entries made by the Scribe were at my direction and personally dictated by me. I have reviewed the chart and agree that the record accurately reflects my personal performance of the history, physical exam, medical decision making, and the department course for this patient. I have also personally directed, reviewed, and agree with the discharge instructions and disposition.
[2017-07-02 23:26] VITALS: BP 138/79; PULSE 68; RESP 19; TEMP 98; O2SAT 95
== END 2017-07-02 23:40 | disposition home or self-care (01) ==
LOC: C.ER 21:49
DX: T82.838A Hemorrhage due to vascular prosthetic devices, implants and grafts, initial encounter (principal); Y84.1 Kidney dialysis as the cause of abnormal reaction of the patient, or of later complication, without mention of misadventure at the time of the procedure; Y92.89 Other specified places as the place of occurrence of the external cause

== ENCOUNTER 2017-11-19 07:23 | Inpatient (IN) | payer MEDICARE, OTHER ==
[2017-11-19 07:23] VITALS: BMI 33.5
--- NOTE | 2017-11-19 08:06 | C.PDOC ---
History Of Present Illness Patient is a 62 y/o male, with a Hx of DM and dialysis, who presents to the ED with a complaint of nausea and vomiting after eating. Patient reports he is due for dialysis today. In ED, patient denies any vomiting now but admits to still feeling nauseous. Denies abdominal pain, chest pain, shortness of breath, fever , or chills. No other physical complaints at this time. Time Seen by Provider: 11/19/17 07:43 Chief Complaint (Nursing): GI Problem History Per: Patient History/Exam Limitations: no limitations Onset/Duration Of Symptoms: Hrs Current Symptoms Are (Timing): Still Present Context: Food (after eating) Associated Symptoms: Nausea, Vomiting. denies: Fever, Chills, Chest Pain Recent travel outside of the [place]: No Past Medical History Reviewed: Historical Data, Nursing Documentation, Vital Signs Vital Signs: Last Vital Signs Temp 98 F 11/19/17 07:34 Pulse 93 H 11/19/17 10:57 Resp 13 11/19/17 10:57 BP 121/59 L 11/19/17 10:57 Pulse Ox 99 11/19/17 10:57 - Medical History PMH: Anemia, CAD (ATHEROSCLEROSIS), CHF, CVA (with residual mild gait instability), Diabetes (NIDDM), HTN, Hypercholesterolemia, Pneumonia, End Stage Renal Disease (AV SHUNT, DIALYSIS (--TUE)), Chronic Kidney Disease (SEE COMMENT), Seizures, TIA Denies: Kidney Stones Surgical History: Coronary Stent (4 years ago) - [facility] (06/01/17) HEMODIALYSIS (12/29/14) PACKED CELL TRANSFUSION (03/05/14) PERFORMANCE OF URINARY FILTRATION, SINGLE (08/28/16) VACCINATION NEC (02/23/14) Family History: States: No Known Family Hx - Social History Hx Tobacco Use: No Hx Alcohol Use: No Hx Substance Use: No - Immunization History Hx Tetanus Toxoid Vaccination: Yes Hx Influenza Vaccination: Yes (2014) Hx Pneumococcal Vaccination: Yes (2014) Review Of Systems Constitutional: Negative for: Fever, Chills Cardiovascular: Negative for: Chest Pain Respiratory: Negative for: Shortness of Breath Gastrointestinal: Positive for: Nausea, Vomiting. Negative for: Abdominal Pain Physical Exam - Physical Exam Appears: Well, Non-toxic, No Acute Distress Skin: Normal Color, Warm, Dry Head: Atraumatic, Normacephalic Oral Mucosa: Moist Cardiovascular: Rhythm Regular Respiratory: Normal Breath Sounds, No Rales, No Rhonchi, No Wheezing Gastrointestinal/Abdominal: Soft, No Tenderness Extremity: Normal ROM (x4), Other (AV fistula to left arm; thrill intact) Neurological/Psych: Oriented x3, Normal Speech, Normal Cognition ED Course And Treatment - Laboratory Results Result Diagrams: 11/19/17 08:10 11/19/17 08:10 ECG: Interpreted By Me, Viewed By Me ECG Rhythm: Sinus Rhythm, R BBB Interpretation Of ECG: peaked t waves Rate From EC (bpm) O2 Sat by Pulse Oximetry: 99 - Other Rad obstuctive series X-Ray: Interpreted by Me, Viewed By Me Interpretation: PROCEDURE: Radiographs of the chest and abdomen (obstructive series). HISTORY: abd pain. COMPARISON: Comparison is made with the previous chest x-ray dated 17. TECHNIQUE: AP radiograph of the chest , with upright and supine radiographs of the abdomen. FINDINGS: CHEST: Lungs : There is a small infiltrate/ opacity at the right lower lung medially. Cardiovascular: Normal size heart. No pulmonary vascular congestion. Pleura: No pleural fluid. No pneumothorax. Other findings: None. ABDOMEN AND PELVIS: Bowel: Mild constipation. Otherwise unremarkable bowel gas pattern. No evidence of mechanical obstruction. Free air: None. Bones: Unremarkable. Other findings: None. IMPRESSION: Mild constipation, otherwise unremarkable radiographs of chest and abdomen. No evidence of mechanical bowel obstruction. Progress Note: Assessment: nausea, vomiting, ESRD. EKG, CBC, blood work and obstructive series ordered. Protonix and Zofran administered. Dr Maureen Martin of nephrology will see patient on consult to arrange dialysis. - Physician Consult Information Time Consulting Physician Contacted: 09:45 Physician Contacted: Nils Lowe Outcome Of Conversation: Dr Lowe agrees with patient to be admitted to telemetry for nausea, hyperkalemia, and ESRD. Disposition Discussed With : Nils Lowe Doctor Will See Patient In The: Hospital Counseled Patient/Family Regarding: Studies Performed, Diagnosis - Disposition Disposition: HOSPITALIZED Disposition Time: 09:47 Condition: GOOD - Clinical Impression Clinical Impression: Hyperkalemia, ESRD (end stage renal disease), Nausea - Scribe Statement The provider has reviewed the documentation as recorded by the Scribe Mary Ewing All medical record entries made by the Barney were at my direction and personally dictated by me. I have reviewed the chart and agree that the record accurately reflects my personal performance of the history, physical exam, medical decision making, and the department course for this patient. I have also personally directed, reviewed, and agree with the discharge instructions and disposition.
[2017-11-19 08:22] LABS: BASO % 0.8 % (0.0-2.0); EOS % 1.1 % (0.0-4.0); LYMPH # 0.6 K/uL (1.0-4.3); LYMPH % 14.2 % (20.0-40.0); MEAN CELL VOLUME 98.6 fL (80.0-94.0); MEAN CORPUSCULAR HEMOGLOBIN 33.7 pg (27.0-31.0); MEAN CORPUSCULAR HGB CONC 34.2 g/dL (33.0-37.0); MEAN PLATELET VOLUME 7.6 fL (7.2-11.7); MONO # 0.2 K/uL (0.0-0.8); MONO % 4.8 % (0.0-10.0); NEUT # 3.3 K/uL (1.8-7.0); NEUT % 79.1 % (50.0-75.0); RBC 3.25 Mil/uL (4.40-5.90); RED CELL DISTRIBUTION WIDTH 14.9 % (11.5-14.5); WHITE BLOOD COUNT 4.2 K/uL (4.8-10.8)
--- NOTE | 2017-11-19 08:41 | RAD ---
PROCEDURE: Radiographs of the chest and abdomen (obstructive series) HISTORY: abd pain COMPARISON: Comparison is made with the previous chest x-ray dated TECHNIQUE: AP radiograph of the chest, with upright and supine radiographs of the abdomen. FINDINGS: CHEST: Lungs: There is a small infiltrate/ opacity at the right lower lung medially. Cardiovascular: Normal size heart. No pulmonary vascular congestion. Pleura: No pleural fluid. No pneumothorax. Other findings: None. ABDOMEN AND PELVIS: Bowel: Mild constipation. Otherwise unremarkable bowel gas pattern. No evidence of mechanical obstruction. Free air: None. Bones: Unremarkable. Other findings: None. IMPRESSION: Mild constipation, otherwise unremarkable radiographs of chest and abdomen. No evidence of mechanical bowel obstruction.
[2017-11-19 09:02] LABS: TROPONIN I 0.022 ng/mL (0.00-0.120)
[2017-11-19 09:04] LABS: ALB/GLOB RATIO 1.4 (1.0-2.1); ALBUMIN 4.1 g/dL (3.5-5.0); CALCIUM 8.1 mg/dl (8.6-10.4)
[2017-11-19] MEDS ORDERED: Sod Polystyrene Sulf 15 gm/60 ml Susp PO ONE (09:20)
[2017-11-19] MEDS ORDERED: (Novolin R) Insulin Human Regular 100 units/ml vial IV ONE ×2 (09:21→10:40)
[2017-11-19] MEDS ORDERED: Calcium Gluconate 4.65 mEq/10 ml Inj IVP ONE (09:21)
[2017-11-19] MEDS ORDERED: Dextrose 50% SYRINGE Inj (50 ml) IV STA (09:21)
[2017-11-19] MEDS ORDERED: Dextrose 50% SYRINGE Inj (50 ml) ONE (09:46)
[2017-11-19] MEDS ORDERED: Calcium Gluconate 4.65 mEq/10 ml Inj ONE (09:46)
[2017-11-19] MEDS ORDERED: Sod Polystyrene Sulf 15 gm/60 ml Susp ONE (09:46)
[2017-11-19] MEDS ORDERED: (Novolin R) Insulin Human Regular 100 units/ml vial ONE ×2 (09:47→10:41)
[2017-11-19] MEDS ORDERED: Glucagon Recombinant 1 mg Inj IM PRN (13:24)
[2017-11-19] MEDS ORDERED: Dextrose 50% SYRINGE Inj (50 ml) IVP PRN (13:24)
[2017-11-19] MEDS ORDERED: Albumin Human 25% (12.5 gm/50 ml) IV ONE ×2 (15:30→15:45)
[2017-11-19] MEDS: (Novolog) Insulin Aspart, Recombinant 100 u/ml 10 ml vial SC SCH ×2 (18:46→22:05)
[2017-11-19] MEDS: Omega-3-Acid Ethyl Esters 1 GM Cap PO SCH (18:46)
[2017-11-19] MEDS: (Lantus) Insulin Glargine, Recombinant SC SCH (21:46)
--- NOTE | 2017-11-19 21:57 | CP.PCM.CON ---
History of Present Illness - History of Present Illness History of Present Illness: 62 yr old with htn, dm, cad, esrd on hd tts is admitted with abdominal pain, nausea and vomiting. in er noted to be hypertensive and hyperkalemic along with uncontrolled hyperglycemia no chest pain or sob or edema complete ros i snegative pmfsh: as above, non smoker, no alcohol meds and labs reviewed exam vitals reviewed heent normal op moist no jvd s1s2 present no resp distress abd soft skin normal op moist cooperative ao times 3 no fnd plan esrd/hyperkalemia/hypertensive/dm hd today per schedule lytrs reviewed, should improve with, redraw pre hd bp resume home meds dm per primary team d/w er attending Past Patient History - Tetanus Immunizations Tetanus Immunization: Unknown - Past Medical History & Family History Past Medical History?: Yes - Past Social History Smoking Status: Former Smoker - CARDIAC Hx Congestive Heart Failure: Yes Hx Hypercholesterolemia: Yes Hx Hypertension: Yes - PULMONARY Hx Pneumonia: Yes - NEUROLOGICAL Hx Seizures: Yes Hx Transient Ischemic Attacks (TIA): Yes - HEENT Hx HEENT Problems: Yes Hx Blind: Yes (left eye) Hx Glaucoma: Yes (LEFT EYE) - RENAL Hx Chronic Kidney Disease: Yes (SEE COMMENT) Hx Kidney Stones: No - ENDOCRINE/METABOLIC Hx Diabetes Mellitus Type 1: Yes - HEMATOLOGICAL/ONCOLOGICAL Hx Anemia: Yes - INTEGUMENTARY Hx Dermatological Problems: No - MUSCULOSKELETAL/RHEUMATOLOGICAL Hx Musculoskeletal Disorders: No Hx Falls: No - GASTROINTESTINAL Hx Gastrointestinal Disorders: No - GENITOURINARY/GYNECOLOGICAL Hx Genitourinary Disorders: No - PSYCHIATRIC Hx Substance Use: No - SURGICAL HISTORY Hx Coronary Stent: Yes (4 years ago) - ANESTHESIA Hx Anesthesia: Yes Hx Anesthesia Reactions: No Hx Malignant Hyperthermia: No Meds Allergies/Adverse Reactions: Allergies Allergy/AdvReac Type Severity Reaction Status Date / Time No Known Allergies Allergy Verified 07/02/17 22:03 - Medications Medications: Current Medications Allopurinol (Zyloprim) 100 mg PO DAILY [facility] Aspirin (Ecotrin) 81 mg PO DAILY [facility] Carbamazepine (Tegretol-Xr) 200 mg PO BID [facility] Last Admin: 11/19/17 18:45 Dose: 200 mg Cinacalcet (Sensipar) 30 mg PO DAILY [facility] Clopidogrel Bisulfate (Plavix) 75 mg PO DAILY [facility] Dextrose (Dextrose 50% Inj) 0 ml IVP .STAT PRN; Protocol PRN Reason: Hypoglycemia Protocol Dextrose (Glutose 15) 0 gm PO .ONCE PRN; Protocol PRN Reason: Hypoglycemia Protocol Docusate Sodium (Colace) 100 mg PO BID [facility] Last Admin: 11/19/17 18:46 Dose: 100 mg Famotidine (Pepcid) 20 mg IVP DAILY [facility] Heparin Sodium (Porcine) (Heparin) 5,000 units SC Q12 [facility] Last Admin: 11/19/17 21:47 Dose: 5,000 units Home Med (Linaclotide [Linzess]) 290 mcg PO DAILY [facility] Dextrose (Dextrose 5% In Water 1000 Ml) 1,000 mls @ 0 mls/hr IV .Q0M PRN; Protocol; Per Protocol PRN Reason: Hypoglycemia Protocol Insulin Aspart (Novolog) 0 unit SC ACHS [facility] PRN Reason: Protocol Last Admin: 11/19/17 18:46 Dose: 3 units Insulin Glargine (Lantus) 25 unit SC HS [facility] Last Admin: 11/19/17 21:46 Dose: 25 units Lactulose (Enulose) 20 gm PO HS PRN PRN Reason: Constipation Metoprolol Tartrate (Lopressor) 25 mg PO DAILY [facility] Midodrine (Proamatine) 5 mg PO DAILY [facility] Last Admin: 11/19/17 18:45 Dose: 5 mg Multivitamins (Hexavitamin) 1 tab PO DAILY [facility] Opyiu-6-Opyk Ethyl Esters (Lovaza) 2 gm PO BID [facility] Last Admin: 11/19/17 18:46 Dose: 2 gm Ondansetron HCl (Zofran Inj) 4 mg IVP Q8 PRN PRN Reason: Nausea/Vomiting Rosuvastatin Calcium (Crestor) 10 mg PO HS [facility] Last Admin: 11/19/17 21:47 Dose: Not Given Sevelamer Carbonate (Renvela) 2,400 mg PO TIDCC [facility] Last Admin: 11/19/17 18:46 Dose: 2,400 mg Results - Vital Signs Recent Vital Signs: Last Vital Signs Temp 97.4 F L 11/19/17 17:45 Pulse 73 11/19/17 19:00 Resp 18 11/19/17 17:45 BP 98/46 L 11/19/17 17:45 Pulse Ox 97 11/19/17 17:45 - Labs Result Diagrams: 11/19/17 08:10 11/19/17 14:38 Labs: Laboratory Results - last 24 hr 11/19/17 11/19/17 11/19/17 07:33 07:36 08:10 WBC 4.2 L RBC 3.25 L Hgb 11.0 L Hct 32.0 L MCV 98.6 H D MCH 33.7 H MCHC 34.2 RDW 14.9 H Plt Count 185 MPV 7.6 Neut % (Auto) 79.1 H Lymph % (Auto) 14.2 L [place] % (Auto) 4.8 Eos % (Auto) 1.1 Baso % (Auto) 0.8 Neut # (Auto) 3.3 Lymph # (Auto) 0.6 L [place] # (Auto) 0.2 Eos # (Auto) 0.0 Baso # (Auto) 0.0 Sodium Potassium Chloride Carbon Dioxide Anion Gap BUN Creatinine Est GFR ( Amer) Est GFR (Non-Af Amer) POC Glucose (mg/dL) 412 H* 416 H* Random Glucose Calcium Total Bilirubin AST ALT Alkaline Phosphatase Troponin I NT-Pro-B Natriuret Pep Total Protein Albumin Globulin Albumin/Globulin Ratio Lipase 11/19/17 11/19/17 11/19/17 08:10 10:33 11:32 WBC RBC Hgb Hct MCV MCH MCHC RDW Plt Count MPV Neut % (Auto) Lymph % (Auto) [place] % (Auto) Eos % (Auto) Baso % (Auto) Neut # (Auto) Lymph # (Auto) [place] # (Auto) Eos # (Auto) Baso # (Auto) Sodium 135 Potassium 7.7 H* D Chloride 88 L Carbon Dioxide 26 Anion Gap 29 H BUN 118 H* D Creatinine 12.1 H* D Est GFR ( Amer) 5 Est GFR (Non-Af Amer) 4 POC Glucose (mg/dL) 453 H* 356 H Random Glucose 334 H Calcium 8.1 L Total Bilirubin 0.5 AST 185 H D ALT 142 H D Alkaline Phosphatase 177 H D Troponin I 0.0220 NT-Pro-B Natriuret Pep 2960 H Total Protein 6.9 Albumin 4.1 Globulin 2.8 Albumin/Globulin Ratio 1.4 Lipase 263 11/19/17 11/19/17 11/19/17 14:38 16:02 21:34 WBC RBC Hgb Hct MCV MCH MCHC RDW Plt Count MPV Neut % (Auto) Lymph % (Auto) [place] % (Auto) Eos % (Auto) Baso % (Auto) Neut # (Auto) Lymph # (Auto) [place] # (Auto) Eos # (Auto) Baso # (Auto) Sodium Potassium 6.4 H* Chloride Carbon Dioxide Anion Gap BUN Creatinine Est GFR ( Amer) Est GFR (Non-Af Amer) POC Glucose (mg/dL) 247 H 234 H Random Glucose Calcium Total Bilirubin AST ALT Alkaline Phosphatase Troponin I NT-Pro-B Natriuret Pep Total Protein Albumin Globulin Albumin/Globulin Ratio Lipase
[2017-11-20] MEDS: (Novolog) Insulin Aspart, Recombinant 100 u/ml 10 ml vial SC SCH ×4 (07:11→22:28)
[2017-11-20] MEDS ORDERED: Home Med 1 UNIT (Linaclotide [Linzess] 290 MCG) PO SCH (10:00)
[2017-11-20] MEDS: Omega-3-Acid Ethyl Esters 1 GM Cap PO SCH ×2 (10:50→17:59)
[2017-11-20] MEDS: Multiple Vitamins Tab PO SCH (10:50)
--- NOTE | 2017-11-20 17:18 | CP.PCM.HP ---
History of Present Illness - History of Present Illness History of Present Illness: 62 yr old with htn, dm, cad, esrd on hd tts is admitted with abdominal pain, nausea and vomiting. in er noted to be hypertensive and hyperkalemic along with uncontrolled hyperglycemia no chest pain or sob or edema complete ros i snegative pmfsh: as above, non smoker, no alcohol meds and labs reviewed exam vitals reviewed heent normal op moist no jvd s1s2 present no resp distress abd soft skin normal op moist cooperative ao times 3 no fnd plan esrd/hyperkalemia/hypertensive/dm hd today per schedule lytrs reviewed, should improve with, redraw pre hd bp resume home meds dm per primary team d/w er attending Present on Admission - Present on Admission Any Indicators Present on Admission: No Past Patient History - Tetanus Immunizations Tetanus Immunization: Unknown - Past Medical History & Family History Past Medical History?: Yes - Past Social History Smoking Status: Former Smoker - CARDIAC Hx Congestive Heart Failure: Yes Hx Hypercholesterolemia: Yes Hx Hypertension: Yes - PULMONARY Hx Pneumonia: Yes - NEUROLOGICAL Hx Seizures: Yes Hx Transient Ischemic Attacks (TIA): Yes - HEENT Hx HEENT Problems: Yes Hx Blind: Yes (left eye) Hx Glaucoma: Yes (LEFT EYE) - RENAL Hx Chronic Kidney Disease: Yes (SEE COMMENT) Hx Kidney Stones: No - ENDOCRINE/METABOLIC Hx Diabetes Mellitus Type 1: Yes - HEMATOLOGICAL/ONCOLOGICAL Hx Anemia: Yes - INTEGUMENTARY Hx Dermatological Problems: No - MUSCULOSKELETAL/RHEUMATOLOGICAL Hx Musculoskeletal Disorders: No Hx Falls: No - GASTROINTESTINAL Hx Gastrointestinal Disorders: No - GENITOURINARY/GYNECOLOGICAL Hx Genitourinary Disorders: No - PSYCHIATRIC Hx Substance Use: No - SURGICAL HISTORY Hx Coronary Stent: Yes (4 years ago) - ANESTHESIA Hx Anesthesia: Yes Hx Anesthesia Reactions: No Hx Malignant Hyperthermia: No Meds Allergies/Adverse Reactions: Allergies Allergy/AdvReac Type Severity Reaction Status Date / Time No Known Allergies Allergy Verified 07/02/17 22:03 Results - Vital Signs Recent Vital Signs: Last Vital Signs Temp 97.8 F 11/20/17 15:48 Pulse 63 11/20/17 15:48 Resp 18 11/20/17 15:48 BP 124/69 11/20/17 15:48 Pulse Ox 97 11/20/17 15:48 - Labs Result Diagrams: 11/19/17 08:10 11/19/17 14:38 Labs: Laboratory Results - last 24 hr 11/19/17 11/20/17 11/20/17 21:34 06:28 11:19 POC Glucose (mg/dL) 234 H 148 H 270 H 11/20/17 16:43 POC Glucose (mg/dL) 189 H
--- NOTE | 2017-11-20 17:20 | CP.PCM.PN ---
Subjective - Date & Time of Evaluation Date of Evaluation: 11/20/17 Time of Evaluation: 20:00 - Subjective Subjective: pt seen and examined at bedside Objective - Vital Signs/Intake and Output Vital Signs (last 24 hours): Temp Pulse Resp BP Pulse Ox 97.8 F 63 18 124/69 97 11/20/17 15:48 11/20/17 15:48 11/20/17 15:48 11/20/17 15:48 11/20/17 15:48 - Medications Medications: Current Medications Allopurinol (Zyloprim) 100 mg PO DAILY [facility] Last Admin: 11/20/17 10:50 Dose: 100 mg Aspirin (Ecotrin) 81 mg PO DAILY [facility] Last Admin: 11/20/17 10:50 Dose: 81 mg Carbamazepine (Tegretol-Xr) 200 mg PO BID [facility] Last Admin: 11/20/17 10:50 Dose: 200 mg Cinacalcet (Sensipar) 30 mg PO DAILY [facility] Last Admin: 11/20/17 10:50 Dose: 30 mg Clopidogrel Bisulfate (Plavix) 75 mg PO DAILY [facility] Last Admin: 11/20/17 10:50 Dose: 75 mg Dextrose (Dextrose 50% Inj) 0 ml IVP .STAT PRN; Protocol PRN Reason: Hypoglycemia Protocol Dextrose (Glutose 15) 0 gm PO .ONCE PRN; Protocol PRN Reason: Hypoglycemia Protocol Docusate Sodium (Colace) 100 mg PO BID [facility] Last Admin: 11/20/17 10:50 Dose: 100 mg Famotidine (Pepcid) 20 mg IVP DAILY [facility] Last Admin: 11/20/17 10:50 Dose: 20 mg Heparin Sodium (Porcine) (Heparin) 5,000 units SC Q12 [facility] Last Admin: 11/20/17 10:50 Dose: 5,000 units Home Med (Linaclotide [Linzess]) 290 mcg PO DAILY [facility] Dextrose (Dextrose 5% In Water 1000 Ml) 1,000 mls @ 0 mls/hr IV .Q0M PRN; Protocol; Per Protocol PRN Reason: Hypoglycemia Protocol Insulin Aspart (Novolog) 0 unit SC ACHS [facility] PRN Reason: Protocol Last Admin: 11/20/17 12:58 Dose: 4 units Insulin Glargine (Lantus) 25 unit SC HS [facility] Last Admin: 11/19/17 21:46 Dose: 25 units Lactulose (Enulose) 20 gm PO HS PRN PRN Reason: Constipation Metoprolol Tartrate (Lopressor) 25 mg PO DAILY [facility] Last Admin: 11/20/17 10:50 Dose: 25 mg Midodrine (Proamatine) 5 mg PO DAILY [facility] Last Admin: 11/20/17 09:50 Dose: 5 mg Multivitamins (Hexavitamin) 1 tab PO DAILY [facility] Last Admin: 11/20/17 10:50 Dose: 1 tab Ecbst-5-Danp Ethyl Esters (Lovaza) 2 gm PO BID [facility] Last Admin: 11/20/17 10:50 Dose: 2 gm Ondansetron HCl (Zofran Inj) 4 mg IVP Q8 PRN PRN Reason: Nausea/Vomiting Rosuvastatin Calcium (Crestor) 10 mg PO HS [facility] Last Admin: 11/19/17 21:47 Dose: Not Given Sevelamer Carbonate (Renvela) 2,400 mg PO TIDCC [facility] Last Admin: 11/20/17 12:58 Dose: 2,400 mg - Labs Labs: 11/19/17 08:10 11/19/17 14:38
[2017-11-20] MEDS: (Lantus) Insulin Glargine, Recombinant SC SCH (22:15)
[2017-11-21] MEDS: (Novolog) Insulin Aspart, Recombinant 100 u/ml 10 ml vial SC SCH ×3 (08:15→17:30)
[2017-11-21] MEDS: Multiple Vitamins Tab PO SCH (10:55)
[2017-11-21] MEDS: Omega-3-Acid Ethyl Esters 1 GM Cap PO SCH ×2 (10:55→17:52)
[2017-11-21 12:36] LABS: ALB/GLOB RATIO 1.6 (1.0-2.1); ALBUMIN 3.7 g/dL (3.5-5.0); BILIRUBIN,DIRECT 0.5 mg/dL (0.0-0.4); CALCIUM 7.6 mg/dl (8.6-10.4)
[2017-11-21 13:59] LABS: EOS # 0.2 K/uL (0.0-0.7); EOS % 4.2 % (0.0-4.0); HEMOGLOBIN 9.2 g/dL (12.0-18.0); LYMPH % 28.3 % (20.0-40.0); MEAN CELL VOLUME 96.2 fL (80.0-94.0); MEAN CORPUSCULAR HEMOGLOBIN 33.8 pg (27.0-31.0); MEAN CORPUSCULAR HGB CONC 35.1 g/dL (33.0-37.0); MEAN PLATELET VOLUME 7.3 fL (7.2-11.7); MONO # 0.3 K/uL (0.0-0.8); MONO % 7.2 % (0.0-10.0); NEUT # 2.2 K/uL (1.8-7.0); NEUT % 59.3 % (50.0-75.0); NRBC % 0.1 % (0.0-2.0); RBC 2.72 Mil/uL (4.40-5.90); WHITE BLOOD COUNT 3.7 K/uL (4.8-10.8)
--- NOTE | 2017-11-21 15:20 | CP.PCM.PN ---
Subjective - Date & Time of Evaluation Date of Evaluation: 11/21/17 Time of Evaluation: 15:18 - Subjective Subjective: Follow up Nephrology Consultation: Assessment: Stable Nausea/vomitting, hyperglycemia, hyperkalemia, uncontrolled HTN Diabetic chronic Kidney Disease (E11.22) Hypertensive Chronic Kidney Disease (I12.0) End stage renal disease (N18.6) dependence on hemodialysis (Z99.2) (TTS) via AVF Anemia (D64.9), Hyperphosphatemia (E83.39), Secondary Hyperparathyroidism (E21.1 ), HTN (I12.0) Plan: Will plan for HD tomorrow as per TTS as ordered. Continue with Nephrovite 1 tab/ day. PRBC as needed for anemia. last Hb 11 Continue with phos binders home dose Continue with sensipar BP control with meds as ordered. Patient not on RAAS dc as K high Glycemic control, Dialysis consistent diet Further work up/management as per primary team Dose meds/antibiotics for ESRD status. Avoid fleets enema/magnesium based laxatives. d/c plan as per primary team. stable from renal perspective Thanks for allowing me to participate in care of your patient. Will follow patient with you. Please call if any Qs. d/w and team Dr Zaheer Mendes Office: [phone] ROS: Cardiovascular: No chest pain. Pulmonary: No shortness of breath Gastrointestinal: denies abdominal pain now No nausea. No vomiting. Genitourinary: No pain while urinating. Denies blood in urine. makes only small amount of urine All other negative Physical Examination: General Appearance: Comfortable, in no acute respiratory distress, co-operative . Vitals reviewed and noted as below Head; Atraumatic, normocephalic ENT: no ulcers no thrush. Tongue is midline. Oropharynx: no rash or ulcers. EYES: he is legally blind. no icterus Neck; supple no lymphadenopathy, no thyromegaly or bruit Lungs: Normal respiratory rate/effort. Breath sounds bilateral equal and has basal crackles Heart: Normal rate. s1s2 normal. No rub or gallop. Extremities: 1+ edema. No varicose veins. left foot dressed Neurological: Patient is alert, awake and oriented to person, place and time. No focal deficit. Strength bilateral appropriate and equal Skin: Warm and dry. Normal turgor. No rash. Palpitation: Normal elasticity for age Abdomen: Abdomen is soft. Bowel sounds +. There is no abdominal tenderness, no guarding/rigidity or organomegaly Psych: limited insight and has normal affect/mood MSK: no joint tenderness or swelling. Digits and nails normal, no deformity : kidney or bladder not palpable Access: AVF Labs/imaging reviewed. Past medical history, past surgical history, family history, social history, allergy reviewed and noted as below Family Hx: no hx of CKD. Non contributory Objective - Vital Signs/Intake and Output Vital Signs (last 24 hours): Temp Pulse Resp BP Pulse Ox 97.5 F L 75 18 175/79 H 97 11/21/17 07:35 11/21/17 07:35 11/21/17 07:35 11/21/17 10:55 11/21/17 07:35 - Medications Medications: Current Medications Allopurinol (Zyloprim) 100 mg PO DAILY [facility] Last Admin: 11/21/17 10:55 Dose: 100 mg Aspirin (Ecotrin) 81 mg PO DAILY [facility] Last Admin: 11/21/17 10:55 Dose: 81 mg Carbamazepine (Tegretol-Xr) 200 mg PO BID [facility] Last Admin: 11/21/17 10:55 Dose: 200 mg Cinacalcet (Sensipar) 30 mg PO DAILY [facility] Last Admin: 11/21/17 10:55 Dose: 30 mg Clopidogrel Bisulfate (Plavix) 75 mg PO DAILY [facility] Last Admin: 11/21/17 10:55 Dose: 75 mg Dextrose (Dextrose 50% Inj) 0 ml IVP .STAT PRN; Protocol PRN Reason: Hypoglycemia Protocol Dextrose (Glutose 15) 0 gm PO .ONCE PRN; Protocol PRN Reason: Hypoglycemia Protocol Docusate Sodium (Colace) 100 mg PO BID [facility] Last Admin: 11/21/17 10:55 Dose: 100 mg Famotidine (Pepcid) 20 mg IVP DAILY [facility] Last Admin: 11/21/17 10:55 Dose: 20 mg Heparin Sodium (Porcine) (Heparin) 5,000 units SC Q12 [facility] Last Admin: 11/21/17 10:55 Dose: 5,000 units Home Med (Linaclotide [Linzess]) 290 mcg PO DAILY [facility] Dextrose (Dextrose 5% In Water 1000 Ml) 1,000 mls @ 0 mls/hr IV .Q0M PRN; Protocol; Per Protocol PRN Reason: Hypoglycemia Protocol Insulin Aspart (Novolog) 0 unit SC [facility] PRN Reason: Protocol Last Admin: 11/21/17 12:37 Dose: 3 units Insulin Glargine (Lantus) 25 unit SC HS [facility] Last Admin: 11/20/17 22:15 Dose: 25 units Lactulose (Enulose) 20 gm PO HS PRN PRN Reason: Constipation Metoprolol Tartrate (Lopressor) 25 mg PO DAILY [facility] Last Admin: 11/21/17 10:55 Dose: 25 mg Multivitamins (Hexavitamin) 1 tab PO DAILY [facility] Last Admin: 11/21/17 10:55 Dose: 1 tab Hhfwc-1-Gtsa Ethyl Esters (Lovaza) 2 gm PO BID [facility] Last Admin: 11/21/17 10:55 Dose: 2 gm Ondansetron HCl (Zofran Inj) 4 mg IVP Q8 PRN PRN Reason: Nausea/Vomiting Rosuvastatin Calcium (Crestor) 10 mg PO HS [facility] Last Admin: 11/20/17 22:18 Dose: Not Given Sevelamer Carbonate (Renvela) 2,400 mg PO TIDCC [facility] Last Admin: 11/21/17 12:41 Dose: 2,400 mg - Labs Labs: 11/21/17 13:15 11/21/17 12:00
[2017-11-21 15:38] VITALS: BP 158/65; PULSE 57; RESP 20; TEMP 97.6; O2SAT 100
--- NOTE | 2017-11-21 23:43 | CP.PCM.DIS ---
Provider - Provider Date of Admission: 11/19/17 09:46 Attending physician: Nils Lowe MD Time Spent in preparation of Discharge (in minutes): 45 Hospital Course - Lab Results Lab Results: Most Recent Lab Values WBC 3.7 K/uL (4.8-10.8) L 11/21/17 13:15 RBC 2.72 Mil/uL (4.40-5.90) L 11/21/17 13:15 Hgb 9.2 g/dL (12.0-18.0) L 11/21/17 13:15 Hct 26.1 % (35.0-51.0) L 11/21/17 13:15 MCV 96.2 fL (80.0-94.0) H D 11/21/17 13:15 MCH 33.8 pg (27.0-31.0) H 11/21/17 13:15 MCHC 35.1 g/dL (33.0-37.0) 11/21/17 13:15 RDW 15.0 % (11.5-14.5) H 11/21/17 13:15 Plt Count 177 K/uL (130-400) 11/21/17 13:15 MPV 7.3 fL (7.2-11.7) 11/21/17 13:15 Neut % (Auto) 59.3 % (50.0-75.0) 11/21/17 13:15 Lymph % (Auto) 28.3 % (20.0-40.0) 11/21/17 13:15 [place] % (Auto) 7.2 % (0.0-10.0) 11/21/17 13:15 Eos % (Auto) 4.2 % (0.0-4.0) H 11/21/17 13:15 Baso % (Auto) 1.0 % (0.0-2.0) 11/21/17 13:15 Neut # (Auto) 2.2 K/uL (1.8-7.0) 11/21/17 13:15 Lymph # (Auto) 1.0 K/uL (1.0-4.3) 11/21/17 13:15 [place] # (Auto) 0.3 K/uL (0.0-0.8) 11/21/17 13:15 Eos # (Auto) 0.2 K/uL (0.0-0.7) 11/21/17 13:15 Baso # (Auto) 0.0 K/uL (0.0-0.2) 11/21/17 13:15 Sodium 133 mmol/L (132-148) 11/21/17 12:00 Potassium 4.7 mmol/L (3.6-5.2) 11/21/17 12:00 Chloride 90 mmol/L (98-107) L 11/21/17 12:00 Carbon Dioxide 27 mmol/L (22-30) 11/21/17 12:00 Anion Gap 21 (10-20) H 11/21/17 12:00 BUN 97 mg/dL (9-20) H 11/21/17 12:00 Creatinine 11.5 mg/dL (0.8-1.5) H* 11/21/17 12:00 Est GFR ( Amer) 5 11/21/17 12:00 Est GFR (Non-Af Amer) 5 11/21/17 12:00 POC Glucose (mg/dL) 187 mg/dL (65-110) H 11/21/17 16:35 Random Glucose 204 mg/dL (75-110) H 11/21/17 12:00 Calcium 7.6 mg/dl (8.6-10.4) L 11/21/17 12:00 Phosphorus 5.8 mg/dL (2.5-4.5) H 11/21/17 13:15 Total Bilirubin 0.5 mg/dL (0.2-1.3) 11/21/17 12:00 Direct Bilirubin 0.5 mg/dL (0.0-0.4) H 11/21/17 12:00 AST 28 U/L (17-59) 11/21/17 12:00 ALT 65 U/L (21-72) 11/21/17 12:00 Alkaline Phosphatase 133 U/L (38-126) H D 11/21/17 12:00 Troponin I 0.0220 ng/mL (0.00-0.120) 11/19/17 08:10 NT-Pro-B Natriuret Pep 2960 pg/mL (0-900) H 11/19/17 08:10 Total Protein 6.1 g/dL (6.3-8.3) L 11/21/17 12:00 Albumin 3.7 g/dL (3.5-5.0) 11/21/17 12:00 Globulin 2.4 gm/dL (2.2-3.9) 11/21/17 12:00 Albumin/Globulin Ratio 1.6 (1.0-2.1) 11/21/17 12:00 Lipase 263 U/L (23-300) 11/19/17 08:10 - Hospital Course Hospital Course: Pt seen and examined at bedside, pt had HD and he is stable for discharge, Pt potasium has been corrected, no fluid over load, no sob,feeling better Discharge Exam - Head Exam Head Exam: ATRAUMATIC, NORMAL INSPECTION, NORMOCEPHALIC - Eye Exam Eye Exam: EOMI, Normal appearance, PERRL Pupil Exam: NORMAL ACCOMODATION, PERRL - ENT Exam ENT Exam: Mucous Membranes Moist - Respiratory Exam Respiratory Exam: Decreased Breath Sounds, Rales, Rhonchi - Cardiovascular Exam Cardiovascular Exam: REGULAR RHYTHM, +S1, +S2 - GI/Abdominal Exam GI & Abdominal Exam: Normal Bowel Sounds - Rectal Exam Rectal Exam: Deferred Discharge Plan - Follow Up Plan Condition: GOOD Disposition: HOME/ ROUTINE Instructions: Heart Failure, Adult (DC), Nausea and Vomiting, Adult (DC), End Stage Kidney Disease (DC), Dialysis and Diet, Hyperkalemia (DC) Additional Instructions: Follow up with Dr Lowe in the office in 2 weeks Referrals: Nils Lowe MD [Staff Provider] -
== END 2017-11-21 18:55 | disposition home or self-care (01) | DRG 637 ==
LOC: C.ER 07:23 → C.9E 09:46 → C.6T 10:29
PROVIDERS: ADMIT Internal Medicine; ATTEND Internal Medicine
PROC: 5A1D70Z Performance of Urinary Filtration, Intermittent, Less than 6 Hours Per Day (ICD-10-PCS; principal; 2017-11-19)
DX: E11.65 Type 2 diabetes mellitus with hyperglycemia (principal); N18.6 End stage renal disease; I13.2 Hypertensive heart and chronic kidney disease with heart failure and with stage 5 chronic kidney disease, or end stage renal disease; N25.81 Secondary hyperparathyroidism of renal origin; D64.9 Anemia, unspecified; E87.5 Hyperkalemia; E11.22 Type 2 diabetes mellitus with diabetic chronic kidney disease; H40.9 Unspecified glaucoma; I50.9 Heart failure, unspecified; Z99.2 Dependence on renal dialysis; I25.10 Atherosclerotic heart disease of native coronary artery without angina pectoris; Z79.4 Long term (current) use of insulin; Z86.73 Personal history of transient ischemic attack (TIA), and cerebral infarction without residual deficits; Z95.5 Presence of coronary angioplasty implant and graft

== ENCOUNTER 2018-02-12 13:09 | Inpatient (IN) | payer MEDICARE, OTHER ==
[2018-02-12 13:09] VITALS: BMI 33.5
[2018-02-12] MEDS ORDERED: Piperacillin/Tazobact 3.375 gm 100 ML IVPB STA ×2 (13:41→14:42)
--- NOTE | 2018-02-12 14:08 | C.PDOC ---
History Of Present Illness 62 male with a history of ESRD, HTN, currently only hemodialysis Tuesdays, , and Saturdays, presents to the emergency department status-post experiencing a syncopal episode 30 minutes prior to arrival, lasting a few mins. As per his family, the syncopal episode occurred while he was sitting. He denies recent fever, but reports that a hemodialysis catheter was placed on 02-09. He has no other complaints at this time. Time Seen by Provider: 02/12/18 13:19 Chief Complaint (Nursing): Syncope History Per: Patient History/Exam Limitations: no limitations Onset/Duration Of Symptoms: Mins Current Symptoms Are (Timing): Gone Activity At Onset Of Symptoms: Sitting Past Medical History Reviewed: Historical Data, Nursing Documentation, Vital Signs Vital Signs: Last Vital Signs Temp 97.9 F 02/12/18 20:15 Pulse 68 02/12/18 20:15 Resp 20 02/12/18 20:15 BP 143/72 02/12/18 20:15 Pulse Ox 97 02/12/18 20:37 - Medical History PMH: Anemia, CAD (ATHEROSCLEROSIS), CHF, CVA (with residual mild gait instability), Diabetes (NIDDM), HTN, Hypercholesterolemia, Pneumonia, End Stage Renal Disease (AV SHUNT, DIALYSIS (-)), Chronic Kidney Disease, Seizures , TIA Denies: Kidney Stones Surgical History: Coronary Stent - [facility] (11/19/17) HEMODIALYSIS (12/29/14) PACKED CELL TRANSFUSION (03/05/14) PERFORMANCE OF URINARY FILTRATION, SINGLE (08/28/16) VACCINATION NEC (02/23/14) Family History: States: No Known Family Hx - Social History Hx Tobacco Use: No Hx Alcohol Use: No Hx Substance Use: No - Immunization History Hx Tetanus Toxoid Vaccination: Yes Hx Influenza Vaccination: Yes (2014) Hx Pneumococcal Vaccination: Yes (2014) Review Of Systems Except As Marked, All Systems Reviewed And Found Negative. Constitutional: Negative for: Fever Physical Exam - Physical Exam Appears: Non-toxic, No Acute Distress Skin: Warm, Dry Head: Atraumatic, Normacephalic Eye(s): bilateral: Normal Inspection Neck: Normal, Supple Chest: Symmetrical, Other (right sided chest wall hemodialysis catheter) Cardiovascular: Rhythm Regular Respiratory: Normal Breath Sounds Extremity: Normal ROM, Other (left arm AV fistula, mild erythema) Neurological/Psych: Oriented x3, Normal Speech, Normal Cognition ED Course And Treatment - Laboratory Results Result Diagrams: 02/12/18 14:30 02/12/18 14:30 ECG: Interpreted By Me, Viewed By Me ECG Rhythm: Sinus Rhythm Interpretation Of ECG: Normal sinus rhythm at 67bpm. No ST/T wave changes. Rate From EC O2 Sat by Pulse Oximetry: 97 (RA) Pulse Ox Interpretation: Normal - CT Scan/US CT Head Other Rad Studies (CT/US): Read By Radiologist, Radiology Report Reviewed CT/US Interpretation: IMPRESSION: Normal CT of the Head. Medical Decision Making Medical Decision Making: syncope ro cardiac metaoblic intracranil infectious etiology Plan: CT Head w/o Contrast EKG CMP Troponin CBC PTT Prothrombin Time CXR One View Zosyn Vancomycin Inj Urinalysis antibiotics left arm cellultis, case discussed wtih dr arora, states dr oglesby covering. seen by dr reny oconnor. accepted for syncoep. Disposition - Disposition Disposition: HOSPITALIZED Disposition Time: 08:30 Condition: STABLE - Clinical Impression Clinical Impression: Syncope, Cellulitis - Scribe Statement The provider has reviewed the documentation as recorded by the Scribe (Jair Presley) Provider Attestation: All medical record entries made by the Scribe were at my direction and personally dictated by me. I have reviewed the chart and agree that the record accurately reflects my personal performance of the history, physical exam, medical decision making, and the department course for this patient. I have also personally directed, reviewed, and agree with the discharge instructions and disposition.
[2018-02-12 14:40] LABS: BASO % 0.9 % (0.0-2.0); EOS # 0.1 K/uL (0.0-0.7); EOS % 2.7 % (0.0-4.0); LYMPH # 0.8 K/uL (1.0-4.3); LYMPH % 17.9 % (20.0-40.0); MEAN CORPUSCULAR HEMOGLOBIN 33.5 pg (27.0-31.0); MEAN CORPUSCULAR HGB CONC 34.1 g/dL (33.0-37.0); MEAN PLATELET VOLUME 8.1 fL (7.2-11.7); MONO # 0.5 K/uL (0.0-0.8); MONO % 9.9 % (0.0-10.0); NEUT # 3.2 K/uL (1.8-7.0); NEUT % 68.6 % (50.0-75.0); RBC 3.46 Mil/uL (4.40-5.90); RED CELL DISTRIBUTION WIDTH 17.4 % (11.5-14.5); WHITE BLOOD COUNT 4.7 K/uL (4.8-10.8)
[2018-02-12 14:42] LABS: HEMOGLOBIN 11.6 g/dL (12.0-18.0); MEAN CELL VOLUME 98.4 fL (80.0-94.0)
[2018-02-12] MEDS ORDERED: Piperacillin/Tazobact 3.375 gm 100 ML IVPB ONE (14:43)
[2018-02-12 14:47] LABS: INR 1.1; PROTHROMBIN TIME 11.6 SECONDS (9.7-12.2)
[2018-02-12 14:57] LABS: ALB/GLOB RATIO 1.6 (1.0-2.1); CALCIUM 8.2 mg/dl (8.6-10.4)
[2018-02-12 15:02] LABS: TROPONIN I 0.032 ng/mL (0.00-0.120)
--- NOTE | 2018-02-12 15:13 | CT ---
Date of service: 02/12/2018 PROCEDURE: CT HEAD WITHOUT CONTRAST. HISTORY: syncope COMPARISON: Comparison made with CT scan brain 08/27/2016. TECHNIQUE: Axial computed tomography images were obtained through the head/brain without intravenous contrast. Radiation dose: Total exam DLP = 994.35 mGy-cm. This CT exam was performed using one or more of the following dose reduction techniques: Automated exposure control, adjustment of the mA and/or kV according to patient size, and/or use of iterative reconstruction technique. FINDINGS: HEMORRHAGE: No acute parenchymal, subarachnoid or extra-axial hemorrhage. BRAIN: Moderate diffuse/confluent chronic periventricular white matter ischemic changes are again seen extending peripherally into the deep and subcortical white matter both cerebral hemispheres. In addition, there are scattered chronic bilateral basal nuclei lacunar type infarcts. Note that the possibility of a small hyperacute infarct cannot be excluded on this exam. Clinical correlation recommended. No obvious parenchymal nor extra-axial mass or collection identified on this noncontrast study. Moderate to fairly significant generalized volume loss. Vascular calcifications both carotid siphons and vertebral arteries. VENTRICLES: No obstructive Hydrocephalus. CALVARIUM: Unremarkable. scalp calcifications seen suggesting underlying IDDM. Clinical correlation recommended. PARANASAL SINUSES: Small focal area polypoid like mucosal thickening left maxillary antrum. Minimal mucosal thickening seen within a few ethmoid air cells. MASTOID AIR CELLS: Unremarkable as visualized. No inflammatory changes. OTHER FINDINGS: Bilateral exophthalmos. IMPRESSION: Normal CT of the Head.
[2018-02-12 16:06] LABS: ABG ALLEN TEST POS; ARTERIAL BLOOD GAS HCO3 23.2 mmol/L (21-28); ARTERIAL BLOOD GAS HEMOGLOBIN 11.2 g/dL (11.7-17.4); ARTERIAL BLOOD GAS PCO2 41 mm/Hg (35-45); ARTERIAL BLOOD GAS PH 7.36 (7.35-7.45); ARTERIAL BLOOD GAS PO2 84 mm/Hg (80-100); ARTERIAL BLOOD GAS TCO2 24.5 mmol/L (22-28)
[2018-02-12] MEDS ORDERED: Vancomycin 1 GM 1 GM/250 ML BAG IVPB ONE (16:12)
--- NOTE | 2018-02-12 18:09 | RAD ---
Date of service: 02/12/2018 PROCEDURE: CHEST RADIOGRAPH, 1 VIEW HISTORY: chest pain COMPARISON: Comparison chest 06/01/2017 FINDINGS: In situ right IJ dialysis catheter with tips in the SVC/RA junction. LUNGS: Mild pulmonary vascular congestive changes with bilateral lower lobe atelectasis. Developing lower lobe infiltrates could be excluded followup radiographs. PLEURA: Questionable small bilateral effusions. CARDIOVASCULAR: Cardiomegaly OSSEOUS STRUCTURES: No significant abnormalities. VISUALIZED UPPER ABDOMEN: Normal. OTHER FINDINGS: None. IMPRESSION: Mild pulmonary vascular congestive changes with bilateral lower lobe atelectasis. Developing lower lobe infiltrates could be excluded followup radiographs. Questionable small bilateral effusions. Cardiomegaly.
[2018-02-12] MEDS: (Lantus) Insulin Glargine, Recombinant SC SCH (22:29)
--- NOTE | 2018-02-13 02:09 | CON ---
Copied To: Nikolas Rowell MD Attending MD: Nikolas Rowell MD DATE: 02/12/2018 HISTORY OF PRESENT ILLNESS: The patient is a 62 years old male originally from [facility] who has a history of hypertension, endstage renal disease on hemodialysis for the past three years, history of CVA some 5 years ago with near full recovery. The patient hemodialysis schedule is Tuesday, and Tuesday and he underwent his regular dialysis yesterday. He presented because of a syncopal episode half an hour before his arrival to the emergency room which lasted few minutes and the episode happened while the patient was sitting. There was no reported seizures. The patient had issues with his AV fistula in the left upper arm and hemodialysis catheter was inserted recently in the right subclavian vein. The patient denies any chest pain and he is unaware of any history of heart attack. SOCIAL HISTORY: The patient is a nonsmoker. He is . Lives with his . MEDICATIONS: The patient is on vancomycin 1 mg intravenously being given as a stat dose in the emergency room. He is on Zosyn 3.375 gm intravenously as a single dose in the emergency room. REVIEW OF SYSTEMS: The patient is unaware of any fever or chills. He denies any palpitation or chest pain. He denies any headache or dizziness at this time. PHYSICAL EXAMINATION: GENERAL: The patient is a middle aged male who does not appear to be in acute distress. VITAL SIGNS: Blood pressure 110/50, heart rate 64, temperature 97.8, respirations 20. HEENT: Normocephalic. CHEST: Clear. HEART: S1 and S2 regular. ABDOMEN: Soft. EXTREMITIES: Trace leg edema. Swelling and tenderness noted over the left upper arm AV fistula. LABORATORY DATA: INR is 1.1, PTT 28. SMA-7: Sodium 138, potassium 5.3, chloride 95, CO2 24, glucose 96, BUN 62, creatinine 10.9. One set of troponin is negative. Hemoglobin and hematocrit 11.6 and 34, white count is 4.7, platelet count 164,000. Head CT scan without contrast done in the ER revealed no acute findings. The patient's rhythm on the monitor is sinus and the patient's echocardiographic study performed in 08/2016 revealed normal ejection fraction. ASSESSMENT: 1. Syncopal episode. 2. Endstage renal disease on hemodialysis. 3. Diabetes mellitus. 4. Sleep apnea. 5. Evidence of congestive heart failure by x-ray. RECOMMENDATIONS: Admit the patient to telemetry. Obtain 12-lead EKG, two sets of cardiac enzymes, carotid Doppler and two sets of blood cultures. I requested Neurology consult. I would review the detailed past medical history on the patient if available on the [facility] [employer] database. Nikolas Rowell MD
[2018-02-13] MEDS: Multiple Vitamins Tab PO SCH (10:29)
[2018-02-13] MEDS: Omega-3-Acid Ethyl Esters 1 GM Cap PO SCH ×2 (10:36→17:44)
[2018-02-13] MEDS ORDERED: Oxycodone/Acetaminophen 5/325 mg Tab PO PRN (14:02)
[2018-02-13] MEDS: Oxycodone/Acetaminophen 5/325 mg Tab PO SCH ×2 (14:46→21:15)
--- NOTE | 2018-02-13 16:08 | CP.PCM.CON ---
History of Present Illness - History of Present Illness History of Present Illness: renal consult note 62 male with a history of ESRD, dm-2, HTN, currently only hemodialysis Tuesdays , , and Saturdays, presents to the emergency department status-post experiencing a syncopal episode 30 minutes prior to arrival, lasting a few mins. he says he underwent ? intervention on avf since then having pain and swelling in the arm which led to chest pain and dizziness complete ros is negative meds reviewed pmh as above non smoker no alcohol vitals reviewed heent normal op moist no jvd s1s2 present no resp distress abd soft ao times 3 no rash no fnd avf in lft arm swollen, tender A&P: esrd/htn/dm/fistula arm edema/dizziness hd tts continue per giorgi altman reviewed anemia stable i have ordered duplex of the fistula arm monitor phos levels Past Patient History - Tetanus Immunizations Tetanus Immunization: Unknown - Past Medical History & Family History Past Medical History?: Yes - Past Social History Smoking Status: Former Smoker - CARDIAC Hx Congestive Heart Failure: Yes Hx Hypercholesterolemia: Yes Hx Hypertension: Yes - PULMONARY Hx Pneumonia: Yes - NEUROLOGICAL Hx Seizures: Yes Hx Transient Ischemic Attacks (TIA): Yes - HEENT Hx HEENT Problems: Yes Hx Blind: Yes (left eye) Hx Glaucoma: Yes (LEFT EYE) - RENAL Hx Chronic Kidney Disease: Yes Hx Kidney Stones: No - ENDOCRINE/METABOLIC Hx Endocrine Disorders: Yes Hx Diabetes Mellitus Type 2: Yes - HEMATOLOGICAL/ONCOLOGICAL Hx Anemia: Yes - INTEGUMENTARY Hx Dermatological Problems: No - MUSCULOSKELETAL/RHEUMATOLOGICAL Hx Musculoskeletal Disorders: Yes Hx Falls: Yes Hx Gout: Yes - GASTROINTESTINAL Hx Gastrointestinal Disorders: No - GENITOURINARY/GYNECOLOGICAL Hx Genitourinary Disorders: No - PSYCHIATRIC Hx Substance Use: No - SURGICAL HISTORY Hx Coronary Stent: Yes - ANESTHESIA Hx Anesthesia: Yes Hx Anesthesia Reactions: No Hx Malignant Hyperthermia: No Meds Allergies/Adverse Reactions: Allergies Allergy/AdvReac Type Severity Reaction Status Date / Time No Known Allergies Allergy Verified 07/02/17 22:03 - Medications Medications: Current Medications Allopurinol (Zyloprim) 100 mg PO DAILY [facility] Last Admin: 02/13/18 10:28 Dose: 100 mg Aspirin (Ecotrin) 81 mg PO DAILY [facility] Last Admin: 02/13/18 10:28 Dose: 81 mg Carbamazepine (Tegretol-Xr) 300 mg PO BID [facility] Last Admin: 09/03/18 10:28 Dose: 300 mg Cinacalcet (Sensipar) 30 mg PO DAILY [facility] Last Admin: 02/13/18 10:31 Dose: 30 mg Clopidogrel Bisulfate (Plavix) 75 mg PO DAILY [facility] Last Admin: 02/13/18 10:29 Dose: 75 mg Famotidine (Pepcid) 20 mg PO DAILY [facility] Last Admin: 02/13/18 10:28 Dose: 20 mg Gabapentin (Neurontin) 400 mg PO DAILY [facility] Last Admin: 02/13/18 10:30 Dose: 400 mg Heparin Sodium (Porcine) (Heparin) 5,000 units SC Q12 [facility] Last Admin: 02/13/18 10:29 Dose: 5,000 units Insulin Glargine (Lantus) 15 unit SC [facility] Last Admin: 02/12/18 22:29 Dose: 15 unit Metoprolol Tartrate (Lopressor) 25 mg PO BID [facility] Last Admin: 02/13/18 10:29 Dose: 25 mg Midodrine (Proamatine) 5 mg PO DAILY [facility] Last Admin: 02/13/18 10:29 Dose: Not Given Multivitamins (Hexavitamin) 1 tab PO DAILY [facility] Last Admin: 02/13/18 10:29 Dose: 1 tab [id number] Ethyl Esters (Lovaza) 2 gm PO BID [facility] Last Admin: 02/13/18 10:36 Dose: 2 gm Oxycodone/Acetaminophen (Percocet 5/325 Mg Tab) 1 tab PO Q4H PRN PRN Reason: Pain, moderate (4-7) Stop: 02/16/18 14:03 Oxycodone/Acetaminophen (Percocet 5/325 Mg Tab) 1 tab PO Q6H [facility] Stop: 02/16/18 14:16 Last Admin: 02/13/18 14:46 Dose: 1 tab Rosuvastatin Calcium (Crestor) 10 mg PO [facility] Sevelamer Carbonate (Renvela) 2,400 mg PO TID [facility] Last Admin: 02/13/18 13:47 Dose: 2,400 mg Results - Vital Signs Recent Vital Signs: Last Vital Signs Temp 97.7 F 02/13/18 15:57 Pulse 73 02/13/18 15:57 Resp 20 02/13/18 15:57 BP 133/71 02/13/18 15:57 Pulse Ox 98 02/13/18 15:57 - Labs Result Diagrams: 02/12/18 14:30 02/12/18 14:30 Labs: Laboratory Results - last 24 hr 02/12/18 02/12/18 02/12/18 16:00 19:36 21:45 Puncture Site Rba pCO2 41 pO2 84 HCO3 23.2 ABG pH 7.36 ABG Total CO2 24.5 ABG O2 Saturation 95.0 ABG Base Excess -2.1 L ABG Hemoglobin 11.2 L ABG Carboxyhemoglobin 0.3 L POC ABG HHb (Measured) 5.0 ABG Methemoglobin 0.2 Sylvain Test Pos A-a O2 Difference 14.0 Respiratory Index 0.2 Hgb O2 Saturation 94.5 L FiO2 21.0 POC Glucose (mg/dL) 89 128 H 02/13/18 02/13/18 06:19 11:47 Puncture Site pCO2 pO2 HCO3 ABG pH ABG Total CO2 ABG O2 Saturation ABG Base Excess ABG Hemoglobin ABG Carboxyhemoglobin POC ABG HHb (Measured) ABG Methemoglobin Sylvain Test A-a O2 Difference Respiratory Index Hgb O2 Saturation FiO2 POC Glucose (mg/dL) 94 288 H
--- NOTE | 2018-02-13 19:10 | PN ---
Copied To: Nikolas Rowell MD Attending MD: Nikolas Rowell MD DATE: 02/13/2018 SUBJECTIVE: The patient denies any dizziness or headache. He complains of pain in the left upper arm AV shunt. PHYSICAL EXAMINATION: VITAL SIGNS: Blood pressure 157/77, heart rate 77, temperature 98, respirations 20. HEENT: Normocephalic. CHEST: Clear. HEART: S1 and S2 regular. EXTREMITIES: Trace leg edema. LABORATORY DATA: Today's blood sugars are 94 and 288 respectively. EKG revealed normal sinus rhythm at a rate of 67. ASSESSMENT: 1. Syncopal episode. 2. End-stage renal disease on hemodialysis. 3. Uncontrolled diabetes mellitus. 4. Sleep apnea. 5. Mild volume overload on presentation. RECOMMENDATIONS: Continue Crestor 10 mg at bedtime, aspirin 81 mg once a day, subcutaneous heparin 5000 units every 12 hours, Lopressor 25 mg twice a day, Tegretol SR 300 mg twice a day. Nephrology consult has been requested. The patient is scheduled to undergo his scheduled hemodialysis tomorrow. I would request surgical consult to evaluate the patient's AV shunt. The patient will be started on Percocet therapy for pain. Nikolas Rowell MD
[2018-02-13] MEDS: (Lantus) Insulin Glargine, Recombinant SC SCH (21:38)
--- NOTE | 2018-02-14 01:30 | CP.PCM.CON ---
History of Present Illness - History of Present Illness History of Present Illness: Surgery 62 y/o M w/ PMHx of PVD UTI, HTN, CAD, CHF, ESRD on HD TTS, and CVA presented with syncopal episodes. Per note this happened while he was sitting. Surgery is consulted to evaluate for L AVF. Pt had L AVF creation at another hospital and he gets HD TTS at [facility]. Reports that L fistular wasn't working properly and had vascular intervention. Pt doesn't remember the type of procedure he had done. The fistula has poor thrills and is swollen. Reports skin changes with ecchymosis. Denies fever, vomiting. PMHx: CHF, HTN, HLD, DM2, ESRD on HD TTS Meds: reviewed in chart NKDA PSHx: L AVF, coronary stents SHx: former smoker, denies EtOH, drug use FHx: non-contributory Review of Systems - Review of Systems Review of Systems: See HPI - Constitutional Constitutional: absent: Chills Past Patient History - Tetanus Immunizations Tetanus Immunization: Unknown - Past Medical History & Family History Past Medical History?: Yes - Past Social History Smoking Status: Former Smoker - CARDIAC Hx Congestive Heart Failure: Yes Hx Hypercholesterolemia: Yes Hx Hypertension: Yes - PULMONARY Hx Pneumonia: Yes - NEUROLOGICAL Hx Seizures: Yes Hx Transient Ischemic Attacks (TIA): Yes - HEENT Hx HEENT Problems: Yes Hx Blind: Yes (left eye) Hx Glaucoma: Yes (LEFT EYE) - RENAL Hx Chronic Kidney Disease: Yes Hx Kidney Stones: No - ENDOCRINE/METABOLIC Hx Endocrine Disorders: Yes Hx Diabetes Mellitus Type 2: Yes - HEMATOLOGICAL/ONCOLOGICAL Hx Anemia: Yes - INTEGUMENTARY Hx Dermatological Problems: No - MUSCULOSKELETAL/RHEUMATOLOGICAL Hx Musculoskeletal Disorders: Yes Hx Falls: Yes Hx Gout: Yes - GASTROINTESTINAL Hx Gastrointestinal Disorders: No - GENITOURINARY/GYNECOLOGICAL Hx Genitourinary Disorders: No - PSYCHIATRIC Hx Substance Use: No - SURGICAL HISTORY Hx Coronary Stent: Yes - ANESTHESIA Hx Anesthesia: Yes Hx Anesthesia Reactions: No Hx Malignant Hyperthermia: No Meds Allergies/Adverse Reactions: Allergies Allergy/AdvReac Type Severity Reaction Status Date / Time No Known Allergies Allergy Verified 07/02/17 22:03 - Medications Medications: Current Medications Allopurinol (Zyloprim) 100 mg PO DAILY [facility] Last Admin: 02/13/18 10:28 Dose: 100 mg Aspirin (Ecotrin) 81 mg PO DAILY [facility] Last Admin: 02/13/18 10:28 Dose: 81 mg Carbamazepine (Tegretol-Xr) 300 mg PO BID [facility] Last Admin: 02/13/18 17:44 Dose: 300 mg Cinacalcet (Sensipar) 30 mg PO DAILY [facility] Last Admin: 02/13/18 10:31 Dose: 30 mg Clopidogrel Bisulfate (Plavix) 75 mg PO DAILY [facility] Last Admin: 02/13/18 10:29 Dose: 75 mg Famotidine (Pepcid) 20 mg PO DAILY [facility] Last Admin: 02/13/18 10:28 Dose: 20 mg Gabapentin (Neurontin) 400 mg PO DAILY [facility] Last Admin: 02/13/18 10:30 Dose: 400 mg Heparin Sodium (Porcine) (Heparin) 5,000 units SC Q12 [facility] Last Admin: 02/13/18 21:39 Dose: 5,000 units Insulin Glargine (Lantus) 15 unit SC [facility] Last Admin: 02/13/18 21:38 Dose: 15 unit Metoprolol Tartrate (Lopressor) 25 mg PO BID [facility] Last Admin: 02/13/18 17:44 Dose: 25 mg Midodrine (Proamatine) 5 mg PO DAILY [facility] Last Admin: 02/13/18 10:29 Dose: Not Given Multivitamins (Hexavitamin) 1 tab PO DAILY [facility] Last Admin: 02/13/18 10:29 Dose: 1 tab Izgqk-[id number] Ethyl Esters (Lovaza) 2 gm PO BID [facility] Last Admin: 02/13/18 17:44 Dose: 2 gm Oxycodone/Acetaminophen (Percocet 5/325 Mg Tab) 1 tab PO Q4H PRN PRN Reason: Pain, moderate (4-7) Stop: 02/16/18 14:03 Oxycodone/Acetaminophen (Percocet 5/325 Mg Tab) 1 tab PO Q6H [facility] Stop: 02/16/18 14:16 Last Admin: 02/13/18 21:15 Dose: 1 tab Rosuvastatin Calcium (Crestor) 10 mg PO HS [facility] Last Admin: 02/13/18 21:39 Dose: 10 mg Sevelamer Carbonate (Renvela) 2,400 mg PO TID [facility] Last Admin: 02/13/18 17:44 Dose: 2,400 mg Physical Exam - Constitutional Appears: No Acute Distress - Head Exam Head Exam: ATRAUMATIC, NORMAL INSPECTION, NORMOCEPHALIC - Eye Exam Eye Exam: EOMI, Normal appearance, PERRL Pupil Exam: NORMAL ACCOMODATION, PERRL - ENT Exam ENT Exam: Mucous Membranes Moist, Normal Exam - Neck Exam Neck exam: Positive for: Normal Inspection - Respiratory Exam Respiratory Exam: NORMAL BREATHING PATTERN - Cardiovascular Exam Cardiovascular Exam: REGULAR RHYTHM - GI/Abdominal Exam GI & Abdominal Exam: Normal Bowel Sounds, Soft. absent: Distended, Tenderness - Extremities Exam Extremities exam: Positive for: full ROM. Negative for: normal inspection, pedal edema Additional comments: L AVF upper arm. large 8cm diameter. eccymosis on upper part. Palpable, poor thrills. Warm. NO hand pain. - Back Exam Back exam: NORMAL INSPECTION - Neurological Exam Neurological exam: Alert, CN II-XII Intact, Oriented x3, Reflexes Normal - Psychiatric Exam Psychiatric exam: Normal Affect, Normal Mood - Skin Skin Exam: Dry, Intact, Warm Results - Vital Signs Recent Vital Signs: Last Vital Signs Temp 97.9 F 02/13/18 23:30 Pulse 76 02/13/18 23:30 Resp 20 02/13/18 23:30 BP 156/80 H 02/13/18 23:30 Pulse Ox 97 02/13/18 23:30 - Labs Result Diagrams: 02/12/18 14:30 02/12/18 14:30 Labs: Laboratory Results - last 24 hr 02/13/18 02/13/18 02/13/18 06:19 11:47 16:26 POC Glucose (mg/dL) 94 288 H 226 H 02/13/18 21:13 POC Glucose (mg/dL) 224 H Assessment & Plan - Assessment and Plan (Free Text) Assessment: Possible partially thrombosed L AVF : Poor thrills, warm hands -will obtain medical record from [facility] [place] to find out types of vascular intervention -f/u Fistulogram -Nephro on board -Medical management Pt seen and examined by Dr. Gallardo: Case discussed.
[2018-02-14] MEDS: Oxycodone/Acetaminophen 5/325 mg Tab PO SCH ×5 (02:16→21:11)
[2018-02-14] MEDS: Omega-3-Acid Ethyl Esters 1 GM Cap PO SCH ×2 (09:14→17:23)
[2018-02-14] MEDS: Multiple Vitamins Tab PO SCH (09:14)
--- NOTE | 2018-02-14 15:59 | CARD ---
APPROVED REPORT Date of service: 02/12/2018 EKG Measurement Heart [id number] <Conclusion> Normal sinus rhythm Normal ECG
--- NOTE | 2018-02-14 16:16 | CP.PCM.PN ---
Subjective - Date & Time of Evaluation Date of Evaluation: 02/14/18 Time of Evaluation: 16:13 - Subjective Subjective: Follow up Nephrology Consultation: Assessment: Stable syncope, leftt AVF dysfunction Diabetic chronic Kidney Disease (E11.22) Hypertensive Chronic Kidney Disease (I12.0) End stage renal disease (N18.6) dependence on hemodialysis (Z99.2) (TTS) via AVF Anemia (D64.9), Hyperphosphatemia (E83.39), Secondary Hyperparathyroidism (E21.1 ), HTN (I12.0) Plan: Will plan for HD today as per TTS as ordered. Continue with Nephrovite 1 tab/ day. PRBC as needed for anemia. last Hb 11.6 hence not on MACHO Continue with phos binders home dose Continue with sensipar BP control with meds as ordered. Patient not on RAAS dc as K usually high and BP low Glycemic control, Dialysis consistent diet Further work up/management as per primary team Dose meds/antibiotics for ESRD status. Avoid fleets enema/magnesium based laxatives. vascular surgery input appreciated Thanks for allowing me to participate in care of your patient. Will follow patient with you. Please call if any Qs. Dr Zaheer Mendes Office: [phone] ROS: Cardiovascular: No chest pain. Pulmonary: No shortness of breath Gastrointestinal: denies abdominal pain now No nausea. No vomiting. Genitourinary: No pain while urinating. Denies blood in urine. makes only small amount of urine All other negative. co left arm pain Physical Examination: seen on HD General Appearance: Comfortable, in no acute respiratory distress, co-operative . Vitals reviewed and noted as below Head; Atraumatic, normocephalic ENT: no ulcers no thrush. Tongue is midline. Oropharynx: no rash or ulcers. EYES: he is legally blind. no icterus Neck; supple no lymphadenopathy, no thyromegaly or bruit Lungs: Normal respiratory rate/effort. Breath sounds bilateral equal clear Heart: Normal rate. s1s2 normal. No rub or gallop. Extremities: trace edema. No varicose veins. Neurological: Patient is alert, awake and oriented to person, place and time. No focal deficit. Strength bilateral appropriate and equal Skin: Warm and dry. Normal turgor. No rash. Palpitation: Normal elasticity for age Abdomen: Abdomen is soft. Bowel sounds +. There is no abdominal tenderness, no guarding/rigidity or organomegaly Psych: limited insight and has normal affect/mood MSK: no joint tenderness or swelling. Digits and nails normal, no deformity : kidney or bladder not palpable Access: AVF but no thrill or bruit. has PC Labs/imaging reviewed. Past medical history, past surgical history, family history, social history, allergy reviewed and noted as below Family Hx: no hx of CKD. Non contributory Objective - Vital Signs/Intake and Output Vital Signs (last 24 hours): Temp Pulse Resp BP Pulse Ox 97.5 F L 69 20 144/66 98 02/14/18 14:00 02/14/18 14:00 02/14/18 14:00 02/14/18 14:00 02/14/18 14:00 Intake and Output: 02/14/18 02/14/18 06:59 18:59 Intake Total 300 250 Balance 300 250 - Medications Medications: Current Medications Allopurinol (Zyloprim) 100 mg PO DAILY [facility] Last Admin: 02/14/18 09:14 Dose: 100 mg Aspirin (Ecotrin) 81 mg PO DAILY [facility] Last Admin: 02/14/18 09:14 Dose: 81 mg Carbamazepine (Tegretol-Xr) 300 mg PO BID [facility] Last Admin: 02/14/18 09:17 Dose: 300 mg Cinacalcet (Sensipar) 30 mg PO DAILY [facility] Last Admin: 02/14/18 09:17 Dose: 30 mg Clopidogrel Bisulfate (Plavix) 75 mg PO DAILY [facility] Last Admin: 02/14/18 09:13 Dose: 75 mg Famotidine (Pepcid) 20 mg PO DAILY [facility] Last Admin: 02/14/18 09:14 Dose: 20 mg Gabapentin (Neurontin) 400 mg PO DAILY [facility] Last Admin: 02/14/18 09:15 Dose: 400 mg Heparin Sodium (Porcine) (Heparin) 5,000 units SC Q12 [facility] Last Admin: 02/14/18 09:14 Dose: 5,000 units Heparin Sodium (Porcine) (Heparin) 3,300 units IVP TTS [facility] Stop: 02/25/18 10:01 Last Admin: 02/14/18 12:33 Dose: 3,300 units Insulin Glargine (Lantus) 15 unit SC HS [facility] Last Admin: 02/13/18 21:38 Dose: 15 unit Metoprolol Tartrate (Lopressor) 25 mg PO BID [facility] Last Admin: 02/14/18 09:14 Dose: Not Given Midodrine (Proamatine) 5 mg PO DAILY [facility] Last Admin: 02/14/18 09:17 Dose: 5 mg Multivitamins (Hexavitamin) 1 tab PO DAILY [facility] Last Admin: 02/14/18 09:14 Dose: 1 tab Yfonb-7-Lzag Ethyl Esters (Lovaza) 2 gm PO BID [facility] Last Admin: 02/14/18 09:14 Dose: 2 gm Oxycodone/Acetaminophen (Percocet 5/325 Mg Tab) 1 tab PO Q4H PRN PRN Reason: Pain, moderate (4-7) Stop: 02/16/18 14:03 Oxycodone/Acetaminophen (Percocet 5/325 Mg Tab) 1 tab PO Q6H [facility] Stop: 02/16/18 14:16 Last Admin: 02/14/18 14:55 Dose: 1 tab Rosuvastatin Calcium (Crestor) 10 mg PO [facility] Last Admin: 02/13/18 21:39 Dose: 10 mg Sevelamer Carbonate (Renvela) 2,400 mg PO TID [facility] Last Admin: 02/14/18 14:55 Dose: 2,400 mg - Labs Labs: 02/12/18 14:30 02/12/18 14:30 PT 11.6 SECONDS (9.7-12.2) 02/12/18 14:30 INR 1.1 02/12/18 14:30 APTT 28 SECONDS (21-34) 02/12/18 14:30
--- NOTE | 2018-02-14 19:58 | PN ---
Copied To: Nikolas Rowell MD Attending MD: Nikolas Rowell MD DATE: 02/14/2018 SUBJECTIVE: The patient is currently undergoing hemodialysis. He denies any headache or dizziness. He denies any chest pain. PHYSICAL EXAMINATION: VITAL SIGNS: Blood pressure 144/66, heart rate 69, temperature 97.5, and respirations 20. HEENT: Normocephalic. CHEST: Clear. HEART: S1 and S2 regular. EXTREMITIES: No edema. LABORATORY DATA: Today's blood sugars are 116 and 196 respectively. ASSESSMENT: 1. Syncopal episode. 2. End-stage renal disease, on hemodialysis. 3. Thrombosed left upper arm arteriovenous fistula. 4. Diabetes mellitus and hypertension. RECOMMENDATIONS: Continue current Crestor 10 mg once a day, aspirin 81 mg once a day, subcutaneous heparin 5000 units every 12 hours, heparin units intravenously TTS, multivitamin one tablet once a day, Plavix 75 mg once a day, Zyloprim 100 mg once a day, and mg twice a day. The patient would be evaluated by Dr. Warner, neurologist today and the case was discussed with Dr. Nils Lowe and the plan is to perform a fistulogram on the patient's left upper arm AV fistula. Nikolas Rowell MD
--- NOTE | 2018-02-14 21:29 | CP.PCM.PN ---
Objective - Vital Signs/Intake and Output Vital Signs (last 24 hours): Temp Pulse Resp BP Pulse Ox 97.3 F L 66 18 114/56 L 97 02/14/18 16:26 02/14/18 16:26 02/14/18 16:26 02/14/18 18:59 02/14/18 16:26 Intake and Output: 02/14/1818 18:59 06:59 Intake Total 250 Balance 250 - Medications Medications: Current Medications Allopurinol (Zyloprim) 100 mg PO DAILY [facility] Last Admin: 02/14/18 09:14 Dose: 100 mg Aspirin (Ecotrin) 81 mg PO DAILY [facility] Last Admin: 02/14/18 09:14 Dose: 81 mg Carbamazepine (Tegretol-Xr) 300 mg PO BID [facility] Last Admin: 02/14/18 17:24 Dose: 300 mg Cinacalcet (Sensipar) 30 mg PO DAILY [facility] Last Admin: 02/14/18 09:17 Dose: 30 mg Clopidogrel Bisulfate (Plavix) 75 mg PO DAILY [facility] Last Admin: 02/14/18 09:13 Dose: 75 mg Famotidine (Pepcid) 20 mg PO DAILY [facility] Last Admin: 02/14/18 09:14 Dose: 20 mg Gabapentin (Neurontin) 400 mg PO DAILY [facility] Last Admin: 02/14/18 09:15 Dose: 400 mg Heparin Sodium (Porcine) (Heparin) 5,000 units SC Q12 [facility] Last Admin: 02/14/18 09:14 Dose: 5,000 units Heparin Sodium (Porcine) (Heparin) 3,300 units IVP TTS [facility] Stop: 02/25/18 10:01 Last Admin: 02/14/18 12:33 Dose: 3,300 units Insulin Glargine (Lantus) 15 unit SC HS [facility] Last Admin: 02/13/18 21:38 Dose: 15 unit Metoprolol Tartrate (Lopressor) 25 mg PO BID [facility] Last Admin: 02/14/18 18:59 Dose: Not Given Midodrine (Proamatine) 5 mg PO DAILY [facility] Last Admin: 02/14/18 09:17 Dose: 5 mg Multivitamins (Hexavitamin) 1 tab PO DAILY [facility] Last Admin: 02/14/18 09:14 Dose: 1 tab Cjsoy-7-Bhze Ethyl Esters (Lovaza) 2 gm PO BID [facility] Last Admin: 02/14/18 17:23 Dose: 2 gm Oxycodone/Acetaminophen (Percocet 5/325 Mg Tab) 1 tab PO Q4H PRN PRN Reason: Pain, moderate (4-7) Stop: 02/16/18 14:03 Oxycodone/Acetaminophen (Percocet 5/325 Mg Tab) 1 tab PO Q6H [facility] Stop: 02/16/18 14:16 Last Admin: 02/14/18 21:11 Dose: 1 tab Rosuvastatin Calcium (Crestor) 10 mg PO HS [facility] Last Admin: 02/14/18 21:11 Dose: 10 mg Sevelamer Carbonate (Renvela) 2,400 mg PO TID [facility] Last Admin: 02/14/18 17:24 Dose: 2,400 mg - Labs Labs: 02/12/18 14:30 02/12/18 14:30 PT 11.6 SECONDS (9.7-12.2) 02/12/18 14:30 INR 1.1 02/12/18 14:30 APTT 28 SECONDS (21-34) 02/12/18 14:30
[2018-02-14] MEDS: (Lantus) Insulin Glargine, Recombinant SC SCH (22:47)
[2018-02-15] MEDS: Oxycodone/Acetaminophen 5/325 mg Tab PO SCH ×4 (02:08→21:32)
--- NOTE | 2018-02-15 04:26 | CON ---
Copied To: Lauri Warner MD Attending MD: Lauri Warner MD DATE: 02/14/2018 REASON FOR CONSULTATION: Episode of passing out. HISTORY OF PRESENT ILLNESS: The patient is a 62-year-old male who has been asked for evaluation of episode of passing out. The patient has history of end-stage renal disease, on hemodialysis, as well as history of cerebrovascular accident. The patient apparently was sitting when he passed out. No abnormal movements of the arms or legs were witnessed. There was no urinary incontinence or tongue biting. Denies having any headache or dizziness. REVIEW OF SYSTEMS: Denies any headache, dizziness, chest pain, shortness of breath, abdominal pain, fever, chills, constipation, diarrhea, dysuria, cough, sputum production. PAST MEDICAL HISTORY: Includes hypertension, end-stage renal disease, on hemodialysis, cerebrovascular accident. MEDICATIONS AT HOME: Included Neurontin 400 mg daily, insulin, Crestor, multivitamin, metoprolol, aspirin, allopurinol, Midodrine, Pepcid, Plavix, Linzess, Renvela, and carbamazepine. ALLERGIES: NO KNOWN DRUG ALLERGIES. SOCIAL HISTORY: Denies smoking, alcohol, or illicit drugs. FAMILY HISTORY: Noncontributory. PHYSICAL EXAMINATION: GENERAL: The patient is a middle-aged male, sitting on the chair, in no acute distress. VITAL SIGNS: His blood pressure is 114/56, heart rate is 66, breathing at a rate of 16 per minute, temperature is 97.3 degrees Fahrenheit. HEENT: Head is normocephalic, atraumatic. NECK: Supple. There are no carotid bruits. LUNGS: Clear. CVS: S1, S2 audible. No murmurs. ABDOMEN: Soft, nontender. Bowel sounds are present. NEUROLOGIC: Mental status: The patient is awake, alert, oriented to place and person. He follows simple commands. Cranial nerve examination, pupils are 3 mm bilaterally reactive to light. Extraocular movements are intact. There is mild decreased nasolabial fold on the right side. Palate is upgoing bilaterally. Tongue is midline. Motor examination, tone is normal. There appears to be slight right hemiparesis. Power is about 4 to 5/5. Power on the left side is 5/5. Plantars are downgoing bilaterally. Reflexes are 1+ and symmetrical. Gait is deferred at the moment. LABORATORY DATA: Labs reviewed. Shows WBC of 4.7, hemoglobin 11.6, hematocrit 34, and platelets of 164. INR is 1.1. Sodium is 138, potassium was 5.3, chloride of 95, carbon dioxide 24, BUN of 16, creatinine of 10.9, and glucose of 96. The patient had a CT scan of the head done, which was normal. IMPRESSION: 1. Syncope, rule out seizure versus cardiac arrhythmia. 2. History of cerebrovascular accident. 3. End-stage renal disease, on hemodialysis. RECOMMENDATIONS: 1. The patient to have an electroencephalogram. 2. The patient will have cardiac monitoring to rule out endocardiac arrhythmias. 3. The patient will be followed up with Nephrology for renal failure. 4. The patient will have physical therapy for gait imbalance. 5. Please continue supportive care and the treatment. Thank you for the opportunity to participate in the care of this patient. Lauri Warner MD
--- NOTE | 2018-02-15 05:53 | PN ---
Copied To: Nils Lowe MD Attending MD: Nils Lowe MD DATE: 02/14/2018 SUBJECTIVE: The patient is seen by Nephrology. He is on hemodialysis. He has AV fistula problems on the left arm. He is not dizzy at the moment. He denies any shortness of breath. PHYSICAL EXAMINATION: VITAL SIGNS: BP 114/56, pulse 66, respiratory rate 18, temperature 97.3. LUNGS: Clear. CARDIOVASCULAR SYSTEM: S1, S2, regular. ASSESSMENT: 1. Syncope. 2. Chronic kidney disease. PLAN: Continue current medication. Monitor patient. Nils Lowe MD
[2018-02-15] MEDS: Multiple Vitamins Tab PO SCH (09:50)
[2018-02-15] MEDS: Omega-3-Acid Ethyl Esters 1 GM Cap PO SCH ×2 (09:50→17:17)
--- NOTE | 2018-02-15 16:31 | CP.PCM.PN ---
Subjective - Date & Time of Evaluation Date of Evaluation: 02/15/18 Time of Evaluation: 16:30 - Subjective Subjective: Follow up Nephrology Consultation: Assessment: Stable syncope, leftt AVF dysfunction Diabetic chronic Kidney Disease (E11.22) Hypertensive Chronic Kidney Disease (I12.0) End stage renal disease (N18.6) dependence on hemodialysis (Z99.2) (TTS) via AVF Anemia (D64.9), Hyperphosphatemia (E83.39), Secondary Hyperparathyroidism (E21.1 ), HTN (I12.0) Plan: Will plan for HD tomorrow as per TTS as ordered. Continue with Nephrovite 1 tab/ day. PRBC as needed for anemia. last Hb 11.6 hence not on MACHO Continue with phos binders home dose Continue with sensipar BP control with meds as ordered. Patient not on RAAS dc as K usually high and BP low Glycemic control, Dialysis consistent diet Further work up/management as per primary team Dose meds/antibiotics for ESRD status. Avoid fleets enema/magnesium based laxatives. vascular surgery input appreciated Thanks for allowing me to participate in care of your patient. Will follow patient with you. Please call if any Qs. Dr Zaheer Mendes Office: [phone] ROS: Cardiovascular: No chest pain. Pulmonary: No shortness of breath Gastrointestinal: denies abdominal pain now No nausea. No vomiting. Genitourinary: No pain while urinating. Denies blood in urine. makes only small amount of urine All other negative. c/o left arm pain Physical Examination: General Appearance: Comfortable, in no acute respiratory distress, co-operative . Vitals reviewed and noted as below Head; Atraumatic, normocephalic ENT: no ulcers no thrush. Tongue is midline. Oropharynx: no rash or ulcers. EYES: he is legally blind. no icterus Neck; supple no lymphadenopathy, no thyromegaly or bruit Lungs: Normal respiratory rate/effort. Breath sounds bilateral equal clear Heart: Normal rate. s1s2 normal. No rub or gallop. Extremities: trace edema. No varicose veins. Neurological: Patient is alert, awake and oriented to person, place and time. No focal deficit. Strength bilateral appropriate and equal Skin: Warm and dry. Normal turgor. No rash. Palpitation: Normal elasticity for age Abdomen: Abdomen is soft. Bowel sounds +. There is no abdominal tenderness, no guarding/rigidity or organomegaly Psych: limited insight and has normal affect/mood MSK: no joint tenderness or swelling. Digits and nails normal, no deformity : kidney or bladder not palpable Access: AVF but no thrill or bruit. has superificial ulceration on lower part. has PC Labs/imaging reviewed. Past medical history, past surgical history, family history, social history, allergy reviewed and noted as below Family Hx: no hx of CKD. Non contributory Objective - Vital Signs/Intake and Output Vital Signs (last 24 hours): Temp Pulse Resp BP Pulse Ox 97.4 F L 60 20 128/61 98 02/15/18 15:57 02/15/18 15:57 02/15/18 15:57 02/15/18 15:57 02/15/18 15:57 Intake and Output: 02/15/18 02/15/18 06:59 18:59 Intake Total 500 Balance 500 - Medications Medications: Current Medications Allopurinol (Zyloprim) 100 mg PO DAILY [facility] Last Admin: 02/15/18 09:50 Dose: 100 mg Aspirin (Ecotrin) 81 mg PO DAILY [facility] Last Admin: 02/15/18 09:50 Dose: 81 mg Carbamazepine (Tegretol-Xr) 300 mg PO BID [facility] Last Admin: 02/15/18 09:50 Dose: 300 mg Cinacalcet (Sensipar) 30 mg PO DAILY [facility] Last Admin: 02/15/18 09:50 Dose: 30 mg Clopidogrel Bisulfate (Plavix) 75 mg PO DAILY [facility] Last Admin: 02/15/18 09:50 Dose: 75 mg Famotidine (Pepcid) 20 mg PO DAILY [facility] Last Admin: 02/15/18 09:50 Dose: 20 mg Gabapentin (Neurontin) 400 mg PO DAILY [facility] Last Admin: 02/15/18 09:50 Dose: 400 mg Heparin Sodium (Porcine) (Heparin) 5,000 units SC Q12 [facility] Last Admin: 02/15/18 09:51 Dose: 5,000 units Heparin Sodium (Porcine) (Heparin) 3,300 units IVP TTS [facility] Stop: 02/25/18 10:01 Last Admin: 02/14/18 12:33 Dose: 3,300 units Insulin Glargine (Lantus) 15 unit SC [facility] Last Admin: 02/14/18 22:47 Dose: 15 unit Metoprolol Tartrate (Lopressor) 25 mg PO BID [facility] Last Admin: 02/15/18 09:49 Dose: 25 mg Midodrine (Proamatine) 5 mg PO DAILY [facility] Last Admin: 02/15/18 09:50 Dose: 5 mg Multivitamins (Hexavitamin) 1 tab PO DAILY [facility] Last Admin: 02/15/18 09:50 Dose: 1 tab Lhyye-0-Thax Ethyl Esters (Lovaza) 2 gm PO BID [facility] Last Admin: 02/15/18 09:50 Dose: 2 gm Oxycodone/Acetaminophen (Percocet 5/325 Mg Tab) 1 tab PO Q4H PRN PRN Reason: Pain, moderate (4-7) Stop: 02/16/18 14:03 Oxycodone/Acetaminophen (Percocet 5/325 Mg Tab) 1 tab PO Q6H [facility] Stop: 02/16/18 14:16 Last Admin: 02/15/18 14:09 Dose: 1 tab Rosuvastatin Calcium (Crestor) 10 mg PO [facility] Last Admin: 02/14/18 21:11 Dose: 10 mg Sevelamer Carbonate (Renvela) 2,400 mg PO TID [facility] Last Admin: 02/15/18 14:09 Dose: 2,400 mg - Labs Labs: 02/12/18 14:30 02/12/18 14:30 PT 11.6 SECONDS (9.7-12.2) 02/12/18 14:30 INR 1.1 02/12/18 14:30 APTT 28 SECONDS (21-34) 02/12/18 14:30
--- NOTE | 2018-02-15 17:34 | CP.PCM.PN ---
Subjective - Date & Time of Evaluation Date of Evaluation: 02/15/18 Time of Evaluation: 11:00 - Subjective Subjective: No surgical intervention at this present time. Patient may follow up as outpatient. Objective - Vital Signs/Intake and Output Vital Signs (last 24 hours): Temp Pulse Resp BP Pulse Ox 97.4 F L 60 20 128/61 98 02/15/18 15:57 02/15/18 15:57 02/15/18 15:57 02/15/18 15:57 02/15/18 15:57 Intake and Output: 02/15/18 02/15/18 06:59 18:59 Intake Total 500 Balance 500 - Medications Medications: Current Medications Allopurinol (Zyloprim) 100 mg PO DAILY [facility] Last Admin: 02/15/18 09:50 Dose: 100 mg Aspirin (Ecotrin) 81 mg PO DAILY [facility] Last Admin: 02/15/18 09:50 Dose: 81 mg Carbamazepine (Tegretol-Xr) 300 mg PO BID [facility] Last Admin: 02/15/18 17:18 Dose: 300 mg Cinacalcet (Sensipar) 30 mg PO DAILY [facility] Last Admin: 02/15/18 09:50 Dose: 30 mg Clopidogrel Bisulfate (Plavix) 75 mg PO DAILY [facility] Last Admin: 02/15/18 09:50 Dose: 75 mg Famotidine (Pepcid) 20 mg PO DAILY [facility] Last Admin: 02/15/18 09:50 Dose: 20 mg Gabapentin (Neurontin) 400 mg PO DAILY [facility] Last Admin: 02/15/18 09:50 Dose: 400 mg Heparin Sodium (Porcine) (Heparin) 5,000 units SC Q12 [facility] Last Admin: 02/15/18 09:51 Dose: 5,000 units Heparin Sodium (Porcine) (Heparin) 3,300 units IVP TTS [facility] Stop: 02/25/18 10:01 Last Admin: 02/14/18 12:33 Dose: 3,300 units Gentamicin Sulfate 100 mg/ (Sodium Chloride) 102.5 mls @ 100 mls/hr IVPB Q24H [facility] PRN Reason: Protocol Stop: 02/15/18 19:02 Vancomycin/Sodium Chloride (Vancomycin 1 Gm/Ns 200 Ml) 1 gm in 200 mls @ 133 mls/hr IVPB ONCE ONE PRN Reason: Protocol Stop: 02/15/18 19:30 Insulin Glargine (Lantus) 15 unit SC [facility] Last Admin: 02/14/18 22:47 Dose: 15 unit Metoprolol Tartrate (Lopressor) 25 mg PO BID [facility] Last Admin: 02/15/18 17:21 Dose: 25 mg Midodrine (Proamatine) 5 mg PO DAILY [facility] Last Admin: 02/15/18 09:50 Dose: 5 mg Multivitamins (Hexavitamin) 1 tab PO DAILY [facility] Last Admin: 02/15/18 09:50 Dose: 1 tab Ruyyd-1-Fbpd Ethyl Esters (Lovaza) 2 gm PO BID [facility] Last Admin: 02/15/18 17:17 Dose: 2 gm Oxycodone/Acetaminophen (Percocet 5/325 Mg Tab) 1 tab PO Q4H PRN PRN Reason: Pain, moderate (4-7) Stop: 02/16/18 14:03 Oxycodone/Acetaminophen (Percocet 5/325 Mg Tab) 1 tab PO Q6H [facility] Stop: 02/16/18 14:16 Last Admin: 02/15/18 14:09 Dose: 1 tab Rosuvastatin Calcium (Crestor) 10 mg PO [facility] Last Admin: 02/14/18 21:11 Dose: 10 mg Sevelamer Carbonate (Renvela) 2,400 mg PO TID [facility] Last Admin: 02/15/18 17:17 Dose: 2,400 mg - Labs Labs: 02/12/18 14:30 02/12/18 14:30 PT 11.6 SECONDS (9.7-12.2) 02/12/18 14:30 INR 1.1 02/12/18 14:30 APTT 28 SECONDS (21-34) 02/12/18 14:30
[2018-02-15] MEDS ORDERED: Vancomycin 1 gm/NS 200 ml 1 GM/200 ML BAG IVPB ONE (18:00)
--- NOTE | 2018-02-15 18:48 | CP.PCM.CON ---
History of Present Illness - History of Present Illness History of Present Illness: INFECTIOUS DISEASE CONSULT; HPI; 62 y/o M w/ PMHx of PVD UTI, HTN, CAD, CHF, ESRD on HD TTS, and CVA presented with syncopal episodes. Per note this happened while he was sitting.PATIENT PRESENTLY IS BEING WORKED UP FOR SYNCOPE/? 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 Pt had L AVF creation at another hospital and he gets HD TTS at [place]. Reports that L fistular wasn't working properly and had vascular intervention. Pt doesn't remember the type of procedure he had done. The fistula has poor thrills and is swollen. Reports skin changes with ecchymosis. Denies fever, vomiting. PATIENT PRESENTLY ON IV VANCOMYCIN 1 G X1 DOSE GIVEN. AND GENTAMICIN 100 MG X1 GIVEN TODAY NOTED. PATIENT IS BEING FOLLOWED BY VASCULAR SURGERY/AND NEPHROLOGY. BLOOD CULTURES 02/12/18 REPORTED NEGATIVE SO FAR. PMHx: CHF, HTN, HLD, DM2, ESRD on HD TTS Meds: reviewed in chart ALLERGIES ; NKDA PSHx: L AVF, coronary stents SHx: former smoker, denies EtOH, drug use FHx: non-contributory Review of Systems - Constitutional Constitutional: absent: Chills, Fever - EENT Eyes: As Per HPI Nose/Mouth/Throat: absent: Mouth Lesions - Cardiovascular Cardiovascular: absent: Chest Pain, Dyspnea - Respiratory Respiratory: absent: Cough - Gastrointestinal Gastrointestinal: absent: Abdominal Pain, Nausea, Vomiting - Genitourinary Genitourinary: As Per HPI - Reproductive: Female Additional comments: ESRD ON HD TTS - Hematologic/Lymphatic Hematologic: As Per HPI, Easy Bruising Past Patient History - Tetanus Immunizations Tetanus Immunization: Unknown - Past Medical History & Family History Past Medical History?: Yes - Past Social History Smoking Status: Former Smoker - CARDIAC Hx Congestive Heart Failure: Yes Hx Hypertension: Yes - PULMONARY Hx Pneumonia: Yes - NEUROLOGICAL HX Cerebrovascular Accident: Yes - HEENT Hx HEENT Problems: Yes Hx Blind: Yes (left eye) Hx Glaucoma: Yes (LEFT EYE) - RENAL Hx Chronic Kidney Disease: Yes Hx Kidney Stones: No - ENDOCRINE/METABOLIC Hx Endocrine Disorders: Yes Hx Diabetes Mellitus Type 2: Yes - HEMATOLOGICAL/ONCOLOGICAL Hx Anemia: Yes - INTEGUMENTARY Hx Dermatological Problems: No - MUSCULOSKELETAL/RHEUMATOLOGICAL Hx Musculoskeletal Disorders: Yes Hx Falls: Yes Hx Gout: Yes - GASTROINTESTINAL Hx Gastrointestinal Disorders: No - GENITOURINARY/GYNECOLOGICAL Hx Genitourinary Disorders: No - PSYCHIATRIC Hx Substance Use: No - SURGICAL HISTORY Hx Coronary Stent: Yes - ANESTHESIA Hx Anesthesia: Yes Hx Anesthesia Reactions: No Hx Malignant Hyperthermia: No Meds Allergies/Adverse Reactions: Allergies Allergy/AdvReac Type Severity Reaction Status Date / Time No Known Allergies Allergy Verified 07/02/17 22:03 - Medications Medications: Current Medications Allopurinol (Zyloprim) 100 mg PO DAILY [facility] Last Admin: 02/15/18 09:50 Dose: 100 mg Aspirin (Ecotrin) 81 mg PO DAILY [facility] Last Admin: 02/15/18 09:50 Dose: 81 mg Carbamazepine (Tegretol-Xr) 300 mg PO BID [facility] Last Admin: 02/15/18 17:18 Dose: 300 mg Cinacalcet (Sensipar) 30 mg PO DAILY [facility] Last Admin: 02/15/18 09:50 Dose: 30 mg Clopidogrel Bisulfate (Plavix) 75 mg PO DAILY [facility] Last Admin: 02/15/18 09:50 Dose: 75 mg Famotidine (Pepcid) 20 mg PO DAILY [facility] Last Admin: 02/15/18 09:50 Dose: 20 mg Gabapentin (Neurontin) 400 mg PO DAILY [facility] Last Admin: 02/15/18 09:50 Dose: 400 mg Heparin Sodium (Porcine) (Heparin) 5,000 units SC Q12 [facility] Last Admin: 02/15/18 09:51 Dose: 5,000 units Heparin Sodium (Porcine) (Heparin) 3,300 units IVP TTS [facility] Stop: 02/25/18 10:01 Last Admin: 02/14/18 12:33 Dose: 3,300 units Gentamicin Sulfate 100 mg/ (Sodium Chloride) 102.5 mls @ 100 mls/hr IVPB Q24H [facility] PRN Reason: Protocol Stop: 02/15/18 19:02 Last Admin: 02/15/18 18:13 Dose: 100 mls/hr Vancomycin/Sodium Chloride (Vancomycin 1 Gm/Ns 200 Ml) 1 gm in 200 mls @ 133 mls/hr IVPB ONCE ONE PRN Reason: Protocol Stop: 02/15/18 19:30 Last Admin: 02/15/18 18:14 Dose: 133 mls/hr Insulin Glargine (Lantus) 15 unit SC [facility] Last Admin: 02/14/18 22:47 Dose: 15 unit Metoprolol Tartrate (Lopressor) 25 mg PO BID [facility] Last Admin: 02/15/18 17:21 Dose: 25 mg Midodrine (Proamatine) 5 mg PO DAILY [facility] Last Admin: 02/15/18 09:50 Dose: 5 mg Multivitamins (Hexavitamin) 1 tab PO DAILY [facility] Last Admin: 02/15/18 09:50 Dose: 1 tab Hbdeq-7-Iuxa Ethyl Esters (Lovaza) 2 gm PO BID [facility] Last Admin: 02/15/18 17:17 Dose: 2 gm Oxycodone/Acetaminophen (Percocet 5/325 Mg Tab) 1 tab PO Q4H PRN PRN Reason: Pain, moderate (4-7) Stop: 02/16/18 14:03 Oxycodone/Acetaminophen (Percocet 5/325 Mg Tab) 1 tab PO Q6H [facility] Stop: 02/16/18 14:16 Last Admin: 02/15/18 14:09 Dose: 1 tab Rosuvastatin Calcium (Crestor) 10 mg PO [facility] Last Admin: 02/14/18 21:11 Dose: 10 mg Sevelamer Carbonate (Renvela) 2,400 mg PO TID [facility] Last Admin: 02/15/18 17:17 Dose: 2,400 mg Physical Exam - Constitutional Appears: No Acute Distress - Head Exam Head Exam: NORMAL INSPECTION - Eye Exam Eye Exam: EOMI, PERRL - ENT Exam ENT Exam: Normal Oropharynx - Neck Exam Neck exam: Positive for: Normal Inspection - Respiratory Exam Respiratory Exam: Rales (BASILAR RALES.), NORMAL BREATHING PATTERN - Cardiovascular Exam Cardiovascular Exam: REGULAR RHYTHM, +S1, +S2, +S4 - GI/Abdominal Exam GI & Abdominal Exam: Normal Bowel Sounds, Soft. absent: Organomegaly, Tenderness - Extremities Exam Extremities exam: Negative for: calf tenderness, pedal edema, pedal pulses present - Expanded Upper Extremities Exam Left Upper Arm exam: ecchymosis (L AVF upper arm large 8cm diameter. eccymosis on upper part. Palpable, poor thrills. Warm. NO hand pain. ), erythema, swelling, tenderness. absent: crepitus - Neurological Exam Neurological exam: Alert, CN II-XII Intact, Oriented x3, Reflexes Normal - Skin Skin Exam: Normal Color, Warm Results - Vital Signs Recent Vital Signs: Last Vital Signs Temp 97.4 F L 02/15/18 15:57 Pulse 60 02/15/18 15:57 Resp 20 02/15/18 15:57 BP 128/61 02/15/18 15:57 Pulse Ox 98 02/15/18 15:57 - Labs Result Diagrams: 02/16/18 06:27 02/16/18 06:27 Labs: Laboratory Results - last 24 hr 02/14/18 02/15/18 02/15/18 21:08 06:08 11:04 POC Glucose (mg/dL) 220 H 219 H 195 H 02/15/18 16:39 POC Glucose (mg/dL) 214 H Assessment & Plan (1) Abscess of arm, left Assessment and Plan: RALEIGH AVF CELLULITUS/ABSCESS ? THROMBOSED [place] AVF POOR THRILL PANCULTURE. DRAIN WOUND ABSCESS. CONTINUE IV VANCOMYCIN 1GM IVPB TTS X 5 DOSES (IST DOSE ) PT GOT I DOSE OF GENTAMYCIN 02/15/18 100MG IVPB. START IV ROCEPHIN 1GM IVPB Q 24HRLY ON 02/16/18 ADD IV CLEOCIN 300MG IVPB Q 8HRLY STARTING 02/16/18 ESR,CRP. CASE DISCUSSED WITH HOME CARE COMPANION MS CAMERON Status: Acute (2) DM2 (diabetes mellitus, type 2) Status: Chronic Priority: Low (3) End-stage renal disease on hemodialysis Assessment and Plan: ON HD TTS. RT [facility] IN PLACE FOR HD. Status: Chronic (4) H/O diabetic neuropathy Status: Chronic (5) H/O heart artery stent Status: Chronic (6) HTN (hypertension) Status: Chronic
--- NOTE | 2018-02-15 20:03 | PN ---
Copied To: Nikolas Rowell MD Attending MD: Nikolas Rowell MD DATE: 02/15/2018 SUBJECTIVE: The patient denies chest pain or shortness of breath. No dizziness or headaches. PHYSICAL EXAMINATION: VITAL SIGNS: Blood pressure 110/57, heart rate 61, temperature 98, and respirations 20. HEENT: Normocephalic. CHEST: Clear. HEART: S1 and S2 regular. EXTREMITIES: No edema. LABORATORY DATA: Today's blood sugars are 219 and 195. I did review neurology evaluation by Dr. Warner, who recommended an EEG. I did review Dr. Gallardo's evaluation whose assessment was possible partially thrombosed left AV fistula. He will obtain medical records from dialysis center in [place] to find out the type of vascular intervention followed by followup fistulogram. ASSESSMENT: 1. Syncopal episode. 2. End-stage renal disease, on hemodialysis. 3. Uncontrolled diabetes mellitus. 4. Thrombosed left upper arm arteriovenous fistula. RECOMMENDATIONS: Continue Crestor 10 mg once a day, aspirin 81 mg once a day, subcutaneous heparin 5000 units every 12 hours, Lopressor 25 mg twice a day, Neurontin 400 mg once a day, Percocet one tablet every 6 hours, Plavix 75 mg once a day, Tegretol 300 mg twice a day, and Zyloprim 100 mg once a day. Nikolas Rowell MD
[2018-02-15] MEDS: (Lantus) Insulin Glargine, Recombinant SC SCH (21:32)
--- NOTE | 2018-02-15 21:40 | CP.PCM.PN ---
Objective - Vital Signs/Intake and Output Vital Signs (last 24 hours): Temp Pulse Resp BP Pulse Ox 97.4 F L 61 20 128/61 98 02/15/18 15:57 02/15/18 18:00 02/15/18 15:57 02/15/18 15:57 02/15/18 15:57 - Medications Medications: Current Medications Allopurinol (Zyloprim) 100 mg PO DAILY [facility] Last Admin: 02/15/18 09:50 Dose: 100 mg Aspirin (Ecotrin) 81 mg PO DAILY [facility] Last Admin: 02/15/18 09:50 Dose: 81 mg Carbamazepine (Tegretol-Xr) 300 mg PO BID [facility] Last Admin: 02/15/18 17:18 Dose: 300 mg Cinacalcet (Sensipar) 30 mg PO DAILY [facility] Last Admin: 02/15/18 09:50 Dose: 30 mg Clopidogrel Bisulfate (Plavix) 75 mg PO DAILY [facility] Last Admin: 02/15/18 09:50 Dose: 75 mg Famotidine (Pepcid) 20 mg PO DAILY [facility] Last Admin: 02/15/18 09:50 Dose: 20 mg Gabapentin (Neurontin) 400 mg PO DAILY [facility] Last Admin: 02/15/18 09:50 Dose: 400 mg Heparin Sodium (Porcine) (Heparin) 5,000 units SC Q12 [facility] Last Admin: 02/15/18 21:32 Dose: 5,000 units Heparin Sodium (Porcine) (Heparin) 3,300 units IVP TTS [facility] Stop: 02/25/18 10:01 Last Admin: 02/14/18 12:33 Dose: 3,300 units Insulin Glargine (Lantus) 15 unit SC [facility] Last Admin: 02/15/18 21:32 Dose: 15 unit Metoprolol Tartrate (Lopressor) 25 mg PO BID [facility] Last Admin: 02/15/18 17:21 Dose: 25 mg Midodrine (Proamatine) 5 mg PO DAILY [facility] Last Admin: 02/15/18 09:50 Dose: 5 mg Multivitamins (Hexavitamin) 1 tab PO DAILY [facility] Last Admin: 02/15/18 09:50 Dose: 1 tab Yefef-2-Upzg Ethyl Esters (Lovaza) 2 gm PO BID [facility] Last Admin: 02/15/18 17:17 Dose: 2 gm Oxycodone/Acetaminophen (Percocet 5/325 Mg Tab) 1 tab PO Q4H PRN PRN Reason: Pain, moderate (4-7) Stop: 02/16/18 14:03 Oxycodone/Acetaminophen (Percocet 5/325 Mg Tab) 1 tab PO Q6H [facility] Stop: 02/16/18 14:16 Last Admin: 02/15/18 21:32 Dose: Not Given Rosuvastatin Calcium (Crestor) 10 mg PO HS [facility] Last Admin: 02/15/18 21:32 Dose: 10 mg Sevelamer Carbonate (Renvela) 2,400 mg PO TID [facility] Last Admin: 02/15/18 17:17 Dose: 2,400 mg - Labs Labs: 02/12/18 14:30 02/12/18 14:30 PT 11.6 SECONDS (9.7-12.2) 02/12/18 14:30 INR 1.1 02/12/18 14:30 APTT 28 SECONDS (21-34) 02/12/18 14:30
--- NOTE | 2018-02-16 01:18 | PN ---
Copied To: Lauri Warner MD Attending MD: Lauri Warner MD DATE: 02/15/2018 SUBJECTIVE: The patient is lying in bed in no acute distress. Denies having any headache or dizziness. PHYSICAL EXAMINATION: VITAL SIGNS: Blood pressure is 128/61, heart rate 60 per minute, breathing at the rate of 16 per minute, temperature is 97.4 degrees Fahrenheit. HEENT: Normocephalic, atraumatic. NECK: Supple. There are no carotid bruits. LUNGS: Clear. CVS: S1, S2 audible. No murmurs. ABDOMEN: Soft, nontender. Bowel sounds present. NEUROLOGIC: Mental status: The patient is awake, alert, oriented to time, place, person. Speech if fluent. Naming and repetition normal. Memory and cognition are intact. Cranial nerve examination: Pupils 3 mm bilaterally, reactive to light. Visual grace are full. Extraocular movements are intact. There is no facial asymmetry. Motor examination: Tone is normal. Power is 4 to 5/5 bilaterally. Plantars downgoing bilaterally. IMPRESSION: 1. Status post syncope. 2. History of cerebrovascular accident. 3. End-stage renal disease, on hemodialysis. RECOMMENDATIONS: 1. The patient had an electroencephalogram done which was normal. 2. The patient had no further episodes of passing out. 3. The patient to have physical therapy for gait imbalance. 4. Please continue supportive care and treatment. Thank you for the opportunity to participate in the care of this patient. Lauri Warner MD
[2018-02-16] MEDS: Oxycodone/Acetaminophen 5/325 mg Tab PO SCH ×3 (02:08→14:25)
--- NOTE | 2018-02-16 04:59 | PN ---
DATE: 02/15/2018 SUBJECTIVE: The patient is afebrile. No shortness of breath. PHYSICAL EXAMINATION: VITAL SIGNS: BP 128/61, pulse 60, respiratory rate 20, and temperature 97.4. LUNGS: Clear. CARDIOVASCULAR SYSTEM: S1 and S2 regular. ABDOMEN: Soft. ASSESSMENT: 1. The patient has infection of left arteriovenous fistula. 2. Chronic kidney disease, on hemodialysis. 3. Hypertension. 4. Syncope, most likely it was vasovagal syncope. PLAN: Continue current medication. Monitor the patient. Nils Lowe MD
[2018-02-16 07:24] LABS: EOS # 0.2 K/uL (0.0-0.7); EOS % 5.2 % (0.0-4.0); HEMOGLOBIN 10.8 g/dL (12.0-18.0); LYMPH % 28.8 % (20.0-40.0); MEAN CELL VOLUME 96.9 fL (80.0-94.0); MEAN CORPUSCULAR HEMOGLOBIN 33.2 pg (27.0-31.0); MEAN CORPUSCULAR HGB CONC 34.2 g/dL (33.0-37.0); MEAN PLATELET VOLUME 7.6 fL (7.2-11.7); MONO # 0.3 K/uL (0.0-0.8); MONO % 8.4 % (0.0-10.0); NEUT # 1.9 K/uL (1.8-7.0); NEUT % 56.6 % (50.0-75.0); RBC 3.27 Mil/uL (4.40-5.90); RED CELL DISTRIBUTION WIDTH 17.2 % (11.5-14.5); WHITE BLOOD COUNT 3.4 K/uL (4.8-10.8)
[2018-02-16 08:07] LABS: ALB/GLOB RATIO 1.4 (1.0-2.1); ALBUMIN 3.6 g/dL (3.5-5.0)
[2018-02-16] MEDS: Omega-3-Acid Ethyl Esters 1 GM Cap PO SCH ×2 (09:37→17:56)
[2018-02-16] MEDS: Multiple Vitamins Tab PO SCH (09:37)
[2018-02-16] MEDS ORDERED: Albumin Human 25% (12.5 gm/50 ml) IV ONE (12:00)
--- NOTE | 2018-02-16 15:41 | CP.PCM.PN ---
Subjective - Date & Time of Evaluation Date of Evaluation: 02/16/18 Time of Evaluation: 15:39 - Subjective Subjective: Follow up Nephrology Consultation: Assessment: Stable syncope, left AVF dysfunction with ? infection Diabetic chronic Kidney Disease (E11.22) Hypertensive Chronic Kidney Disease (I12.0) End stage renal disease (N18.6) dependence on hemodialysis (Z99.2) (TTS) via AVF Anemia (D64.9), Hyperphosphatemia (E83.39), Secondary Hyperparathyroidism (E21.1 ), HTN (I12.0) Plan: Will plan for HD tomorrow as per TTS as ordered. Continue with Nephrovite 1 tab/ day. PRBC as needed for anemia. last Hb 11.6 hence not on MACHO Continue with phos binders home dose Continue with sensipar BP control with meds as ordered. Patient not on RAAS dc as K usually high and BP low Glycemic control, Dialysis consistent diet Further work up/management as per primary team Dose meds/antibiotics for ESRD status. Avoid fleets enema/magnesium based laxatives. vascular surgery input appreciated, discussed antibiotics as per ID Thanks for allowing me to participate in care of your patient. Will follow patient with you. Please call if any Qs. had d/w team Dr Zaheer Mendes Office: [phone] ROS: Cardiovascular: No chest pain. Pulmonary: No shortness of breath Gastrointestinal: denies abdominal pain now No nausea. No vomiting. Genitourinary: No pain while urinating. Denies blood in urine. makes only small amount of urine All other negative. c/o left arm pain Physical Examination: seen on HD General Appearance: Comfortable, in no acute respiratory distress, co-operative . Vitals reviewed and noted as below Head; Atraumatic, normocephalic ENT: no ulcers no thrush. Tongue is midline. Oropharynx: no rash or ulcers. EYES: he is legally blind. no icterus Neck; supple no lymphadenopathy, no thyromegaly or bruit Lungs: Normal respiratory rate/effort. Breath sounds bilateral equal clear Heart: Normal rate. s1s2 normal. No rub or gallop. Extremities: trace edema. No varicose veins. Neurological: Patient is alert, awake and oriented to person, place and time. No focal deficit. Strength bilateral appropriate and equal Skin: Warm and dry. Normal turgor. No rash. Palpitation: Normal elasticity for age Abdomen: Abdomen is soft. Bowel sounds +. There is no abdominal tenderness, no guarding/rigidity or organomegaly Psych: limited insight and has normal affect/mood MSK: no joint tenderness or swelling. Digits and nails normal, no deformity : kidney or bladder not palpable Access: AVF but no thrill or bruit. has superficial ulceration on lower part with erythema. upper part of AVF with echymoses. has PC Labs/imaging reviewed. Past medical history, past surgical history, family history, social history, allergy reviewed and noted as below Family Hx: no hx of CKD. Non contributory Objective - Vital Signs/Intake and Output Vital Signs (last 24 hours): Temp Pulse Resp BP Pulse Ox 96.5 F L 65 16 97/55 L 97 02/16/18 13:10 02/16/18 13:10 02/16/18 13:10 02/16/18 13:10 02/16/18 13:10 - Medications Medications: Current Medications Allopurinol (Zyloprim) 100 mg PO DAILY [facility] Last Admin: 02/16/18 09:38 Dose: Not Given Aspirin (Ecotrin) 81 mg PO DAILY [facility] Last Admin: 02/16/18 09:37 Dose: Not Given Carbamazepine (Tegretol-Xr) 300 mg PO BID [facility] Last Admin: 02/16/18 09:38 Dose: Not Given Cinacalcet (Sensipar) 30 mg PO DAILY [facility] Last Admin: 02/16/18 09:37 Dose: Not Given Clopidogrel Bisulfate (Plavix) 75 mg PO DAILY [facility] Last Admin: 02/16/18 09:37 Dose: Not Given Famotidine (Pepcid) 20 mg PO DAILY [facility] Last Admin: 02/16/18 09:37 Dose: Not Given Gabapentin (Neurontin) 400 mg PO DAILY [facility] Last Admin: 02/16/18 09:37 Dose: Not Given Heparin Sodium (Porcine) (Heparin) 3,300 units IVP TTS [facility] Stop: 02/25/18 10:01 Last Admin: 02/16/18 13:30 Dose: 3,300 units Heparin Sodium (Porcine) (Heparin) 2,000 units IVP TTS [facility] Last Admin: 02/16/18 12:00 Dose: 2,000 units Vancomycin/Sodium Chloride (Vancomycin 1 Gm/Ns 200 Ml) 1 gm in 200 mls @ 133.333 mls/hr IVPB TTS [facility] PRN Reason: Protocol Stop: 02/23/18 10:01 Ceftriaxone Sodium 1 gm/ (Sodium Chloride) 100 mls @ 100 mls/hr IVPB Q24H [facility] PRN Reason: Protocol Insulin Glargine (Lantus) 15 unit SC [facility] Last Admin: 02/15/18 21:32 Dose: 15 unit Metoprolol Tartrate (Lopressor) 25 mg PO BID [facility] Last Admin: 02/16/18 09:37 Dose: Not Given Midodrine (Proamatine) 5 mg PO DAILY [facility] Last Admin: 02/16/18 09:37 Dose: Not Given Multivitamins (Hexavitamin) 1 tab PO DAILY [facility] Last Admin: 02/16/18 09:37 Dose: Not Given Jgplm-5-Onnw Ethyl Esters (Lovaza) 2 gm PO BID [facility] Last Admin: 02/16/18 09:37 Dose: Not Given Rosuvastatin Calcium (Crestor) 10 mg PO [facility] Last Admin: 02/15/18 21:32 Dose: 10 mg Sevelamer Carbonate (Renvela) 2,400 mg PO TID [facility] Last Admin: 02/16/18 14:25 Dose: 2,400 mg - Labs Labs: 02/16/18 06:27 02/16/18 06:27 PT 11.6 SECONDS (9.7-12.2) 02/12/18 14:30 INR 1.1 02/12/18 14:30 APTT 28 SECONDS (21-34) 02/12/18 14:30
--- NOTE | 2018-02-16 19:07 | PN ---
DATE: 02/16/2018 SUBJECTIVE: The patient is currently undergoing hemodialysis toward the completion of the session. He denies any dizziness or headache. PHYSICAL EXAMINATION: VITAL SIGNS: Blood pressure 97/55, heart rate 61, temperature 97.6, respirations 18. HEENT: Normocephalic. CHEST: Clear. HEART: S1 and S2 regular. EXTREMITIES: No edema. The left upper arm AV shunt appears to be inflamed. LABORATORY DATA: Today's hemoglobin and hematocrit 10.8 and 31.7, white count 3.4, platelet count 184,000. Today's BUN and creatinine prior to hemodialysis is 63 and 11.4 respectively. Potassium was 6. The latest glucose level is . ASSESSMENT: 1. Syncopal episode. 2. Thrombosed, probably inflamed left upper arm arteriovenous fistula. 3. End-stage renal disease, on hemodialysis. 5. Uncontrolled diabetes mellitus. RECOMMENDATIONS: Continue Crestor 10 mg once a day, intravenous heparin 3300 units TTS. Continue Lantus insulin. The patient is scheduled for fistulogram. So far, the blood culture is negative after three days. Nikolas Rowell MD
--- NOTE | 2018-02-16 20:13 | CP.PCM.PN ---
Subjective - Date & Time of Evaluation Date of Evaluation: 02/16/18 Time of Evaluation: 20:13 - Subjective Subjective: CHIEF COMPLAINTS TODAY : AFEBRILE S/P HD TODAY (TTS i RT PERMA CATHETER +VE C/O PAIN [place] AVF SITE ROS. HEENT : N. Resp : No cough, wheezing ,pleuritic CP ,or hemoptysis Cardio : No anginal CP, PND, orthopnea, palpitation GI : No abd.pain, n/v ,diarrhea or GI bleeding . BUSINESS SOLUTIONS ANALYST : No headache, vertigo, focal deficit. Musculoskel : No joint swelling , Derm : No rash Psych : Normal affect. Ext : No swelling ,calf pain PE. Pt. is alert awake in no distress. V.S As noted in the chart Head ,ear nose,throat and eyes : Normal. Neck : Supple with normal carotids. Lungs: Clear air entry. Heart : S1 & S2 normal with S4. No murmur. Abd : Soft non tender with normal bowel sounds. Neuro : Moves all ext. with no localized deficit. Ext : No edema with intact pulses.Non tender calves LT. Upper Arm exam: ecchymosis (L AVF upper arm large 8cm diameter. eccymosis on upper part. Palpable, poor thrills. Warm. NO hand pain. ), erythema, swelling, tenderness ? ABSCESS LOWER PART AVF absent: crepitus Derm : No rashes or decubitus ulcer. LABS/RADIOLOGY: BLOOD CULTURE -VE X 4 DAYS WOUND CULTURE -P Objective - Vital Signs/Intake and Output Vital Signs (last 24 hours): Temp Pulse Resp BP Pulse Ox 97.9 F 66 20 110/62 96 02/16/18 18:06 02/16/18 18:06 02/16/18 18:06 02/16/18 18:06 02/16/18 18:06 - Medications Medications: Current Medications Allopurinol (Zyloprim) 100 mg PO DAILY [facility] Last Admin: 02/16/18 09:38 Dose: Not Given Aspirin (Ecotrin) 81 mg PO DAILY [facility] Last Admin: 02/16/18 09:37 Dose: Not Given Carbamazepine (Tegretol-Xr) 300 mg PO BID [facility] Last Admin: 02/16/18 17:53 Dose: 300 mg Cinacalcet (Sensipar) 30 mg PO DAILY [facility] Last Admin: 02/16/18 09:37 Dose: Not Given Clopidogrel Bisulfate (Plavix) 75 mg PO DAILY [facility] Last Admin: 02/16/18 09:37 Dose: Not Given Famotidine (Pepcid) 20 mg PO DAILY [facility] Last Admin: 02/16/18 09:37 Dose: Not Given Gabapentin (Neurontin) 400 mg PO DAILY [facility] Last Admin: 02/16/18 09:37 Dose: Not Given Heparin Sodium (Porcine) (Heparin) 3,300 units IVP TTS [facility] Stop: 02/25/18 10:01 Last Admin: 02/16/18 13:30 Dose: 3,300 units Heparin Sodium (Porcine) (Heparin) 2,000 units IVP TTS [facility] Last Admin: 02/16/18 12:00 Dose: 2,000 units Vancomycin/Sodium Chloride (Vancomycin 1 Gm/Ns 200 Ml) 1 gm in 200 mls @ 133.333 mls/hr IVPB TTS [facility] PRN Reason: Protocol Stop: 02/23/18 10:01 Ceftriaxone Sodium 1 gm/ (Sodium Chloride) 100 mls @ 100 mls/hr IVPB Q24H [facility] PRN Reason: Protocol Last Admin: 02/16/18 17:52 Dose: 100 mls/hr Insulin Glargine (Lantus) 15 unit SC [facility] Last Admin: 02/15/18 21:32 Dose: 15 unit Metoprolol Tartrate (Lopressor) 25 mg PO BID [facility] Last Admin: 02/16/18 17:48 Dose: Not Given Midodrine (Proamatine) 5 mg PO DAILY [facility] Last Admin: 02/16/18 09:37 Dose: Not Given Multivitamins (Hexavitamin) 1 tab PO DAILY [facility] Last Admin: 02/16/18 09:37 Dose: Not Given Jaqff-9-Ybmc Ethyl Esters (Lovaza) 2 gm PO BID [facility] Last Admin: 02/16/18 17:56 Dose: 2 gm Rosuvastatin Calcium (Crestor) 10 mg PO HS [facility] Last Admin: 02/15/18 21:32 Dose: 10 mg Sevelamer Carbonate (Renvela) 2,400 mg PO TID [facility] Last Admin: 02/16/18 17:56 Dose: 2,400 mg - Labs Labs: 02/16/18 06:27 02/16/18 06:27 PT 11.6 SECONDS (9.7-12.2) 02/12/18 14:30 INR 1.1 02/12/18 14:30 APTT 28 SECONDS (21-34) 02/12/18 14:30 Assessment and Plan (1) Abscess of arm, left Status: Acute (2) Cellulitis Status: Acute (3) CHF (congestive heart failure) Status: Acute (4) ESRD on dialysis Status: Acute (5) DM2 (diabetes mellitus, type 2) Status: Chronic (6) H/O diabetic neuropathy Status: Chronic - Assessment and Plan (Free Text) Plan: [place] AVF CELLULITUS/ABSCESS ? THROMBOSED [place] AVF POOR THRILL PANCULTURE. DRAIN WOUND ABSCESS -P CONTINUE IV VANCOMYCIN 1GM IVPB TTS X 5 DOSES (IST DOSE ) PT GOT I DOSE OF GENTAMYCIN 02/15/18 100MG IVPB. START IV ROCEPHIN 1GM IVPB Q 24HRLY 02/16/18 ADD IV CLEOCIN 300MG IVPB Q 8HRLY 02/16/18 ESR,CRP. F/U CULTURES TO ADJUST ABX . WILL DISCUSS WITH VASCULAR SURGERY/PMD.
[2018-02-16] MEDS: (Lantus) Insulin Glargine, Recombinant SC SCH (21:57)
--- NOTE | 2018-02-16 22:14 | CP.PCM.PN ---
Objective - Vital Signs/Intake and Output Vital Signs (last 24 hours): Temp Pulse Resp BP Pulse Ox 97.9 F 66 20 110/62 96 02/16/18 18:06 02/16/18 18:06 02/16/18 18:06 02/16/18 18:06 02/16/18 18:06 - Medications Medications: Current Medications Allopurinol (Zyloprim) 100 mg PO DAILY [facility] Last Admin: 02/16/18 09:38 Dose: Not Given Aspirin (Ecotrin) 81 mg PO DAILY [facility] Last Admin: 02/16/18 09:37 Dose: Not Given Carbamazepine (Tegretol-Xr) 300 mg PO BID [facility] Last Admin: 02/16/18 17:53 Dose: 300 mg Cinacalcet (Sensipar) 30 mg PO DAILY [facility] Last Admin: 02/16/18 09:37 Dose: Not Given Clopidogrel Bisulfate (Plavix) 75 mg PO DAILY [facility] Last Admin: 02/16/18 09:37 Dose: Not Given Famotidine (Pepcid) 20 mg PO DAILY [facility] Last Admin: 02/16/18 09:37 Dose: Not Given Gabapentin (Neurontin) 400 mg PO DAILY [facility] Last Admin: 02/16/18 09:37 Dose: Not Given Heparin Sodium (Porcine) (Heparin) 3,300 units IVP TTS [facility] Stop: 02/25/18 10:01 Last Admin: 02/16/18 13:30 Dose: 3,300 units Heparin Sodium (Porcine) (Heparin) 2,000 units IVP TTS [facility] Last Admin: 02/16/18 12:00 Dose: 2,000 units Vancomycin/Sodium Chloride (Vancomycin 1 Gm/Ns 200 Ml) 1 gm in 200 mls @ 133.333 mls/hr IVPB TTS [facility] PRN Reason: Protocol Stop: 02/23/18 10:01 Ceftriaxone Sodium 1 gm/ (Sodium Chloride) 100 mls @ 100 mls/hr IVPB Q24H [facility] PRN Reason: Protocol Last Admin: 02/16/18 17:52 Dose: 100 mls/hr Insulin Glargine (Lantus) 15 unit SC [facility] Last Admin: 02/16/18 21:57 Dose: 15 unit Metoprolol Tartrate (Lopressor) 25 mg PO BID [facility] Last Admin: 02/16/18 17:48 Dose: Not Given Midodrine (Proamatine) 5 mg PO DAILY [facility] Last Admin: 02/16/18 09:37 Dose: Not Given Multivitamins (Hexavitamin) 1 tab PO DAILY [facility] Last Admin: 02/16/18 09:37 Dose: Not Given Erngc-6-Naiq Ethyl Esters (Lovaza) 2 gm PO BID [facility] Last Admin: 02/16/18 17:56 Dose: 2 gm Rosuvastatin Calcium (Crestor) 10 mg PO HS [facility] Last Admin: 02/16/18 21:57 Dose: 10 mg Sevelamer Carbonate (Renvela) 2,400 mg PO TID [facility] Last Admin: 02/16/18 17:56 Dose: 2,400 mg - Labs Labs: 02/16/18 06:27 02/16/18 06:27 PT 11.6 SECONDS (9.7-12.2) 02/12/18 14:30 INR 1.1 02/12/18 14:30 APTT 28 SECONDS (21-34) 02/12/18 14:30
[2018-02-17] MEDS: Clindamycin 300 MG in Sodium Chloride 0.9% 50 ML IVPB SCH ×3 (01:29→17:28)
--- NOTE | 2018-02-17 04:13 | PN ---
DATE: 02/16/2018 SUBJECTIVE: The patient is afebrile, feels better. He is on antibiotics. PHYSICAL EXAMINATION: VITAL SIGNS: Blood pressure 110/62, pulse 63, respiratory rate 20, temperature 97.9. LUNGS: Clear. CARDIOVASCULAR SYSTEM: S1 and S2 regular. ABDOMEN: Soft. ASSESSMENT: 1. Arteriovenous fistula infection. 2. Type 2 diabetes. 3. Syncope. 4. Hypertension. PLAN: Antibiotics. ID followup. Monitor the patient. Nils Lowe MD
[2018-02-17] MEDS: Multiple Vitamins Tab PO SCH (09:16)
[2018-02-17] MEDS: Omega-3-Acid Ethyl Esters 1 GM Cap PO SCH ×2 (09:16→17:30)
[2018-02-17 11:47] LABS: BASO % 1.2 % (0.0-2.0); EOS # 0.2 K/uL (0.0-0.7); EOS % 4.3 % (0.0-4.0); LYMPH # 0.8 K/uL (1.0-4.3); MEAN CELL VOLUME 96.2 fL (80.0-94.0); MEAN CORPUSCULAR HEMOGLOBIN 33.8 pg (27.0-31.0); MEAN CORPUSCULAR HGB CONC 35.1 g/dL (33.0-37.0); MEAN PLATELET VOLUME 7.5 fL (7.2-11.7); MONO # 0.3 K/uL (0.0-0.8); MONO % 8.4 % (0.0-10.0); NEUT # 2.5 K/uL (1.8-7.0); NEUT % 66.1 % (50.0-75.0); RBC 3.24 Mil/uL (4.40-5.90); RED CELL DISTRIBUTION WIDTH 17.1 % (11.5-14.5); WHITE BLOOD COUNT 3.8 K/uL (4.8-10.8)
[2018-02-17 12:11] LABS: ALB/GLOB RATIO 1.5 (1.0-2.1); CALCIUM 8.2 mg/dl (8.6-10.4)
[2018-02-17] MEDS ORDERED: DiphenhydrAMINE 50 mg/ml Inj IVP ONE (13:15)
--- NOTE | 2018-02-17 15:11 | CP.PCM.PN ---
Subjective - Date & Time of Evaluation Date of Evaluation: 02/17/18 Time of Evaluation: 14:47 - Subjective Subjective: Surgery Pt seen and examined w Dr. Gallardo. L fistula is measure on bedside. Objective - Vital Signs/Intake and Output Vital Signs (last 24 hours): Temp Pulse Resp BP Pulse Ox 97.9 F 71 20 139/66 98 02/17/18 07:00 02/17/18 09:18 02/17/18 07:00 02/17/18 09:18 02/17/18 07:00 - Medications Medications: Current Medications Allopurinol (Zyloprim) 100 mg PO DAILY [facility] Last Admin: 02/17/18 09:16 Dose: 100 mg Aspirin (Ecotrin) 81 mg PO DAILY [facility] Last Admin: 02/17/18 09:16 Dose: 81 mg Carbamazepine (Tegretol-Xr) 300 mg PO BID [facility] Last Admin: 02/17/18 09:17 Dose: 300 mg Cinacalcet (Sensipar) 30 mg PO DAILY [facility] Last Admin: 02/17/18 09:17 Dose: 30 mg Clopidogrel Bisulfate (Plavix) 75 mg PO DAILY [facility] Last Admin: 02/17/18 09:16 Dose: 75 mg Docusate Sodium (Colace) 100 mg PO BID [facility] Last Admin: 02/17/18 10:43 Dose: 100 mg Famotidine (Pepcid) 20 mg PO DAILY [facility] Last Admin: 02/17/18 09:16 Dose: 20 mg Gabapentin (Neurontin) 400 mg PO DAILY [facility] Last Admin: 02/17/18 09:17 Dose: 400 mg Heparin Sodium (Porcine) (Heparin) 3,300 units IVP TTS [facility] Stop: 02/25/18 10:01 Last Admin: 02/16/18 13:30 Dose: 3,300 units Heparin Sodium (Porcine) (Heparin) 2,000 units IVP TTS [facility] Last Admin: 02/16/18 12:00 Dose: 2,000 units Vancomycin/Sodium Chloride (Vancomycin 1 Gm/Ns 200 Ml) 1 gm in 200 mls @ 133.333 mls/hr IVPB TTS [facility] PRN Reason: Protocol Stop: 02/23/18 10:01 Ceftriaxone Sodium 1 gm/ (Sodium Chloride) 100 mls @ 100 mls/hr IVPB Q24H [facility] PRN Reason: Protocol Last Admin: 02/16/18 17:52 Dose: 100 mls/hr Clindamycin Phosphate 300 mg/ (Sodium Chloride) 52 mls @ 104 mls/hr IVPB Q8H [facility] PRN Reason: Protocol Last Admin: 02/17/18 09:55 Dose: 104 mls/hr Insulin Glargine (Lantus) 15 unit SC [facility] Last Admin: 02/16/18 21:57 Dose: 15 unit Metoprolol Tartrate (Lopressor) 25 mg PO BID [facility] Last Admin: 02/17/18 09:16 Dose: 25 mg Midodrine (Proamatine) 5 mg PO DAILY [facility] Last Admin: 02/17/18 09:19 Dose: Not Given Multivitamins (Hexavitamin) 1 tab PO DAILY [facility] Last Admin: 02/17/18 09:16 Dose: 1 tab Yhpre-7-Uhtd Ethyl Esters (Lovaza) 2 gm PO BID [facility] Last Admin: 02/17/18 09:16 Dose: 2 gm Rosuvastatin Calcium (Crestor) 10 mg PO [facility] Last Admin: 02/16/18 21:57 Dose: 10 mg Sevelamer Carbonate (Renvela) 2,400 mg PO TID [facility] Last Admin: 02/17/18 13:18 Dose: 2,400 mg - Labs Labs: 02/17/18 11:25 02/17/18 11:25 PT 11.6 SECONDS (9.7-12.2) 02/12/18 14:30 INR 1.1 02/12/18 14:30 APTT 28 SECONDS (21-34) 02/12/18 14:30 - Constitutional Appears: No Acute Distress - Head Exam Head Exam: ATRAUMATIC, NORMAL INSPECTION, NORMOCEPHALIC - Eye Exam Eye Exam: EOMI, Normal appearance, PERRL Pupil Exam: NORMAL ACCOMODATION, PERRL - ENT Exam ENT Exam: Mucous Membranes Moist, Normal Exam - Neck Exam Neck Exam: Normal Inspection - Respiratory Exam Respiratory Exam: NORMAL BREATHING PATTERN - Cardiovascular Exam Cardiovascular Exam: REGULAR RHYTHM - GI/Abdominal Exam GI & Abdominal Exam: Soft. absent: Tenderness - Extremities Exam Extremities Exam: absent: Normal Inspection Additional comments: L arm fistula enlarged . ulceration of the skin - Back Exam Back Exam: NORMAL INSPECTION - Neurological Exam Neurological Exam: Alert, Awake, CN II-XII Intact, Normal Gait, Oriented x3 - Psychiatric Exam Psychiatric exam: Normal Affect, Normal Mood - Skin Skin Exam: Abrasion, Erythema, Warm. absent: Cyanosis, Dry, Normal Color Assessment and Plan - Assessment and Plan (Free Text) Assessment: Fistula aneurism Pt will require intervention after infection resolves f/u with his vascular surgeon at [place] to get fistula evaluated DW Dr. Gallardo
--- NOTE | 2018-02-17 15:22 | CP.PCM.PN ---
Subjective - Date & Time of Evaluation Date of Evaluation: 02/17/18 Time of Evaluation: 15:21 - Subjective Subjective: Follow up Nephrology Consultation: Assessment: Stable syncope, left AVF dysfunction/clotted with likely infection Diabetic chronic Kidney Disease (E11.22) Hypertensive Chronic Kidney Disease (I12.0) End stage renal disease (N18.6) dependence on hemodialysis (Z99.2) (TTS) via AVF Anemia (D64.9), Hyperphosphatemia (E83.39), Secondary Hyperparathyroidism (E21.1 ), HTN (I12.0) Plan: Will plan for HD tomorrow as per TTS as ordered. Continue with Nephrovite 1 tab/ day. PRBC as needed for anemia. last Hb 11.6 hence not on MACHO Continue with phos binders home dose Continue with sensipar BP control with meds as ordered. Patient not on RAAS dc as K usually high and BP low Glycemic control, Dialysis consistent diet Further work up/management as per primary team Dose meds/antibiotics for ESRD status. Avoid fleets enema/magnesium based laxatives. vascular surgery input appreciated, discussed antibiotics as per ID Thanks for allowing me to participate in care of your patient. Will follow patient with you. Please call if any Qs. had d/w team Dr Zaheer Mendes Office: [phone] ROS: Cardiovascular: No chest pain. Pulmonary: No shortness of breath Gastrointestinal: denies abdominal pain now No nausea. No vomiting. Genitourinary: No pain while urinating. Denies blood in urine. makes only small amount of urine All other negative. c/o left arm pain Physical Examination: General Appearance: Comfortable, in no acute respiratory distress, co-operative . Vitals reviewed and noted as below Head; Atraumatic, normocephalic ENT: no ulcers no thrush. Tongue is midline. Oropharynx: no rash or ulcers. EYES: he is legally blind. no icterus Neck; supple no lymphadenopathy, no thyromegaly or bruit Lungs: Normal respiratory rate/effort. Breath sounds bilateral equal clear Heart: Normal rate. s1s2 normal. No rub or gallop. Extremities: trace edema. No varicose veins. Neurological: Patient is alert, awake and oriented to person, place and time. No focal deficit. Strength bilateral appropriate and equal Skin: Warm and dry. Normal turgor. No rash. Palpitation: Normal elasticity for age Abdomen: Abdomen is soft. Bowel sounds +. There is no abdominal tenderness, no guarding/rigidity or organomegaly Psych: limited insight and has normal affect/mood MSK: no joint tenderness or swelling. Digits and nails normal, no deformity : kidney or bladder not palpable Access: AVF but no thrill or bruit. has superficial ulceration on lower part with erythema and ? pus. upper part of AVF with echymoses. has PC Labs/imaging reviewed. Past medical history, past surgical history, family history, social history, allergy reviewed and noted as below Family Hx: no hx of CKD. Non contributory Objective - Vital Signs/Intake and Output Vital Signs (last 24 hours): Temp Pulse Resp BP Pulse Ox 97.9 F 71 20 139/66 98 02/17/18 07:00 02/17/18 09:18 02/17/18 07:00 02/17/18 09:18 02/17/18 07:00 - Medications Medications: Current Medications Allopurinol (Zyloprim) 100 mg PO DAILY [facility] Last Admin: 02/17/18 09:16 Dose: 100 mg Aspirin (Ecotrin) 81 mg PO DAILY [facility] Last Admin: 02/17/18 09:16 Dose: 81 mg Carbamazepine (Tegretol-Xr) 300 mg PO BID [facility] Last Admin: 02/17/18 09:17 Dose: 300 mg Cinacalcet (Sensipar) 30 mg PO DAILY [facility] Last Admin: 02/17/18 09:17 Dose: 30 mg Clopidogrel Bisulfate (Plavix) 75 mg PO DAILY [facility] Last Admin: 02/17/18 09:16 Dose: 75 mg Docusate Sodium (Colace) 100 mg PO BID [facility] Last Admin: 02/17/18 10:43 Dose: 100 mg Famotidine (Pepcid) 20 mg PO DAILY [facility] Last Admin: 02/17/18 09:16 Dose: 20 mg Gabapentin (Neurontin) 400 mg PO DAILY [facility] Last Admin: 02/17/18 09:17 Dose: 400 mg Heparin Sodium (Porcine) (Heparin) 3,300 units IVP TTS [facility] Stop: 02/25/18 10:01 Last Admin: 02/16/18 13:30 Dose: 3,300 units Heparin Sodium (Porcine) (Heparin) 2,000 units IVP TTS [facility] Last Admin: 02/16/18 12:00 Dose: 2,000 units Vancomycin/Sodium Chloride (Vancomycin 1 Gm/Ns 200 Ml) 1 gm in 200 mls @ 133.333 mls/hr IVPB TTS [facility] PRN Reason: Protocol Stop: 02/23/18 10:01 Ceftriaxone Sodium 1 gm/ (Sodium Chloride) 100 mls @ 100 mls/hr IVPB Q24H [facility] PRN Reason: Protocol Last Admin: 02/16/18 17:52 Dose: 100 mls/hr Clindamycin Phosphate 300 mg/ (Sodium Chloride) 52 mls @ 104 mls/hr IVPB Q8H [facility] PRN Reason: Protocol Last Admin: 02/17/18 09:55 Dose: 104 mls/hr Insulin Glargine (Lantus) 15 unit SC [facility] Last Admin: 02/16/18 21:57 Dose: 15 unit Metoprolol Tartrate (Lopressor) 25 mg PO BID [facility] Last Admin: 02/17/18 09:16 Dose: 25 mg Midodrine (Proamatine) 5 mg PO DAILY [facility] Last Admin: 02/17/18 09:19 Dose: Not Given Multivitamins (Hexavitamin) 1 tab PO DAILY [facility] Last Admin: 02/17/18 09:16 Dose: 1 tab [id number] Ethyl Esters (Lovaza) 2 gm PO BID [facility] Last Admin: 02/17/18 09:16 Dose: 2 gm Rosuvastatin Calcium (Crestor) 10 mg PO [facility] Last Admin: 02/16/18 21:57 Dose: 10 mg Sevelamer Carbonate (Renvela) 2,400 mg PO TID [facility] Last Admin: 02/17/18 13:18 Dose: 2,400 mg - Labs Labs: 02/17/18 11:25 02/17/18 11:25 PT 11.6 SECONDS (9.7-12.2) 02/12/18 14:30 INR 1.1 02/12/18 14:30 APTT 28 SECONDS (21-34) 02/12/18 14:30
--- NOTE | 2018-02-17 18:31 | PN ---
DATE: 02/17/2018 SUBJECTIVE: The patient denies any dizziness or headache. PHYSICAL EXAMINATION: VITAL SIGNS: Blood pressure 139/66, heart rate , temperature 97.9, respirations 20. HEENT: Normocephalic. CHEST: Clear. HEART: S1 and S2 regular. EXTREMITIES: The left upper arm AV fistula appears to be infected. LABORATORY DATA: Hemoglobin and hematocrit 11 and 31.2, white count 3.8, and platelet count 197,000. Today's SMA-7, sodium 135, potassium 5.4, chloride 96, CO2 of 26, glucose 146, BUN 39, creatinine 8.8, Blood cultures negative after four days. ASSESSMENT: 1. Syncopal episode on admission. 2. End stage renal disease on hemodialysis. 3. Uncontrolled diabetes mellitus. 4. Thrombosed and possibly inflamed lift upper arm arteriovenous fistula. RECOMMENDATIONS I discussed Dr. Nikolay Warner, infectious disease platform consultant, who considered left upper arm AV fistula cellulitis/sepsis with clean wound abscess. Recommended continue IV antibiotics, follow up cultures and we will discuss with Dr. Gallardo from the cardiac point of view. Continue Crestor 10 mg once a day, aspirin 81 mg once a day, Intravenous heparin 3300 units TTS, multivitamin one tablet once a once day, Lopressor 25 mg twice a day, Pepcid 20 m twice a day, Plavix 75 mg once a day, Zyloprim 100 mg once a day. Nikolas Rowell MD
--- NOTE | 2018-02-17 19:13 | CP.PCM.PN ---
Subjective - Date & Time of Evaluation Date of Evaluation: 02/17/18 Time of Evaluation: 19:13 - Subjective Subjective: CHIEF COMPLAINTS TODAY : AFEBRILE on HD (TTS ) via RT PERMA CATHETER +VE C/O PAIN [place] AVF SITE ROS. HEENT : N. Resp : No cough, wheezing ,pleuritic CP ,or hemoptysis Cardio : No anginal CP, PND, orthopnea, palpitation GI : No abd.pain, n/v ,diarrhea or GI bleeding . DISPENSER OPERATOR : No headache, vertigo, focal deficit. Musculoskel : No joint swelling , Derm : No rash Psych : Normal affect. Ext : No swelling ,calf pain PE. Pt. is alert awake in no distress. V.S As noted in the chart Head ,ear nose,throat and eyes : Normal. Neck : Supple with normal carotids. Lungs: Clear air entry. Heart : S1 & S2 normal with S4. No murmur. Abd : Soft non tender with normal bowel sounds. Neuro : Moves all ext. with no localized deficit. Ext : No edema with intact pulses.Non tender calves LT. Upper Arm exam: ecchymosis (L AVF upper arm large 8cm diameter. eccymosis on upper part. Palpable, poor thrills. Warm. NO hand pain. ), erythema, swelling, tenderness ? ABSCESS LOWER PART AVF absent: crepitus Derm : No rashes or decubitus ulcer. LABS/RADIOLOGY: BLOOD CULTURE -VE X 4 DAYS WOUND CULTURE -GPC- IDENTIFICATION PENDING Objective - Vital Signs/Intake and Output Vital Signs (last 24 hours): Temp Pulse Resp BP Pulse Ox 98 F 61 20 135/79 98 02/17/18 16:44 02/17/18 16:44 02/17/18 16:44 02/17/18 17:30 02/17/18 16:44 - Medications Medications: Current Medications Allopurinol (Zyloprim) 100 mg PO DAILY [facility] Last Admin: 02/17/18 09:16 Dose: 100 mg Aspirin (Ecotrin) 81 mg PO DAILY [facility] Last Admin: 02/17/18 09:16 Dose: 81 mg Carbamazepine (Tegretol-Xr) 300 mg PO BID [facility] Last Admin: 02/17/18 17:34 Dose: 300 mg Cinacalcet (Sensipar) 30 mg PO DAILY [facility] Last Admin: 02/17/18 09:17 Dose: 30 mg Clopidogrel Bisulfate (Plavix) 75 mg PO DAILY [facility] Last Admin: 02/17/18 09:16 Dose: 75 mg Docusate Sodium (Colace) 100 mg PO BID [facility] Last Admin: 02/17/18 17:30 Dose: 100 mg Famotidine (Pepcid) 20 mg PO DAILY [facility] Last Admin: 02/17/18 09:16 Dose: 20 mg Gabapentin (Neurontin) 400 mg PO DAILY [facility] Last Admin: 02/17/18 09:17 Dose: 400 mg Heparin Sodium (Porcine) (Heparin) 3,300 units IVP TTS [facility] Stop: 02/25/18 10:01 Last Admin: 02/16/18 13:30 Dose: 3,300 units Heparin Sodium (Porcine) (Heparin) 2,000 units IVP TTS [facility] Last Admin: 02/16/18 12:00 Dose: 2,000 units Vancomycin/Sodium Chloride (Vancomycin 1 Gm/Ns 200 Ml) 1 gm in 200 mls @ 133.333 mls/hr IVPB TTS [facility] PRN Reason: Protocol Stop: 02/23/18 10:01 Ceftriaxone Sodium 1 gm/ (Sodium Chloride) 100 mls @ 100 mls/hr IVPB Q24H [facility] PRN Reason: Protocol Last Admin: 02/17/18 16:03 Dose: 100 mls/hr Clindamycin Phosphate 300 mg/ (Sodium Chloride) 52 mls @ 104 mls/hr IVPB Q8H [facility] PRN Reason: Protocol Last Admin: 02/17/18 17:28 Dose: 104 mls/hr Insulin Glargine (Lantus) 15 unit SC [facility] Last Admin: 02/16/18 21:57 Dose: 15 unit Metoprolol Tartrate (Lopressor) 25 mg PO BID [facility] Last Admin: 02/17/18 17:30 Dose: 25 mg Midodrine (Proamatine) 5 mg PO DAILY [facility] Last Admin: 02/17/18 09:19 Dose: Not Given Multivitamins (Hexavitamin) 1 tab PO DAILY [facility] Last Admin: 02/17/18 09:16 Dose: 1 tab [id number] Ethyl Esters (Lovaza) 2 gm PO BID [facility] Last Admin: 02/17/18 17:30 Dose: 2 gm Rosuvastatin Calcium (Crestor) 10 mg PO [facility] Last Admin: 02/16/18 21:57 Dose: 10 mg Sevelamer Carbonate (Renvela) 2,400 mg PO TID [facility] Last Admin: 02/17/18 17:30 Dose: 2,400 mg - Labs Labs: 02/17/18 11:25 02/17/18 11:25 PT 11.6 SECONDS (9.7-12.2) 02/12/18 14:30 INR 1.1 02/12/18 14:30 APTT 28 SECONDS (21-34) 02/12/18 14:30 Assessment and Plan (1) Abscess of arm, left Assessment & Plan: [place] AVF CELLULITUS/ABSCESS ? THROMBOSED [place] AVF POOR THRILL . DRAIN WOUND ABSCESS -GPC CONTINUE IV VANCOMYCIN 1GM IVPB TTS X 5 DOSES (IST DOSE ) PT GOT I DOSE OF GENTAMYCIN 02/15/18 100MG IVPB. ON IV ROCEPHIN 1GM IVPB Q 24HRLY 02/16/18 ADD IV CLEOCIN 300MG IVPB Q 8HRLY 02/16/18 F/U CULTURES TO ADJUST ABX . CASE DISCUSSED WITH STAFF. DOES VASCULAR SURGERY HAS ANY PLANS OF DRAINAGE ? ABSCESS / COLLECTION .WILL DISCUSS WITH DR HUANG Status: Acute (2) DM2 (diabetes mellitus, type 2) Status: Chronic (3) End-stage renal disease on hemodialysis Assessment & Plan: ON HD TTS. FOR HD IN AM Status: Chronic (4) H/O diabetic neuropathy Status: Chronic (5) H/O heart artery stent Status: Chronic (6) HTN (hypertension) Status: Chronic
--- NOTE | 2018-02-17 21:23 | CP.PCM.DIS ---
Provider - Provider Date of Admission: 02/12/18 15:24 Attending physician: Nils Lowe MD Hospital Course - Lab Results Lab Results: Micro Results 02/12/18 16:36 Blood Blood Culture - Final NO GROWTH AFTER 5 DAYS 02/12/18 16:36 Blood Gram Stain - Final TEST NOT PERFORMED 02/12/18 16:35 Blood Blood Culture - Final NO GROWTH AFTER 5 DAYS 02/12/18 16:35 Blood Gram Stain - Final TEST NOT PERFORMED 02/15/18 19:44 Arm - Left Gram Stain - Final 02/15/18 19:44 Arm - Left Wound Culture - Preliminary Gram Positive Cocci Most Recent Lab Values WBC 3.8 K/uL (4.8-10.8) L 02/17/18 11:25 RBC 3.24 Mil/uL (4.40-5.90) L 02/17/18 11:25 Hgb 11.0 g/dL (12.0-18.0) L 02/17/18 11:25 Hct 31.2 % (35.0-51.0) L 02/17/18 11:25 MCV 96.2 fL (80.0-94.0) H 02/17/18 11:25 MCH 33.8 pg (27.0-31.0) H 02/17/18 11:25 MCHC 35.1 g/dL (33.0-37.0) 02/17/18 11:25 RDW 17.1 % (11.5-14.5) H 02/17/18 11:25 Plt Count 197 K/uL (130-400) 02/17/18 11:25 MPV 7.5 fL (7.2-11.7) 02/17/18 11:25 Neut % (Auto) 66.1 % (50.0-75.0) 02/17/18 11:25 Lymph % (Auto) 20.0 % (20.0-40.0) 02/17/18 11:25 Ro[place] % (Auto) 8.4 % (0.0-10.0) 02/17/18 11:25 Eos % (Auto) 4.3 % (0.0-4.0) H 02/17/18 11:25 Baso % (Auto) 1.2 % (0.0-2.0) 02/17/18 11:25 Neut # (Auto) 2.5 K/uL (1.8-7.0) 02/17/18 11:25 Lymph # (Auto) 0.8 K/uL (1.0-4.3) L 02/17/18 11:25 [place] # (Auto) 0.3 K/uL (0.0-0.8) 02/17/18 11:25 Eos # (Auto) 0.2 K/uL (0.0-0.7) 02/17/18 11:25 Baso # (Auto) 0.0 K/uL (0.0-0.2) 02/17/18 11:25 PT 11.6 SECONDS (9.7-12.2) 02/12/18 14:30 INR 1.1 02/12/18 14:30 APTT 28 SECONDS (21-34) 02/12/18 14:30 Puncture Site Rba 02/12/18 16:00 pCO2 41 mm/Hg (35-45) 02/12/18 16:00 pO2 84 mm/Hg (80-100) 02/12/18 16:00 HCO3 23.2 mmol/L (21-28) 02/12/18 16:00 ABG pH 7.36 (7.35-7.45) 02/12/18 16:00 ABG Total CO2 24.5 mmol/L (22-28) 02/12/18 16:00 ABG O2 Saturation 95.0 % (95-98) 02/12/18 16:00 ABG Base Excess -2.1 mmol/L (-2.0-3.0) L 02/12/18 16:00 ABG Hemoglobin 11.2 g/dL (11.7-17.4) L 02/12/18 16:00 ABG Carboxyhemoglobin 0.3 % (0.5-1.5) L 02/12/18 16:00 POC ABG HHb (Measured) 5.0 % (0.0-5.0) 02/12/18 16:00 ABG Methemoglobin 0.2 % (0.0-3.0) 02/12/18 16:00 [place]vain Test Pos 02/12/18 16:00 A-a O2 Difference 14.0 mm/Hg 02/12/18 16:00 Respiratory Index 0.2 02/12/18 16:00 Hgb O2 Saturation 94.5 % (95.0-98.0) L 02/12/18 16:00 FiO2 21.0 % 02/12/18 16:00 Sodium 135 mmol/L (132-148) 02/17/18 11:25 Potassium 5.4 mmol/L (3.6-5.2) H 02/17/18 11:25 Chloride 93 mmol/L (98-107) L 02/17/18 11:25 Carbon Dioxide 26 mmol/L (22-30) 02/17/18 11:25 Anion Gap 21 (10-20) H 02/17/18 11:25 BUN 39 mg/dL (9-20) H 02/17/18 11:25 Creatinine 8.8 mg/dL (0.8-1.5) H* D 02/17/18 11:25 Est GFR ( Amer) 7 02/17/18 11:25 Est GFR (Non-Af Amer) 6 02/17/18 11:25 POC Glucose (mg/dL) 186 mg/dL (65-110) H 02/17/18 20:50 Random Glucose 247 mg/dL (75-110) H 02/17/18 11:25 Calcium 8.2 mg/dl (8.6-10.4) L 02/17/18 11:25 Phosphorus 6.4 mg/dL (2.5-4.5) H 02/16/18 06:27 Magnesium 2.4 mg/dL (1.6-2.3) H 02/16/18 06:27 Total Bilirubin 0.3 mg/dL (0.2-1.3) 02/17/18 11:25 AST 17 U/L (17-59) 02/17/18 11:25 ALT 15 U/L (21-72) L 02/17/18 11:25 Alkaline Phosphatase 138 U/L (38-126) H 02/17/18 11:25 Troponin I 0.0320 ng/mL (0.00-0.120) 02/12/18 14:30 Total Protein 6.5 g/dL (6.3-8.3) 02/17/18 11:25 Albumin 4.0 g/dL (3.5-5.0) 02/17/18 11:25 Globulin 2.6 gm/dL (2.2-3.9) 02/17/18 11:25 Albumin/Globulin Ratio 1.5 (1.0-2.1) 02/17/18 11:25 Random Vancomycin 13.5 ug/mL 02/16/18 06:27 Discharge Exam - Head Exam Head Exam: ATRAUMATIC, NORMAL INSPECTION, NORMOCEPHALIC Discharge Plan - Follow Up Plan Condition: STABLE Disposition: HOME/ ROUTINE
[2018-02-17] MEDS: (Lantus) Insulin Glargine, Recombinant SC SCH (21:46)
[2018-02-18] MEDS: Clindamycin 300 MG in Sodium Chloride 0.9% 50 ML IVPB SCH ×3 (00:19→18:05)
--- NOTE | 2018-02-18 03:02 | PN ---
DATE: 02/17/2018 SUBJECTIVE: The patient was seen by Nephrology. The patient was also seen by Surgery and discussion was taken place between me and the specialist. The patient is afebrile. No shortness of breath. No distress. No nausea or vomiting. PHYSICAL EXAMINATION: VITAL SIGNS: BP 131/79, pulse 61, respiratory rate 20, and temperature 98. LUNGS: Clear. CARDIOVASCULAR SYSTEM: S1 and S2 are regular. ABDOMEN: Soft. ASSESSMENT: 1. Infection of the arteriovenous fistula. 2. Chronic kidney disease, on hemodialysis. 3. Type 2 diabetes. 4. Hypertension. PLAN: Continue current medication. Monitor the patient. Nils Lowe MD
[2018-02-18] MEDS: Omega-3-Acid Ethyl Esters 1 GM Cap PO SCH ×2 (09:31→18:58)
[2018-02-18] MEDS: Multiple Vitamins Tab PO SCH (09:31)
[2018-02-18] MEDS ORDERED: Vancomycin 1 gm/NS 200 ml 1 GM/200 ML BAG IVPB SCH (10:00)
--- NOTE | 2018-02-18 13:49 | CP.PCM.PN ---
Subjective - Date & Time of Evaluation Date of Evaluation: 02/18/18 Time of Evaluation: 13:49 - Subjective Subjective: CHIEF COMPLAINTS TODAY : AFEBRILE for HD today (TTS ) via RT PERMA CATHETER +VE no new complaints ROS. HEENT : N. Resp : No cough, wheezing ,pleuritic CP ,or hemoptysis Cardio : No anginal CP, PND, orthopnea, palpitation GI : No abd.pain, n/v ,diarrhea or GI bleeding . BODY PRESSER : No headache, vertigo, focal deficit. Musculoskel : No joint swelling , Derm : No rash Psych : Normal affect. Ext : No swelling ,calf pain PE. Pt. is alert awake in no distress. V.S As noted in the chart Head ,ear nose,throat and eyes : Normal. Neck : Supple with normal carotids. Lungs: Clear air entry. Heart : S1 & S2 normal with S4. No murmur. Abd : Soft non tender with normal bowel sounds. Neuro : Moves all ext. with no localized deficit. Ext : No edema with intact pulses.Non tender calves LT. Upper Arm exam: ecchymosis (L AVF upper arm large 8cm diameter. eccymosis on upper part. Palpable, poor thrills. Warm. NO hand pain. ), erythema, swelling, tenderness ? ABSCESS LOWER PART AVF absent: crepitus Derm : No rashes or decubitus ulcer. LABS/RADIOLOGY: BLOOD CULTURE -VE X to date WOUND CULTURE -GPC- SCN PLAN. VASCULAR SURGERY F/U NOTED. NO INTERVENTION NOW. CASE DISCUSSED WITH NEON TECHNICIAN MR CORTEZ. CONTINUE IV VANCOMYCIN 1GM POST EACH HD TTS X TOTAL OF 6 WKS F/U VANCO TROUGH WKLY AND KEEP BETWEEN 10-20MG/ML F/U CBC WKLY. NOTIFY PMD IF ANY REACTION OR SIDE EFFECT. F/U OPD IN 2WKS Objective - Vital Signs/Intake and Output Vital Signs (last 24 hours): Temp Pulse Resp BP Pulse Ox 97.3 F L 66 20 154/78 H 95 02/18/18 08:00 02/18/18 08:00 02/18/18 08:00 02/18/18 08:00 02/18/18 08:00 - Medications Medications: Current Medications Allopurinol (Zyloprim) 100 mg PO DAILY [facility] Last Admin: 02/18/18 10:43 Dose: Not Given Aspirin (Ecotrin) 81 mg PO DAILY [facility] Last Admin: 02/18/18 09:32 Dose: Not Given Carbamazepine (Tegretol-Xr) 300 mg PO BID [facility] Last Admin: 02/18/18 10:43 Dose: Not Given Cinacalcet (Sensipar) 30 mg PO DAILY [facility] Last Admin: 02/18/18 10:43 Dose: Not Given Clopidogrel Bisulfate (Plavix) 75 mg PO DAILY [facility] Last Admin: 02/18/18 09:31 Dose: 75 mg Docusate Sodium (Colace) 100 mg PO BID [facility] Last Admin: 02/18/18 09:31 Dose: 100 mg Famotidine (Pepcid) 20 mg PO DAILY [facility] Last Admin: 02/18/18 09:31 Dose: 20 mg Gabapentin (Neurontin) 400 mg PO DAILY [facility] Last Admin: 02/18/18 09:31 Dose: Not Given Heparin Sodium (Porcine) (Heparin) 3,300 units IVP TTS [facility] Stop: 02/25/18 10:01 Last Admin: 02/18/18 10:42 Dose: Not Given Heparin Sodium (Porcine) (Heparin) 2,000 units IVP TTS [facility] Last Admin: 02/18/18 10:42 Dose: Not Given Vancomycin/Sodium Chloride (Vancomycin 1 Gm/Ns 200 Ml) 1 gm in 200 mls @ 133.333 mls/hr IVPB TTS [facility] PRN Reason: Protocol Stop: 02/23/18 10:01 Last Admin: 02/18/18 10:43 Dose: Not Given Ceftriaxone Sodium 1 gm/ (Sodium Chloride) 100 mls @ 100 mls/hr IVPB Q24H [facility] PRN Reason: Protocol Last Admin: 02/17/18 16:03 Dose: 100 mls/hr Clindamycin Phosphate 300 mg/ (Sodium Chloride) 52 mls @ 104 mls/hr IVPB Q8H [facility] PRN Reason: Protocol Last Admin: 02/18/18 09:32 Dose: Not Given Insulin Glargine (Lantus) 15 unit SC [facility] Last Admin: 02/17/18 21:46 Dose: 15 unit Metoprolol Tartrate (Lopressor) 25 mg PO BID [facility] Last Admin: 02/18/18 09:31 Dose: Not Given Midodrine (Proamatine) 5 mg PO DAILY [facility] Last Admin: 09/08/18 09:31 Dose: Not Given Multivitamins (Hexavitamin) 1 tab PO DAILY [facility] Last Admin: 02/18/18 09:31 Dose: 1 tab [id number] Ethyl Esters (Lovaza) 2 gm PO BID [facility] Last Admin: 02/18/18 09:31 Dose: Not Given Rosuvastatin Calcium (Crestor) 10 mg PO HS [facility] Last Admin: 02/17/18 21:46 Dose: 10 mg Sevelamer Carbonate (Renvela) 2,400 mg PO TID [facility] Last Admin: 02/18/18 09:31 Dose: 2,400 mg - Labs Labs: 02/17/18 11:25 02/17/18 11:25 PT 11.6 SECONDS (9.7-12.2) 02/12/18 14:30 INR 1.1 02/12/18 14:30 APTT 28 SECONDS (21-34) 02/12/18 14:30 Assessment and Plan (1) Abscess of arm, left Status: Acute (2) DM2 (diabetes mellitus, type 2) Status: Chronic (3) End-stage renal disease on hemodialysis Status: Chronic (4) H/O diabetic neuropathy Status: Chronic (5) H/O heart artery stent Status: Chronic (6) HTN (hypertension) Status: Chronic
--- NOTE | 2018-02-18 14:15 | CP.PCM.PN ---
Subjective - Date & Time of Evaluation Date of Evaluation: 02/18/18 Time of Evaluation: 14:15 Objective - Vital Signs/Intake and Output Vital Signs (last 24 hours): Temp Pulse Resp BP Pulse Ox 97.3 F L 66 20 154/78 H 95 02/18/18 08:00 02/18/18 08:00 02/18/18 08:00 02/18/18 08:00 02/18/18 08:00 - Medications Medications: Current Medications Allopurinol (Zyloprim) 100 mg PO DAILY [facility] Last Admin: 02/18/18 10:43 Dose: Not Given Aspirin (Ecotrin) 81 mg PO DAILY [facility] Last Admin: 02/18/18 09:32 Dose: Not Given Carbamazepine (Tegretol-Xr) 300 mg PO BID [facility] Last Admin: 02/18/18 10:43 Dose: Not Given Cinacalcet (Sensipar) 30 mg PO DAILY [facility] Last Admin: 02/18/18 10:43 Dose: Not Given Clopidogrel Bisulfate (Plavix) 75 mg PO DAILY [facility] Last Admin: 02/18/18 09:31 Dose: 75 mg Docusate Sodium (Colace) 100 mg PO BID [facility] Last Admin: 02/18/18 09:31 Dose: 100 mg Famotidine (Pepcid) 20 mg PO DAILY [facility] Last Admin: 02/18/18 09:31 Dose: 20 mg Gabapentin (Neurontin) 400 mg PO DAILY [facility] Last Admin: 02/18/18 09:31 Dose: Not Given Heparin Sodium (Porcine) (Heparin) 3,300 units IVP TTS [facility] Stop: 02/25/18 10:01 Last Admin: 02/18/18 10:42 Dose: Not Given Heparin Sodium (Porcine) (Heparin) 2,000 units IVP TTS [facility] Last Admin: 02/18/18 10:42 Dose: Not Given Vancomycin/Sodium Chloride (Vancomycin 1 Gm/Ns 200 Ml) 1 gm in 200 mls @ 133.333 mls/hr IVPB TTS [facility] PRN Reason: Protocol Stop: 02/23/18 10:01 Last Admin: 02/18/18 10:43 Dose: Not Given Ceftriaxone Sodium 1 gm/ (Sodium Chloride) 100 mls @ 100 mls/hr IVPB Q24H [facility] PRN Reason: Protocol Last Admin: 02/17/18 16:03 Dose: 100 mls/hr Clindamycin Phosphate 300 mg/ (Sodium Chloride) 52 mls @ 104 mls/hr IVPB Q8H [facility] PRN Reason: Protocol Last Admin: 02/18/18 09:32 Dose: Not Given Insulin Glargine (Lantus) 15 unit SC [facility] Last Admin: 02/17/18 21:46 Dose: 15 unit Metoprolol Tartrate (Lopressor) 25 mg PO BID [facility] Last Admin: 02/18/18 09:31 Dose: Not Given Midodrine (Proamatine) 5 mg PO DAILY [facility] Last Admin: 02/18/18 09:31 Dose: Not Given Multivitamins (Hexavitamin) 1 tab PO DAILY [facility] Last Admin: 02/18/18 09:31 Dose: 1 tab Jpyeh-5-Htvl Ethyl Esters (Lovaza) 2 gm PO BID [facility] Last Admin: 02/18/18 09:31 Dose: Not Given Rosuvastatin Calcium (Crestor) 10 mg PO [facility] Last Admin: 02/17/18 21:46 Dose: 10 mg Sevelamer Carbonate (Renvela) 2,400 mg PO TID [facility] Last Admin: 02/18/18 09:31 Dose: 2,400 mg - Labs Labs: 02/17/18 11:25 02/17/18 11:25 PT 11.6 SECONDS (9.7-12.2) 02/12/18 14:30 INR 1.1 02/12/18 14:30 APTT 28 SECONDS (21-34) 02/12/18 14:30 Assessment and Plan - Assessment and Plan (Free Text) Assessment: FOLLOW UP WITH DR HARDIN AT HIS OFFICE ---CALL FOR APPOINTMENT FOLLOW UP WITH DR HUANG AT HIS OFFICE ---CALL FOR APPOINMENT FOLLOW UP WITH DR CARROLL IN 2 WEEKS AT HER OFFICE ---CALL FOR APPOITMENT CONTINUE HOME MEDICATION NEW PRESCRIPTION GIVEN VANCO 1 G IVPB TTHS FOR 6 WEEKS VANCO THROUGH WEEKLY AND RESULT SEND TO DR CARROLL AND DR HARDIN OFFICE [facility] SCHEDULE CALL DR HARDIN OR GO TO THE EMERGENCY ROOM IF SYMPTOMS RETURN OR WORSENING
[2018-02-18 15:11] VITALS: RESP 18
--- NOTE | 2018-02-18 17:47 | PN ---
DATE: 02/18/2018 SUBJECTIVE: The patient denies any chest pain. Telemetry was discontinued yesterday. PHYSICAL EXAMINATION: VITAL SIGNS: Blood pressure 154/78, heart rate 66, temperature 97.2, respirations 20. HEENT: Normocephalic. CHEST: Clear. HEART: S1 and S2 regular. EXTREMITIES: Inflamed slightly tender left upper arm AV shunt. LABORATORY DATA: Today's blood sugars are 117 and 181 respectively. ASSESSMENT: 1. Thrombosed and inflamed left upper arm arteriovenous shunt. 2. Syncopal episode. 3. End-stage renal disease, on hemodialysis. 4. Uncontrolled diabetes mellitus. RECOMMENDATIONS: Regarding syncope, no further cardiac workup is indicated at this time. Continue current IV Rocephin at 1 g daily, Crestor 10 mg once a day, Plavix 75 mg once a day, Pepcid 20 mg orally daily. Nikolas Rowell MD
--- NOTE | 2018-02-18 17:58 | CP.PCM.PN ---
Subjective - Date & Time of Evaluation Date of Evaluation: 02/18/18 Time of Evaluation: 17:57 - Subjective Subjective: Follow up Nephrology Consultation: Assessment: Stable syncope, left AVF dysfunction/clotted with likely infection Diabetic chronic Kidney Disease (E11.22) Hypertensive Chronic Kidney Disease (I12.0) End stage renal disease (N18.6) dependence on hemodialysis (Z99.2) (TTS) via AVF Anemia (D64.9), Hyperphosphatemia (E83.39), Secondary Hyperparathyroidism (E21.1 ), HTN (I12.0) Plan: Will plan for HD today as per TTS as ordered. Continue with Nephrovite 1 tab/ day. PRBC as needed for anemia. last Hb 11.6 hence not on MACHO Continue with phos binders home dose Continue with sensipar BP control with meds as ordered. Patient not on RAAS dc as K usually high and BP low Glycemic control, Dialysis consistent diet Further work up/management as per primary team Dose meds/antibiotics for ESRD status. Avoid fleets enema/magnesium based laxatives. vascular surgery input appreciated, discussed antibiotics as per ID Thanks for allowing me to participate in care of your patient. Will follow patient with you. Please call if any Qs. had d/w team Dr Zaheer Mendes Office: [phone] ROS: Cardiovascular: No chest pain. Pulmonary: No shortness of breath Gastrointestinal: denies abdominal pain now No nausea. No vomiting. Genitourinary: No pain while urinating. Denies blood in urine. makes only small amount of urine All other negative. Physical Examination: seen on HD General Appearance: Comfortable, in no acute respiratory distress, co-operative . Vitals reviewed and noted as below Head; Atraumatic, normocephalic ENT: no ulcers no thrush. Tongue is midline. Oropharynx: no rash or ulcers. EYES: he is legally blind. no icterus Neck; supple no lymphadenopathy, no thyromegaly or bruit Lungs: Normal respiratory rate/effort. Breath sounds bilateral equal clear Heart: Normal rate. s1s2 normal. No rub or gallop. Extremities: trace edema. No varicose veins. Neurological: Patient is alert, awake and oriented to person, place and time. No focal deficit. Strength bilateral appropriate and equal Skin: Warm and dry. Normal turgor. No rash. Palpitation: Normal elasticity for age Abdomen: Abdomen is soft. Bowel sounds +. There is no abdominal tenderness, no guarding/rigidity or organomegaly Psych: limited insight and has normal affect/mood MSK: no joint tenderness or swelling. Digits and nails normal, no deformity : kidney or bladder not palpable Access: AVF but no thrill or bruit. has superficial ulceration on lower part with erythema and serous drainage ? pus. upper part of AVF with echymoses. has PC Labs/imaging reviewed. Past medical history, past surgical history, family history, social history, allergy reviewed and noted as below Family Hx: no hx of CKD. Non contributory Objective - Vital Signs/Intake and Output Vital Signs (last 24 hours): Temp Pulse Resp BP Pulse Ox 97.2 F L 67 18 110/47 L 95 02/18/18 14:10 02/18/18 14:10 02/18/18 14:10 02/18/18 16:30 02/18/18 08:00 - Medications Medications: Current Medications Allopurinol (Zyloprim) 100 mg PO DAILY [facility] Last Admin: 02/18/18 10:43 Dose: Not Given Aspirin (Ecotrin) 81 mg PO DAILY [facility] Last Admin: 02/18/18 09:32 Dose: Not Given Carbamazepine (Tegretol-Xr) 300 mg PO BID [facility] Last Admin: 02/18/18 10:43 Dose: Not Given Cinacalcet (Sensipar) 30 mg PO DAILY [facility] Last Admin: 02/18/18 10:43 Dose: Not Given Clopidogrel Bisulfate (Plavix) 75 mg PO DAILY [facility] Last Admin: 02/18/18 09:31 Dose: 75 mg Docusate Sodium (Colace) 100 mg PO BID [facility] Last Admin: 02/18/18 09:31 Dose: 100 mg Famotidine (Pepcid) 20 mg PO DAILY [facility] Last Admin: 02/18/18 09:31 Dose: 20 mg Gabapentin (Neurontin) 400 mg PO DAILY [facility] Last Admin: 02/18/18 09:31 Dose: Not Given Heparin Sodium (Porcine) (Heparin) 3,300 units IVP TTS [facility] Stop: 02/25/18 10:01 Last Admin: 02/18/18 10:42 Dose: Not Given Heparin Sodium (Porcine) (Heparin) 2,000 units IVP TTS [facility] Last Admin: 02/18/18 15:37 Dose: 2,000 units Vancomycin/Sodium Chloride (Vancomycin 1 Gm/Ns 200 Ml) 1 gm in 200 mls @ 133.333 mls/hr IVPB TTS [facility] PRN Reason: Protocol Stop: 02/23/18 10:01 Last Admin: 02/18/18 10:43 Dose: Not Given Ceftriaxone Sodium 1 gm/ (Sodium Chloride) 100 mls @ 100 mls/hr IVPB Q24H [facility] PRN Reason: Protocol Last Admin: 02/17/18 16:03 Dose: 100 mls/hr Clindamycin Phosphate 300 mg/ (Sodium Chloride) 52 mls @ 104 mls/hr IVPB Q8H [facility] PRN Reason: Protocol Last Admin: 02/18/18 09:32 Dose: Not Given Insulin Glargine (Lantus) 15 unit SC [facility] Last Admin: 02/17/18 21:46 Dose: 15 unit Metoprolol Tartrate (Lopressor) 25 mg PO BID [facility] Last Admin: 02/18/18 09:31 Dose: Not Given Midodrine (Proamatine) 5 mg PO DAILY [facility] Last Admin: 02/18/18 15:36 Dose: 5 mg Multivitamins (Hexavitamin) 1 tab PO DAILY [facility] Last Admin: 02/18/18 09:31 Dose: 1 tab Znodc-5-Hzyi Ethyl Esters (Lovaza) 2 gm PO BID [facility] Last Admin: 02/18/18 09:31 Dose: Not Given Rosuvastatin Calcium (Crestor) 10 mg PO [facility] Last Admin: 02/17/18 21:46 Dose: 10 mg Sevelamer Carbonate (Renvela) 2,400 mg PO TID [facility] Last Admin: 02/18/18 14:32 Dose: Not Given - Labs Labs: 02/17/18 11:25 02/17/18 11:25 PT 11.6 SECONDS (9.7-12.2) 02/12/18 14:30 INR 1.1 02/12/18 14:30 APTT 28 SECONDS (21-34) 02/12/18 14:30
[2018-02-18 18:53] VITALS: BP 95/42; PULSE 70; TEMP 97.7; O2SAT 100
--- NOTE | 2018-02-19 00:49 | CP.PCM.DIS ---
Provider - Provider Date of Admission: 02/12/18 15:24 Attending physician: Nils Lowe MD Diagnosis - Discharge Diagnosis (1) Cellulitis Status: Acute Priority: High (2) ESRD (end stage renal disease) Status: Chronic Priority: Medium (3) DM2 (diabetes mellitus, type 2) Status: Chronic Priority: Low (4) H/O diabetic neuropathy Status: Chronic Priority: Medium (5) HTN (hypertension) Status: Chronic Priority: Medium Hospital Course - Lab Results Lab Results: Micro Results 02/15/18 19:44 Arm - Left Gram Stain - Final 02/15/18 19:44 Arm - Left Wound Culture - Final Coagulase Neg Staphylococcus 02/12/18 16:36 Blood Blood Culture - Final NO GROWTH AFTER 5 DAYS 02/12/18 16:36 Blood Gram Stain - Final TEST NOT PERFORMED 02/12/18 16:35 Blood Blood Culture - Final NO GROWTH AFTER 5 DAYS 02/12/18 16:35 Blood Gram Stain - Final TEST NOT PERFORMED Most Recent Lab Values WBC 3.8 K/uL (4.8-10.8) L 02/17/18 11:25 RBC 3.24 Mil/uL (4.40-5.90) L 02/17/18 11:25 Hgb 11.0 g/dL (12.0-18.0) L 02/17/18 11:25 Hct 31.2 % (35.0-51.0) L 02/17/18 11:25 MCV 96.2 fL (80.0-94.0) H 02/17/18 11:25 MCH 33.8 pg (27.0-31.0) H 02/17/18 11:25 MCHC 35.1 g/dL (33.0-37.0) 02/17/18 11:25 RDW 17.1 % (11.5-14.5) H 02/17/18 11:25 Plt Count 197 K/uL (130-400) 02/17/18 11:25 MPV 7.5 fL (7.2-11.7) 02/17/18 11:25 Neut % (Auto) 66.1 % (50.0-75.0) 02/17/18 11:25 Lymph % (Auto) 20.0 % (20.0-40.0) 02/17/18 11:25 [place] % (Auto) 8.4 % (0.0-10.0) 02/17/18 11:25 Eos % (Auto) 4.3 % (0.0-4.0) H 02/17/18 11:25 Baso % (Auto) 1.2 % (0.0-2.0) 02/17/18 11:25 Neut # (Auto) 2.5 K/uL (1.8-7.0) 02/17/18 11:25 Lymph # (Auto) 0.8 K/uL (1.0-4.3) L 02/17/18 11:25 [place] # (Auto) 0.3 K/uL (0.0-0.8) 02/17/18 11:25 Eos # (Auto) 0.2 K/uL (0.0-0.7) 02/17/18 11:25 Baso # (Auto) 0.0 K/uL (0.0-0.2) 02/17/18 11:25 PT 11.6 SECONDS (9.7-12.2) 02/12/18 14:30 INR 1.1 02/12/18 14:30 APTT 28 SECONDS (21-34) 02/12/18 14:30 Puncture Site Rba 02/12/18 16:00 pCO2 41 mm/Hg (35-45) 02/12/18 16:00 pO2 84 mm/Hg (80-100) 02/12/18 16:00 HCO3 23.2 mmol/L (21-28) 02/12/18 16:00 ABG pH 7.36 (7.35-7.45) 02/12/18 16:00 ABG Total CO2 24.5 mmol/L (22-28) 02/12/18 16:00 ABG O2 Saturation 95.0 % (95-98) 02/12/18 16:00 ABG Base Excess -2.1 mmol/L (-2.0-3.0) L 02/12/18 16:00 ABG Hemoglobin 11.2 g/dL (11.7-17.4) L 02/12/18 16:00 ABG Carboxyhemoglobin 0.3 % (0.5-1.5) L 02/12/18 16:00 POC ABG HHb (Measured) 5.0 % (0.0-5.0) 02/12/18 16:00 ABG Methemoglobin 0.2 % (0.0-3.0) 02/12/18 16:00 [place] Test Pos 02/12/18 16:00 A-a O2 Difference 14.0 mm/Hg 02/12/18 16:00 Respiratory Index 0.2 02/12/18 16:00 Hgb O2 Saturation 94.5 % (95.0-98.0) L 02/12/18 16:00 FiO2 21.0 % 02/12/18 16:00 Sodium 135 mmol/L (132-148) 02/17/18 11:25 Potassium 5.4 mmol/L (3.6-5.2) H 02/17/18 11:25 Chloride 93 mmol/L (98-107) L 02/17/18 11:25 Carbon Dioxide 26 mmol/L (22-30) 02/17/18 11:25 Anion Gap 21 (10-20) H 02/17/18 11:25 BUN 39 mg/dL (9-20) H 02/17/18 11:25 Creatinine 8.8 mg/dL (0.8-1.5) H* D 02/17/18 11:25 Est GFR ( Amer) 7 02/17/18 11:25 Est GFR (Non-Af Amer) 6 02/17/18 11:25 POC Glucose (mg/dL) 162 mg/dL (65-110) H 02/18/18 16:23 Random Glucose 247 mg/dL (75-110) H 02/17/18 11:25 Calcium 8.2 mg/dl (8.6-10.4) L 02/17/18 11:25 Phosphorus 6.4 mg/dL (2.5-4.5) H 02/16/18 06:27 Magnesium 2.4 mg/dL (1.6-2.3) H 02/16/18 06:27 Total Bilirubin 0.3 mg/dL (0.2-1.3) 02/17/18 11:25 AST 17 U/L (17-59) 02/17/18 11:25 ALT 15 U/L (21-72) L 02/17/18 11:25 Alkaline Phosphatase 138 U/L (38-126) H 02/17/18 11:25 Troponin I 0.0320 ng/mL (0.00-0.120) 02/12/18 14:30 Total Protein 6.5 g/dL (6.3-8.3) 02/17/18 11:25 Albumin 4.0 g/dL (3.5-5.0) 02/17/18 11:25 Globulin 2.6 gm/dL (2.2-3.9) 02/17/18 11:25 Albumin/Globulin Ratio 1.5 (1.0-2.1) 02/17/18 11:25 Random Vancomycin 13.5 ug/mL 02/16/18 06:27 Discharge Exam - Head Exam Head Exam: ATRAUMATIC, NORMAL INSPECTION, NORMOCEPHALIC Discharge Plan - Discharge Medications Prescriptions: Vancomycin 1 GM [Vancomycin 1GM in Normal Saline Addvantage] 1 gm IVPB TTS 42 Days bag - Follow Up Plan Condition: STABLE Disposition: HOME/ ROUTINE Instructions: Syncope (Fainting) (DC), Cellulitis (Skin Infection), Adult (DC) Additional Instructions: FOLLOW UP WITH DR LOWE AT HIS OFFICE ---CALL FOR APPOINTMENT FOLLOW UP WITH DR HUANG AT HIS OFFICE ---CALL FOR APPOINMENT FOLLOW UP WITH DR WARNER IN 2 WEEKS AT HER OFFICE ---CALL FOR APPOITMENT CONTINUE HOME MEDICATION NEW PRESCRIPTION GIVEN VANCO 1 G IVPB TTHS FOR 6 WEEKS VANCO THROUGH WEEKLY AND RESULT SEND TO DR WARNER AND DR LOWE OFFICE [facility] SCHEDULE CALL DR LOWE OR GO TO THE EMERGENCY ROOM IF SYMPTOMS RETURN OR WORSENING Referrals: Nikolay Warner MD [Staff Provider] - Nils Lowe MD [Staff Provider] - Leonard Huang Jr., MD [Staff Provider] -
== END 2018-02-18 20:37 | disposition home or self-care (01) | DRG 314 ==
LOC: C.ER 13:09 → C.9E 15:24 → C.5S 18:42
PROVIDERS: ADMIT Internal Medicine; ATTEND Internal Medicine
PROC: 5A1D70Z Performance of Urinary Filtration, Intermittent, Less than 6 Hours Per Day (ICD-10-PCS; principal; 2018-02-14)
PROC: 5A1D70Z Performance of Urinary Filtration, Intermittent, Less than 6 Hours Per Day (ICD-10-PCS; 2018-02-16)
DX: T82.7XXA Infection and inflammatory reaction due to other cardiac and vascular devices, implants and grafts, initial encounter (principal); N18.6 End stage renal disease; I13.2 Hypertensive heart and chronic kidney disease with heart failure and with stage 5 chronic kidney disease, or end stage renal disease; N25.81 Secondary hyperparathyroidism of renal origin; I25.10 Atherosclerotic heart disease of native coronary artery without angina pectoris; I50.9 Heart failure, unspecified; H54.7 Unspecified visual loss; G47.30 Sleep apnea, unspecified; Z87.891 Personal history of nicotine dependence; Z95.5 Presence of coronary angioplasty implant and graft; Z99.2 Dependence on renal dialysis; E78.5 Hyperlipidemia, unspecified; E11.65 Type 2 diabetes mellitus with hyperglycemia; E11.22 Type 2 diabetes mellitus with diabetic chronic kidney disease; D64.9 Anemia, unspecified; Z79.4 Long term (current) use of insulin

== ENCOUNTER 2018-08-04 17:45 | Emergency (ER) | payer MEDICARE, OTHER ==
[2018-08-04 17:45] VITALS: BMI 33.5
[2018-08-04 18:07] VITALS: PULSE 70
--- NOTE | 2018-08-04 18:42 | C.PDOC ---
History Of Present Illness 63 year old male brought by to ED with complaint of non-tender blister on the left heel for one day. He states it occasionally "gets this way with fluid overload." Patient goes to dialysis on Tuesdays, , and Saturdays and went to his appointment yesterday. Patient states the blister was normal and pick in color yesterday, but became dark and discolored today. Patient denies any numbness, weakness, or discharge. Time Seen by Provider: 08/04/18 18:17 Chief Complaint (Nursing): Lower Extremity Problem/Injury History Per: Patient History/Exam Limitations: no limitations Onset/Duration Of Symptoms: Days (1) Current Symptoms Are (Timing): Still Present Past Medical History Reviewed: Historical Data, Nursing Documentation, Vital Signs Vital Signs: Last Vital Signs Temp 98.3 F 08/04/18 17:49 Pulse 70 08/04/18 17:49 Resp 18 08/04/18 17:49 BP 119/59 L 08/04/18 17:49 Pulse Ox 98 08/04/18 17:49 - Medical History PMH: Anemia, CAD (ATHEROSCLEROSIS), CHF, CVA (with residual mild gait instability), Diabetes (NIDDM), HTN, Hypercholesterolemia, Pneumonia, End Stage Renal Disease (AV SHUNT, DIALYSIS (-)), Chronic Kidney Disease, Seizures, TIA Denies: Kidney Stones Surgical History: Coronary Stent (X2) - [facility] (02/12/18) HEMODIALYSIS (12/29/14) PACKED CELL TRANSFUSION (03/05/14) PERFORMANCE OF URINARY FILTRATION, SINGLE (08/28/16) VACCINATION NEC (02/23/14) Family History: States: Unknown Family Hx - Social History Hx Tobacco Use: No Hx Alcohol Use: No Hx Substance Use: No - Immunization History Hx Tetanus Toxoid Vaccination: Yes Hx Influenza Vaccination: Yes Hx Pneumococcal Vaccination: Yes Review Of Systems Constitutional: Negative for: Fever, Chills, Weakness Musculoskeletal: Positive for: Other (Nontender blister on the left heel, dark and discolored). Negative for: Leg Pain Skin: Negative for: Rash, Lesions Neurological: Negative for: Weakness, Numbness, Dizziness Physical Exam - Physical Exam Appears: Well, Non-toxic, No Acute Distress, Other (Obese, male, deviated gaze at baseline) Skin: Normal Color, Warm, Dry Head: Atraumatic, Normacephalic Neck: Normal ROM, Supple Chest: Symmetrical, No Deformity Cardiovascular: Rhythm Regular, No Murmur Respiratory: No Accessory Muscle Use Gastrointestinal/Abdominal: Other (obese) Extremity: Other (2/4 pitting edema on bilateral lower extremities, obese) Extremity: Left: Other (heel has a 4 by 4 cm fluid filled blister, nontender, dark and discolored, no erythema, no foul smell) Neurological/Psych: Oriented x3, Normal Speech, Normal Cognition ED Course And Treatment O2 Sat by Pulse Oximetry: 98 (RA) Progress Note: Glucose POC ordered for patient. 1828: Discussed patient with podiatry. Agreed to consult. Reevaluation Time: 19:46 Reassessment Condition: Improved (seen and evaled by Pod Gilson, blister on heel unroofed, no purulent d/c, serosanguinous fluid. topical ABX and bandages only) Medical Decision Making Medical Decision Making: small fluid filled heel blister L h/o same related to leg edema and fluid retention in HD pt Disposition Doctor Will See Patient In The: Office Counseled Patient/Family Regarding: Studies Performed, Diagnosis - Disposition Disposition: HOME/ ROUTINE Disposition Time: 19:47 Condition: GOOD Forms: [facility] (Belarusian) - Clinical Impression Clinical Impression: Blister of left heel - Scribe Statement The provider has reviewed the documentation as recorded by the Scribe (Katarina Palma) All medical record entries made by the Scribe were at my direction and personally dictated by me. I have reviewed the chart and agree that the record accurately reflects my personal performance of the history, physical exam, medical decision making, and the department course for this patient. I have also personally directed, reviewed, and agree with the discharge instructions and disposition.
[2018-08-04 20:33] VITALS: BP 149/87; RESP 19; TEMP 98.9; O2SAT 99
--- NOTE | 2018-08-05 07:57 | CP.PCM.CON ---
History of Present Illness - History of Present Illness History of Present Illness: Podiatry consult note for Dr. Carreon, 63 y/o male with significant PMHx was seen and evaluated in the [facility] ED for a blister formation to his right heel. Patient states it occasionally "gets this way with fluid overload." Patient goes to dialysis on Tuesdays, , and Saturdays and went to his appointment yesterday. Patient states the blister was normal in color yesterday, however became dark and discolored today. Patient s tates he has pain with ambulation. Patient denies any numbness, weakness, or discharge. Patient's is present at bedside. Patient has had similar symptoms in the past and has seen his [facility] in [place]. Patient came to the ED today as he would not be able to see his [facility] over the weekend. PMHX: Anemia, CAD (ATHEROSCLEROSIS), CHF, CVA (with residual mild gait instability), Diabetes (NIDDM), HTN, Hypercholesterolemia, Pneumonia, End Stage Renal Disease (AV SHUNT, DIALYSIS ()), Chronic Kidney Disease, Seizures, TIA Surgical History: Coronary Stent (X2) Review of Systems - Review of Systems All systems: reviewed and no additional remarkable complaints except Review of Systems: As per HPI Past Patient History - Tetanus Immunizations Tetanus Immunization: Unknown - Past Medical History & Family History Past Medical History?: Yes - Past Social History Smoking Status: Former Smoker - CARDIAC Hx Congestive Heart Failure: Yes Hx Hypercholesterolemia: Yes Hx Hypertension: Yes - PULMONARY Hx Pneumonia: Yes - NEUROLOGICAL Hx Seizures: Yes Hx Transient Ischemic Attacks (TIA): Yes - HEENT Hx HEENT Problems: Yes Hx Blind: Yes (left eye) Hx Glaucoma: Yes (LEFT EYE) - RENAL Hx Chronic Kidney Disease: Yes Hx Kidney Stones: No - ENDOCRINE/METABOLIC Hx Endocrine Disorders: Yes Hx Diabetes Mellitus Type 2: Yes - HEMATOLOGICAL/ONCOLOGICAL Hx Anemia: Yes - INTEGUMENTARY Hx Dermatological Problems: No - MUSCULOSKELETAL/RHEUMATOLOGICAL Hx Musculoskeletal Disorders: Yes Hx Falls: Yes Hx Gout: Yes - GASTROINTESTINAL Hx Gastrointestinal Disorders: No - GENITOURINARY/GYNECOLOGICAL Hx Genitourinary Disorders: No - PSYCHIATRIC Hx Substance Use: No - SURGICAL HISTORY Hx Coronary Stent: Yes (X2) - ANESTHESIA Hx Anesthesia: Yes Hx Anesthesia Reactions: No Hx Malignant Hyperthermia: No Meds Allergies/Adverse Reactions: Allergies Allergy/AdvReac Type Severity Reaction Status Date / Time No Known Allergies Allergy Verified 08/04/18 17:55 Physical Exam - Constitutional Appears: Well, Non-toxic, No Acute Distress - Head Exam Head Exam: ATRAUMATIC, NORMOCEPHALIC - Extremities Exam Additional comments: Bilateral Lower Extremity Exam VASC: DP and PT faintly palpable, CFT less than 3 seconds X 10, TG within normal limits, +2 pitting edema noted to the left and feet bilaterally NEURO: diminished sensation DERM: left heel has a 4 by 4 cm fluid filled blister, nontender, dark and discolored, no erythema, no malodor, no signs of infection, no other wounds noted ORTHO: MSK 5/5 - Neurological Exam Neurological exam: Alert, Oriented x3 - Psychiatric Exam Psychiatric exam: Normal Affect, Normal Mood Results - Vital Signs Recent Vital Signs: Last Vital Signs Temp 98.9 F 08/04/18 20:32 Pulse 70 08/04/18 17:49 Resp 19 08/04/18 20:32 BP 149/87 08/04/18 20:32 Pulse Ox 99 08/04/18 20:32 - Labs Labs: Laboratory Results - last 24 hr 08/04/18 17:57 POC Glucose (mg/dL) 145 H Assessment & Plan - Assessment and Plan (Free Text) Assessment: 63 y/o male with significant PMHx seen and evaluated for blister to left heel, likely due to fluid retention and pressure Plan: Patient seen and evaluated Plan was discussed with Dr. Carreon Chart, labs and vitals were reviewed Patient was thoroughly explained that the blister would need to be drained to prevent infection Patient and spouse both agreeable to bedside procedure, all questions and concerns were addressed Sterile field was created- #11 blade was utilized to puncture the blister and drain the fluid- about 5 cc of sero-sanguinous fluid was expressed Blister was copiously flushed with betadine-saline Betadine wet to dry was applied to dry out the area, and patient was provided with a surgical shoe, and crutches for ambulation Patient was advised to stay non-weight bearing until appointment with [facility] on Tuesday Patient's spouse advised to keep dressing clean, dry and intact, and re-inforce as needed until appointment Patient has appointment scheduled with [facility] on Tuesday Patient explained no need for PO Abx as blister was not infected Patient and agreeable with plan Patient to return to ED if any signs of infection noted along with fever, nausea, vomiting, chest pain, shortness of breath Thank you for the Podiatry consult - Date & Time Date: 08/06/18 Time: 11:44
== END 2018-08-04 20:32 | disposition home or self-care (01) ==
LOC: C.ER 17:45
DX: S90.822A Blister (nonthermal), left foot, initial encounter (principal); X58.XXXA Exposure to other specified factors, initial encounter; E11.22 Type 2 diabetes mellitus with diabetic chronic kidney disease; I12.0 Hypertensive chronic kidney disease with stage 5 chronic kidney disease or end stage renal disease; N18.6 End stage renal disease; Z99.2 Dependence on renal dialysis